=== PATIENT | female | born 1965 | race Caucasian/White ===

== ENCOUNTER 2023-11-05 14:48 | Outpatient (CLI) | payer OTHER, SELFPAY ==
--- NOTE | ~2023-11-05 | US_ITS ---
EXAMINATION: US soft tissue head and neck DATE: 11/05/2023 15:17 INDICATION: Acute lymphadenitis, unspecified. TECHNIQUE: Multiple grayscale and Doppler ultrasound images of the head and neck were obtained. COMPARISON: None FINDINGS: There are normal lymph nodes in the left neck in the patient's area of concern. IMPRESSION: 1. Normal lymph nodes in the left neck in the patient's area of concern. Reviewed, dictated and finalized at location E. [employer] ADMINISTRATOR
== END 2023-11-05 14:49 | disposition home or self-care (01) ==
DX: L04.9 Acute lymphadenitis, unspecified (principal)
CPT/HCPCS: 76536

== ENCOUNTER 2024-01-24 07:17 | Outpatient (CLI) | payer OTHER, SELFPAY ==
[2024-01-24 07:37] LABS: Hematocrit 38.1 % (35.0-49.0); Hemoglobin 11.9 g/dL (12.0-15.0); Mean Corpuscular HGB Conc 31.2 g/dL (32-36); Mean Corpuscular Hemoglobin 26.9 pg (27.0-31.0); Mean Corpuscular Volume 86.2 fL (78.0-102.0); Mean Platelet Volume 9.4 fl (9.2-11.8); Platelet Count Result 217 K/mm3 (150-420); Red Blood Count 4.42 M/mm3 (4.20-5.40); Red Cell Distribution Width 13.8 % (11.6-14.4)
[2024-01-24 08:56] LABS: Thyroid Stimulating Hormone Reflex 2.16 u/IU/mL (0.36-3.74)
[2024-01-24 08:58] LABS: Alanine Aminotransferase 30 U/L (14-59); Albumin Level 3.6 g/dL (3.4-5.0); Alkaline Phosphatase 68 U/L (46-116); Anion Gap 7 mmol/L (4-12); Aspartate Amino Transferase 21 U/L (15-37); Bilirubin,Total 0.5 mg/dL (0.00-1.00); Blood Urea Nitrogen 7 mg/dL (7-18); Calcium 8.9 mg/dL (8.5-10.1); Carbon Dioxide 29 mmol/L (21-32); Chloride 99 mmol/L (98-108); Cholesterol 200 mg/dL (0-200); Estimated Glomerular Filt Rate > 60; Glucose 97 mg/dL (70-99); HDL Direct 116 mg/dL (40-60); LDL Cholesterol Calculated 80 mg/dL (<130); Osmolality Calculated 278 mOsm/kg (285-295); Potassium 4.4 mmol/L (3.5-5.1); Sodium 135 mmol/L (136-145); Total Protein 6.1 g/dL (6.4-8.2); Triglycerides < 22 mg/dL (0-150)
[2024-01-24 10:32] LABS: Band Neutrophils Percent 0 % (0-6); Basophils Percent Manual 0 % (0-1); Eosinophils Absolute Manual 0.36 K/mm3 (0.02-0.50); Eosinophils Percent Manual 9 % (1-6); Lymphocytes Absolute Manual 1.52 K/mm3 (1.1-4.5); Lymphocytes Percent Manual 38 % (18-44); Monocytes Absolute Manual 0.52 K/mm3 (0.1-0.90); Monocytes Percent Manual 13 % (3-9); Neutrophils Percent Manual 40 % (46-73); Platelet Estimate Adequate (Adequate); Total Cells Counted 100
[2024-01-27 20:46] LABS: Vitamin D 25 Hydroxy 33 ng/mL (30-100)
== END 2024-01-24 07:18 | disposition home or self-care (01) ==
DX: Z00.00 Encounter for general adult medical examination without abnormal findings (principal); F41.9 Anxiety disorder, unspecified; F32.A Depression, unspecified; E55.9 Vitamin D deficiency, unspecified
CPT/HCPCS: 36415; 80053; 80061; 82306; 84443; 85025

== ENCOUNTER 2024-02-23 13:53 | Outpatient (CLI) | payer OTHER, SELFPAY ==
--- NOTE | ~2024-02-23 | MM_ITS ---
EXAMINATION: MM screening aliya BI w vira HISTORY: Screening mammogram TECHNIQUE: Craniocaudal and mediolateral oblique 3-D tomosynthesis images were obtained and synthetic 2-D images were generated. CAD analysis was submitted and interpreted. COMPARISON: No prior mammogram is available for comparison at this institution. BREAST PARENCHYMAL COMPOSITION: There are scattered areas of fibroglandular density. FINDINGS: There is no evidence of suspicious mass, calcification, or architectural distortion to sugg est malignancy in either breast. IMPRESSION: 1. No mammographic evidence of malignancy. 2. Recommend routine screening mammography in one year. BI-RADS Category 1: Negative Reviewed, dictated and finalized at location B.
--- NOTE | ~2024-02-23 | DEXA_ITS ---
? Bone Density Report? Name:? MAX ROBIN Patient ID:??? [id number] Age:? 58 Sex:? Female Ethnicity:? White Date of : 1965 Indication: postmenopausal; screening for osteoporosis; height loss; hysterectomy; Referring Provider: VENUS KELLY Study: Bone densitometry was performed. Exam Date: February 23, 2024 Accession number: [id number] Bone Density: Region? BMD??? T-score? Z-score?? Classification AP Spine(L1-L4)? 1.105??? 0.5?1.8? Normal Femoral Neck (Left)? 0.728?? -1.1? 0.1? Osteopenia Total Hip (Left)? 0.812?? -1.1? -0.3?Osteopenia Femoral Neck (Right)? 0.718?? -1.2? 0.0? Osteopenia Total Hip (Right)? 0.860?? -0.7? 0.1? Normal Femoral Neck Mean? 0.723?? -1.1? 0.0? Osteopenia Total Hip Mean? 0.836?? -0.9? -0.1? Normal World Health Organization criteria for BMD impression classify patients as: Normal (T-score at or above -1.0), Osteopenia (T-score between -1.0 and -2.5), or Osteoporosis (T-score at or below -2.5). 10-year Fracture Risk(1): Major Osteoporotic Fracture? 6.7% Hip Fracture? 0.4% Reported Risk Factors: [place] (), Neck BMD=0.718, BMI=26.6 (1) FRAX? Version 3.08. Fracture probability calculated for an untreated patient. Fracture probability may be lower if the patient has received treatment. Clinical Information Provided by Patient: Has used the following medications: Vitamin D, multi Has the following medical conditions: Hysterectomy Patient maximum height was 69 Menopause Age: 39 Does not regularly consume dairy products Drinks caffeinated beverages Onset of menses at age 13 Number of children 3 Missed period for more than 6 months in a row Impression: The patient has low bone mass, based on the Right Femoral Neck T- score. Discussion: BONE DENSITY IS LOW AT ONE OR MORE SKELETAL SITES. This patient's lowest T-score is low at one or more skeletal sites.? It meets the World Health Organization's (WHO) criteria for ?low bone mass?? (T-score between -1.0 and -2.5).? The patient's 10-year risk of fracture as calculated by FRAX is less than the threshold where pharmacological therapy is recommended by the National Osteoporosis Foundation (NOF).? However, all treatment decisions require clinical judgment and consideration of individual patient factors, including patient preferences, comorbidities, previous drug use, risk factors not captured in the FRAX model (e.g., frailty, falls, vitamin D deficiency, increased bone turnover, interval significant decline in bone density) and possible under or overestimation of fracture risk by FRAX. The patient should follow a healthful lifestyle (good nutrition with adequate calcium and vitamin D, and appropriate weight-bearing exercise). Follow-Up: Consider repeating this study in 2 to 3 years to reassess this patient's status, or sooner if there is some new clinical indication. Reported by: Dr. Kyle Odonnell
--- NOTE | ~2024-02-23 | XR_ITS ---
EXAMINATION: XR chest 2V Exam Date/Time: 02/23/2024 14:35 CDT HISTORY: DR hears wheezing, cough/SOBX6 weeks, [id number] Comparison: None. RESULT: Lines, tubes, and devices: Surgical clips over the right upper quadrant and GE junction. Lungs and pleura: Clear. Cardiomediastinal silhouette: Unremarkable. Other: No acute osseous or upper abdominal finding. IMPRESSION: No acute cardiopulmonary process. Reviewed, dictated and finalized at location K.
[2024-02-23 14:45] LABS: Basophils Absolute Auto 0.06 K/mm3 (0.00-0.10); Eosinophils Absolute Auto 0.52 K/mm3 (0.02-0.50); Eosinophils Percent Auto 8.8 % (1.0-6.0); Hematocrit 37.9 % (35.0-49.0); Hemoglobin 11.9 g/dL (12.0-15.0); Immature Granulocyte Absolute 0.02 K/mm3 (0.00-0.00); Immature Granulocyte Percent A 0.3 % (0.0-0.0); Immature Reticulocyte Fraction 2.9 % (2.0-16.52); Lymphocytes Absolute Auto 1.82 K/mm3 (1.10-4.50); Lymphocytes Percent Auto 30.8 % (18.0-42.0); Mean Corpuscular HGB Conc 31.4 g/dL (32-36); Mean Corpuscular Hemoglobin 26.6 pg (27.0-31.0); Mean Corpuscular Volume 84.8 fL (78.0-102.0); Mean Platelet Volume 9.4 fl (9.2-11.8); Monocytes Absolute Auto 0.62 K/mm3 (0.10-0.90); Monocytes Percent Auto 10.5 % (2.0-11.0); Neutrophils Absolute Auto 2.87 K/mm3 (1.70-7.20); Neutrophils Percent Auto 48.6 % (50.0-70.0); Platelet Count Result 240 K/mm3 (150-420); Red Blood Count 4.47 M/mm3 (4.20-5.40); Red Cell Distribution Width 13.7 % (11.6-14.4); Reticulocyte Hemoglobin Conten 31.9 pg (28.0-35.0); Reticulocyte Percent 0.94 % (0.50-1.50); Reticulocytes Absolute 0.04 M/mm3 (0.02-0.10); White Blood Count 5.9 K/mm3 (4.8-10.8)
[2024-02-23 15:35] LABS: Rheumatoid Factor Screen Negative (Negative)
[2024-02-23 15:52] LABS: Ferritin 11 ng/mL (8-252); Iron 54 ug/dL (50-170); Magnesium 1.9 mg/dL (1.8-2.4); Vitamin B12 338 pg/mL (193-986)
[2024-02-23 16:00] LABS: CRP < 0.5 mg/dL (0.0-0.9)
[2024-02-23 17:03] LABS: Erythrocyte Sedimentation Rate 8 mm/hr (0-20)
[2024-02-24 21:03] LABS: HLA B27 NEGATIVE (NEGATIVE)
[2024-02-25 13:13] LABS: Aldolase 4.3 U/L (< OR = 8.1)
[2024-02-25 14:08] LABS: Anti Cyclic Citrullinated Pept <16 UNITS
[2024-02-25 16:39] LABS: Red Blood Cell Folate 577 ng/mL RBC (>280)
== END 2024-02-23 13:54 | disposition home or self-care (01) ==
LOC: CHSIMG 13:58
PROVIDERS: PCP Internal Medicine; Visit Provider Internal Medicine
DX: D64.0 Hereditary sideroblastic anemia (principal); M25.50 Pain in unspecified joint; R05.9 Cough, unspecified; R06.02 Shortness of breath; Z87.891 Personal history of nicotine dependence; Z12.31 Encounter for screening mammogram for malignant neoplasm of breast; Z78.0 Asymptomatic menopausal state; M85.89 Other specified disorders of bone density and structure, multiple sites
CPT/HCPCS: 36415; 71046; 77063; 77067; 77080; 82085; 82607; 82728; 82747; 83540; 83735; 85025; 85046; 85652; 86038; 86039; 86140; 86200; 86430; 86812

== ENCOUNTER 2024-06-08 01:04 | Day surgery (SDC) | payer OTHER, SELFPAY ==
[2024-05-05 09:58] VITALS: BMI 25.9
--- NOTE | 2024-05-06 09:36 | PC.NURSE ---
Patient states she is currently have cardiac workup due to chest pain- feels like rubberband around chest . Stress test sched. for 05/24/2024 with colonoscopy sched. on 05/25/2024. Spoke with Yoon Grant in Dr. Gonsales's office that pt will need to be rescheduled after cardiac cleared.
[2024-06-01 12:54] VITALS: BMI 25.9
--- NOTE | 2024-06-01 12:56 | PC.NURSE ---
Patient states insurance would not approve cardiac stress test. She say Dr. Bing Alvares 05/31/2024 and she states no further testing needed and she is cleared for procedure.
[2024-06-08 11:26] VITALS: BP 150/73; PULSE 63; RESP 18; TEMP 36.1; O2SAT 100
[2024-06-08] MEDS: LACTATED RINGERS 1,000 ML 150 ML IV CONT (11:31)
--- NOTE | 2024-06-08 11:36 | WPDANESEPPF ---
Anes - Initial Pre Proc Eval Procedure: Operation Date: 06/08/24 13:30 Proposed Procedures p Esophagogastroduodenoscopy & Colonoscopy - Shawn Gonsales DO Date/Time: 06/08/24 11:36 Surgeon: Shawn Gonsales DO Pre Op Diagnosis: Screening for malignant neoplasm of colon, GERD Patient Data Age: 58 Gender: F Height: 1.73 m Weight: 77 kg Last Vital Signs Temp 97.0 F L 06/08/24 11:26 Pulse 63 06/08/24 11:26 Resp 18 06/08/24 11:26 BP 150/73 H 06/08/24 11:26 Pulse Ox 100 06/08/24 11:26 O2 Del Method Room Air 06/08/24 11:26 Allergies Allergy/AdvReac Type Severity Reaction Status Date / Time fexofenadine [From Promise-D] Allergy Severe Anaphylaxis Verified 06/08/24 11:25 methotrexate Allergy Severe Hives Verified 06/08/24 11:25 moxifloxacin [From Avelox] Allergy Severe Anaphylaxis Verified 06/08/24 11:25 pseudoephedrine Allergy Severe Anaphylaxis Verified 06/08/24 11:25 [From Promise-D] cephalexin [From Keflex] AdvReac Severe Gastrointestinal Verified 06/08/24 11:25 Upset Sutures AdvReac Severe Other Verified 06/08/24 11:25 duloxetine AdvReac Intermediate Other Verified 06/08/24 11:25 Home Medications Medication Instructions Recorded Confirmed Type aspirin 81 mg tablet,delayed 81 mg PO DAILY 05/05/24 06/08/24 History release bupropion HCl 300 mg 24 hr tablet, 300 mg PO DAILY 05/05/24 06/08/24 History extended release cholecalciferol (vitamin D3) 25 25 mcg PO DAILY 05/05/24 06/08/24 History mcg (1,000 unit) capsule (Vitamin D3) estradiol 0.01% (0.1 mg/gram) 1 g vaginal 2XW 05/05/24 06/08/24 History vaginal cream hydrocodone 5 mg-acetaminophen 325 1 tablet PO Q8H PRN Pain 05/05/24 06/08/24 History mg tablet lisinopril 10 1 tablet PO DAILY 05/05/24 06/08/24 History mg-hydrochlorothiazide 12.5 mg tablet magnesium oxide 400 mg PO DAILY 05/05/24 06/08/24 History multivitamin 1 tablet PO DAILY 05/05/24 06/08/24 History omeprazole 20 mg capsule,delayed 20 mg PO BID 05/05/24 06/08/24 History release ropinirole 2 mg tablet 2 mg PO HS 05/05/24 06/08/24 History vitamin B complex 0.5 tablet PO DAILY 05/05/24 06/08/24 History Patient hx anesthesia problems: none Family hx anesthesia problems: none Results Review: All pre-operative results and documents have been reviewed as part of the pre-operative evaluation. [facility] Family History Family History (Updated 06/16/14 @ 07:13 by DOCTOR UNKNOWN) Father Carcinoma of colon Family history of primary malignant neoplasm of liver Mother Family history of heart disease in male family member before age 55 Other Family history of coronary artery disease Hypertension Social History Social History Smoking status: Current some day smoker Tobacco type: e-cigarettes/vaping Second hand tobacco smoke exposure: Yes Alcohol intake: current Substance use: never Substance use type: does not use Living arrangements: with family Spiritual care concerns: No Anes - Eval Final PreProcedure Day of Procedure 06/08/24 11:36 Patient weight: normal Heart: regular rate and rhythm Lungs: clear to auscultation Airway: Mallampati scale class II Neurological: alert and oriented Last oral intake: >/= 8 hours ASA classification: III Emergent: no Anesthetic plan: proceed Anesthesia type and monitoring: general GIVS and standard monitoring Results Review: All pre-operative results and documents have been reviewed as part of the pre-operative evaluation. Informed Consent: The patient's anesthetic plan and its attendant risks and benefits were discussed with the patient/family/POA. Questions were solicited and answers provided to the satisfaction of the patient/family/POA.
--- NOTE | 2024-06-08 11:52 | PM.IMHP ---
H&P: HPI History of Present Illness Date/Time: 06/08/24 11:52 Chief Complaint: gastroesophageal reflux disease, family history of colon cancer Narrative: this is a 58-year-old woman who presents for EGD and colonoscopy. She has been experiencing some acid reflux and heartburn issues. She is on omeprazole but is not having much benefit with this. She denies any hematemesis or any melena. She does have a history of gastric bypass for weight loss. Patient also has a family history of colon cancer in her father. She has polyps removed in the past. It has been about 3 years since her last colonoscopy. Review of Systems Review of Systems: All systems reviewed & are unremarkable except as noted in HPI and below Constitutional: Constitutional: Denies chills, Denies fever(s), Denies headache(s) and Denies weight loss Eyes: Eyes: Denies change in vision ENT: Denies dizziness, Denies headache(s), Denies neck mass and Denies throat swelling Cardiovascular: Cardiovascular: Denies chest pain, Denies lightheadedness and Denies dyspnea Respiratory: Respiratory: Denies cough, Denies dyspnea and Denies wheezing Gastrointestinal: Gastrointestinal: Denies abdominal pain, Denies change in bowel habits, Denies nausea and Denies vomiting Genitourinary: Genitourinary: Denies hematuria and Denies dysuria Musculoskeletal: Musculoskeletal: Reports as per HPI Integumentary/Breasts: Skin/Breast: Reports as per HPI Neurologic: Denies dizziness and Denies headache(s) Allergic/Immunologic: Allergic/Immunologic: Denies throat swelling and Denies wheezing [facility] Family History Family History (Updated 06/16/14 @ 07:13 by DOCTOR UNKNOWN) Father Carcinoma of colon Family history of primary malignant neoplasm of liver Mother Family history of heart disease in male family member before age 55 Other Family history of coronary artery disease Hypertension Social History Social History Smoking status: Current some day smoker Tobacco type: e-cigarettes/vaping Second hand tobacco smoke exposure: Yes Alcohol intake: current Substance use: never Substance use type: does not use Living arrangements: with family Spiritual care concerns: No Meds Home Medications and Allergies Home Medications Medication Instructions Recorded Confirmed Type aspirin 81 mg tablet,delayed 81 mg PO DAILY 05/05/24 06/08/24 History release bupropion HCl 300 mg 24 hr tablet, 300 mg PO DAILY 05/05/24 06/08/24 History extended release cholecalciferol (vitamin D3) 25 25 mcg PO DAILY 05/05/24 06/08/24 History mcg (1,000 unit) capsule (Vitamin D3) estradiol 0.01% (0.1 mg/gram) 1 g vaginal 2XW 05/05/24 06/08/24 History vaginal cream hydrocodone 5 mg-acetaminophen 325 1 tablet PO Q8H PRN Pain 05/05/24 06/08/24 History mg tablet lisinopril 10 1 tablet PO DAILY 05/05/24 06/08/24 History mg-hydrochlorothiazide 12.5 mg tablet magnesium oxide 400 mg PO DAILY 05/05/24 06/08/24 History multivitamin 1 tablet PO DAILY 05/05/24 06/08/24 History omeprazole 20 mg capsule,delayed 20 mg PO BID 05/05/24 06/08/24 History release ropinirole 2 mg tablet 2 mg PO HS 05/05/24 06/08/24 History vitamin B complex 0.5 tablet PO DAILY 05/05/24 06/08/24 History Allergies Allergy/AdvReac Type Severity Reaction Status Date / Time fexofenadine [From Promise-D] Allergy Severe Anaphylaxis Verified 06/08/24 11:25 methotrexate Allergy Severe Hives Verified 06/08/24 11:25 moxifloxacin [From Avelox] Allergy Severe Anaphylaxis Verified 06/08/24 11:25 pseudoephedrine Allergy Severe Anaphylaxis Verified 06/08/24 11:25 [From Promise-D] cephalexin [From Keflex] AdvReac Severe Gastrointestinal Verified 06/08/24 11:25 Upset Sutures AdvReac Severe Other Verified 06/08/24 11:25 duloxetine AdvReac Intermediate Other Verified 06/08/24 11:25 Vital Signs Vital Signs - 24 hr 06/08/24 11:26 Temperature 36.1 C L Pulse Rate 63 Respir
--- NOTE | 2024-06-08 12:11 | SUR.OPER ---
EGD [id number]. Colonoscopy start 1211.
[2024-06-08 12:36] VITALS: BP 145/80; PULSE 62; RESP 12; O2SAT 100
[2024-06-08 12:46] VITALS: BP 157/88; PULSE 63; RESP 14; O2SAT 100
[2024-06-08 12:55] VITALS: BP 148/83; PULSE 68; RESP 18; O2SAT 100
[2024-06-08 13:05] LABS: HPYLORIRESULT Negative
== END 2024-06-08 13:13 | disposition home or self-care (01) ==
PROVIDERS: PCP Internal Medicine; Visit Provider Surgery
PROC: 0DJ08ZZ Inspection of Upper Intestinal Tract, Via Natural or Artificial Opening Endoscopic (ICD-10-PCS; CPT 43235; principal; 2024-06-08 13:30)
DX: Z12.11 Encounter for screening for malignant neoplasm of colon (principal); Q27.33 Arteriovenous malformation of digestive system vessel; K21.9 Gastro-esophageal reflux disease without esophagitis; F17.290 Nicotine dependence, other tobacco product, uncomplicated; Z79.82 Long term (current) use of aspirin; Z79.891 Long term (current) use of opiate analgesic; Z98.890 Other specified postprocedural states; Z98.84 Bariatric surgery status; Z86.010 Personal history of colon polyps; Z80.0 Family history of malignant neoplasm of digestive organs; Z82.49 Family history of ischemic heart disease and other diseases of the circulatory system
CPT/HCPCS: 43239; 45380; 87081; 88305; J2704; J7120

== ENCOUNTER 2024-06-17 07:09 | Outpatient (CLI) | payer OTHER, SELFPAY ==
--- NOTE | ~2024-06-17 | MR_ITS ---
MRI of the lumbar spine Clinical History: Back pain Technique: Axial T2-weighted images, and sagittal T1-weighted, T2-weighted, and and T2 fat-sat images were acquired. Findings: No fracture seen. There is 3 mm anterolisthesis of L4 over L5. No suspicious bone marrow si gnal abnormality seen. At L1-L2, there is no disc bulge or herniation. No spinal canal stenosis or neural foraminal narrowin g. At L2-L3, there is mild disc desiccation with minimal disc bulge. There is minimal facet arthropathy. No central canal stenosis. There is mild bilateral neural foraminal narrowing. At L3-L4, there is diffuse disc bulge and moderate to severe facet arthropathy. There is moderate to severe spinal canal stenosis/thecal sac compression. There is moderate to advanced bilateral neural f oraminal narrowing. At L4-L5, diffuse disc bulge and severe facet arthropathy contribute to severe spinal canal stenosis/ thecal sac compression. There is moderate to advanced left neural foraminal narrowing. There is mild to moderate right neural foraminal narrowing. At L5-S1, there is minimal disc bulge. There is moderate facet arthropathy. No central canal stenosis . There is mild left neural foraminal narrowing. Right neural foramen preserved. Paravertebral soft tissues are unremarkable. Impression: Severe degenerative spondylosis at L3-L4 and L4-L5, as detailed above. Additional mild degenerative changes, as above. 3 mm anterolisthesis of L4 over L5. Reviewed, dictated and finalized at [facility]. Impression: Severe degenerative spondylosis at L3-L4 and L4-L5, as detailed above. Additional mild degenerative changes, as above. 3 mm anterolisthesis of L4 over L5.
== END 2024-06-17 07:10 | disposition home or self-care (01) ==
LOC: CHSIMG 07:11
PROVIDERS: PCP Internal Medicine; Visit Provider Internal Medicine
DX: M54.50 Low back pain, unspecified (principal); M43.06 Spondylolysis, lumbar region
CPT/HCPCS: 72148

== ENCOUNTER 2024-09-24 07:12 | Outpatient (CLI) | payer OTHER, SELFPAY ==
[2024-09-24 08:15] LABS: Anion Gap 8 mmol/L (4-12); Blood Urea Nitrogen 13 mg/dL (7-18); Calcium 9.1 mg/dL (8.5-10.1); Carbon Dioxide 28 mmol/L (21-32); Chloride 100 mmol/L (98-108); Estimated Glomerular Filt Rate > 60; Glucose 90 mg/dL (70-99); Osmolality Calculated 282 mOsm/kg (285-295); Potassium 4.4 mmol/L (3.5-5.1); Sodium 136 mmol/L (136-145)
== END 2024-09-24 07:13 | disposition home or self-care (01) ==
PROVIDERS: PCP Internal Medicine; Visit Provider Internal Medicine
DX: I10 Essential (primary) hypertension (principal)
CPT/HCPCS: 36415; 80048

== ENCOUNTER 2024-09-30 16:12 | Outpatient (CLI) | payer OTHER, SELFPAY ==
--- NOTE | ~2024-09-30 | XR_ITS ---
EXAMINATION: XR chest 2V DATE: 09/30/2024 16:31 INDICATION: Fever. Headache. TECHNIQUE: Frontal and lateral views of the chest were obtained. COMPARISON: Chest 2 views 02/23/2024 FINDINGS: There is no pneumonia, pleural effusion, or pneumothorax. The heart size is normal. IMPRESSION: 1. No acute cardiopulmonary disease. Reviewed, dictated and finalized at location A. TOR MECH[employer]IC
[2024-09-30 16:27] LABS: Basophils Absolute Auto 0.05 K/mm3 (0.00-0.10); Basophils Percent Auto 0.6 % (0.0-1.0); Eosinophils Percent Auto 5.6 % (1.0-6.0); Hematocrit 34.2 % (35.0-49.0); Hemoglobin 11.3 g/dL (12.0-15.0); Immature Granulocyte Absolute 0.04 K/mm3 (0.00-0.00); Immature Granulocyte Percent A 0.4 % (0.0-0.0); Lymphocytes Absolute Auto 2.26 K/mm3 (1.10-4.50); Lymphocytes Percent Auto 25.2 % (18.0-42.0); Mean Corpuscular Hemoglobin 27.3 pg (27.0-31.0); Mean Corpuscular Volume 82.6 fL (78.0-102.0); Mean Platelet Volume 9.1 fl (9.2-11.8); Monocytes Absolute Auto 0.89 K/mm3 (0.10-0.90); Monocytes Percent Auto 9.9 % (2.0-11.0); Neutrophils Absolute Auto 5.23 K/mm3 (1.70-7.20); Neutrophils Percent Auto 58.3 % (50.0-70.0); Platelet Count Result 216 K/mm3 (150-420); Red Blood Count 4.14 M/mm3 (4.20-5.40); Red Cell Distribution Width 14.5 % (11.6-14.4)
[2024-09-30 17:03] LABS: Alanine Aminotransferase 30 U/L (14-59); Albumin Level 3.4 g/dL (3.4-5.0); Alkaline Phosphatase 93 U/L (46-116); Anion Gap 6 mmol/L (4-12); Aspartate Amino Transferase 19 U/L (15-37); Bilirubin,Total 0.3 mg/dL (0.00-1.00); Blood Urea Nitrogen 10 mg/dL (7-18); Calcium 8.8 mg/dL (8.5-10.1); Carbon Dioxide 30 mmol/L (21-32); Chloride 99 mmol/L (98-108); Estimated Glomerular Filt Rate > 60; Glucose 93 mg/dL (70-99); Osmolality Calculated 279 mOsm/kg (285-295); Potassium 4.3 mmol/L (3.5-5.1); Sodium 135 mmol/L (136-145); Total Protein 6.4 g/dL (6.4-8.2)
== END 2024-09-30 16:13 | disposition home or self-care (01) ==
PROVIDERS: PCP Internal Medicine; Visit Provider Internal Medicine
DX: R05.9 Cough, unspecified (principal); R50.9 Fever, unspecified
CPT/HCPCS: 36415; 71046; 80053; 85025

== ENCOUNTER 2025-01-05 06:37 | Outpatient (CLI) | payer OTHER, SELFPAY ==
--- OUTSIDE RECORDS SUMMARY | 2025-01-05 06:41 | XMS_ITS | Clinical Summary ---
Author Organization [facility] Address [facility] [place] [address] Care Team Providers Care Mixer Tender Name Role Phone Scott Guerrero MD Unavailable Bing Alvares MD Unavailable Lynette Ponce MD Primary Care Provider [phone] Allergies Active Allergy Reactions Criticality Noted Date Comments Cephalexin Nausea and Vomiting Low 06/24/2012 Codeine Nausea and Vomiting 06/24/2012 Only tylenol with codeine bothers her Duloxetine Hcl Other (see comment) 08/17/2019 Elevated liver enzymes Fexofenadine Anaphylaxis,Angioedema High 03/19/2018 Took with avalox, not sure which med caused the problems Methotrexate Rash Medium 06/18/2018 Moxifloxacin Anaphylaxis,Angioedema High 06/24/2012 With moe, not sure which med caused problems Sulfa Antibiotics Nausea Only Low 06/24/2012 Only the pill form Suture Material Other (see comment) 01/15/2019 Vicryl-09/2018 surgery-left foot wound dehisced Medications Zinc 50 MG Cap Take 1 tablet by mouth daily. Active Cholecalciferol (VITAMIN D3) 25 MCG (1000 UT) Cap Take 1 tablet by mouth daily. Active B complex-C Cap capsule Take 1 capsule by mouth daily. Active MULTIPLE VITAMIN OR Active estradiol (ESTRACE) 0.1 MG/GM vaginal creamIndication s:H/O ongoing treatment with hormonal therapy INSERT 1 GRAM VAGINALLY DIRECTED TWICE WEEKLY 43 g 3 Active Magnesium 400 MG Cap Take by mouth nightly. Active HYDROcodone-chalo taminophen (NORCO) 5-325 MG tabletIndicatio ns:Chronic Pain,low back pain and neck pain Take 1 tablet by mouth every 8 (eight) hours as needed for Pain. Indications: Chronic Pain, low back pain and neck pain 40 tablet 4 Active rOPINIRole (REQUIP) 0.5 MG tabletIndicatio ns:Restless leg Take 1 tablet (0.5 mg total) by mouth daily. 90 tablet 4 Active omeprazole (PRILOSEC) 20 MG capsule Take 1 capsule (20 mg total) by mouth 2 (two) times a day. Active buPROPion XL (WELLBUTRIN XL) 300 MG 24 hr tablet Take 1 tablet (300 mg total) by mouth daily. Active clonazePAM (KLONOPIN) 1 MG tablet Take 1 tablet (1 mg total) by mouth 3 (three) times daily. 4 Active hydroCHLOROthia zide (MICROZIDE) 12.5 MG tablet Take 1 tablet (12.5 mg total) by mouth every morning. 90 tablet 1 4 Active Active Problems Problem Noted Date Diagnosed Date Elevated liver enzymes 02/22/2019 Rheumatoid factor positive 03/26/2018 Chronic back pain 03/19/2018 History of gastric bypass 03/19/2018 Hypertension 03/19/2018 Pain in joint 03/19/2018 Arthritis 03/19/2018 Skin cancer 03/19/2018 Cystocele, midline 03/01/2015 Overview (08/20/2019): Date Onset: 03/01/2015 Rectocele 03/01/2015 Overview (08/20/2019): Date Onset: 03/01/2015 Uterovaginal prolapse, incomplete 03/01/2015 Overview (08/20/2019): Date Onset: 03/01/2015 Peripheral neuropathy 06/25/2012 Gastro-esophageal reflux disease without esophag itis 06/24/2012 Migraine 06/24/2012 Polycystic ovarian syndrome 06/24/2012 Resolved Problems Problem Noted Date Diagnosed Date Resolved Date Episode of recurrent major d epressive disorder 08/20/2018 10/25/2022 Anxiety and depression 03/19/201810/25 Aching leg syndrome 03/19/2018 10/25/19 23 Intrinsic urethral sphincter deficiency 03/08/2015 03/14/2022 Overview (09/08/2018): Date Onset: 03/08/2015 Dyspareunia 03/01/2015 10/25/2022 Overview (08/20/2019): Date Onset: 03/01/2015 Stress incontinence 03/01/2015 03/14/20 22 Overview (08/20/2019): Date Onset: 03/01/2015 Fibromyalgia 06/25/2012 08/13/2021 ADHD 06/24/2012 12/25/2021 Immunizations Name Administration Dates Next Due Dtap (Generic) 11/17/2019 Fluzone 6 Months+ Quad (0.5 mL Prefilled Syringe) 07/12/2021 Hepatitis A (Generic) 05/21/2009,12/12/2006,0811/2005 Hepatitis B 04/18/2021 Hepatitis B (Generic: Adult) 04/26/2014,03/11/20 06 Influenza 3 yrs + with Prese rvative (Fluzone) 07/27/2020 Influenza Adult (Generic) 08/17/2023,07/26/2022, 07/20/2019 MMR 02/23/2009 MODERNA COVID-19 (COST CONTROL SUPERVISOR DENNIS JOAQUINA), MRNA, LNP-S, PF, 50 MCG/ 0.25 ML DOSE 05/09/2022 Tdap (Adacel) 11/17/2019,04/26/2014 Typhoid 12/20/2008 Varicella (Varivax) 06/12/2021,05/11/2021 Family History Medical History Relation Comments No Known Problems Daughter 1 No Known Problems Daughter 2 Cancer Father Aneurysm Maternal Grandmother Diabetes Mother Heart Disease Mother Open Heart Mother Stent Cardiac Mother Stroke Mother Aneurysm Sister aortic aneurysm No Known Problems Son Relation Status Comments Daughter 1 Alive Daughter 2 Alive Father (Age 63) Maternal Grandmother Alive Mother Alive Sister Alive Son Alive Social History Tobacco Use Types Packs/Day Years Used Date Smoking Tobacco: Former Cigarettes 2 2016 Smokeless Tobacco: Never Tobacco Cessation:Counseling Given: Not Answered Comments:no longer a smoker Alcohol Use Standard Drinks/Week Comments No 0 (1 standard drink = 0.6 oz pure alcohol) drank a lot 17 years ago;stopped approx 2001 AUDIT-C Answer Date Recorded Frequency of Alcohol Consumption Never 09/07/2018 Average Number of Drinks Not on file 018 Frequency of Binge Drinking Not on file 08/20 PHQ-2 Answer Date Recorded Patient Health Questionnaire-2 Score 0 10/07/2023 Comments No Sex and Gender Information Value Date Recorded Sex Assigned at Not on file Legal Sex Female 4:43 PM CDT Gender Identity Not on file Sexual Orientation Not on file Occupation Industry Job Start Date Job End Date Not on file Not on file Not on file Not on file Last Filed Vital Signs Vital Sign Reading Time Taken Comments Blood Pressure 121/77 05/31/2024 2:35 PM CDT Pulse 68 05/31/2024 2:35 PM CDT Temperature 36.6 C (97.9 F) 10/07/2023 8:34 AM M[employer]IE [employer]OT [employer]ER[employer] Respiratory Rate 12 05/31/2024 2:35 PM CDT Oxygen Saturation 100% 05/31/2024 2:35 PM CDT Inhaled Oxygen Concentration - - Weight 76.2 kg (168 lb) 05/31/2024 2:35 PM CDT Height 170.2 cm (5' 7 ) 05/31/2024 2:35 PM CDT Body Mass Index 26.31 05/31/2024 2:35 PM CDT Plan of Treatment Upcoming Encounters Date Type Department Care Team (Late st Contact Info) Description 06/13/2025 10:45 AM CDT Office Visit [facility] [place] [address] Bing Alvares MD [address] [place] [address] Health Maintenance Due Date Last Done Comments Colorectal Cancer Screening Colonoscopy (10 Years) 1966 Mammogram Screening 2006 Zoster Vaccines (1 of 2) 08/07/2021 Annual Physical 03/02/2022 03/02/2021 COVID-19 Vaccine ( season) 2024 07/26/2022, 05/09/2022, 03/23/2021 Influenza Adult (#1) 2024 08/17/2023, 07/26/2022, 07/12/2021, Additional history exists PHQ-2 (Physician [place]) 10/20/2024 10/07/2023 DTaP, Tdap and Td Vaccines (4 - Td or Tdap) 11/17/2029 11/17/2019, 11/17/2019, 04/26/2014 Hepatitis C 05/13/2053 Postponed from 1984 (Patient Refused) Hepatitis B Vaccines Completed 04/18/2021, 04/26/2014, 03/11/2006 Meningococcal B Vaccine Aged Out No l onger eligible based on patient's age to complete this topic Meningococcal Vaccine Aged Out No leon terrie eligible based on patient's age to complete this topic Pneumococcal Vaccine: Pediatrics (0 to 5 Years) and At-Risk Patients (6 to 64 Years) Aged Out No longer eligible based on patient's age to complete this topic RSV Immunizations Under 20 Months Aged Out No longer eligible based on patient's age to complete this topic Medical Devices Implanted Type Area Timber Harvester Operator Device Identifier Shelf Expiration Date Model / Serial / Lot Wire Abhilash Magic Pins Orthofix 1.2 X 7mm - [id number] Implanted:Qty: 1 on 09/23/2018 by Tressa Traylor DPM at [facility] [place] Left: Foot ORTHOFIX [id number] / / N/A Description:Verified by Screw Acutrak 2 Mini 20.0mm - [id number] Implanted:Qty: 1 on 09/23/2018 by Tressa Traylor DPM at [facility] Left: Foot [employer] 05/20/2025 AT2-[id number] / / [id number] Description:Verified by Wire Abhilash Magic Pins Orthofix 1.6 X 17 - [id number] Implanted:Qty: 1 on 09/23/2018 by Tressa Traylor DPM at [facility] Left: Foot ORTHOFIX [id number] / / N/A Description:Verified by Wire Abhilash Magic Pins Orthofix 1.6 X 11 - [id number] Implanted:Qty: 1 on 01/20/2019 by Tressa Traylor DPM at [facility] Right: Foot ORTHOFIX [id number] / / N/A Description:Verified by Screw Acutrak 2 Mini 18.0mm - [id number] Implanted:Qty: 1 on 01/20/2019 by Tressa Traylor DPM at [facility] Right: Foot [employer] 08/03/2025 [id number] / / [id number] Description:Verified by Wire Abhilash Magic Pins Orthofix 1.6 X 17 - [id number] Implanted:Qty: 1 on 01/20/2019 by Tressa Traylor DPM at [facility] Right: Foot ORTHOFIX [id number] / / N/A Description:Verified by Explanted Type Area Timber Harvester Operator Device Identifier Shelf Expiration Date Model / Serial / Lot .045mm Mini Guidewire Explanted:Qty: 2 on 09/23/2018 by Tressa Traylor DPM at [facility] Left: Foot [id number] / / N/A Description:Used not implant ed Sm Cannulated Drill Tip Explanted:Qty: 1 on 09/23/2018 by Tressa Traylor DPM at [facility] Left: Foot [id number] / / N/A Description:Used not implant ed K Wire Lionel 6 In X .045 In - [id number] Explanted:Qty: 1 on 01/20/2019 by Tressa Traylor DPM at [facility] Right: Foot [employer] 05/19/2028 [id number] / / [id number] Description:Used not implant ed .045 Mini Guidewire Explanted:Qty: 1 on 01/20/2019 by Tressa Traylor DPM at [facility] Right: Foot [id number] / / N/A Description:Used not implant [id number] Mini Drill Tip Explanted:Qty: 1 on 01/20/2019 by Tressa Traylor DPM at [facility] Right: Foot [id number] / / N/A Description:Used not implant ed Advance Directives Documents on File Type Date Recorded Patient Manager Commodities Expl anation Advance Directives and Living Will 04/04/2015 12:00 AM ADVANCED DIRECTIVES Advance Directives and Living Will 02/09/2015 12:00 AM ADVANCED DIRECTIVES Advance Directives and Living Will 03/08/2013 12:00 AM ADVANCED DIRECTIVES Advance Directives and Living Will 06/30/2012 12:00 AM ADVANCED DIRECTIVES Care Teams Mixer Tender Relationship Specialty Start Date End Date Lynette Ponce MD [address] [place] [phone] PCP - General 03/29/24 Scott Guerrero MD Consulting Physician GASTROENTEROLOGY 03/04/19 Bing Alvares MD [address] [place] [address] Consulting Physician CARDIOVASCULAR DISEASE 03/22/24
--- OUTSIDE RECORDS SUMMARY | 2025-01-05 06:41 | XMS_ITS | Encounter Summary ---
Author Organization [facility] Address [address] [place] [address] Care Team Providers Care Circulation Crew Leader Name Role Phone Ivette [place] NP Unavailable [phone] Fabian Palacios MD Unavailable Unavailable Scott Guerrero MD Unavailable Nerissa [place] MD Unavailable [phone] [address] [facility] Unavailable [phone] Lynette Ponce MD Primary Care Provider [phone] Bing Alvares MD Unavailable Lynette Ponce MD Primary Care Provider [phone] Encounter Details Date Type Department Care Team (Late st Contact Info) Description 01/29/2019 MyChart Message Enc [facility] MultiSpecialty Care [facility] [address] [place] [address] Melissa Watson, [place] [address] [place] [address] Other Social History Tobacco Use Types Packs/Day Years Used Date Smoking Tobacco: Former Cigarettes 2012 Smokeless Tobacco: Never Alcohol Use Standard Drinks/Week Comments No 0 (1 standard drink = 0.6 oz pure alcohol) drank a lot 17 years ago;stopped approx 2001 AUDIT-C Answer Date Recorded Frequency of Alcohol Consumption Never 09/07/2018 Average Number of Drinks Not on file 018 Frequency of Binge Drinking Not on file 08/20 PHQ-2 Answer Date Recorded PHQ-2 Score 2 01/15/2019 Comments No Sex and Gender Information Value Date Recorded Sex Assigned at Not on file Legal Sex Female 4:43 PM CDT Gender Identity Not on file Sexual Orientation Not on file documented as of this encounter Plan of Treatment Upcoming Encounters Date Type Department Care Team (Late st Contact Info) Description 06/13/2025 10:45 AM CDT Office Visit [facility] [place] [address] Bing Alvares MD [address] [place] [address] documented as of this encounter Visit Diagnoses Not on filedocumented in this encounter Additional Health Concerns Infection Onset Date Last Indicated Resolved Time COVID-19 Rule Out 03/06/2020 03/03/2020 03/06/2020 9:26 AM CDT documented as of this encounter Care Teams Circulation Crew Leader Relationship Specialty Start Date End Date Lynette Ponce MD [address] [place] [address] PCP - General INTERNAL MEDICINE 03/08/24 03/16/24 Lynette Ponce MD [address] [place] [address] PCP - General 03/29/24 Ivette [place] NP [place] [employer] NURSE PRACTITIONER 02/09/19 03/25/24 Fabian Palacios MD [place] [employer] INTERVENTIONAL CARDIOLOGY 02/09/19 03/16/19 Scott Guerrero MD Consulting Physician GASTROENTEROLOGY 03/04/19 Nerissa [place] MD [place] [employer] CARDIOVASCULAR DISEASE 03/17/19 03/25/24 Carline Plummer [facility] NURSE PRACTITIONER 12/22/20 02/28/22 Bing Alvares MD [address] [place] [address] Consulting Physician CARDIOVASCULAR DISEASE 03/22/24 documented as of this encounter
--- OUTSIDE RECORDS SUMMARY | 2025-01-05 06:41 | XMS_ITS | Encounter Summary ---
Author Organization [facility] Address [address] [place] [address] Care Team Providers Care Computer Numerical Control Operator Name Role Phone Ivette [place] NP Unavailable [phone] Scott Guerrero MD Unavailable Nerissa [place] MD Unavailable [phone] Carline Plummer [facility] Unavailable [phone] Lynette Ponce MD Primary Care Provider [phone] Bing Alvares MD Unavailable Lynette Ponce MD Primary Care Provider [phone] Encounter Details Date Type Department Care Team (Late st Contact Info) Description 12/09/2019 Net[employer] Message Enc [facility] Medical Group MultiSpecialty Care [facility] [address] [place] [address] Teri oMjica, [facility] [address] [place] [address] Other Social History Tobacco Use Types Packs/Day Years Used Date Smoking Tobacco: Former Cigarettes 2016 Smokeless Tobacco: Never Alcohol Use Standard Drinks/Week Comments No 0 (1 standard drink = 0.6 oz pure alcohol) drank a lot 17 years ago;stopped approx 2001 AUDIT-C Answer Date Recorded Frequency of Alcohol Consumption Never 09/07/2018 Average Number of Drinks Not on file 018 Frequency of Binge Drinking Not on file 08/20 PHQ-2 Answer Date Recorded PHQ-2 Score 0 11/18/2019 Comments No Sex and Gender Information Value Date Recorded Sex Assigned at Not on file Legal Sex Female 4:43 PM CDT Gender Identity Not on file Sexual Orientation Not on file documented as of this encounter Plan of Treatment Upcoming Encounters Date Type Department Care Team (Late st Contact Info) Description 06/13/2025 10:45 AM CDT Office Visit [facility] [place] [address] Bing Alvares MD [address] [place] [address] documented as of this encounter Visit Diagnoses Not on filedocumented in this encounter Additional Health Concerns Infection Onset Date Last Indicated Resolved Time COVID-19 Rule Out 03/06/2020 03/03/2020 03/06/2020 9:26 AM CDT Assessment Noted Time PHQ-9 Depression Total Score: 19 019 4:41 PM CDT documented as of this encounter Care Teams Computer Numerical Control Operator Relationship Specialty Start Date End Date Lynette Ponce MD [address] [place] [address] PCP - General INTERNAL MEDICINE 03/08/24 03/16/24 Lynette Ponce MD [address] [place] [address] PCP - General 03/29/24 Ivette [place] NP [place] Senior Data Modeler NURSE PRACTITIONER 02/09/19 03/25/24 Scott Guerrero MD Consulting Physician GASTROENTEROLOGY 03/04/19 Nerissa [place] MD [place] Senior Data Modeler CARDIOVASCULAR DISEASE 03/17/19 03/25/24 Carline Plummer FNP-BC NURSE PRACTITIONER 12/22/20 02/28/22 Bing Alvares MD [address] [place] [address] Consulting Physician CARDIOVASCULAR DISEASE 03/22/24 documented as of this encounter
--- OUTSIDE RECORDS SUMMARY | 2025-01-05 06:41 | XMS_ITS | Encounter Summary ---
Author Organization [facility] Address [address] [place] [address] Care Team Providers Care Hose Sprayer Name Role Phone Ivette [place] NP Unavailable [phone] Scott Guerrero MD Unavailable Nerissa [place] MD Unavailable [phone] Carline Plummer [facility] Unavailable [phone] Lynette Ponce MD Primary Care Provider [phone] Bing Alvares MD Unavailable Lynette Ponce MD Primary Care Provider [phone] Reason for Visit * Reason Onset Date Comments Prior Authorization 08/17/2019 Encounter Details Date Type Department Care Team (Latest Contact Info) Description 08/17/2019 [employer] Message Enc [facility] Medical Group MultiSpecialty Care [address] [address] Teri Mojica, [facility] [address] [place] [address] Medication Questions Social History Tobacco Use Types Packs/Day Years Used Date Smoking Tobacco: Former Cigarettes 2016 Smokeless Tobacco: Never Alcohol Use Standard Drinks/Week Comments No 0 (1 standard drink = 0.6 oz pure alcohol) drank a lot 17 years ago;stopped approx 2001 AUDIT-C Answer Date Recorded Frequency of Alcohol Consumption Never 09/07/2018 Average Number of Drinks Not on file 11/19/2 018 Frequency of Binge Drinking Not on file 08/20 PHQ-2 Answer Date Recorded PHQ-2 Score 2 01/15/2019 Comments No Sex and Gender Information Value Date Recorded Sex Assigned at Not on file Legal Sex Female 4:43 PM CDT Gender Identity Not on file Sexual Orientation Not on file documented as of this encounter Progress Notes * Madhuri Traylor - 08/24/2019 12:25 PM CST Pt calling back in regards to [employer]. 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 Pharmacy faxed request last Friday08/18/19 TING TABLE WORKER documented in this encounter Plan of Treatment Upcoming Encounters Date Type Department Care Team (Late st Contact Info) Description 06/13/2025 10:45 AM CDT Office Visit [facility] [address] [place] [address] Bing Alvares MD [address] [place] [address] documented as of this encounter Visit Diagnoses Not on filedocumented in this encounter Additional Health Concerns Infection Onset Date Last Indicated Resolved Time COVID-19 Rule Out 03/06/2020 03/03/2020 03/06/2020 9:26 AM CDT Assessment Noted Time PHQ-9 Depression Total Score: 19 019 4:41 PM CDT documented as of this encounter Care Teams Hose Sprayer Relationship Specialty Start Date End Date Lynette Ponce MD [address] [place] [address] PCP - General INTERNAL MEDICINE 03/08/24 03/16/24 Lynette Ponce MD [address] [place] [address] PCP - General 03/29/24 Ivette [place] NP [place] [employer] Dipper NURSE PRACTITIONER 02/09/19 03/25/24 Scott Guerrero MD Consulting Physician GASTROENTEROLOGY 03/04/19 Nerissa [place] MD [place] [employer] Dipper CARDIOVASCULAR DISEASE 03/17/19 03/25/24 Carline Plummer FNP-BC NURSE PRACTITIONER 12/22/20 02/28/22 Bing Alvares MD [address] [place] [address] Consulting Physician CARDIOVASCULAR DISEASE 03/22/24 documented as of this encounter
--- OUTSIDE RECORDS SUMMARY | 2025-01-05 06:41 | XMS_ITS | Encounter Summary ---
Author Organization [facility] Address [address] [place] [address] Care Team Providers Care Clearance Center Manager Name Role Phone Ivette [place] NP Unavailable [phone] Scott Guerrero MD Unavailable Nerissa [place] MD Unavailable [phone] Carline Plummer [facility] Unavailable [phone] Lynette Ponce MD Primary Care Provider [phone] Bing Alvares MD Unavailable Lynette Ponce MD Primary Care Provider [phone] Encounter Details Date Type Department Care Team (Late st Contact Info) Description 01/09/2021 MyChart Message Enc [facility] Medical Group MultiSpecialty Care [facility] [address] [place] [address] Teri Mojica, [facility] [address] [place] [address] Test Results Social History Tobacco Use Types Packs/Day Years [...] 08/20 PHQ-2 Answer Date Recorded PHQ-2 Score - If the patient scores above 3, please move on to questions 3-9 3 12/21/2020 Comments No Sex and Gender Information Value Date Recorded Sex Assigned at Not on file Legal Sex Female 4:43 PM CDT Gender Identity Not on file Sexual Orientation Not on file Occupation Industry Job Start Date Job End Date Not on file Not on file Not on file Not on file COVID-19 Exposure Response Date Recorded In the last month, have you been in contact with someone who was confirmed or suspected to have Coronavirus / COVID-19? No / Unsure 01/03/2021 8:36 AM CDT documented as of this encounter Plan of Treatment Upcoming Encounters Date Type Department Care Team (Late st Contact Info) Description 06/13/2025 10:45 AM CDT Office Visit [facility] [place] [address] Bing Alvares MD [address] [place] [address] documented as of this encounter Visit Diagnoses Not on filedocumented in this encounter Additional Health Concerns Assessment Noted Time PHQ-9 Depression Total Score: 13 021 11:47 AM EQUINE BREEDER documented as of this encounter Care Teams Clearance Center Manager Relationship Specialty Start Date End Date Lynette Ponce MD [address] [place] [phone] PCP - General INTERNAL MEDICINE 03/08/24 03/16/24 Lynette Ponce MD [address] [place] [address] PCP - General 03/29/24 Ivette [place] NP [place] [employer] Artist NURSE PRACTITIONER 02/09/19 03/25/24 Scott Guerrero MD Consulting Physician GASTROENTEROLOGY 03/04/19 Nerissa [place] MD [place] [employer] Artist CARDIOVASCULAR DISEASE 03/17/19 03/25/24 [facility] 12/22/20 02/28/22 Bing Alvares MD [address] [place] [address] Consulting Physician CARDIOVASCULAR DISEASE 03/22/24 documented as of this encounter
--- OUTSIDE RECORDS SUMMARY | 2025-01-05 06:41 | XMS_ITS | Encounter Summary ---
Author Organization [facility] Address [address] [place] [address] Care Team Providers Care Research Associate Molecular Biology Name Role Phone Ivette Clark NP Unavailable [phone] Scott Guerrero MD Unavailable Nerissa Hill MD Unavailable [phone] Lynette Ponce MD Primary Care Provider [phone] Bing Alvares MD Unavailable Lynette Ponce MD Primary Care Provider [phone] Encounter Details Date Type Department Care Team (Latest Contact Info) Description 05/07/2023 SpotFodo Message Enc [facility] Medical Group [facility] [address] [place] [phone] [place] Provider provider's response Social History Tobacco Use Types Packs/Day Years Used Date Smoking Tobacco: Former Cigarettes 2016 Smokeless Tobacco: Never Comments:no longer a smoker Alcohol Use Standard Drinks/Week Comments No 0 (1 standard drink = 0.6 oz pure alcohol) drank a lot 17 years ago;stopped approx 2001 AUDIT-C Answer Date Recorded Frequency of Alcohol Consumption Never 09/07/2018 Average Number of Drinks Not on file 018 Frequency of Binge Drinking Not on file 08/20 PHQ-2 Answer Date Recorded Patient Health Questionnaire-2 Score 4 05/09/2023 Comments No Sex and Gender Information Value Date Recorded Sex Assigned at Not on file Legal Sex Female 4:43 PM CDT Gender Identity Not on file Sexual Orientation Not on file Occupation Industry Job Start Date Job End Date Not on file Not on file Not on file Not on file documented as of this encounter Plan of Treatment Upcoming Encounters Date Type Department Care Team (Late st Contact Info) Description 06/13/2025 10:45 AM CDT Office Visit [facility] [place] [place] [address] Bing Alvares MD [address] [place] [address] documented as of this encounter Visit Diagnoses Not on filedocumented in this encounter Additional Health Concerns Assessment Noted Time PHQ-9 Depression Total Score: 0 12/12/19 22 4:08 PM DAIRY FARMWORKER documented as of this encounter Care Teams Research Associate Molecular Biology Relationship Specialty Start Date End Date Lynette Ponce MD [address] [place] [address] PCP - General INTERNAL MEDICINE 03/08/24 03/16/24 Lynette Ponce MD [address] [place] [address] PCP - General 03/29/24 Ivette Clark NP [place] Cap [employer] Hat Production Supervisor NURSE PRACTITIONER 02/09/19 03/25/24 Scott Guerrero MD Consulting Physician GASTROENTEROLOGY 03/04/19 Nerissa Hill MD [place] [employer] Production Supervisor CARDIOVASCULAR DISEASE 03/17/19 03/25/24 Bing Alvares MD [address] [place] [address] Consulting Physician CARDIOVASCULAR DISEASE 03/22/24 documented as of this encounter
--- OUTSIDE RECORDS SUMMARY | 2025-01-05 06:41 | XMS_ITS | Clinical Summary ---
Author Organization [facility] Address [address] [place] [address] Care Team Providers Care Hearing Stenographer Name Role Phone Unavailable Primary Care Provider Unavailabl e Source Comments [facility],non-owned Affiliates and Associated Physician Practices is amultiple site organization consisting of ambulatory clinics and hospital sitesin [place], [place], [place] and [place]. This disclosure is being madepursuant to the Care Everywhere program and may not contain all information available regarding this patient. Last updated 18.[facility] Social History Tobacco Use Types Packs/Day Years Used Date Smoking Tobacco: Never Assessed Sex and Gender Information Value Date Recorded Sex Assigned at Not on file Gender Identity Not on file Sexual Orientation Not on file Plan of Treatment Health Maintenance Due Date Last Done Comments COLOGUARD (AGES 45-75) - COL ON CA SCREENING 1966 COLON MONITORING 1966 COLONOSCOPY - COLON CA SCREENING 1966 CT COLONOGRAPHY - COLON CA SCREENING 1966 Colorectal Cancer Screening 1966 FIT - COLON CA SCREENING 1966 FLEX SIG - COLON CA SCREENING 1966 LIPID TESTING 1966 MAMMOGRAM 1966 PAP SMEAR 1966 HIV SCREENING 1981 HEPATITIS C SCREENING 11/11/1984 DTAP/TDAP/TD VACCINES (1 - Tdap) 1985 HEPATITIS B VACCINE (1 of 3 - 19+ 3-dose series) 1985 PNEUMOCOCCAL VACCINE 50+ (1 of 1 - PCV) 2016 ZOSTER VACCINE (1 of 2) 2016 COVID-19 VACCINE ( - 2023-2 5 season) 2024 INFLUENZA VACCINE (#1) 2024 DEPRESSION SCREENING 10/20/2024 HIB VACCINE Aged Out No longer eligi ble based on patient's age to complete this topic HPV VACCINE Aged Out No longer eligi ble based on patient's age to complete this topic MENINGOCOCCAL (Group B) VACC INE SHARED DECISION-MAKING Aged Out No longer eligibl e based on patient's age to complete this topic MENINGOCOCCAL GROUPS A/C/Y/W VACCINE Aged Out No longer eligible b ased on patient's age to complete this topic PNEUMOCOCCAL VACCINE Aged Out No long er eligible based on patient's age to complete this topic
--- OUTSIDE RECORDS SUMMARY | 2025-01-05 06:41 | XMS_ITS | Encounter Summary ---
Author Organization [facility] Address [address] [place] [address] Care Team Providers Care Test Car Driver Name Role Phone Ivette Clark NP Unavailable [phone] Scott Guerrero MD Unavailable Nerissa Hill MD Unavailable [phone] [facility] Unavailable [phone] Lynette Ponce MD Primary Care Provider [phone] Bing Alvares MD Unavailable Lyentte Ponce MD Primary Care Provider Encounter Details Date Type Department Care Team (Late st Contact Info) Description 06/24/2020 FuelFilm Message Enc [facility] Medical Group MultiSpecialty Care [facility] [address] [place] [phone] Teri Mojica, [facility] [address] [place] [address] Test Results Social History Tobacco Use Types [...] on file Sexual Orientation Not on file COVID-19 Exposure Response Date Recorded In the last month, have you been in contact with someone who was confirmed or suspected to have Coronavirus / COVID-19? No / Unsure 06/22/2020 10:29 AM CDT documented as of this encounter Plan of Treatment Upcoming Encounters Date Type Department Care Team (Late st Contact Info) Description 06/13/2025 10:45 AM CDT Office Visit [facility] [place] [address] Bing Alvares MD [address] [place] [address] documented as of this encounter Visit Diagnoses Not on filedocumented in this encounter Additional Health Concerns Assessment Noted Time PHQ-9 Depression Total Score: 19 019 4:41 PM CDT documented as of this encounter Care Teams Test Car Driver Relationship Specialty Start Date End Date Lynette Ponce MD [address] [place] [address] PCP - General INTERNAL MEDICINE 03/08/24 03/16/24 Lynette Ponce MD [address] [place] [address] PCP - General 03/29/24 Ivette Clark NP [place] Tram Inspector NURSE PRACTITIONER 02/09/19 03/25/24 Scott Guerrero MD Consulting Physician GASTROENTEROLOGY 03/04/19 Nerissa Hill MD [place] Tram Inspector CARDIOVASCULAR DISEASE 03/17/19 03/25/24 Carline [facility] NURSE PRACTITIONER 12/22/20 02/28/22 Bing Alvares MD [address] [place] [address] Consulting Physician CARDIOVASCULAR DISEASE 03/22/24 documented as of this encounter
--- OUTSIDE RECORDS SUMMARY | 2025-01-05 06:41 | XMS_ITS | Encounter Summary ---
Author Organization [facility] Address [address] [place] [address] Care Team Providers Care Lead Slot Technician Name Role Phone Ivette Clark NP Unavailable [phone] Fabian Palacios MD Unavailable Unavailable Scott Guerrero MD Unavailable Nerissa Hill MD Unavailable [phone] Carline Plummer [facility] Unavailable [phone] Lynette Ponce MD Primary Care Provider [phone] Bing Alvares MD Unavailable Lynette Ponce MD Primary Care Provider [phone] Encounter Details Date Type Department Care Team (Late st Contact Info) Description 10/21/2018 MyChart Message Enc [facility] Medical Group MultiSpecialty Care [facility] [address] [place] [address] Melissa Watson, [place] [address] [place] [phone] Other Social History Tobacco Use Types Packs/Day Years Used Date Smoking Tobacco: Former Cigarettes 2012 Smokeless Tobacco: Never Alcohol Use Standard Drinks/Week Comments No 0 (1 standard drink = 0.6 oz pur e alcohol) drank a lot 17 years ago AUDIT-C Answer Date Recorded Frequency of Alcohol Consumption Never 09/07/2018 Average Number of Drinks Not on file 018 Frequency of Binge Drinking Not on file 08/20 Comments No Sex and Gender Information Value Date Recorded Sex Assigned at Not on file Legal Sex Female 4:43 PM CDT Gender Identity Not on file Sexual Orientation Not on file documented as of this encounter Progress Notes * Meghann Mason MA - 10/22/2018 8:04 AM CST Please advise. Thanks. RVISOR ADVICE documented in this encounter Plan of Treatment Upcoming Encounters Date Type Department Care Team (Late st Contact Info) Description 06/13/2025 10:45 AM CDT Office Visit [facility] [place] [address] Bing Alvares MD [address] [place] [address] documented as of this encounter Visit Diagnoses Not on filedocumented in this encounter Additional Health Concerns Infection Onset Date Last Indicated Resolved Time COVID-19 Rule Out 03/06/2020 03/03/2020 03/06/2020 9:26 AM CDT documented as of this encounter Care Teams Lead Slot Technician Relationship Specialty Start Date End Date Lynette Ponce MD [address] [place] [address] PCP - General INTERNAL MEDICINE 03/08/24 03/16/24 Lynette Ponce MD [address] [place] [address] PCP - General 03/29/24 Ivette Clark NP [place] Desk Manager NURSE PRACTITIONER 02/09/19 03/25/24 Fabian Palacios MD [place] Desk Manager INTERVENTIONAL CARDIOLOGY 02/09/19 03/16/19 Scott Guerrero MD Consulting Physician GASTROENTEROLOGY 03/04/19 Nerissa Hill MD [place] Desk Manager CARDIOVASCULAR DISEASE 03/17/19 03/25/24 Carline Plummer [facility] NURSE PRACTITIONER 12/22/20 02/28/22 Bing Alvares MD [address] [place] [address] Consulting Physician CARDIOVASCULAR DISEASE 03/22/24 documented as of this encounter
--- OUTSIDE RECORDS SUMMARY | 2025-01-05 06:41 | XMS_ITS | Encounter Summary ---
Author Organization [facility] Address [address] [place] [address] Care Team Providers Care Director Biologics Name Role Phone Ivette Clark NP Unavailable [phone] Fabian Palacios MD Unavailable Unavailable Scott Guerrero MD Unavailable Nerissa Hill MD Unavailable [phone] Carline Plummer [facility] Unavailable [phone] Lynette Ponce MD Primary Care Provider [phone] Bing Alvares MD Unavailable Lynette Ponce MD Primary Care Provider Encounter Details Date Type Department Care Team (Latest Contact Info) Description 09/14/2018 Complete Genomicst Message Enc [facility] Medical Group MultiSpecialty Care [facility] [address] [place] [address] Melissa Watson NP [address] [place] [phone] Follow Up/Update Social History Tobacco Use Types Packs/Day Years [...] Binge Drinking Not on file 08/20 Comments Unknown Sex and Gender Information Value Date Recorded Sex Assigned at Not on file Legal Sex Female 4:43 PM CDT Gender Identity Not on file Sexual Orientation Not on file documented as of this encounter Plan of Treatment Upcoming Encounters Date Type Department Care Team (Late st Contact Info) Description 06/13/2025 10:45 AM CDT Office Visit [facility] [address] [place] [address] Bing Alvares MD [address] [place] [address] documented as of this encounter Visit Diagnoses Not on filedocumented in this encounter Additional Health Concerns Infection Onset Date Last Indicated Resolved Time COVID-19 Rule Out 03/06/2020 03/03/2020 03/06/2020 9:26 AM CDT documented as of this encounter Care Teams Director Biologics Relationship Specialty Start Date End Date Lynette Ponce MD [address] [place] [address] PCP - General INTERNAL MEDICINE 03/08/24 03/16/24 Lynette Ponce MD [address] [place] [address] PCP - General 03/29/24 Ivette Clark NP [place] Programming Equipment Operator NURSE PRACTITIONER 02/09/19 03/25/24 Fabian Palacios MD [place] Equipment Operator INTERVENTIONAL CARDIOLOGY 02/09/19 03/16/19 Scott Guerrero MD Consulting Physician GASTROENTEROLOGY 03/04/19 Nerissa Hill MD [place] Programming Equipment Operator CARDIOVASCULAR DISEASE 03/17/19 03/25/24 Carline Plummer [facility] NURSE PRACTITIONER 12/22/20 02/28/22 Bing Alvares MD [address] [place] [address] Consulting Physician CARDIOVASCULAR DISEASE 03/22/24 documented as of this encounter
--- OUTSIDE RECORDS SUMMARY | 2025-01-05 06:41 | XMS_ITS | Encounter Summary ---
Author Organization [facility] Address [address] [place] [address] Care Team Providers Care Supervisor Cytology Name Role Phone Ivette Clark NP Unavailable [phone] Scott Guerrero MD Unavailable Nerissa Hill MD Unavailable [phone] Lynette Ponce MD Primary Care Provider [phone] Bing Alvares MD Unavailable Lynette Ponce MD Primary Care Provider [phone] Encounter Details Date Type Department Care Team (Latest Contact Info) Description 12/13/2022 Inspro Message Enc [facility] Medical Group MultiSpecialty Care [facility] [address] [place] [address] [facility] Provider provider's result note Social History Tobacco Use Types Packs/Day Years [...] Date Recorded Patient Health Questionnaire-2 Score 0 10/25/2022 Comments No Sex and Gender Information Value Date Recorded Sex Assigned at Not on file Legal Sex Female 4:43 PM CDT Gender Identity Not on file Sexual Orientation Not on file Occupation Industry Job Start Date Job End Date Not on file Not on file Not on file Not on file COVID-19 Exposure Response Date Recorded In the last 10 days, have yo u been in contact with someone who was confirmed or suspected to have Coronavirus/COVID-19? No / Unsure 12/12/2022 9:13 AM THERAPY TECHNICIAN documented as of this encounter Plan of Treatment Upcoming Encounters Date Type Department Care Team (Late st Contact Info) Description 06/13/2025 10:45 AM CDT Office Visit [facility] [place] [address] Bing Alvares MD [address] [place] [address] documented as of this encounter Visit Diagnoses Not on filedocumented in this encounter Additional Health Concerns Assessment Noted Time PHQ-9 Depression Total Score: 0 12/12/19 4:08 PM THERAPY TECHNICIAN documented as of this encounter Care Teams Supervisor Cytology Relationship Specialty Start Date End Date Lynette Ponce MD [address] [place] [address] PCP - General INTERNAL MEDICINE 03/08/24 03/16/24 Lynette Ponce MD [address] [place] [address] PCP - General 03/29/24 Ivette Clark NP [place] Jamb Cutter NURSE PRACTITIONER 02/09/19 03/25/24 Scott Guerrero MD Consulting Physician GASTROENTEROLOGY 03/04/19 Nerissa Hill MD [place] Jamb Cutter CARDIOVASCULAR DISEASE 03/17/19 03/25/24 Bing Alvares MD [address] [place] [address] Consulting Physician CARDIOVASCULAR DISEASE 03/22/24 documented as of this encounter
--- OUTSIDE RECORDS SUMMARY | 2025-01-05 06:41 | XMS_ITS | Encounter Summary ---
Author Organization [facility] Address [facility] [place] [address] Care Team Providers Care Brake Operator Sheet Metal Name Role Phone Ivette Clark NP Unavailable [phone] Fabian Palacios MD Unavailable Unavailable Scott Guerrero MD Unavailable Nerissa Hill MD Unavailable [phone] Carline Plummer [facility] Unavailable [phone] Lynette Ponce MD Primary Care Provider [phone] Bing Alvares MD Unavailable Lynette Ponce MD Primary Care Provider [phone] Encounter Details Date Type Department Care Team (Latest Contact Info) Description 07/13/2018 [facility] Sri Russ MD Social History Tobacco Use Types Packs/Day Years Used Date Smoking Tobacco: Never Assessed Comments Unknown Sex and Gender Information Value Date Recorded Sex Assigned at Not on file Legal Sex Female 4:43 PM CDT Gender Identity Not on file Sexual Orientation Not on file documented as of this encounter Plan of Treatment Upcoming Encounters Date Type Department Care Team (Late st Contact Info) Description 06/13/2025 10:45 AM CDT Office Visit [facility] [place] [address] Bing Alvares MD [address] [place] [address] documented as of this encounter Visit Diagnoses Not on filedocumented in this encounter Additional Health Concerns Infection Onset Date Last Indicated Resolved Time COVID-19 Rule Out 03/06/2020 03/03/2020 03/06/2020 9:26 AM CDT documented as of this encounter Care Teams Brake Operator Sheet Metal Relationship Specialty Start Date End Date Lynette Ponce MD [address] [place] [address] PCP - General INTERNAL MEDICINE 03/08/24 03/16/24 Lynette Ponce MD [address] [place] [address] PCP - General 03/29/24 Ivette Clark NP [place] Continuous Improvement Facilitator NURSE PRACTITIONER 02/09/19 03/25/24 Fabian Palacios MD [place] Continuous Improvement Facilitator INTERVENTIONAL CARDIOLOGY 02/09/19 03/16/19 Scott Guerrero MD Consulting Physician GASTROENTEROLOGY 03/04/19 Nerissa Hill MD [place] Continuous Improvement Facilitator CARDIOVASCULAR DISEASE 03/17/19 03/25/24 Carline Plummer FNP-BC NURSE PRACTITIONER 12/22/20 02/28/22 Bing Alvares MD [address] [place] [address] Consulting Physician CARDIOVASCULAR DISEASE 03/22/24 documented as of this encounter
--- OUTSIDE RECORDS SUMMARY | 2025-01-05 06:41 | XMS_ITS | Encounter Summary ---
Author Organization [facility] Address [address] [place] [address] Care Team Providers Care Pyridine Operator Name Role Phone Ivette Clark NP Unavailable [phone] Scott Guerrero MD Unavailable Nerissa Hill MD Unavailable [phone] Carline Plummer [facility] Unavailable [phone] Lynette Ponce MD Primary Care Provider [phone] Bing Alvares MD Unavailable Lynette Ponce MD Primary Care Provider [phone] Encounter Details Date Type Department Care Team (Latest Contact Info) Description 04/27/2019 Hy-Drive Message Enc [facility] Medical Group MultiSpecialty [facility] [address] [place] [address] Melissa Watson NP [address] [place] [phone] RE: Medication Questions Social History Tobacco Use Types [...] Description 06/13/2025 10:45 AM CDT Office Visit [facility] [place] [address] Bing Alvares MD [address] [place] [address] documented as of this encounter Visit Diagnoses Not on filedocumented in this encounter Additional Health Concerns Infection Onset Date Last Indicated Resolved Time COVID-19 Rule Out 03/06/2020 03/03/2020 03/06/2020 9:26 AM CDT documented as of this encounter Care Teams Pyridine Operator Relationship Specialty Start Date End Date Lynette Ponce MD [address] [place] [address] PCP - General INTERNAL MEDICINE 03/08/24 03/16/24 Lynette Ponce MD [address] [place] [address] PCP - General 03/29/24 Ivette Clark NP [place] Production Welder NURSE PRACTITIONER 02/09/19 03/25/24 Scott Guerrero MD Consulting Physician GASTROENTEROLOGY 03/04/19 Nerissa Hill MD [place] Production Welder CARDIOVASCULAR DISEASE 03/17/19 03/25/24 Carline Plummer FNP-BC NURSE PRACTITIONER 12/22/20 02/28/22 Bing Alvares MD [address] [place] [address] Consulting Physician CARDIOVASCULAR DISEASE 03/22/24 documented as of this encounter
--- OUTSIDE RECORDS SUMMARY | 2025-01-05 06:41 | XMS_ITS | Encounter Summary ---
Author Organization [facility] Address [address] [place] [address] Care Team Providers Care Hall Porter Name Role Phone Ivette Clark NP Unavailable [phone] Fabian Palacios MD Unavailable Unavailable Scott Guerrero MD Unavailable Nerissa Hill MD Unavailable [phone] Carline Plummer [facility] Unavailable [phone] Lynette Ponce MD Primary Care Provider [phone] Bing Alvares MD Unavailable Lynette Ponce MD Primary Care Provider Encounter Details Date Type Department Care Team (Latest Contact Info) Description 11/15/2018 MyChart Message Enc [facility] Medical Group [facility] [address] [place] [address] Melissa Watson NP [address] [place] [phone] Medication Questions Social History Tobacco Use Types [...] Description 06/13/2025 10:45 AM CDT Office Visit [facility] [address] [place] [address] Bing Alvares MD [address] [place] [address] documented as of this encounter Visit Diagnoses Not on filedocumented in this encounter Additional Health Concerns Infection Onset Date Last Indicated Resolved Time COVID-19 Rule Out 03/06/2020 03/03/2020 03/06/2020 9:26 AM CDT documented as of this encounter Care Teams Hall Porter Relationship Specialty Start Date End Date Lynette Ponce MD [address] [place] [address] PCP - General INTERNAL MEDICINE 03/08/24 03/16/24 Lynette Ponce MD [address] [place] [address] PCP - General 03/29/24 Ivette Clark NP [place] Plasterer Tender NURSE PRACTITIONER 02/09/19 03/25/24 Fabian Palacios MD [place] Plasterer Tender INTERVENTIONAL CARDIOLOGY 02/09/19 03/16/19 Scott Guerrero MD Consulting Physician GASTROENTEROLOGY 03/04/19 Nerissa Hill MD [place] Plasterer Tender CARDIOVASCULAR DISEASE 03/17/19 03/25/24 Carline Plummer FNP-BC NURSE PRACTITIONER 12/22/20 02/28/22 Bing Alvares MD [address] [place] [address] Consulting Physician CARDIOVASCULAR DISEASE 03/22/24 documented as of this encounter
--- OUTSIDE RECORDS SUMMARY | 2025-01-05 06:41 | XMS_ITS | Encounter Summary ---
Author Organization [facility] Address [address] [place] [address] Care Team Providers Care Perlite Grinder Name Role Phone Ivette Clark NP Unavailable [phone] Fabian Palacios MD Unavailable Unavailable Scott Guerrero MD Unavailable Nerissa Hill MD Unavailable [phone] Carline Plummer [facility] Unavailable [phone] Lynette Ponce MD Primary Care Provider [phone] Bing Alvares MD Unavailable Lynette Ponce MD Primary Care Provider Encounter Details Date Type Department Care Team (Late st Contact Info) Description 09/25/2018 MyChart Message Enc [facility] Medical Group MultiSpecialty Care [facility] [address] [place] [address] Melissa Watson NP [address] [place] [id number] RE: Other Social History Tobacco Use Types Packs/Day [...] as of this encounter Progress Notes * NEYMAR Caballero - 09/30/2018 8:25 AM CST Medication is updated in patient's chart. MEDICAL TECHNICIAN * Faith Chandler RN - 09/26/2018 8:27 AM CST Does this need any more follow up? Please advise MEDICAL TECHNICIAN documented in this encounter Plan of Treatment Upcoming Encounters Date Type Department Care Team (Late st Contact Info) Description 06/13/2025 10:45 AM CDT Office Visit [facility] [place] [address] Bing Alvares MD [address] [place] [address] documented as of this encounter Visit Diagnoses Not on filedocumented in this encounter Additional Health Concerns Infection Onset Date Last Indicated Resolved Time COVID-19 Rule Out 03/06/2020 03/03/2020 03/06/2020 9:26 AM CDT documented as of this encounter Care Teams Perlite Grinder Relationship Specialty Start Date End Date Lynette Ponce MD [address] [place] [address] PCP - General INTERNAL MEDICINE 03/08/24 03/16/24 Lynette Ponce MD [address] [place] [address] PCP - General 03/29/24 Ivette Clark NP [place] Configuration Manager NURSE PRACTITIONER 02/09/19 03/25/24 Fabian Palacios MD [place] Configuration Manager INTERVENTIONAL CARDIOLOGY 02/09/19 03/16/19 Scott Guerrero MD Consulting Physician GASTROENTEROLOGY 03/04/19 Nerissa Hill MD [place] Configuration Manager CARDIOVASCULAR DISEASE 03/17/19 03/25/24 Carline Plummer FNP-BC NURSE PRACTITIONER 12/22/20 02/28/22 Bing Alvares MD [address] [place] [address] Consulting Physician CARDIOVASCULAR DISEASE 03/22/24 documented as of this encounter
[2025-01-05 06:58] LABS: Basophils Absolute Auto 0.05 K/mm3 (0.00-0.10); Eosinophils Absolute Auto 0.21 K/mm3 (0.02-0.50); Eosinophils Percent Auto 4.3 % (1.0-6.0); Hematocrit 35.3 % (35.0-49.0); Hemoglobin 10.5 g/dL (12.0-15.0); Immature Granulocyte Absolute 0.01 K/mm3 (0.00-0.00); Immature Granulocyte Percent A 0.2 % (0.0-0.0); Lymphocytes Absolute Auto 1.73 K/mm3 (1.10-4.50); Lymphocytes Percent Auto 35.6 % (18.0-42.0); Mean Corpuscular HGB Conc 29.7 g/dL (32-36); Mean Corpuscular Hemoglobin 24.7 pg (27.0-31.0); Mean Corpuscular Volume 83.1 fL (78.0-102.0); Mean Platelet Volume 8.9 fl (9.2-11.8); Monocytes Absolute Auto 0.57 K/mm3 (0.10-0.90); Monocytes Percent Auto 11.7 % (2.0-11.0); Neutrophils Absolute Auto 2.29 K/mm3 (1.70-7.20); Neutrophils Percent Auto 47.2 % (50.0-70.0); Platelet Count Result 266 K/mm3 (150-420); Red Blood Count 4.25 M/mm3 (4.20-5.40); Red Cell Distribution Width 13.2 % (11.6-14.4); White Blood Count 4.9 K/mm3 (4.8-10.8)
[2025-01-05 07:20] LABS: Anion Gap 8 mmol/L (4-12); Blood Urea Nitrogen 20 mg/dL (7-18); Calcium 8.9 mg/dL (8.5-10.1); Carbon Dioxide 30 mmol/L (21-32); Chloride 100 mmol/L (98-108); Estimated Glomerular Filt Rate > 60; Glucose 99 mg/dL (70-99); Osmolality Calculated 288 mOsm/kg (285-295); Potassium 4.4 mmol/L (3.5-5.1); Sodium 138 mmol/L (136-145)
== END 2025-01-05 06:38 | disposition home or self-care (01) ==
LOC: CHSLAB 06:39
PROVIDERS: PCP Internal Medicine; Visit Provider Internal Medicine
DX: D64.9 Anemia, unspecified (principal); I10 Essential (primary) hypertension
CPT/HCPCS: 36415; 80048; 85025

== ENCOUNTER 2025-01-07 07:10 | Outpatient (CLI) | payer OTHER, SELFPAY ==
--- OUTSIDE RECORDS SUMMARY | 2025-01-07 07:14 | XMS_ITS | Encounter Summary ---
Author Organization [facility] Address [address] [place] [address] Care Team Providers Care Sales Demonstrator Name Role Phone Ivette Clark NP Unavailable [phone] Fabian Palacios MD Unavailable Unavailable Scott Guerrero MD Unavailable Nerissa Hill MD Unavailable [phone] Carline Plummer [facility] Unavailable [phone] Lynette Ponce MD Primary Care Provider [phone] Bing Alvares MD Unavailable Lynette Ponce MD Primary Care Provider [phone] Encounter Details Date Type Department Care Team ([facility] st Contact Info) Description 09/25/2018 MyChart Message Enc [facility] Medical Group MultiSpecialty Care [facility] [address] [place] [address] Melissa Watson, STAFF HOME THERAPY RN [address] [address] RE: Other Social History Tobacco Use Types [...] CST Medication is updated in patient's chart. TH INFORMATION CLERK * Faith Chandler RN - 09/26/2018 8:27 AM CST Does this need any more follow up? Please advise TH INFORMATION CLERK documented in this encounter Plan of Treatment Upcoming Encounters Date Type Department Care Team (Late st Contact Info) Description 06/13/2025 10:45 AM CDT Office Visit [facility] [place] [address] Bing Alvares MD [address] [place] [address] documented as of this encounter Visit Diagnoses Not on filedocumented in this encounter Additional Health Concerns Infection Onset Date Last Indicated Resolved Time COVID-19 Rule Out 03/06/2020 03/03/2020 03/06/2020 9:26 AM CDT documented as of this encounter Care Teams Sales Demonstrator Relationship Specialty Start Date End Date Lynette Ponce MD [address] [place] [address] PCP - General INTERNAL MEDICINE 03/08/24 03/16/24 Lynette Ponce MD [address] [place] [address] PCP - General 03/29/24 Ivette Clark NP [place] Alignment Technician NURSE PRACTITIONER 02/09/19 03/25/24 Fabian Palacios MD [place] Alignment Technician INTERVENTIONAL CARDIOLOGY 02/09/19 03/16/19 Scott Guerrero MD Consulting Physician GASTROENTEROLOGY 03/04/19 Nerissa Hill MD [place] Alignment Technician CARDIOVASCULAR DISEASE 03/17/19 03/25/24 Carline Plummer FNP-BC NURSE PRACTITIONER 12/22/20 02/28/22 Bing Alvares MD [address] [place] [address] Consulting Physician CARDIOVASCULAR DISEASE 03/22/24 documented as of this encounter
--- OUTSIDE RECORDS SUMMARY | 2025-01-07 07:14 | XMS_ITS | Clinical Summary ---
Author Organization [facility] Address [address] [place] [address] Care Team Providers Care Ink Printer Name Role Phone Unavailable Primary Care Provider Unavailabl e Source Comments [facility],non-owned Affiliates and Associated Physician Practices is amultiple site organization consisting of ambulatory clinics and hospital sitesin [place], [place], [place] and [place]. This disclosure is being madepursuant to the Care Everywhere program and may not contain all information available regarding this patient. Last updated 18.[facility] Social History Tobacco Use Types Packs/Day Years [...]
--- OUTSIDE RECORDS SUMMARY | 2025-01-07 07:14 | XMS_ITS | Encounter Summary ---
Author Organization [facility] Address [facility] [place] [address] Care Team Providers Care Fish Egg Packer Name Role Phone Ivette Clark NP Unavailable [phone] Fabian Palacios MD Unavailable Unavailable Scott Guerrero MD Unavailable Nerissa Hill MD Unavailable [phone] Carline Plummer [facility] Unavailable [phone] Lynette Ponce MD Primary Care Provider [phone] Bing Alvares MD Unavailable Lynette Ponce MD Primary Care Provider [phone] Encounter Details Date Type Department Care Team (Latest Contact Info) Description 07/13/2018 Abstract [facility] Medical Group Sri Russ MD Social History [...] Description 06/13/2025 10:45 AM CDT Office Visit [facility] [place] [address] Bing Alvares MD [address] [place] [address] documented as of this encounter Visit Diagnoses Not on filedocumented in this encounter Additional Health Concerns Infection Onset Date Last Indicated Resolved Time COVID-19 Rule Out 03/06/2020 03/03/2020 03/06/2020 9:26 AM CDT documented as of this encounter Care Teams Fish Egg Packer Relationship Specialty Start Date End Date Lynette Ponce MD [address] [place] [address] PCP - General INTERNAL MEDICINE 03/08/24 03/16/24 Lynette Ponce MD [address] [place] [address] PCP - General 03/29/24 Ivette Clark NP [place] Industrial Pharmacist NURSE PRACTITIONER 02/09/19 03/25/24 Fabian Palacios MD [place] Industrial Pharmacist INTERVENTIONAL CARDIOLOGY 02/09/19 03/16/19 Scott Guerrero MD Consulting Physician GASTROENTEROLOGY 03/04/19 Nerissa Hill MD [place] Industrial Pharmacist CARDIOVASCULAR DISEASE 03/17/19 03/25/24 Carline Plummer FNP-BC NURSE PRACTITIONER 12/22/20 02/28/22 Bing Alvares MD [address] [place] [address] Consulting Physician CARDIOVASCULAR DISEASE 03/22/24 documented as of this encounter
--- OUTSIDE RECORDS SUMMARY | 2025-01-07 07:14 | XMS_ITS | Encounter Summary ---
Author Organization [facility] Address [address] [place] [address] Care Team Providers Care Outpatient Coding Specialist Name Role Phone Ivette Clark NP Unavailable [phone] Scott Guerrero MD Unavailable Nerissa Hill MD Unavailable [phone] Carline Plummer [facility] Unavailable [phone] Lynette Ponce MD Primary Care Provider [phone] Bing Alvraes MD Unavailable Lynette Ponce MD Primary Care Provider [phone] Encounter Details Date Type Department Care Team (Late st Contact Info) Description 12/09/2019 Surg[employer]Light Message Enc [facility] Medical Group MultiSpecialty Care [facility] [address] [place] [address] Teri Mojica, [facility] [address] [place] [address] Other Social History Tobacco Use Types Packs/Day [...] Description 06/13/2025 10:45 AM CDT Office Visit [facility] [place] [address] Bing Alvares MD [address] [place] [address] documented as of this encounter Visit Diagnoses Not on filedocumented in this encounter Additional Health Concerns Infection Onset Date Last Indicated Resolved Time COVID-19 Rule Out 03/06/2020 03/03/2020 03/06/2020 9:26 AM CDT Assessment Noted Time PHQ-9 Depression Total Score: 19 019 4:41 PM CDT documented as of this encounter Care Teams Outpatient Coding Specialist Relationship Specialty Start Date End Date Lynette Ponce MD [address] [place] [address] PCP - General INTERNAL MEDICINE 03/08/24 03/16/24 Lynette Ponce MD [address] [place] [address] PCP - General 03/29/24 Ivette Clark NP [place] [employer] Manager NURSE PRACTITIONER 02/09/19 03/25/24 Scott Guerrero MD Consulting Physician GASTROENTEROLOGY 03/04/19 Nerissa Hill MD [place] [employer] Manager CARDIOVASCULAR DISEASE 03/17/19 03/25/24 Carline Plummer FNP-BC NURSE PRACTITIONER 12/22/20 02/28/22 Bing Alvares MD [address] [place] [address] Consulting Physician CARDIOVASCULAR DISEASE 03/22/24 documented as of this encounter
--- OUTSIDE RECORDS SUMMARY | 2025-01-07 07:14 | XMS_ITS | Encounter Summary ---
Author Organization [facility] Address [address] [place] [address] Care Team Providers Care Vb Net Developer Name Role Phone Ivette Clark NP Unavailable [phone] Scott Guerrero MD Unavailable Nerissa Hill MD Unavailable [phone] Lynette Ponce MD Primary Care Provider [phone] Bing Alvares MD Unavailable Lynette Ponce MD Primary Care Provider [phone] Encounter Details Date Type Department Care Team (Latest Contact Info) Description 05/07/2023 [employer] Message Enc [facility] Medical Group MultiSpecialty Care [facility] [address] [place] [address] [place], [facility] Provider provider's response Social History Tobacco Use [...] Description 06/13/2025 10:45 AM CDT Office Visit [facility] [place] [address] Bing Alvares MD [address] [place] [address] documented as of this encounter Visit Diagnoses Not on filedocumented in this encounter Additional Health Concerns Assessment Noted Time PHQ-9 Depression Total Score: 0 12/12/19 22 4:08 PM FLAT FOLDER documented as of this encounter Care Teams Vb Net Developer Relationship Specialty Start Date End Date Lynette Ponce MD [address] [place] [address] PCP - General INTERNAL MEDICINE 03/08/24 03/16/24 Lynette Ponce MD [address] [place] [address] PCP - General 03/29/24 Ivette Clark NP [place] Vaccine Customer Representative NURSE PRACTITIONER 02/09/19 03/25/24 Scott Guerrero MD Consulting Physician GASTROENTEROLOGY 03/04/19 Nerissa Hill MD [place] Vaccine Customer Representative CARDIOVASCULAR DISEASE 03/17/19 03/25/24 Bing Alvares MD [address] [place] [address] Consulting Physician CARDIOVASCULAR DISEASE 03/22/24 documented as of this encounter
--- OUTSIDE RECORDS SUMMARY | 2025-01-07 07:14 | XMS_ITS | Encounter Summary ---
Author Organization [facility] Address [address] [place] [address] Care Team Providers Care Industrial Nurse Name Role Phone Ivette Clark NP Unavailable [phone] Fabian Palacios MD Unavailable Unavailable Scott Guerrero MD Unavailable Nerissa Hill MD Unavailable [phone] Carline Plummer [facility] Unavailable [phone] Lynette Ponce MD Primary Care Provider [phone] Bing Alvares MD Unavailable Lynette Ponce MD Primary Care Provider [phone] Encounter Details Date Type Department Care Team (Latest Contact Info) Description 11/15/2018 MyChart Message Enc [facility] Medical Group MultiSpecialty [facility] [address] [place] [address] Melissa Watson, BLOWER BLAST FURNACE [address] [address] Medication Questions Social History Tobacco Use Types [...] Description 06/13/2025 10:45 AM CDT Office Visit [facility] [address] [place] [place] [address] Bing Alvares MD [address] [place] [address] documented as of this encounter Visit Diagnoses Not on filedocumented in this encounter Additional Health Concerns Infection Onset Date Last Indicated Resolved Time COVID-19 Rule Out 03/06/2020 03/03/2020 03/06/2020 9:26 AM CDT documented as of this encounter Care Teams Industrial Nurse Relationship Specialty Start Date End Date Lynette Ponce MD [address] [place] [address] PCP - General INTERNAL MEDICINE 03/08/24 03/16/24 Lynette Pocne MD [address] [place] [address] PCP - General 03/29/24 Ivette Clark NP [place] Template Clerk NURSE PRACTITIONER 02/09/19 03/25/24 Fabian Palacios MD [place] Template Clerk INTERVENTIONAL CARDIOLOGY 02/09/19 03/16/19 Scott Guerrero MD Consulting Physician GASTROENTEROLOGY 03/04/19 Nerissa Hill MD [place] Template Clerk CARDIOVASCULAR DISEASE 03/17/19 03/25/24 Carline Plummer FNP-BC NURSE PRACTITIONER 12/22/20 02/28/22 Bing Alvares MD [address] [place] [address] Consulting Physician CARDIOVASCULAR DISEASE 03/22/24 documented as of this encounter
--- OUTSIDE RECORDS SUMMARY | 2025-01-07 07:14 | XMS_ITS | Encounter Summary ---
Author Organization [facility] Address [address] [place] [address] Care Team Providers Care Medical Radiation Therapist Name Role Phone Ivette Clark NP Unavailable [phone] Scott Guerrero MD Unavailable Nerissa Hill MD Unavailable [phone] Carline Plummer [facility] Unavailable [phone] Lynette Ponce MD Primary Care Provider Bing Alvares MD Unavailable Lynette Ponce MD Primary Care Provider [phone] Encounter Details Date Type Department Care Team (Late st Contact Info) Description 01/09/2021 MyChart Message Enc [facility] Medical Group MultiSpecialty Care [facility] [address] [place] [address] Teri Mojica, [facility] [address] [place] [address] Test Results Social History Tobacco Use Types [...] Description 06/13/2025 10:45 AM CDT Office Visit [facility] [place] [address] Bing Alvares MD [address] [place] [address] documented as of this encounter Visit Diagnoses Not on filedocumented in this encounter Additional Health Concerns Assessment Noted Time PHQ-9 Depression Total Score: 13 021 11:47 AM GEOSPATIAL IMAGERY INTELLIGENCE ANALYST documented as of this encounter Care Teams Medical Radiation Therapist Relationship Specialty Start Date End Date Lynette Ponce MD [address] [place] [address] PCP - General INTERNAL MEDICINE 03/08/24 03/16/24 Lynette Ponce MD [address] [place] [address] PCP - General 03/29/24 Ivette Clark NP [place] Bdr NURSE PRACTITIONER 02/09/19 03/25/24 Scott Guerrero MD Consulting Physician GASTROENTEROLOGY 03/04/19 Nerissa Hill MD [place] Bdr CARDIOVASCULAR DISEASE 03/17/19 03/25/24 [facility]line [facility] NURSE PRACTITIONER 12/22/20 02/28/22 Bing Alvares MD [address] [place] [address] Consulting Physician CARDIOVASCULAR DISEASE 03/22/24 documented as of this encounter
--- OUTSIDE RECORDS SUMMARY | 2025-01-07 07:14 | XMS_ITS | Encounter Summary ---
Author Organization [facility] Address [address] [place] [address] Care Team Providers Care Film Processing Shift Supervisor Name Role Phone Ivette Clark NP Unavailable [phone] Scott Guerrero MD Unavailable Nerissa Hill MD Unavailable [phone] Carline Plummer [facility] Unavailable [phone] Lynette Ponce MD Primary Care Provider [phone] Bing Alvares MD Unavailable Lynette Ponce MD Primary Care Provider [phone] Encounter Details Date Type Department Care Team (Latest Contact Info) Description 04/27/2019 [employer] Message Enc [facility] Medical Group MultiSpecialty [facility] [address] [place] [address] Melissa Watson, ACTIVITY AIDE [address] [address] RE: Medication Questions Social History Tobacco Use [...] Description 06/13/2025 10:45 AM CDT Office Visit [facility] [place] [address] Bing Alvares MD [address] [place] [address] documented as of this encounter Visit Diagnoses Not on filedocumented in this encounter Additional Health Concerns Infection Onset Date Last Indicated Resolved Time COVID-19 Rule Out 03/06/2020 03/03/2020 03/06/2020 9:26 AM CDT documented as of this encounter Care Teams Film Processing Shift Supervisor Relationship Specialty Start Date End Date Lynette Ponce MD [address] [place] [address] PCP - General INTERNAL MEDICINE 03/08/24 03/16/24 Lynette Ponce MD [address] [place] [address] PCP - General 03/29/24 Ivette Clark NP [place] Donor Relations Coordinator NURSE PRACTITIONER 02/09/19 03/25/24 Scott Guerrero MD Consulting Physician GASTROENTEROLOGY 03/04/19 Nerissa Hill MD [place] Donor Relations Coordinator CARDIOVASCULAR DISEASE 03/17/19 03/25/24 Carline Plummer FNP-BC NURSE PRACTITIONER 12/22/20 02/28/22 Bing Alvares MD [address] [place] [address] Consulting Physician CARDIOVASCULAR DISEASE 03/22/24 documented as of this encounter
--- OUTSIDE RECORDS SUMMARY | 2025-01-07 07:14 | XMS_ITS | Encounter Summary ---
Author Organization [facility] Address [address] [place] [address] Care Team Providers Care Nc Manager Name Role Phone Ivette Clark NP Unavailable [phone] Fabian Palacios MD Unavailable Unavailable Scott Guerrero MD Unavailable Nerissa Hill MD Unavailable [phone] Carline Plummer [facility] Unavailable [phone] Lynette Ponce MD Primary Care Provider [phone] Bing Alvares MD Unavailable Lynette Ponce MD Primary Care Provider Encounter Details Date Type Department Care Team ([facility] st Contact Info) Description 10/21/2018 MyChart Message Enc [facility] Medical Group MultiSpecialty Care [facility] [address] [place] [address] Melissa Watson, HIGH SPEED PRINTER OPERATOR [address] [address] Other Social History Tobacco Use Types Packs/Day [...] 10/22/2018 8:04 AM CST Please advise. Thanks. INSURANCE CLAIMS ADJUSTER documented in this encounter Plan of Treatment Upcoming Encounters Date Type Department Care Team (Late st Contact Info) Description 06/13/2025 10:45 AM CDT Office Visit [facility] [address] [place] [address] Bing Alvares MD [address] [place] [address] documented as of this encounter Visit Diagnoses Not on filedocumented in this encounter Additional Health Concerns Infection Onset Date Last Indicated Resolved Time COVID-19 Rule Out 03/06/2020 03/03/2020 03/06/2020 9:26 AM CDT documented as of this encounter Care Teams Nc Manager Relationship Specialty Start Date End Date Lynette Ponce MD [address] [place] [address] PCP - General INTERNAL MEDICINE 03/08/24 03/16/24 Lynette Ponce MD [address] [place] [address] PCP - General 03/29/24 Ivette Clark NP [place] Ediphone Operator NURSE PRACTITIONER 02/09/19 03/25/24 Fabian Palacios MD [place] Ediphone Operator INTERVENTIONAL CARDIOLOGY 02/09/19 03/16/19 Scott Guerrero MD Consulting Physician GASTROENTEROLOGY 03/04/19 Nerissa Hill MD [place] Ediphone Operator CARDIOVASCULAR DISEASE 03/17/19 03/25/24 Carline Plummer FNP- NURSE PRACTITIONER 12/22/20 02/28/22 Bing Alvares MD [address] [place] [address] Consulting Physician CARDIOVASCULAR DISEASE 03/22/24 documented as of this encounter
--- OUTSIDE RECORDS SUMMARY | 2025-01-07 07:14 | XMS_ITS | Encounter Summary ---
Author Organization [facility] Address [address] [place] [address] Care Team Providers Care Physical Therapy Aid Name Role Phone Ivette Clark NP Unavailable [phone] Scott Guerrero MD Unavailable Nerissa Hill MD Unavailable [phone] Lynette Ponce MD Primary Care Provider [phone] Bing Alvares MD Unavailable Lynette Ponce MD Primary Care Provider [phone] Encounter Details Date Type Department Care Team (Latest Contact Info) Description 12/13/2022 [employer] Message Enc [facility] Medical Group MultiSpecialty Care [facility] [address] [place] [address] [facility] Provider provider's result note Social History [...] Coronavirus/COVID-19? No / Unsure 12/12/2022 9:13 AM HOUSEPERSON documented as of this encounter Plan of Treatment Upcoming Encounters Date Type Department Care Team (Late st Contact Info) Description 06/13/2025 10:45 AM CDT Office Visit [facility] [place] [address] Bing Alvares MD [address] [place] [address] documented as of this encounter Visit Diagnoses Not on filedocumented in this encounter Additional Health Concerns Assessment Noted Time PHQ-9 Depression Total Score: 0 12/12/19 4:08 PM HOUSEPERSON documented as of this encounter Care Teams Physical Therapy Aid Relationship Specialty Start Date End Date Lynette Ponce MD [address] [place] [address] PCP - General INTERNAL MEDICINE 03/08/24 03/16/24 Lynette Ponce MD [address] [place] [address] PCP - General 03/29/24 Ivette Clark NP [place] Assembly Detailer NURSE PRACTITIONER 02/09/19 03/25/24 Scott Guerrero MD Consulting Physician GASTROENTEROLOGY 03/04/19 Nerissa Hill MD [place] Assembly Detailer CARDIOVASCULAR DISEASE 03/17/19 03/25/24 Bing Alvares MD [address] [place] [address] Consulting Physician CARDIOVASCULAR DISEASE 03/22/24 documented as of this encounter
--- OUTSIDE RECORDS SUMMARY | 2025-01-07 07:14 | XMS_ITS | Encounter Summary ---
Author Organization [facility] Address [address] [place] [address] Care Team Providers Care Beverage Sales Consultant Name Role Phone Ivette Clark NP Unavailable [phone] Scott Guerrero MD Unavailable Nerissa Hill MD Unavailable [phone] Carline [facility] Unavailable [phone] Lynette Ponce MD Primary Care Provider [phone] Bing Alvares MD Unavailable Lynette Ponce MD Primary Care Provider [phone] Reason for Visit * Reason Onset Date Comments Prior Authorization 08/17/2019 Encounter Details Date Type Department Care Team (Latest Contact Info) Description 08/17/2019 Kaleio Message Enc [facility] Medical [facility] MultiSpecialty Care [address] [address] Teri Mojica, [facility] [address] [place] [address] Medication Questions Social History Tobacco [...] [employer]. 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 Pharmacy faxed request last Friday08/18/19 IVING TEAM MEMBER documented in this encounter Plan of Treatment Upcoming Encounters Date Type Department Care Team (Late st Contact Info) Description 06/13/2025 10:45 AM CDT Office Visit [facility] [address] [place] [address] Bing Alvares MD [address] [place] [address] documented as of this encounter Visit Diagnoses Not on filedocumented in this encounter Additional Health Concerns Infection Onset Date Last Indicated Resolved Time COVID-19 Rule Out 03/06/2020 03/03/2020 03/06/2020 9:26 AM CDT Assessment Noted Time PHQ-9 Depression Total Score: 19 019 4:41 PM CDT documented as of this encounter Care Teams Beverage Sales Consultant Relationship Specialty Start Date End Date Lynette Ponce MD [address] [place] [address] PCP - General INTERNAL MEDICINE 03/08/24 03/16/24 Lynette Ponce MD [address] [place] [address] PCP - General 03/29/24 Ivette Clark NP [place] Crystal Machining Coordinator NURSE PRACTITIONER 02/09/19 03/25/24 Scott Guerrero MD Consulting Physician GASTROENTEROLOGY 03/04/19 Nerissa Hill MD [place] Crystal Machining Coordinator CARDIOVASCULAR DISEASE 03/17/19 03/25/24 Carline Plummer FNP-BC NURSE PRACTITIONER 12/22/20 02/28/22 Bing Alvares MD [address] [place] [address] Consulting Physician CARDIOVASCULAR DISEASE 03/22/24 documented as of this encounter
--- OUTSIDE RECORDS SUMMARY | 2025-01-07 07:14 | XMS_ITS | Encounter Summary ---
Author Organization [facility] Address [address] [place] [address] Care Team Providers Care Sampler Pickup Name Role Phone Ivette Clark NP Unavailable [phone] Fabian Palacios MD Unavailable Unavailable Scott Guerrero MD Unavailable Nerissa Hill MD Unavailable [phone] Carline Plummer [facility] Unavailable [phone] Lynette Ponce MD Primary Care Provider [phone] Bing Alvares MD Unavailable Lynette Ponce MD Primary Care Provider [phone] Encounter Details Date Type Department Care Team (Latest Contact Info) Description 09/14/2018 Global News Enterprisest Message Enc [facility] Medical Group MultiSpecialty [facility] [address] [place] [address] Melissa Watson, CLAMP OPERATOR [address] [address] Follow Up/Update Social History Tobacco Use Types [...] Description 06/13/2025 10:45 AM CDT Office Visit [facility] [address] [place] [address] Bing Alvares MD [address] [place] [address] documented as of this encounter Visit Diagnoses Not on filedocumented in this encounter Additional Health Concerns Infection Onset Date Last Indicated Resolved Time COVID-19 Rule Out 03/06/2020 03/03/2020 03/06/2020 9:26 AM CDT documented as of this encounter Care Teams Sampler Pickup Relationship Specialty Start Date End Date Lynette Ponce MD [address] [place] [address] PCP - General INTERNAL MEDICINE 03/08/24 03/16/24 Lynette Ponce MD [address] [place] [address] PCP - General 03/29/24 Ivette Clark NP [place] Acute Dialysis Nurse NURSE PRACTITIONER 02/09/19 03/25/24 Fabian Palacios MD [place] Acute Dialysis Nurse INTERVENTIONAL CARDIOLOGY 02/09/19 03/16/19 Scott Guerrero MD Consulting Physician GASTROENTEROLOGY 03/04/19 Nerissa Hill MD [place] Acute Dialysis Nurse CARDIOVASCULAR DISEASE 03/17/19 03/25/24 Carline Plummer FNP-BC NURSE PRACTITIONER 12/22/20 02/28/22 Bing Alvares MD [address] [place] [address] Consulting Physician CARDIOVASCULAR DISEASE 03/22/24 documented as of this encounter
--- OUTSIDE RECORDS SUMMARY | 2025-01-07 07:14 | XMS_ITS | Encounter Summary ---
Author Organization [facility] Address [address] [place] [address] Care Team Providers Care Authorization Rep Name Role Phone Ivette Clark NP Unavailable [phone] Scott Guerrero MD Unavailable Nerissa Hill MD Unavailable [phone] Carline Plummer [facility] Unavailable [phone] Lynette Ponce MD Primary Care Provider Bing Alvares MD Unavailable Lynette Ponce MD Primary Care Provider [phone] Encounter Details Date Type Department Care Team (Late st Contact Info) Description 06/24/2020 Fulcrum SP Materials Message Enc [facility] Medical Group MultiSpecialty Care [facility] [address] [place] [address] Teri Mojica, [facility] [address] [place] [address] Test Results Social History Tobacco Use Types [...] Description 06/13/2025 10:45 AM CDT Office Visit [facility] [place] [address] Bing Alvares MD [address] [place] [address] documented as of this encounter Visit Diagnoses Not on filedocumented in this encounter Additional Health Concerns Assessment Noted Time PHQ-9 Depression Total Score: 19 019 4:41 PM CDT documented as of this encounter Care Teams Authorization Rep Relationship Specialty Start Date End Date Lynette Ponce MD [address] [place] [address] PCP - General INTERNAL MEDICINE 03/08/24 03/16/24 Lynette Ponce MD [address] [place] [address] PCP - General 03/29/24 Ivette Clark NP [place] Shing[place] Roofer Helper NURSE PRACTITIONER 02/09/19 03/25/24 Scott Guerrero MD Consulting Physician GASTROENTEROLOGY 03/04/19 Nerissa Hill MD [place] Roofer Helper CARDIOVASCULAR DISEASE 03/17/19 03/25/24 [facility]mer [facility] NURSE PRACTITIONER 12/22/20 02/28/22 Bing Alvares MD [address] [place] [address] Consulting Physician CARDIOVASCULAR DISEASE 03/22/24 documented as of this encounter
--- OUTSIDE RECORDS SUMMARY | 2025-01-07 07:14 | XMS_ITS | Encounter Summary ---
Author Organization [facility] Address [address] [place] [address] Care Team Providers Care Clinical Sales Consultant Name Role Phone Ivette Clark NP Unavailable [phone] Fabian Palacios MD Unavailable Unavailable Scott Guerrero MD Unavailable Nerissa Hill MD Unavailable [phone] Carline Plummer [facility] Unavailable [phone] Lynette Ponce MD Primary Care Provider [phone] Bing Alvares MD Unavailable Lynette Ponce MD Primary Care Provider [phone] Encounter Details Date Type Department Care Team ([facility] st Contact Info) Description 01/29/2019 MyChart Message Enc [facility] Medical Group MultiSpecialty Care [facility] [address] [place] [address] Melissa Watson, SAND HAULER [address] [address] Other Social History Tobacco Use [...] Description 06/13/2025 10:45 AM CDT Office Visit [facility] [place] [address] Bing Alvares MD [address] [place] [address] documented as of this encounter Visit Diagnoses Not on filedocumented in this encounter Additional Health Concerns Infection Onset Date Last Indicated Resolved Time COVID-19 Rule Out 03/06/2020 03/03/2020 03/06/2020 9:26 AM CDT documented as of this encounter Care Teams Clinical Sales Consultant Relationship Specialty Start Date End Date Lynette Ponce MD [address] [place] [address] PCP - General INTERNAL MEDICINE 03/08/24 03/16/24 Lynette Ponce MD [address] [place] [address] PCP - General 03/29/24 Ivette Clark NP [place] Fishing Game Warden NURSE PRACTITIONER 02/09/19 03/25/24 Fabian Palacios MD [place] Fishing Game Warden INTERVENTIONAL CARDIOLOGY 02/09/19 03/16/19 Scott Guerrero MD Consulting Physician GASTROENTEROLOGY 03/04/19 Nerissa Hill MD [place] Fishing Game Warden CARDIOVASCULAR DISEASE 03/17/19 03/25/24 [facility]line [facility]mer [facility] NURSE PRACTITIONER 12/22/20 02/28/22 Bing Alvares MD [address] [place] [address] Consulting Physician CARDIOVASCULAR DISEASE 03/22/24 documented as of this encounter
--- OUTSIDE RECORDS SUMMARY | 2025-01-07 07:14 | XMS_ITS | Clinical Summary ---
Author Organization [facility] Address [facility]ly [facility] [place] [address] Care Team Providers Care Radio Officer Name Role Phone Scott Guerrero MD Unavailable Bing Alvares MD Unavailable Lynette Ponce MD Primary Care Provider [phone] Allergies Active Allergy Reactions Criticality Noted Date [...] (Generic) 08/17/2023,07/26/2022, 07/20/2019 MMR 02/23/2009 MODERNA COVID-19 (GROCERY ASSOCIATE DENNIS JOAQUINA), MRNA, LNP-S, PF, 50 MCG/ [...] 36.6 C (97.9 F) 10/07/2023 8:34 AM CRAY FISHING HAND Respiratory Rate 12 05/31/2024 2:35 PM CDT [...] Description 06/13/2025 10:45 AM CDT Office Visit [facility] [place] [address] Bing Alvares MD [address] [place] [address] Health Maintenance Due Date Last Done Comments Colorectal Cancer Screening Colonoscopy (10 Years) 1966 Mammogram Screening 2006 Zoster Vaccines (1 of 2) 08/07/2021 Annual Physical 03/02/2022 03/02/2021 COVID-19 Vaccine ( season) 2024 07/26/2022, 05/09/2022, 03/23/2021 Influenza Adult (#1) 2024 08/17/2023, 07/26/2022, 07/12/2021, Additional history exists PHQ-2 (Physician [place]) 10/20/2024 10/07/2023 DTaP, Tdap and Td Vaccines [...] this topic Medical Devices Implanted Type Area Build Automation Engineer Device Identifier Shelf Expiration Date Model / Serial / Lot Wire Abhilash Magic Pins Orthofix 1.2 X 7mm - [id number] Implanted:Qty: 1 on 09/23/2018 by Tressa Traylor DPM at [facility] [place] Left: Foot ORTHOFIX [id number] / / N/A Description:Verified by Screw Acutrak 2 Mini 20.0mm - [id number] Implanted:Qty: 1 on 09/23/2018 by Tressa Traylor DPM at [facility] Left: Foot [employer] 05/20/2025 AT2-M20-S / / [id number] Description:Verified by Wire Abhilash Magic Pins Orthofix 1.6 X 17 - [id number] Implanted:Qty: 1 on 09/23/2018 by Tressa Traylor DPM at [facility] Left: Foot ORTHOFIX [id number] / / N/A Description:Verified by Wire Abhilash Magic Pins Orthofix 1.6 X 11 - [id number] Implanted:Qty: 1 on 01/20/2019 by Tressa Traylor DPM at [facility] Right: Foot ORTHOFIX [id number] / / N/A Description:Verified by Screw Acutrak 2 Mini 18.0mm - [id number] Implanted:Qty: 1 on 01/20/2019 by Tressa Traylor DPM at [facility] Right: Foot [employer] 08/03/2025 AT2-M18 / / [id number] Description:Verified by Wire Abhilash Magic Pins Orthofix 1.6 X 17 - [id number] Implanted:Qty: 1 on 01/20/2019 by Tressa Traylor DPM at [facility] Right: Foot ORTHOFIX [id number] / / N/A Description:Verified by Explanted Type Area Build Automation Engineer Device Identifier Shelf Expiration Date Model / Serial / Lot .045mm Mini Guidewire Explanted:Qty: 2 on 09/23/2018 by Tressa Traylor DPM at [facility] Left: Foot [id number] / / N/A Description:Used not implant ed Sm Cannulated Drill Tip Explanted:Qty: 1 on 09/23/2018 by Tressa Traylor DPM at [facility] Left: Foot [id number] / / N/A Description:Used not implant ed K Wire Lionel 6 In X .045 In - [id number] Explanted:Qty: 1 on 01/20/2019 by Tressa Traylor DPM at [facility] Right: Foot [employer] 05/19/2028 [id number] / / [id number] Description:Used not implant ed .045 Mini Guidewire Explanted:Qty: 1 on 01/20/2019 by Tressa Traylor DPM at [facility] Right: Foot [id number] / / N/A Description:Used not implant [id number] Mini Drill Tip Explanted:Qty: 1 on 01/20/2019 by Tressa Traylor DPM at [facility] Right: Foot [id number] / / N/A Description:Used not implant ed Advance Directives Documents on File Type Date Recorded Patient Computer Systems Design Analyst Expl anation Advance Directives and Living Will 04/04/2015 12:00 AM ADVANCED DIRECTIVES Advance Directives and Living Will 02/09/2015 12:00 AM ADVANCED DIRECTIVES Advance Directives and Living Will 03/08/2013 12:00 AM ADVANCED DIRECTIVES Advance Directives and Living Will 06/30/2012 12:00 AM ADVANCED DIRECTIVES Care Teams Radio Officer Relationship Specialty Start Date End Date Lynette Ponce MD [address] [place] [address] PCP - General 03/29/24 Scott Guerrero MD Consulting Physician GASTROENTEROLOGY 03/04/19 Bing Alvares MD [address] [place] [address] Consulting Physician CARDIOVASCULAR DISEASE 03/22/24
[2025-01-07 07:36] LABS: Immature Reticulocyte Fraction 12.5 % (2.0-16.52); Reticulocyte Hemoglobin Conten 26.3 pg (28.0-35.0); Reticulocyte Percent 0.96 % (0.50-1.50); Reticulocytes Absolute 0.04 M/mm3 (0.02-0.10)
[2025-01-07 08:33] LABS: Ferritin 8 ng/mL (8-252); Iron 26 ug/dL (50-170)
[2025-01-07 14:14] LABS: Occult Blood Negative (Negative)
[2025-01-07 15:41] LABS: Occult Blood Negative (Negative)
== END 2025-01-07 07:11 | disposition home or self-care (01) ==
LOC: CHSLAB 07:11
PROVIDERS: PCP Internal Medicine; Visit Provider Internal Medicine
DX: D64.9 Anemia, unspecified (principal)
CPT/HCPCS: 36415; 82272; 82728; 83540; 85046

== ENCOUNTER 2025-01-10 08:00 | Outpatient (CLI) | payer OTHER, SELFPAY ==
[2025-01-10 08:13] LABS: Occult Blood Negative (Negative)
--- OUTSIDE RECORDS SUMMARY | 2025-01-10 08:15 | XMS_ITS | Encounter Summary ---
Author Organization [facility] Address [address] [place] [address] Care Team Providers Care Heating Mechanic Name Role Phone Ivette Clark NP Unavailable [phone] Fabian Palacios MD Unavailable Unavailable Scott Guerrero MD Unavailable Nerissa Hill MD Unavailable [phone] Carline Plummer [facility] Unavailable [phone] Lynette Ponce MD Primary Care Provider [phone] Bing Alvares MD Unavailable Lynette Ponce MD Primary Care Provider [phone] Encounter Details Date Type Department Care Team ([facility] st Contact Info) Description 09/25/2018 MyChart Message Enc [facility] Medical Group MultiSpecialty Care [facility] [address] [place] [address] Melissa Watson, WOOD FLOOR REFINISHER [address] [address] RE: Other Social History Tobacco [...] CST Medication is updated in patient's chart. ARC WELDER * Faith Chandler RN - 09/26/2018 8:27 AM CST Does this need any more follow up? Please advise ARC WELDER documented in this encounter Plan of Treatment Upcoming Encounters Date Type Department Care Team (Late st Contact Info) Description 06/13/2025 10:45 AM CDT Office Visit [facility] [place] [address] Bing Alvares MD [address] [place] [address] documented as of this encounter Visit Diagnoses Not on filedocumented in this encounter Additional Health Concerns Infection Onset Date Last Indicated Resolved Time COVID-19 Rule Out 03/06/2020 03/03/2020 03/06/2020 9:26 AM CDT documented as of this encounter Care Teams Heating Mechanic Relationship Specialty Start Date End Date Lynette Ponce MD [address] [place] [address] PCP - General INTERNAL MEDICINE 03/08/24 03/16/24 Lynette Ponce MD [address] [place] [address] PCP - General 03/29/24 Ivette Clark NP [place] [facility] Front Desk Specialist NURSE PRACTITIONER 02/09/19 03/25/24 Fabian Palacios MD [place] [facility] Front Desk Specialist INTERVENTIONAL CARDIOLOGY 02/09/19 03/16/19 Scott Guerrero MD Consulting Physician GASTROENTEROLOGY 03/04/19 Nerissa Hill MD [place] [facility] Front Desk Specialist CARDIOVASCULAR DISEASE 03/17/19 03/25/24 Carline Plummer FNP-BC NURSE PRACTITIONER 12/22/20 02/28/22 Bing Alvares MD [address] [place] [address] Consulting Physician CARDIOVASCULAR DISEASE 03/22/24 documented as of this encounter
--- OUTSIDE RECORDS SUMMARY | 2025-01-10 08:16 | XMS_ITS | Encounter Summary ---
Author Organization [facility] Address [address] [place] [address] Care Team Providers Care Information Security Analyst Name Role Phone Ivette Clark NP Unavailable [phone] Fabian Palacios MD Unavailable Unavailable Scott Guerrero MD Unavailable Nerissa Hill MD Unavailable [phone] Carline Plummer [facility] Unavailable [phone] Lynette Ponce MD Primary Care Provider [phone] Bing Alvares MD Unavailable Lynette Ponce MD Primary Care Provider [phone] Encounter Details Date Type Department Care Team ([facility] st Contact Info) Description 10/21/2018 MyChart Message Enc [facility] Medical Group MultiSpecialty Care [facility] [address] [place] [address] Melissa Watson, MARKETING SPECIALIST [address] [address] Other Social History Tobacco Use [...] 10/22/2018 8:04 AM CST Please advise. Thanks. ASSET MANAGER documented in this encounter Plan of Treatment Upcoming Encounters Date Type Department Care Team (Late st Contact Info) Description 06/13/2025 10:45 AM CDT Office Visit [facility] [address] [place] [address] Bing Alvares MD [address] [place] [address] documented as of this encounter Visit Diagnoses Not on filedocumented in this encounter Additional Health Concerns Infection Onset Date Last Indicated Resolved Time COVID-19 Rule Out 03/06/2020 03/03/2020 03/06/2020 9:26 AM CDT documented as of this encounter Care Teams Information Security Analyst Relationship Specialty Start Date End Date Lynette Ponce MD [address] [place] [address] PCP - General INTERNAL MEDICINE 03/08/24 03/16/24 Lynette Ponce MD [address] [place] [address] PCP - General 03/29/24 Ivette Clark NP [place] Flight Communications Officer NURSE PRACTITIONER 02/09/19 03/25/24 Fabian Palacios MD [place] Flight Communications Officer INTERVENTIONAL CARDIOLOGY 02/09/19 03/16/19 Scott Guerrero MD Consulting Physician GASTROENTEROLOGY 03/04/19 Nerissa Hill MD [place] Flight Communications Officer CARDIOVASCULAR DISEASE 03/17/19 03/25/24 Carline Plummer FNP- NURSE PRACTITIONER 12/22/20 02/28/22 Bing Alvares MD [address] [place] [address] Consulting Physician CARDIOVASCULAR DISEASE 03/22/24 documented as of this encounter
--- OUTSIDE RECORDS SUMMARY | 2025-01-10 08:16 | XMS_ITS | Encounter Summary ---
Author Organization [facility] Address [address] [place] [address] Care Team Providers Care President Trust Company Name Role Phone Ivette Clark NP Unavailable [phone] Scott Guerrero MD Unavailable Nerissa Hill MD Unavailable [phone] Carline Plummer [facility] Unavailable [phone] Lynette Ponce MD Primary Care Provider [phone] Bing Alvares MD Unavailable Lynette Ponce MD Primary Care Provider [phone] Encounter Details Date Type Department Care Team (Late st Contact Info) Description 12/09/2019 gopogo Message Enc [facility] Medical Group MultiSpecialty Care [facility] [address] [place] [address] Teri Mojica, [facility] [address] [place] [address] Other Social History Tobacco Use Types Packs/Day [...] Description 06/13/2025 10:45 AM CDT Office Visit [facility] [place] [address] Bing Alvares MD [address] [place] [address] documented as of this encounter Visit Diagnoses Not on filedocumented in this encounter Additional Health Concerns Infection Onset Date Last Indicated Resolved Time COVID-19 Rule Out 03/06/2020 03/03/2020 03/06/2020 9:26 AM CDT Assessment Noted Time PHQ-9 Depression Total Score: 19 019 4:41 PM CDT documented as of this encounter Care Teams President Trust Company Relationship Specialty Start Date End Date Lynette Ponce MD [address] [place] [address] PCP - General INTERNAL MEDICINE 03/08/24 03/16/24 Lynette Ponce MD [address] [place] [address] PCP - General 03/29/24 Ivette Calrk NP [place] Director Patient Accounting NURSE PRACTITIONER 02/09/19 03/25/24 Scott Guerrero MD Consulting Physician GASTROENTEROLOGY 03/04/19 Nerissa Hill MD [place] Director Patient Accounting CARDIOVASCULAR DISEASE 03/17/19 03/25/24 Carline Plummer FNP-BC NURSE PRACTITIONER 12/22/20 02/28/22 Bing Alvares MD [address] [place] [address] Consulting Physician CARDIOVASCULAR DISEASE 03/22/24 documented as of this encounter
--- OUTSIDE RECORDS SUMMARY | 2025-01-10 08:16 | XMS_ITS | Encounter Summary ---
Author Organization [facility] Address [address] [place] [address] Care Team Providers Care Income Tax Administrator Name Role Phone Ivette Clark NP Unavailable [phone] Fabian Palacios MD Unavailable Unavailable Scott Guerrero MD Unavailable Nerissa Hill MD Unavailable [phone] Carline Plummer [facility] Unavailable [phone] Lynette Ponce MD Primary Care Provider [phone] Bing Alvares MD Unavailable Lynette Ponce MD Primary Care Provider [phone] Encounter Details Date Type Department Care Team (Latest Contact Info) Description 11/15/2018 MyChart Message Enc [facility] Medical Group MultiSpecialty [facility] [address] [place] [address] Melissa Watson, SALES SUPPORT ENGINEER [address] [address] Medication Questions Social History Tobacco [...] Description 06/13/2025 10:45 AM CDT Office Visit [facility] [address] [place] [address] Bing Alvares MD [address] [place] [address] documented as of this encounter Visit Diagnoses Not on filedocumented in this encounter Additional Health Concerns Infection Onset Date Last Indicated Resolved Time COVID-19 Rule Out 03/06/2020 03/03/2020 03/06/2020 9:26 AM CDT documented as of this encounter Care Teams Income Tax Administrator Relationship Specialty Start Date End Date Lynette Ponce MD [address] [place] [address] PCP - General INTERNAL MEDICINE 03/08/24 03/16/24 Lynette Ponce MD [address] [place] [address] PCP - General 03/29/24 Ivette Clark NP [place] Director Of Institutional Research NURSE PRACTITIONER 02/09/19 03/25/24 Fabian Palacios MD [place] Director Of Institutional Research INTERVENTIONAL CARDIOLOGY 02/09/19 03/16/19 Scott Guerrero MD Consulting Physician GASTROENTEROLOGY 03/04/19 Nerissa Hill MD [place] Director Of Institutional Research CARDIOVASCULAR DISEASE 03/17/19 03/25/24 Carline Plummer FNP-BC NURSE PRACTITIONER 12/22/20 02/28/22 Bing Alvares MD [address] [place] [address] Consulting Physician CARDIOVASCULAR DISEASE 03/22/24 documented as of this encounter
--- OUTSIDE RECORDS SUMMARY | 2025-01-10 08:16 | XMS_ITS | Clinical Summary ---
Author Organization [facility] Address [address] [place] [address] Care Team Providers Care Pantograph Transferrer Name Role Phone Unavailable Primary Care Provider Unavailabl e Source Comments [facility],non-owned Affiliates and Associated Physician Practices is amultiple site organization consisting of ambulatory clinics and hospital sitesin [place], [place], [place] and [place]. This disclosure is being madepursuant to the Care Everywhere program and may not contain all information available regarding this patient. Last updated 18.[facility] Social History Tobacco Use Types Packs/Day Years [...]
--- OUTSIDE RECORDS SUMMARY | 2025-01-10 08:16 | XMS_ITS | Encounter Summary ---
Author Organization [facility] Address [address] [place] [address] Care Team Providers Care Risk Control Product Liability Director Name Role Phone Ivette Clark NP Unavailable [phone] Scott Guerrero MD Unavailable Nerissa Hill MD Unavailable [phone] Carline Plummer [facility] Unavailable [phone] Lynette Ponce MD Primary Care Provider [phone] Bing Alvares MD Unavailable Lynette Ponce MD Primary Care Provider [phone] Encounter Details Date Type Department Care Team (Late st Contact Info) Description 01/09/2021 MyChart Message Enc [facility] Medical Group MultiSpecialty Care [facility] [address] [place] [address] Teri Mojica, [facility] [address] [place] [address] Test Results Social History Tobacco Use Types [...] Description 06/13/2025 10:45 AM CDT Office Visit [facility] [place] [place] [address] Bing Alvares MD [address] [place] [address] documented as of this encounter Visit Diagnoses Not on filedocumented in this encounter Additional Health Concerns Assessment Noted Time PHQ-9 Depression Total Score: 13 021 11:47 AM FAMILY CENTERED SPECIALIST documented as of this encounter Care Teams Risk Control Product Liability Director Relationship Specialty Start Date End Date Lynette Ponce MD [address] [place] [address] PCP - General INTERNAL MEDICINE 03/08/24 03/16/24 Lynette Ponce MD [address] [place] [address] PCP - General 03/29/24 Ivette Clark NP [place] Coating Manager NURSE PRACTITIONER 02/09/19 03/25/24 Scott Guerrero MD Consulting Physician GASTROENTEROLOGY 03/04/19 Nerissa Hill MD [place] Coating Manager CARDIOVASCULAR DISEASE 03/17/19 03/25/24 [facility] NURSE PRACTITIONER 12/22/20 02/28/22 Bing Alvares MD [address] [place] [address] Consulting Physician CARDIOVASCULAR DISEASE 03/22/24 documented as of this encounter
--- OUTSIDE RECORDS SUMMARY | 2025-01-10 08:16 | XMS_ITS | Encounter Summary ---
Author Organization [facility] Address [address] [place] [address] Care Team Providers Care Contract Writer Name Role Phone Ivette Clark NP Unavailable [phone] Fabian Palacios MD Unavailable Unavailable cSott Guerrero MD Unavailable Nerissa Hill MD Unavailable [phone] [facility] Unavailable [phone] Lynette Ponce MD Primary Care Provider [phone] Bing Alvares MD Unavailable Lynette Ponce MD Primary Care Provider [phone] Encounter Details Date Type Department Care Team ([facility] st Contact Info) Description 01/29/2019 MyChart Message Enc [facility] Medical Group MultiSpecialty Care [facility] [address] [place] [address] Melissa Watson, LAP MACHINE OPERATOR [address] [address] Other Social History Tobacco Use [...] Description 06/13/2025 10:45 AM CDT Office Visit [facility] [place] [address] Bing Alvares MD [address] [place] [address] documented as of this encounter Visit Diagnoses Not on filedocumented in this encounter Additional Health Concerns Infection Onset Date Last Indicated Resolved Time COVID-19 Rule Out 03/06/2020 03/03/2020 03/06/2020 9:26 AM CDT documented as of this encounter Care Teams Contract Writer Relationship Specialty Start Date End Date Lynette Ponce MD [address] [place] [address] PCP - General INTERNAL MEDICINE 03/08/24 03/16/24 Lynette Ponce MD [address] [place] [address] PCP - General 03/29/24 Ivette Clark NP [place] Combat Systems Operator Mine Warfare NURSE PRACTITIONER 02/09/19 03/25/24 Fabian Palacios MD [place] Combat Systems Operator Mine Warfare INTERVENTIONAL CARDIOLOGY 02/09/19 03/16/19 Scott Guerrero MD Consulting Physician GASTROENTEROLOGY 03/04/19 Nerissa Hill MD [place] Combat Systems Operator Mine Warfare CARDIOVASCULAR DISEASE 03/17/19 03/25/24 [facility]mer [facility] NURSE PRACTITIONER 12/22/20 02/28/22 Bing Alvares MD [address] [place] [address] Consulting Physician CARDIOVASCULAR DISEASE 03/22/24 documented as of this encounter
--- OUTSIDE RECORDS SUMMARY | 2025-01-10 08:16 | XMS_ITS | Encounter Summary ---
Author Organization [facility] Address [address] [place] [address] Care Team Providers Care Car Lubricator Name Role Phone Ivette Clark NP Unavailable [phone] Fabian Palacios MD Unavailable Unavailable Scott Guerrero MD Unavailable Nerissa Hill MD Unavailable [phone] [facility] Unavailable [phone] Lynette Ponce MD Primary Care Provider [phone] Bing Alvares MD Unavailable Lynette Ponce MD Primary Care Provider [phone] Encounter Details Date Type Department Care Team (Latest Contact Info) Description 09/14/2018 APJeTt Message Enc [facility] Medical Group MultiSpecialty [facility] [address] [place] [address] Melissa Watson, BLANKET WINDER HELPER [address] [address] Follow Up/Update Social History Tobacco [...] Description 06/13/2025 10:45 AM CDT Office Visit [facility] [address] [place] [address] Bing Alvares MD [address] [place] [address] documented as of this encounter Visit Diagnoses Not on filedocumented in this encounter Additional Health Concerns Infection Onset Date Last Indicated Resolved Time COVID-19 Rule Out 03/06/2020 03/03/2020 03/06/2020 9:26 AM CDT documented as of this encounter Care Teams Car Lubricator Relationship Specialty Start Date End Date Lynette Ponce MD [address] [place] [address] PCP - General INTERNAL MEDICINE 03/08/24 03/16/24 Lynette Ponce MD [address] [place] [address] PCP - General 03/29/24 Ivette Clark NP [place] Student Development Advisor NURSE PRACTITIONER 02/09/19 03/25/24 Fabian Palacios MD [place] Student Development Advisor INTERVENTIONAL CARDIOLOGY 02/09/19 03/16/19 Scott Guerrero MD Consulting Physician GASTROENTEROLOGY 03/04/19 Nerissa Hill MD [place] Student Development Advisor CARDIOVASCULAR DISEASE 03/17/19 03/25/24 Carline Plummer FNP-BC NURSE PRACTITIONER 12/22/20 02/28/22 Bing Alvares MD [address] [place] [address] Consulting Physician CARDIOVASCULAR DISEASE 03/22/24 documented as of this encounter
--- OUTSIDE RECORDS SUMMARY | 2025-01-10 08:16 | XMS_ITS | Encounter Summary ---
Author Organization [facility] Address [address] [place] [address] Care Team Providers Care Employee Health Rn Name Role Phone Ivette Clark NP Unavailable [phone] Scott Guerrero MD Unavailable Nerissa Hill MD Unavailable [phone] Carline Plummer [facility] Unavailable [phone] Lynette Ponce MD Primary Care Provider [phone] Bing Alvares MD Unavailable Lynette Ponce MD Primary Care Provider [phone] Reason for Visit * Reason Onset Date Comments Prior Authorization 08/17/2019 Encounter Details Date Type Department Care Team (Latest Contact Info) Description 08/17/2019 [employer] Message Enc [facility] Medical Group MultiSpecialty Care [address] [address] Teri Mojica, 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 Pharmacy faxed request last Friday08/18/19 CUTTING TEACHER documented in this encounter Plan of Treatment Upcoming Encounters Date Type Department Care Team (Late st Contact Info) Description 06/13/2025 10:45 AM CDT Office Visit [facility] [address] [place] [address] Bing Alvares MD [address] [place] [address] documented as of this encounter Visit Diagnoses Not on filedocumented in this encounter Additional Health Concerns Infection Onset Date Last Indicated Resolved Time COVID-19 Rule Out 03/06/2020 03/03/2020 03/06/2020 9:26 AM CDT Assessment Noted Time PHQ-9 Depression Total Score: 19 019 4:41 PM CDT documented as of this encounter Care Teams Employee Health Rn Relationship Specialty Start Date End Date Lynette Ponce MD [address] [place] [address] PCP - General INTERNAL MEDICINE 03/08/24 03/16/24 Lynette Ponce MD [address] [place] [address] PCP - General 03/29/24 Ivette Clark NP [place] Program Services Assistant NURSE PRACTITIONER 02/09/19 03/25/24 Scott Guerrero MD Consulting Physician GASTROENTEROLOGY 03/04/19 Nerissa Hill MD [place] Program Services Assistant CARDIOVASCULAR DISEASE 03/17/19 03/25/24 Carline Plummer FNP-BC NURSE PRACTITIONER 12/22/20 02/28/22 Bing Alvares MD [address] [place] [address] Consulting Physician CARDIOVASCULAR DISEASE 03/22/24 documented as of this encounter
--- OUTSIDE RECORDS SUMMARY | 2025-01-10 08:16 | XMS_ITS | Clinical Summary ---
Author Organization [facility] Address [facility] [place] [address] Care Team Providers Care Corset Maker Name Role Phone Scott Guerrero MD Unavailable Bing Alvares MD Unavailable Lynette Ponce MD Primary Care Provider [phone] Allergies Active Allergy Reactions Criticality Noted Date [...] (Generic) 08/17/2023,07/26/2022, 07/20/2019 MMR 02/23/2009 MODERNA COVID-19 (DRILLER'S ASSISTANT DENNIS JOAQUINA), MRNA, LNP-S, PF, 50 MCG/ [...] 36.6 C (97.9 F) 10/07/2023 8:34 AM STONE LAYOUT MARKER Respiratory Rate 12 05/31/2024 2:35 PM CDT [...] 06/13/2025 10:45 AM CDT Office Visit [facility] [place] [address] Bing Alvares MD [address] [place] [address] Health Maintenance Due Date Last Done Comments Colorectal Cancer Screening Colonoscopy (10 Years) 1966 Mammogram Screening 2006 Zoster Vaccines (1 of 2) 08/07/2021 Annual Physical 03/02/2022 03/02/2021 COVID-19 Vaccine ( season) 2024 07/26/2022, 05/09/2022, 03/23/2021 Influenza Adult (#1) 2024 08/17/2023, 07/26/2022, 07/12/2021, Additional history exists PHQ-2 (Physician [place]) 10/20/2024 10/07/2023 DTaP, Tdap and Td Vaccines [...] this topic Medical Devices Implanted Type Area Md Allergy Immunology Device Identifier Shelf Expiration Date Model / Serial / Lot Wire Abhilash Magic Pins Orthofix 1.2 X 7mm - [id number] Implanted:Qty: 1 on 09/23/2018 by Tressa Traylor DPM at [facility] [place] Left: Foot ORTHOFIX [id number] / / N/A Description:Verified by Screw Acutrak 2 Mini 20.0mm - [id number] Implanted:Qty: 1 on 09/23/2018 by Tressa Traylor DPM at [facility] Left: Foot [employer] 05/20/2025 AT2-M20-S / / [id number] Description:Verified by Wire Abhilash Magic Pins Orthofix 1.6 X 17 - [id number] Implanted:Qty: 1 on 09/23/2018 by Tressa Traylor DPM at [facility] Left: Foot ORTHOFIX [id number] / / N/A Description:Verified by Wire Abhilash Magic Pins Orthofix 1.6 X 11 - [id number] Implanted:Qty: 1 on 01/20/2019 by Tressa Traylor DPM at [facility] Right: Foot ORTHOFIX [id number] / / N/A Description:Verified by Screw Acutrak 2 Mini 18.0mm - [id number] Implanted:Qty: 1 on 01/20/2019 by Tressa Traylor DPM at [facility] Right: Foot [employer] 08/03/2025 AT2-M18 / / [id number] Description:Verified by Wire Abhilash Magic Pins Orthofix 1.6 X 17 - [id number] Implanted:Qty: 1 on 01/20/2019 by Tressa Traylor DPM at [facility] Right: Foot ORTHOFIX [id number] / / N/A Description:Verified by Explanted Type Area Md Allergy Immunology Device Identifier Shelf Expiration Date Model / Serial / Lot .045mm Mini Guidewire Explanted:Qty: 2 on 09/23/2018 by Tressa Traylor DPM at [facility] Left: Foot [id number] / / N/A Description:Used not implant ed Sm Cannulated Drill Tip Explanted:Qty: 1 on 09/23/2018 by Tressa Traylor DPM at [facility] Left: Foot [id number] / / N/A Description:Used not implant ed K Wire Lionel 6 In X .045 In - [id number] Explanted:Qty: 1 on 01/20/2019 by Tressa Traylor DPM at [facility] Right: Foot [employer] 05/19/2028 [id number] / / [id number] Description:Used not implant ed .045 Mini Guidewire Explanted:Qty: 1 on 01/20/2019 by Tressa Traylor DPM at [facility] Right: Foot [id number] / / N/A Description:Used not implant [id number] Mini Drill Tip Explanted:Qty: 1 on 01/20/2019 by Tressa Traylor DPM at [facility] Right: Foot [id number] / / N/A Description:Used not implant ed Advance Directives Documents on File Type Date Recorded Patient Packer Dried Beef Expl anation Advance Directives and Living Will 04/04/2015 12:00 AM ADVANCED DIRECTIVES Advance Directives and Living Will 02/09/2015 12:00 AM ADVANCED DIRECTIVES Advance Directives and Living Will 03/08/2013 12:00 AM ADVANCED DIRECTIVES Advance Directives and Living Will 06/30/2012 12:00 AM ADVANCED DIRECTIVES Care Teams Corset Maker Relationship Specialty Start Date End Date Lynette Ponce MD [address] [place] [address] PCP - General 03/29/24 Scott Guerrero MD Consulting Physician GASTROENTEROLOGY 03/04/19 Bing Alvares MD [address] [place] [address] Consulting Physician CARDIOVASCULAR DISEASE 03/22/24
--- OUTSIDE RECORDS SUMMARY | 2025-01-10 08:16 | XMS_ITS | Encounter Summary ---
Author Organization [facility] Address [facility] [place] [address] Care Team Providers Care Hooker Off Name Role Phone Ivette Clark NP Unavailable [phone] Fabian Palacios MD Unavailable Unavailable Scott Guerrero MD Unavailable Nerissa Hill MD Unavailable [phone] Carline Plummer [facility] Unavailable [phone] Lynette Ponce MD Primary Care Provider [phone] Bing Alvares MD Unavailable Lynette Ponce MD Primary Care Provider [phone] Encounter Details Date Type Department Care Team (Latest Contact Info) Description 07/13/2018 Abstract [facility] Medical Group Sri Russ MD Social History [...] Description 06/13/2025 10:45 AM CDT Office Visit [facility] [place] [address] Bing Alvares MD [address] [place] [address] documented as of this encounter Visit Diagnoses Not on filedocumented in this encounter Additional Health Concerns Infection Onset Date Last Indicated Resolved Time COVID-19 Rule Out 03/06/2020 03/03/2020 03/06/2020 9:26 AM CDT documented as of this encounter Care Teams Hooker Off Relationship Specialty Start Date End Date Lynette Ponce MD [address] [place] [address] PCP - General INTERNAL MEDICINE 03/08/24 03/16/24 Lynette Ponce MD [address] [place] [address] PCP - General 03/29/24 Ivette Clark NP [place] Hand Tube Winder NURSE PRACTITIONER 02/09/19 03/25/24 Fabian Palacios MD [place] Hand Tube Winder INTERVENTIONAL CARDIOLOGY 02/09/19 03/16/19 Scott Guerrero MD Consulting Physician GASTROENTEROLOGY 03/04/19 Nerissa Hill MD [place] Hand Tube Winder CARDIOVASCULAR DISEASE 03/17/19 03/25/24 Carline Plummer FNP-BC NURSE PRACTITIONER 12/22/20 02/28/22 Bing Alvares MD [address] [place] [address] Consulting Physician CARDIOVASCULAR DISEASE 03/22/24 documented as of this encounter
--- OUTSIDE RECORDS SUMMARY | 2025-01-10 08:16 | XMS_ITS | Encounter Summary ---
Author Organization [facility] Address [address] [place] [address] Care Team Providers Care Vegetable Farmworker Name Role Phone Ivette Clark NP Unavailable [phone] Scott Guerrero MD Unavailable Nerissa Hill MD Unavailable [phone] Lynette Ponce MD Primary Care Provider [phone] Bing Alvares MD Unavailable Lynette Ponce MD Primary Care Provider [phone] Encounter Details Date Type Department Care Team (Latest Contact Info) Description 12/13/2022 mWater Message Enc [facility] Medical Group MultiSpecialty Care [facility] [address] [place] [address] [facility] Provider provider's result note Social History Tobacco [...] Coronavirus/COVID-19? No / Unsure 12/12/2022 9:13 AM STEEL FABRICATING SUPERVISOR documented as of this encounter Plan of Treatment Upcoming Encounters Date Type Department Care Team (Late st Contact Info) Description 06/13/2025 10:45 AM CDT Office Visit [facility] [place] [address] Bing Alvares MD [address] [place] [address] documented as of this encounter Visit Diagnoses Not on filedocumented in this encounter Additional Health Concerns Assessment Noted Time PHQ-9 Depression Total Score: 0 12/12/19 4:08 PM STEEL FABRICATING SUPERVISOR documented as of this encounter Care Teams Vegetable Farmworker Relationship Specialty Start Date End Date Lynette Ponce MD [address] [place] [address] PCP - General INTERNAL MEDICINE 03/08/24 03/16/24 Lynette Ponce MD [address] [place] [address] PCP - General 03/29/24 Ivette Clark NP [place] Note Keeper NURSE PRACTITIONER 02/09/19 03/25/24 Scott Guerrero MD Consulting Physician GASTROENTEROLOGY 03/04/19 Nerissa Hill MD [place] Note Keeper CARDIOVASCULAR DISEASE 03/17/19 03/25/24 Bing Alvares MD [address] [place] [address] Consulting Physician CARDIOVASCULAR DISEASE 03/22/24 documented as of this encounter
--- OUTSIDE RECORDS SUMMARY | 2025-01-10 08:16 | XMS_ITS | Encounter Summary ---
Author Organization [facility] Address [address] [place] [address] Care Team Providers Care Prevocational/Rehabilitation Counselor Name Role Phone Ivette Clark NP Unavailable [phone] Scott Guerrero MD Unavailable Nerissa Hill MD Unavailable [phone] Carline Plummer [facility] Unavailable [phone] Lynette Ponce MD Primary Care Provider [phone] Bing Alvares MD Unavailable Lynette Ponce MD Primary Care Provider [phone] Encounter Details Date Type Department Care Team (Late st Contact Info) Description 06/24/2020 [employer] Message Enc [facility] Medical Group MultiSpecialty Care [facility] [address] [place] [address] Teri Mojica, [facility] [address] [place] [address] Test Results Social History Tobacco Use Types [...] Description 06/13/2025 10:45 AM CDT Office Visit [facility] [place] [address] Bing Alvares MD [address] [place] [address] documented as of this encounter Visit Diagnoses Not on filedocumented in this encounter Additional Health Concerns Assessment Noted Time PHQ-9 Depression Total Score: 19 019 4:41 PM CDT documented as of this encounter Care Teams Prevocational/Rehabilitation Counselor Relationship Specialty Start Date End Date Lynette Ponce MD [address] [place] [address] PCP - General INTERNAL MEDICINE 03/08/24 03/16/24 Lynette Ponce MD [address] [place] [address] PCP - General 03/29/24 Ivette Clark NP [place] Front End Specialist NURSE PRACTITIONER 02/09/19 03/25/24 Scott Guerrero MD Consulting Physician GASTROENTEROLOGY 03/04/19 Nerissa Hill MD [place] Front End Specialist CARDIOVASCULAR DISEASE 03/17/19 03/25/24 [facility]mer [facility] NURSE PRACTITIONER 12/22/20 02/28/22 Bing Alvares MD [address] [place] [address] Consulting Physician CARDIOVASCULAR DISEASE 03/22/24 documented as of this encounter
--- OUTSIDE RECORDS SUMMARY | 2025-01-10 08:16 | XMS_ITS | Encounter Summary ---
Author Organization [facility] Address [address] [place] [address] Care Team Providers Care Forensics Team Director Name Role Phone Ivette Clark NP Unavailable [phone] Scott Guerrero MD Unavailable Nerissa Hill MD Unavailable [phone] Carline Plummer [facility] Unavailable [phone] Lynette Ponce MD Primary Care Provider [phone] Bing Alvares MD Unavailable Lynette Ponce MD Primary Care Provider [phone] Encounter Details Date Type Department Care Team (Latest Contact Info) Description 04/27/2019 [employer] Message Enc [facility] Medical Group MultiSpecialty [facility] [address] [place] [address] Melissa Watson, VP SECURITY [address] [address] RE: Medication Questions Social History Tobacco Use [...] Description 06/13/2025 10:45 AM CDT Office Visit [facility] [place] [address] Bing Alvares MD [address] [place] [address] documented as of this encounter Visit Diagnoses Not on filedocumented in this encounter Additional Health Concerns Infection Onset Date Last Indicated Resolved Time COVID-19 Rule Out 03/06/2020 03/03/2020 03/06/2020 9:26 AM CDT documented as of this encounter Care Teams Forensics Team Director Relationship Specialty Start Date End Date Lynette Ponce MD [address] [place] [address] PCP - General INTERNAL MEDICINE 03/08/24 03/16/24 Lynette Ponce MD [address] [place] [address] PCP - General 03/29/24 Ivette Clark NP [place] E Learning Developer NURSE PRACTITIONER 02/09/19 03/25/24 Scott Guerrero MD Consulting Physician GASTROENTEROLOGY 03/04/19 Nerissa Hill MD [place] E Learning Developer CARDIOVASCULAR DISEASE 03/17/19 03/25/24 Carline Plummer FNP-BC NURSE PRACTITIONER 12/22/20 02/28/22 Bing Alvares MD [address] [place] [address] Consulting Physician CARDIOVASCULAR DISEASE 03/22/24 documented as of this encounter
--- OUTSIDE RECORDS SUMMARY | 2025-01-10 08:16 | XMS_ITS | Encounter Summary ---
Author Organization [facility] Address [address] [place] [address] Care Team Providers Care Sql Data Architect Name Role Phone Ivette Clark NP Unavailable [phone] Scott Guerrero MD Unavailable Nerissa Hill MD Unavailable [phone] Lynette Ponce MD Primary Care Provider [phone] Bing Alvares MD Unavailable Lynette Ponce MD Primary Care Provider [phone] Encounter Details Date Type Department Care Team (Latest Contact Info) Description 05/07/2023 OX [employer] Message Enc [facility] Medical Group MultiSpecialty Care [facility] [address] [place] [address] [place], [facility] Provider provider's [...] Description 06/13/2025 10:45 AM CDT Office Visit [facility] [place] [address] Bing Alvares MD [address] [place] [address] documented as of this encounter Visit Diagnoses Not on filedocumented in this encounter Additional Health Concerns Assessment Noted Time PHQ-9 Depression Total Score: 0 12/12/19 22 4:08 PM RECEIVABLE EXECUTIVE documented as of this encounter Care Teams Sql Data Architect Relationship Specialty Start Date End Date Lynette Ponce MD [address] [place] [address] PCP - General INTERNAL MEDICINE 03/08/24 03/16/24 Lynette Ponce MD [address] [place] [address] PCP - General 03/29/24 Ivette Clark NP [place] Mulcher Operator NURSE PRACTITIONER 02/09/19 03/25/24 Scott Guerrero MD Consulting Physician GASTROENTEROLOGY 03/04/19 Nerissa Hill MD [place] Mulcher Operator CARDIOVASCULAR DISEASE 03/17/19 03/25/24 Bing Alvares MD [address] [place] [address] Consulting Physician CARDIOVASCULAR DISEASE 03/22/24 documented as of this encounter
== END 2025-01-10 08:01 | disposition home or self-care (01) ==
LOC: CHSLAB 08:02
PROVIDERS: PCP Internal Medicine; Visit Provider Internal Medicine
DX: D64.9 Anemia, unspecified (principal)
CPT/HCPCS: 82272

== ENCOUNTER 2025-01-20 11:30 | Outpatient (CLI) | payer OTHER, SELFPAY ==
--- OUTSIDE RECORDS SUMMARY | 2025-01-20 12:21 | XMS_ITS | Encounter Summary ---
Author Organization [facility] Address [address] [place] [address] Care Team Providers Care Geology Professor Name Role Phone Ivette Clark NP Unavailable [phone] Scott Guerrero MD Unavailable Nerissa Hill MD Unavailable [phone] Carline Plummer [facility] Unavailable [phone] Lynette Ponce MD Primary Care Provider Bing Alvares MD Unavailable Lynette Ponce MD Primary Care Provider [phone] Encounter Details Date Type Department Care Team (Latest Contact Info) Description 04/27/2019 CPG Soft Message Enc [facility] Medical Group MultiSpecialty [facility] [address] [place] [address] Melissa Watson, BAND BUILDER [address] [address] RE: Medication Questions Social History Tobacco Use [...] Description 06/13/2025 10:45 AM CDT Office Visit [facility] [place] [address] Bing Alvares MD [address] [place] [address] documented as of this encounter Visit Diagnoses Not on filedocumented in this encounter Additional Health Concerns Infection Onset Date Last Indicated Resolved Time COVID-19 Rule Out 03/06/2020 03/03/2020 03/06/2020 9:26 AM CDT documented as of this encounter Care Teams Geology Professor Relationship Specialty Start Date End Date Lynette Ponce MD [address] [place] [address] PCP - General INTERNAL MEDICINE 03/08/24 03/16/24 Lynette Ponce MD [address] [place] [address] PCP - General 03/29/24 Ivette Clark NP [place] Pressure Tester Operator NURSE PRACTITIONER 02/09/19 03/25/24 Scott Guerrero MD Consulting Physician GASTROENTEROLOGY 03/04/19 Nerissa Hill MD [place] Pressure Tester Operator CARDIOVASCULAR DISEASE 03/17/19 03/25/24 Carline Plummer FNP-BC NURSE PRACTITIONER 12/22/20 02/28/22 Bing Alvares MD [address] [place] [address] Consulting Physician CARDIOVASCULAR DISEASE 03/22/24 documented as of this encounter
--- OUTSIDE RECORDS SUMMARY | 2025-01-20 12:21 | XMS_ITS | Encounter Summary ---
Author Organization [facility] Address [address] [place] [address] Care Team Providers Care Milk Drying Machine Operator Name Role Phone Ivette Clark NP Unavailable [phone] Fabian Palacios MD Unavailable Unavailable Scott Guerrero MD Unavailable Nerissa Hill MD Unavailable [phone] Carline Plummer [facility] Unavailable [phone] Lynette Ponce MD Primary Care Provider [phone] Bing Alvares MD Unavailable Lynette Ponce MD Primary Care Provider [phone] Encounter Details Date Type Department Care Team ([facility] st Contact Info) Description 10/21/2018 MyChart Message Enc [facility] Medical Group MultiSpecialty Care [facility] [address] [place] [address] Melissa Watson, MUSIC DIRECTOR [address] [address] Other Social History Tobacco Use [...] 10/22/2018 8:04 AM CST Please advise. Thanks. AST CONCRETE IRONWORKER documented in this encounter Plan of Treatment Upcoming Encounters Date Type Department Care Team (Late st Contact Info) Description 06/13/2025 10:45 AM CDT Office Visit [facility] [address] [place] [address] Bing Alvares MD [address] [place] [address] documented as of this encounter Visit Diagnoses Not on filedocumented in this encounter Additional Health Concerns Infection Onset Date Last Indicated Resolved Time COVID-19 Rule Out 03/06/2020 03/03/2020 03/06/2020 9:26 AM CDT documented as of this encounter Care Teams Milk Drying Machine Operator Relationship Specialty Start Date End Date Lynette Ponce MD [address] [place] [address] PCP - General INTERNAL MEDICINE 03/08/24 03/16/24 Lynette Ponce MD [address] [place] [address] PCP - General 03/29/24 Ivette Clark NP [place] Military Technology Manager NURSE PRACTITIONER 02/09/19 03/25/24 Fabian Palacios MD [place] Military Technology Manager INTERVENTIONAL CARDIOLOGY 02/09/19 03/16/19 Scott Guerrero MD Consulting Physician GASTROENTEROLOGY 03/04/19 Nerissa Hill MD [place] Military Technology Manager CARDIOVASCULAR DISEASE 03/17/19 03/25/24 Carline Plummer [facility] NURSE PRACTITIONER 12/22/20 02/28/22 Bing Alvares MD [address] [place] [address] Consulting Physician CARDIOVASCULAR DISEASE 03/22/24 documented as of this encounter
--- OUTSIDE RECORDS SUMMARY | 2025-01-20 12:21 | XMS_ITS | Encounter Summary ---
Author Organization [facility] Address [address] [place] [address] Care Team Providers Care Boat Loader Helper Name Role Phone Ivette Clark NP Unavailable [phone] Scott Guerrero MD Unavailable Nerissa Hill MD Unavailable [phone] Carline Plummer [facility] Unavailable [phone] Lynette Ponce MD Primary Care Provider [phone] Bing Alvares MD Unavailable Lynette Ponce MD Primary Care Provider [phone] Reason for Visit * Reason Onset Date Comments Prior Authorization 08/17/2019 Encounter Details Date Type Department Care Team (Latest Contact Info) Description 08/17/2019 [employer] Message [facility] MultiSpecialty Care [address] [address] Teri Mojica, [facility] [address] [place] [address] Medication Questions Social History Tobacco [...] [employer]. 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 Pharmacy faxed request last Friday08/18/19 Y MIXER documented in this encounter Plan of Treatment Upcoming Encounters Date Type Department Care Team (Late st Contact Info) Description 06/13/2025 10:45 AM CDT Office Visit [facility] [address] [place] [address] Bing Alvares MD [address] [place] [address] documented as of this encounter Visit Diagnoses Not on filedocumented in this encounter Additional Health Concerns Infection Onset Date Last Indicated Resolved Time COVID-19 Rule Out 03/06/2020 03/03/2020 03/06/2020 9:26 AM CDT Assessment Noted Time PHQ-9 Depression Total Score: 19 019 4:41 PM CDT documented as of this encounter Care Teams Boat Loader Helper Relationship Specialty Start Date End Date Lynette Ponce MD [address] [place] [address] PCP - General INTERNAL MEDICINE 03/08/24 03/16/24 Lynette Ponce MD [address] [place] [address] PCP - General 03/29/24 Ivette Clark NP [place] Watch Engineer NURSE PRACTITIONER 02/09/19 03/25/24 Scott Guerrero MD Consulting Physician GASTROENTEROLOGY 03/04/19 Nerissa Hill MD [place] Watch Engineer CARDIOVASCULAR DISEASE 03/17/19 03/25/24 Carline Plummer [facility] NURSE PRACTITIONER 12/22/20 02/28/22 Bing Alvares MD [address] [place] [address] Consulting Physician CARDIOVASCULAR DISEASE 03/22/24 documented as of this encounter
--- OUTSIDE RECORDS SUMMARY | 2025-01-20 12:21 | XMS_ITS | Encounter Summary ---
Author Organization [facility] Address [address] [place] [address] Care Team Providers Care Curator Of Manuscripts Name Role Phone Ivette Clark NP Unavailable [phone] Scott Guerrero MD Unavailable Nerissa Hill MD Unavailable [phone] Carline Plummer [facility] Unavailable [phone] Lynette Ponce MD Primary Care Provider [phone] Bing Alvares MD Unavailable Lynette Ponce MD Primary Care Provider [phone] Encounter Details Date Type Department Care Team (Late st Contact Info) Description 06/24/2020 Sphere 3d Message Enc [facility] Medical Group MultiSpecialty Care [facility] [address] [place] [address] Teri Mojica, [facility] [address] [place] [address] Test Results Social History Tobacco Use Types [...] Description 06/13/2025 10:45 AM CDT Office Visit [facility] [place] [address] Bing Alvares MD [address] [place] [address] documented as of this encounter Visit Diagnoses Not on filedocumented in this encounter Additional Health Concerns Assessment Noted Time PHQ-9 Depression Total Score: 19 019 4:41 PM CDT documented as of this encounter Care Teams Curator Of Manuscripts Relationship Specialty Start Date End Date Lynette Ponce MD [address] [place] [address] PCP - General INTERNAL MEDICINE 03/08/24 03/16/24 Lynette Ponce MD [address] [place] [address] PCP - General 03/29/24 Ivette Clark NP [place] Prosthetic Aides Teacher NURSE PRACTITIONER 02/09/19 03/25/24 Scott Guerrero MD Consulting Physician GASTROENTEROLOGY 03/04/19 Nerissa Hill MD [place] Prosthetic Aides Teacher CARDIOVASCULAR DISEASE 03/17/19 03/25/24 Carline Plummer [facility] NURSE PRACTITIONER 12/22/20 02/28/22 Bing Alvares MD [address] [place] [address] Consulting Physician CARDIOVASCULAR DISEASE 03/22/24 documented as of this encounter
--- OUTSIDE RECORDS SUMMARY | 2025-01-20 12:21 | XMS_ITS | Encounter Summary ---
Author Organization [facility] Address [address] [place] [address] Care Team Providers Care Terrazzo Roller Name Role Phone Ivette Clark NP Unavailable [phone] Scott Guerrero MD Unavailable Nerissa Hill MD Unavailable [phone] Lynette Ponce MD Primary Care Provider [phone] Bing Alvares MD Unavailable Lynette Ponce MD Primary Care Provider [phone] Encounter Details Date Type Department Care Team (Latest Contact Info) Description 05/07/2023 [employer] Message Enc [facility] Medical Group MultiSpecialty Care [facility] [address] [place] [address] [place], [facility] Provider provider's response Social History Tobacco Use [...] Description 06/13/2025 10:45 AM CDT Office Visit [facility] [place] [address] Bing Alvares MD [address] [place] [address] documented as of this encounter Visit Diagnoses Not on filedocumented in this encounter Additional Health Concerns Assessment Noted Time PHQ-9 Depression Total Score: 0 12/12/19 22 4:08 PM LOGISTICS SUPERVISOR documented as of this encounter Care Teams Terrazzo Roller Relationship Specialty Start Date End Date Lynette Ponce MD [address] [place] [address] PCP - General INTERNAL MEDICINE 03/08/24 03/16/24 Lynette Ponce MD [address] [place] [address] PCP - General 03/29/24 Ivette Clakr NP [place] Oracle Etl Developer NURSE PRACTITIONER 02/09/19 03/25/24 Scott Guerrero MD Consulting Physician GASTROENTEROLOGY 03/04/19 Nerissa Hill MD [place] Oracle Etl Developer CARDIOVASCULAR DISEASE 03/17/19 03/25/24 Bing Alvares MD [address] [place] [address] Consulting Physician CARDIOVASCULAR DISEASE 03/22/24 documented as of this encounter
--- OUTSIDE RECORDS SUMMARY | 2025-01-20 12:21 | XMS_ITS | Encounter Summary ---
Author Organization [facility] Address [address] [place] [address] Care Team Providers Care Grave Cleaner Name Role Phone Ivette Clark NP Unavailable [phone] Scott Guerrero MD Unavailable Nerissa iHll MD Unavailable [phone] Carline Plummer [facility] Unavailable [phone] Lynette Ponce MD Primary Care Provider [phone] Bing Alvares MD Unavailable Lynette Ponce MD Primary Care Provider [phone] Encounter Details Date Type Department Care Team (Late st Contact Info) Description 12/09/2019 [employer] Message Enc [facility] Medical Group MultiSpecialty Care [facility] [address] [place] [address] Teri Mojica, [facility] [address] [place] [address] Other Social History Tobacco Use Types Packs/Day [...] Description 06/13/2025 10:45 AM CDT Office Visit [facility] [place] [address] Bing Alvares MD [address] [place] [address] documented as of this encounter Visit Diagnoses Not on filedocumented in this encounter Additional Health Concerns Infection Onset Date Last Indicated Resolved Time COVID-19 Rule Out 03/06/2020 03/03/2020 03/06/2020 9:26 AM CDT Assessment Noted Time PHQ-9 Depression Total Score: 19 019 4:41 PM CDT documented as of this encounter Care Teams Grave Cleaner Relationship Specialty Start Date End Date Lynette Ponce MD [address] [place] [address] PCP - General INTERNAL MEDICINE 03/08/24 03/16/24 Lynette Ponce MD [address] [place] [address] PCP - General 03/29/24 Ivette Clark NP [employer] Organ Inspector And Repairer NURSE PRACTITIONER 02/09/19 03/25/24 Scott Guerrero MD Consulting Physician GASTROENTEROLOGY 03/04/19 Nerissa Hill MD [employer] Organ Inspector And Repairer CARDIOVASCULAR DISEASE 03/17/19 03/25/24 Carline Plummer FNP-BC NURSE PRACTITIONER 12/22/20 02/28/22 Bing Alvares MD [address] [place] [address] Consulting Physician CARDIOVASCULAR DISEASE 03/22/24 documented as of this encounter
--- OUTSIDE RECORDS SUMMARY | 2025-01-20 12:21 | XMS_ITS | Clinical Summary ---
Author Organization [facility] Address [facility] [place] [address] Care Team Providers Care Datastage Developer Name Role Phone Scott Guerrero MD Unavailable Bing Alvares MD Unavailable Lynette Ponce MD Primary Care Provider [phone] Allergies Active Allergy Reactions Criticality Noted Date [...] (Generic) 08/17/2023,07/26/2022, 07/20/2019 MMR 02/23/2009 MODERNA COVID-19 (DIRECTOR CRITICAL CARE DENNIS JOAQUINA), MRNA, LNP-S, PF, 50 MCG/ [...] 36.6 C (97.9 F) 10/07/2023 8:34 AM MUTUEL DEPARTMENT MANAGER Respiratory Rate 12 05/31/2024 2:35 PM CDT [...] Description 06/13/2025 10:45 AM CDT Office Visit [facility] [place] [address] Bing Alvares MD [address] [place] [address] Health Maintenance Due Date Last Done Comments Colorectal Cancer Screening Colonoscopy (10 Years) 1966 Mammogram Screening 2006 Zoster Vaccines (1 of 2) 08/07/2021 Annual Physical 03/02/2022 03/02/2021 COVID-19 Vaccine ( season) 2024 07/26/2022, 05/09/2022, 03/23/2021 Influenza Adult (#1) 2024 08/17/2023, 07/26/2022, 07/12/2021, Additional history exists PHQ-2 (Physician [place]) 10/20/2024 10/07/2023 DTaP, Tdap and Td Vaccines [...] this topic Medical Devices Implanted Type Area Material Damage Appraiser Device Identifier Shelf Expiration Date Model / Serial / Lot Wire Abhilash Magic Pins Orthofix 1.2 X 7mm - [id number] Implanted:Qty: 1 on 09/23/2018 by Tressa Traylor DPM at [facility] [place] Left: Foot ORTHOFIX [id number] / / N/A Description:Verified by Screw Acutrak 2 Mini 20.0mm - [id number] Implanted:Qty: 1 on 09/23/2018 by Tressa Traylor DPM at [facility] Left: Foot [employer] 05/20/2025 AT2-M20-S / / [id number] Description:Verified by Wire Abhilash Magic Pins Orthofix 1.6 X 17 - [id number] Implanted:Qty: 1 on 09/23/2018 by Tressa Traylor DPM at [facility] Left: Foot ORTHOFIX [id number] / / N/A Description:Verified by Wire Abhilash Magic Pins Orthofix 1.6 X 11 - [id number] Implanted:Qty: 1 on 01/20/2019 by Tressa Traylor DPM at [facility] Right: Foot ORTHOFIX [id number] / / N/A Description:Verified by Screw Acutrak 2 Mini 18.0mm - [id number] Implanted:Qty: 1 on 01/20/2019 by Tressa Traylor DPM at [facility] Right: Foot [employer] 08/03/2025 AT2-M18 / / [id number] Description:Verified by Wire Abhilash Magic Pins Orthofix 1.6 X 17 - [id number] Implanted:Qty: 1 on 01/20/2019 by Tressa Traylor DPM at [facility] Right: Foot ORTHOFIX [id number] / / N/A Description:Verified by Explanted Type Area Material Damage Appraiser Device Identifier Shelf Expiration Date Model / Serial / Lot .045mm Mini Guidewire Explanted:Qty: 2 on 09/23/2018 by Tressa Traylor DPM at [facility] Left: Foot [id number] / / N/A Description:Used not implant ed Sm Cannulated Drill Tip Explanted:Qty: 1 on 09/23/2018 by Tressa Traylor DPM at [facility] Left: Foot [id number] / / N/A Description:Used not implant ed K Wire Lionel 6 In X .045 In - [id number] Explanted:Qty: 1 on 01/20/2019 by Tressa Traylor DPM at [facility] Right: Foot [employer] 05/19/2028 [id number] / / [id number] Description:Used not implant ed .045 Mini Guidewire Explanted:Qty: 1 on 01/20/2019 by Tressa Traylor DPM at [facility] Right: Foot [id number] / / N/A Description:Used not implant [id number] Mini Drill Tip Explanted:Qty: 1 on 01/20/2019 by Tressa Traylor DPM at [facility] Right: Foot [id number] / / N/A Description:Used not implant ed Advance Directives Documents on File Type Date Recorded Patient Die Drawing Checker Expl anation Advance Directives and Living Will 04/04/2015 12:00 AM ADVANCED DIRECTIVES Advance Directives and Living Will 02/09/2015 12:00 AM ADVANCED DIRECTIVES Advance Directives and Living Will 03/08/2013 12:00 AM ADVANCED DIRECTIVES Advance Directives and Living Will 06/30/2012 12:00 AM ADVANCED DIRECTIVES Care Teams Datastage Developer Relationship Specialty Start Date End Date Lynette Ponce MD [address] [place] [address] PCP - General 03/29/24 Scott Guerrero MD Consulting Physician GASTROENTEROLOGY 03/04/19 Bing Alvares MD [address] [place] [address] Consulting Physician CARDIOVASCULAR DISEASE 03/22/24
--- OUTSIDE RECORDS SUMMARY | 2025-01-20 12:21 | XMS_ITS | Encounter Summary ---
Author Organization [facility] Address [address] [place] [address] Care Team Providers Care Customer Service Sales Consultant Name Role Phone Ivette Clark NP Unavailable [phone] Fabian Palacios MD Unavailable Unavailable Scott Guerrero MD Unavailable Nerissa Hill MD Unavailable [phone] Carline Plummer [facility] Unavailable [phone] Lynette Ponce MD Primary Care Provider [phone] Bing Alvares MD Unavailable Lynette Ponce MD Primary Care Provider [phone] Encounter Details Date Type Department Care Team ([facility] st Contact Info) Description 09/25/2018 MyChart Message Enc [facility] Medical Group MultiSpecialty Care [facility] [address] [place] [address] Melissa Watson, PROPERTY ASSESSMENT MONITOR [address] [address] RE: Other Social History Tobacco [...] Medication is updated in patient's chart. TH SERVICE WORKER * Faith Chandler RN - 09/26/2018 8:27 AM CST Does this need any more follow up? Please advise TH SERVICE WORKER documented in this encounter Plan of Treatment Upcoming Encounters Date Type Department Care Team (Late st Contact Info) Description 06/13/2025 10:45 AM CDT Office Visit [facility] [place] [address] Bing Alvares MD [address] [place] [address] documented as of this encounter Visit Diagnoses Not on filedocumented in this encounter Additional Health Concerns Infection Onset Date Last Indicated Resolved Time COVID-19 Rule Out 03/06/2020 03/03/2020 03/06/2020 9:26 AM CDT documented as of this encounter Care Teams Customer Service Sales Consultant Relationship Specialty Start Date End Date Lynette Ponce MD [address] [place] [address] PCP - General INTERNAL MEDICINE 03/08/24 03/16/24 Lynette Ponce MD [address] [place] [address] PCP - General 03/29/24 Ivette Clark NP [place] Inbound Sales Consultant NURSE PRACTITIONER 02/09/19 03/25/24 Fabian Palacios MD [employer] Inbound Sales Consultant INTERVENTIONAL CARDIOLOGY 02/09/19 03/16/19 Scott Guerrero MD Consulting Physician GASTROENTEROLOGY 03/04/19 Nerissa Hill MD [employer] Inbound Sales Consultant CARDIOVASCULAR DISEASE 03/17/19 03/25/24 Carline Plummer FNP-BC NURSE PRACTITIONER 12/22/20 02/28/22 Bing Alvares MD [address] [place] [address] Consulting Physician CARDIOVASCULAR DISEASE 03/22/24 documented as of this encounter
--- OUTSIDE RECORDS SUMMARY | 2025-01-20 12:21 | XMS_ITS | Encounter Summary ---
Author Organization [facility] Address [address] [place] [address] Care Team Providers Care Insurance Adjustor Name Role Phone Ivette Clark NP Unavailable [phone] Fabian Palacios MD Unavailable Unavailable Scott Guerrero MD Unavailable Nerissa Hill MD Unavailable [phone] Carline Plummer [facility] Unavailable [phone] Lynette Ponce MD Primary Care Provider [phone] Bing Alvares MD Unavailable Lynette Ponce MD Primary Care Provider [phone] Encounter Details Date Type Department Care Team (Latest Contact Info) Description 11/15/2018 MyChart Message Enc [facility] Medical Group MultiSpecialty [facility] [address] [place] [address] Melissa Watson, ELECTROMECHANICAL INSPECTOR [address] [address] Medication Questions Social History Tobacco [...] Description 06/13/2025 10:45 AM CDT Office Visit [facility] [address] [place] [address] Bing Alvares MD [address] [place] [address] documented as of this encounter Visit Diagnoses Not on filedocumented in this encounter Additional Health Concerns Infection Onset Date Last Indicated Resolved Time COVID-19 Rule Out 03/06/2020 03/03/2020 03/06/2020 9:26 AM CDT documented as of this encounter Care Teams Insurance Adjustor Relationship Specialty Start Date End Date Lynette Ponce MD [address] [place] [address] PCP - General INTERNAL MEDICINE 03/08/24 03/16/24 Lynette Ponce MD [address] [place] [address] PCP - General 03/29/24 Ivette Clark NP [place] Director Of Broadcast NURSE PRACTITIONER 02/09/19 03/25/24 Fabian Palacios MD [place] Director Of Broadcast INTERVENTIONAL CARDIOLOGY 02/09/19 03/16/19 Scott Guerrero MD Consulting Physician GASTROENTEROLOGY 03/04/19 Nerissa Hill MD [place] Director Of Broadcast CARDIOVASCULAR DISEASE 03/17/19 03/25/24 Carline Plummer FNP-BC NURSE PRACTITIONER 12/22/20 02/28/22 Bing Alvares MD [address] [place] [address] Consulting Physician CARDIOVASCULAR DISEASE 03/22/24 documented as of this encounter
--- OUTSIDE RECORDS SUMMARY | 2025-01-20 12:21 | XMS_ITS | Encounter Summary ---
Author Organization [facility] Address Formerly [facility] [place] [address] Care Team Providers Care Operating Systems Specialist Name Role Phone MimirohitIvette NP Unavailable [phone] Fabian Palacios MD Unavailable Unavailable Scott Guerrero MD Unavailable Nerissa Hill MD Unavailable [phone] Carline Plummer [facility] Unavailable [phone] Lynette Ponce MD Primary Care Provider [phone] Bing Alvares MD Unavailable Lynette Ponce MD Primary Care Provider [phone] Encounter Details Date Type Department Care Team (Latest Contact Info) Description 07/13/2018 Abstract [facility] Medical Group Sri Russ MD [...] Description 06/13/2025 10:45 AM CDT Office Visit [facility] [place] [address] Bing Alvares MD [address] [place] [address] documented as of this encounter Visit Diagnoses Not on filedocumented in this encounter Additional Health Concerns Infection Onset Date Last Indicated Resolved Time COVID-19 Rule Out 03/06/2020 03/03/2020 03/06/2020 9:26 AM CDT documented as of this encounter Care Teams Operating Systems Specialist Relationship Specialty Start Date End Date Lynette Ponce MD [address] [place] [address] PCP - General INTERNAL MEDICINE 03/08/24 03/16/24 Lynette Ponce MD [address] [place] [address] PCP - General 03/29/24 Ivette Clark NP [place] Electrotype Molder NURSE PRACTITIONER 02/09/19 03/25/24 Fabian Palacios MD [place] Electrotype Molder INTERVENTIONAL CARDIOLOGY 02/09/19 03/16/19 Scott Guerrero MD Consulting Physician GASTROENTEROLOGY 03/04/19 Nerissa Hill MD [place] Electrotype Molder CARDIOVASCULAR DISEASE 03/17/19 03/25/24 Carline Plummer FNP-BC NURSE PRACTITIONER 12/22/20 02/28/22 Bing Alvares MD [address] [place] [address] Consulting Physician CARDIOVASCULAR DISEASE 03/22/24 documented as of this encounter
--- OUTSIDE RECORDS SUMMARY | 2025-01-20 12:21 | XMS_ITS | Encounter Summary ---
Author Organization [facility] Address [address] [place] [address] Care Team Providers Care Counter Hand Name Role Phone Ivette Clark NP Unavailable Fabian Palacios MD Unavailable Unavailable Scott Guerrero MD Unavailable Nerissa Hill MD Unavailable [phone] Carline Plummer [facility] Unavailable [phone] Lynette Ponce MD Primary Care Provider [phone] Bing Alvares MD Unavailable Lynette Ponce MD Primary Care Provider [phone] Encounter Details Date Type Department Care Team (Latest Contact Info) Description 09/14/2018 VCVt Message Enc [facility] Medical Group MultiSpecialty [facility] [address] [place] [address] Melissa Watson, MULTIMEDIA EDUCATIONAL SPECIALIST [address] [address] Follow Up/Update Social History Tobacco [...] Description 06/13/2025 10:45 AM CDT Office Visit [facility] [address] [place] [address] Bing Alvares MD [address] [place] [address] documented as of this encounter Visit Diagnoses Not on filedocumented in this encounter Additional Health Concerns Infection Onset Date Last Indicated Resolved Time COVID-19 Rule Out 03/06/2020 03/03/2020 03/06/2020 9:26 AM CDT documented as of this encounter Care Teams Counter Hand Relationship Specialty Start Date End Date Lynette Ponce MD [address] [place] [address] PCP - General INTERNAL MEDICINE 03/08/24 03/16/24 Lynette Ponce MD [address] [place] [address] PCP - General 03/29/24 Ivette Clark NP [place] Project Manager NURSE PRACTITIONER 02/09/19 03/25/24 Fabian Palacios MD [place] [employer] Project Manager INTERVENTIONAL CARDIOLOGY 02/09/19 03/16/19 Scott Guerrero MD Consulting Physician GASTROENTEROLOGY 03/04/19 Nerissa Hill MD [place] [employer] Project Manager CARDIOVASCULAR DISEASE 03/17/19 03/25/24 Carline Plummer FNP- NURSE PRACTITIONER 12/22/20 02/28/22 Bing Alvares MD [address] [place] [address] Consulting Physician CARDIOVASCULAR DISEASE 03/22/24 documented as of this encounter
--- OUTSIDE RECORDS SUMMARY | 2025-01-20 12:21 | XMS_ITS | Encounter Summary ---
Author Organization [facility] Address [address] [place] [address] Care Team Providers Care Customer Development Representative Name Role Phone Ivette Clark NP Unavailable [phone] Fabian Palacios MD Unavailable Unavailable Scott Guerrero MD Unavailable Nerissa Hill MD Unavailable [phone] Carline Plummer [facility] Unavailable [phone] Lynette Ponce MD Primary Care Provider [phone] Bing Alvares MD Unavailable Lynette Ponce MD Primary Care Provider [phone] Encounter Details Date Type Department Care Team ([facility] st Contact Info) Description 01/29/2019 MyChart Message Enc [facility] Medical Group MultiSpecialty Care [facility] [address] [place] [address] Melissa Watson, HYDROGEN POWER PLANT MANAGER [address] [address] Other Social History Tobacco Use [...] Description 06/13/2025 10:45 AM CDT Office Visit [facility] [place] [address] Bing Alvares MD [address] [place] [address] documented as of this encounter Visit Diagnoses Not on filedocumented in this encounter Additional Health Concerns Infection Onset Date Last Indicated Resolved Time COVID-19 Rule Out 03/06/2020 03/03/2020 03/06/2020 9:26 AM CDT documented as of this encounter Care Teams Customer Development Representative Relationship Specialty Start Date End Date Lynette Ponce MD [address] [place] [address] PCP - General INTERNAL MEDICINE 03/08/24 03/16/24 Lynette Ponce MD [address] [place] [address] PCP - General 03/29/24 Ivette Clark NP [place] Barrel Drainer NURSE PRACTITIONER 02/09/19 03/25/24 Fabian Palacios MD [place] Barrel Drainer INTERVENTIONAL CARDIOLOGY 02/09/19 03/16/19 Scott Guerrero MD Consulting Physician GASTROENTEROLOGY 03/04/19 Nerissa Hill MD [place] Barrel Drainer CARDIOVASCULAR DISEASE 03/17/19 03/25/24 [facility] NURSE [facility]ACTITION[facility] 12/22/20 02/28/22 Bing Alvares MD [address] [place] [address] Consulting Physician CARDIOVASCULAR DISEASE 03/22/24 documented as of this encounter
--- OUTSIDE RECORDS SUMMARY | 2025-01-20 12:21 | XMS_ITS | Encounter Summary ---
Author Organization [facility] Address [address] [place] [address] Care Team Providers Care Ab Initio Etl Developer Name Role Phone Ivette Clark NP Unavailable [phone] Scott Guerrero MD Unavailable Nerissa Hill MD Unavailable [phone] Carline Plummer [facility] Unavailable [phone] Lynette Ponce MD Primary Care Provider [phone] Bing Alvares MD Unavailable Lynette Ponce MD Primary Care Provider [phone] Encounter Details Date Type Department Care Team (Late st Contact Info) Description 01/09/2021 MyChart Message Enc [facility] Medical Group MultiSpecialty Care [facility] [address] [place] [address] Teri Mojica, [facility] [address] [place] [address] Test Results Social History Tobacco Use Types [...] Description 06/13/2025 10:45 AM CDT Office Visit [facility] [place] [address] Bing Alvares MD [address] [place] [address] documented as of this encounter Visit Diagnoses Not on filedocumented in this encounter Additional Health Concerns Assessment Noted Time PHQ-9 Depression Total Score: 13 021 11:47 AM PHOTO LAB TECHNICIAN documented as of this encounter Care Teams Ab Initio Etl Developer Relationship Specialty Start Date End Date Lynette Ponce MD [address] [place] [address] PCP - General INTERNAL MEDICINE 03/08/24 03/16/24 Lynette Ponce MD [address] [place] [address] PCP - General 03/29/24 Ivette Clark NP [place] Keno Attendant NURSE PRACTITIONER 02/09/19 03/25/24 Scott Guerrero MD Consulting Physician GASTROENTEROLOGY 03/04/19 Nerissa Hill MD [place] Keno Attendant CARDIOVASCULAR DISEASE 03/17/19 03/25/24 [facility]line [facility]ummer [facility] NURSE [facility]ACT[facility] 12/22/20 02/28/22 Bing Alvares MD [address] [place] [address] Consulting Physician CARDIOVASCULAR DISEASE 03/22/24 documented as of this encounter
--- OUTSIDE RECORDS SUMMARY | 2025-01-20 12:21 | XMS_ITS | Clinical Summary ---
Author Organization [facility] Address [address] [place] [address] Care Team Providers Care [place] Dental Lab Technician Name Role Phone Unavailable Primary Care Provider Unavailabl e Source Comments [facility],non-owned Affiliates and Associated Physician Practices is amultiple site organization consisting of ambulatory clinics and hospital sitesin [place], [place], [place] and [place]. This disclosure is being madepursuant to the Care Everywhere program and may not contain all information available regarding this patient. Last updated 18.[facility] Social History Tobacco Use Types Packs/Day Years [...]
--- OUTSIDE RECORDS SUMMARY | 2025-01-20 12:21 | XMS_ITS | Encounter Summary ---
Author Organization [facility] Address [address] [place] [address] Care Team Providers Care Dredge Pipe Installer Name Role Phone Ivette Clark NP Unavailable [phone] Scott Guerrero MD Unavailable Nerissa Hill MD Unavailable [phone] Lynette Ponce MD Primary Care Provider [phone] Bing Alvares MD Unavailable Lynette Ponce MD Primary Care Provider [phone] Encounter Details Date Type Department Care Team (Latest Contact Info) Description 12/13/[address] [facility] Medical Group MultiSpecialty Care [facility] [address] [place] [address] [facility] Provider provider's result note Social History Tobacco [...] Coronavirus/COVID-19? No / Unsure 12/12/2022 9:13 AM SURVEILLANCE MANAGER documented as of this encounter Plan of Treatment Upcoming Encounters Date Type Department Care Team (Late st Contact Info) Description 06/13/2025 10:45 AM CDT Office Visit [facility] [place] [address] Bing Alvares MD [address] [place] [address] documented as of this encounter Visit Diagnoses Not on filedocumented in this encounter Additional Health Concerns Assessment Noted Time PHQ-9 Depression Total Score: 0 12/12/19 4:08 PM SURVEILLANCE MANAGER documented as of this encounter Care Teams Dredge Pipe Installer Relationship Specialty Start Date End Date Lynette Ponce MD [address] [place] [address] PCP - General INTERNAL MEDICINE 03/08/24 03/16/24 Lynette Ponce MD [address] [place] [address] PCP - General 03/29/24 Ivette Clark NP [place] Reserve Operator NURSE PRACTITIONER 02/09/19 03/25/24 Scott Guerrero MD Consulting Physician GASTROENTEROLOGY 03/04/19 Nerissa Hill MD [place] Reserve Operator CARDIOVASCULAR DISEASE 03/17/19 03/25/24 Bing Alvares MD [address] [place] [address] Consulting Physician CARDIOVASCULAR DISEASE 03/22/24 documented as of this encounter
[2025-01-20] MEDS: IRON SUCROSE COMPLEX 300 MG in SODIUM CHLORIDE 0.9% IV 235 ML 125 MG IVPB (13:49)
[2025-01-20 13:57] VITALS: BMI 25.9
[2025-01-20 13:58] VITALS: BP 118/72; PULSE 62; RESP 16; TEMP 36.2; O2SAT 97
== END 2025-01-20 11:31 | disposition home or self-care (01) ==
PROVIDERS: PCP Internal Medicine; Visit Provider Internal Medicine
DX: D50.9 Iron deficiency anemia, unspecified (principal)
CPT/HCPCS: 96365; 96366; J1756; J7050

== ENCOUNTER 2025-02-03 14:17 | Outpatient (CLI) | payer OTHER, SELFPAY ==
--- OUTSIDE RECORDS SUMMARY | 2025-02-03 14:34 | XMS_ITS | Encounter Summary ---
Author Organization [facility] Address [address] [place] [address] Care Team Providers Care Asset Availability Leader Name Role Phone Ivette Clark NP Unavailable Scott Guerrero MD Unavailable Nerissa Hill MD Unavailable [phone] Lynette Ponce MD Primary Care Provider [phone] Bing Alvares MD Unavailable Lynette Ponce MD Primary Care Provider [phone] Encounter Details Date Type Department Care Team (Latest Contact Info) Description 12/13/2022 Inofile Message Enc [facility] Medical Group MultiSpecialty Care [facility] [address] [place] [address] [facility] Provider provider's result note Social History Tobacco [...] Coronavirus/COVID-19? No / Unsure 12/12/2022 9:13 AM CONTENT ENGINEER documented as of this encounter Plan of Treatment Upcoming Encounters Date Type Department Care Team (Late st Contact Info) Description 06/13/2025 10:45 AM CDT Office Visit [facility] [place] [address] Bing Alvares MD [address] [place] [address] documented as of this encounter Visit Diagnoses Not on filedocumented in this encounter Additional Health Concerns Assessment Noted Time PHQ-9 Depression Total Score: 0 12/12/19 4:08 PM CONTENT ENGINEER documented as of this encounter Care Teams Asset Availability Leader Relationship Specialty Start Date End Date Lynette Ponce MD [address] [place] [address] PCP - General INTERNAL MEDICINE 03/08/24 03/16/24 Lynette Ponce MD [address] [place] [address] PCP - General 03/29/24 Ivette Clark NP [place] Digital Producer NURSE PRACTITIONER 02/09/19 03/25/24 Scott Guerrero MD Consulting Physician GASTROENTEROLOGY 03/04/19 Nerissa Hill MD [place] Digital Producer CARDIOVASCULAR DISEASE 03/17/19 03/25/24 Bing Alvares MD [address] [place] [address] Consulting Physician CARDIOVASCULAR DISEASE 03/22/24 documented as of this encounter
--- OUTSIDE RECORDS SUMMARY | 2025-02-03 14:34 | XMS_ITS | Encounter Summary ---
Author Organization [facility] Address [address] [place] [address] Care Team Providers Care Chief Sales Officer Name Role Phone Ivette Clark NP Unavailable [phone] Fabian Palacios MD Unavailable Unavailable Scott Guerrero MD Unavailable Nerissa Hill MD Unavailable [phone] Carline Plummer [facility] Unavailable [phone] Lynette Ponce MD Primary Care Provider [phone] Bing Alvares MD Unavailable Lynette Ponce MD Primary Care Provider [phone] Encounter Details Date Type Department Care Team (Latest Contact Info) Description 09/14/2018 SocialDefendert Message Enc [facility] Medical Group MultiSpecialty [facility] [address] [place] [address] Melissa Watson, CRUISE CONSULTANT [address] [address] Follow Up/Update Social History Tobacco [...] Description 06/13/2025 10:45 AM CDT Office Visit [facility] [address] [place] [address] Bing Alvares MD [address] [place] [address] documented as of this encounter Visit Diagnoses Not on filedocumented in this encounter Additional Health Concerns Infection Onset Date Last Indicated Resolved Time COVID-19 Rule Out 03/06/2020 03/03/2020 03/06/2020 9:26 AM CDT documented as of this encounter Care Teams Chief Sales Officer Relationship Specialty Start Date End Date Lynette Ponce MD [address] [place] [address] PCP - General INTERNAL MEDICINE 03/08/24 03/16/24 Lynette Ponce MD [address] [place] [address] PCP - General 03/29/24 Ivette Clark NP [place] National Coverage Specialist NURSE PRACTITIONER 02/09/19 03/25/24 Fabian Palacios MD [place] National Coverage Specialist INTERVENTIONAL CARDIOLOGY 02/09/19 03/16/19 Scott Guerrero MD Consulting Physician GASTROENTEROLOGY 03/04/19 Nerissa Hill MD [place] National Coverage Specialist CARDIOVASCULAR DISEASE 03/17/19 03/25/24 Carline Plummer FNP- NURSE PRACTITIONER 12/22/20 02/28/22 Bing Alvares MD [address] [place] [address] Consulting Physician CARDIOVASCULAR DISEASE 03/22/24 documented as of this encounter
--- OUTSIDE RECORDS SUMMARY | 2025-02-03 14:34 | XMS_ITS | Encounter Summary ---
Author Organization [facility] Address [address] [place] [address] Care Team Providers Care Security Operations Analyst Name Role Phone Ivette Clark NP Unavailable [phone] Scott Guerrero MD Unavailable Nerissa Hill MD Unavailable [phone] Carline Plummer [facility] Unavailable [phone] Lynette Ponce MD Primary Care Provider [phone] Bing Alvares MD Unavailable Lynette Ponce MD Primary Care Provider [phone] Encounter Details Date Type Department Care Team (Late st Contact Info) Description 12/09/2019 Cybera Message Enc [facility] Medical Group MultiSpecialty Care [facility] [address] [place] [address] Teri Mojica, [facility] [address] [place] [address] Other Social History Tobacco Use Types Packs/Day [...] Description 06/13/2025 10:45 AM CDT Office Visit [facility] [place] [address] Bing Alvares MD [address] [place] [address] documented as of this encounter Visit Diagnoses Not on filedocumented in this encounter Additional Health Concerns Infection Onset Date Last Indicated Resolved Time COVID-19 Rule Out 03/06/2020 03/03/2020 03/06/2020 9:26 AM CDT Assessment Noted Time PHQ-9 Depression Total Score: 19 019 4:41 PM CDT documented as of this encounter Care Teams Security Operations Analyst Relationship Specialty Start Date End Date Lynette Ponce MD [address] [place] [address] PCP - General INTERNAL MEDICINE 03/08/24 03/16/24 Lynette Ponce MD [address] [place] [address] PCP - General 03/29/24 Ivette Clark NP [place] Concrete Inspector NURSE PRACTITIONER 02/09/19 03/25/24 Scott Guerrero MD Consulting Physician GASTROENTEROLOGY 03/04/19 Nerissa Hill MD [place] Concrete Inspector CARDIOVASCULAR DISEASE 03/17/19 03/25/24 Carline Plummer FNP-BC NURSE PRACTITIONER 12/22/20 02/28/22 Bing Alvares MD [address] [place] [address] Consulting Physician CARDIOVASCULAR DISEASE 03/22/24 documented as of this encounter
--- OUTSIDE RECORDS SUMMARY | 2025-02-03 14:34 | XMS_ITS | Clinical Summary ---
Author Organization [facility] Address [facility] [place] [address] Care Team Providers Care Engagement Director Name Role Phone Scott Guerrero MD Unavailable Bing Alvares MD Unavailable Lynette Ponce MD Primary Care Provider [phone] Allergies Active Allergy Reactions Criticality Noted Date [...] Fibromyalgia 06/25/2012 08/13/2021 ADHD 06/24/2012 12/25/2021 Immunizations Immunization Administration Dates Next Due Dtap (Generic) 11/17/2019 Fluzone 6 Months+ Quad (0.5 mL Prefilled Syringe) 07/12/2021 Hepatitis A (Generic) 05/21/2009,12/12/2006,0811/2005 Hepatitis B 04/18/2021 Hepatitis B (Generic: Adult) 04/26/2014,03/11/20 06 Influenza 3 yrs + with Prese rvative (Fluzone) 07/27/2020 Influenza Adult (Generic) 08/17/2023,07/26/2022, 07/20/2019 MMR 02/23/2009 MODERNA COVID-19 (INTERLOCKING AND SIGNAL MECHANIC DENNIS JOAQUINA), MRNA, LNP-S, PF, 50 MCG/ [...] 36.6 C (97.9 F) 10/07/2023 8:34 AM HAT BODY SORTER Respiratory Rate 12 05/31/2024 2:35 PM CDT [...] Description 06/13/2025 10:45 AM CDT Office Visit [facility] [place] [address] Bing Alvares MD [address] [place] [address] Health Maintenance Due Date Last Done Comments Colorectal Cancer Screening Colonoscopy (10 Years) 1966 Mammogram Screening 2006 Pneumococcal Vaccine: 50+ Years (1 of 1 - PCV) 2016 Zoster Vaccines (1 of 2) 08/07/2021 Annual Physical 03/02/2022 03/02/2021 COVID-19 Vaccine (2023-2 5 season) 2024 07/26/2022, 05/09/2022, 03/23/2021 PHQ-2 (Physician Eek) 10/20/2024 10/07/2023 DTaP, Tdap and Td Vaccines ( 4 - Td or Tdap) 11/17/2029 11/17/2019, 11/17/2019, [...] 20 Months Aged Out No longer eligible b ased on patient's age to complete this topic Medical Devices Implanted Type Area Manager Export Device Identifier Shelf Expiration Date Model / Serial / Lot Wire Abhilash Magic Pins Orthofix 1.2 X 7mm - [id number] Implanted:Qty: 1 on 09/23/2018 by Tressa Traylor DPM at [facility] [place] Left: Foot ORTHOFIX [id number] / / N/A Description:Verified by MD Concetta Cox 2 Mini 20.0mm - [id number] Implanted:Qty: 1 on 09/23/2018 by Tressa Traylor DPM at [facility] Left: Foot [employer] 05/20/2025 AT2-M20-S / / [id number] Description:Verified by Wire Abhilash Magic Pins Orthofix 1.6 X 17 - [id number] Implanted:Qty: 1 on 09/23/2018 by Tressa Traylor DPM at [facility] Left: Foot ORTHOFIX [id number] / / N/A Description:Verified by Wire Abhilash Magic Pins Orthofix 1.6 X 11 - [id number] Implanted:Qty: 1 on 01/20/2019 by Tressa Traylor DPM at [facility] Right: Foot ORTHOFIX [id number] / / N/A Description:Verified by MD Concetta Castroutrak 2 Mini 18.0mm - [id number] Implanted:Qty: 1 on 01/20/2019 by Tressa Traylor DPM at [facility] Right: Foot [employer] 08/03/2025 AT2-M18 / / [id number] Description:Verified by Wire Abhilash Magic Pins Orthofix 1.6 X 17 - [id number] Implanted:Qty: 1 on 01/20/2019 by Tressa Traylor DPM at [facility] Right: Foot ORTHOFIX [id number] / / N/A Description:Verified by Explanted Type Area Manager Export Device Identifier Shelf Expiration Date Model / Serial / Lot .045mm Mini Guidewire Explanted:Qty: 2 on 09/23/2018 by Tressa Traylor DPM at [facility] Left: Foot [id number] / / N/A Description:Used not implant ed Sm Cannulated Drill Tip Explanted:Qty: 1 on 09/23/2018 by Tressa Traylor DPM at [facility] Left: Foot [id number] / / N/A Description:Used not implant ed K Wire Lionel 6 In X .045 In - [id number] Explanted:Qty: 1 on 01/20/2019 by Tressa Traylor DPM at [facility] Right: Foot [employer] 05/19/2028 [id number] / / [id number] Description:Used not implant ed .045 Mini Guidewire Explanted:Qty: 1 on 01/20/2019 by Tressa Traylor DPM at [facility] Right: Foot [id number] / / N/A Description:Used not implant [id number] Mini Drill Tip Explanted:Qty: 1 on 01/20/2019 by Tressa Traylor DPM at [facility] Right: Foot [id number] / / N/A Description:Used not implant ed Advance Directives Documents on File Type Date Recorded Patient Systems Security Consultant Expl anation Advance Directives and Living Will 04/04/2015 12:00 AM ADVANCED DIRECTIVES Advance Directives and Living Will 02/09/2015 12:00 AM ADVANCED DIRECTIVES Advance Directives and Living Will 03/08/2013 12:00 AM ADVANCED DIRECTIVES Advance Directives and Living Will 06/30/2012 12:00 AM ADVANCED DIRECTIVES Care Teams Engagement Director Relationship Specialty Start Date End Date Lynette Ponce MD [address] [place] [address] PCP - General 03/29/24 Scott Guerrero MD Consulting Physician GASTROENTEROLOGY 03/04/19 Bing Alvares MD [address] [place] [address] Consulting Physician CARDIOVASCULAR DISEASE 03/22/24
--- OUTSIDE RECORDS SUMMARY | 2025-02-03 14:34 | XMS_ITS | Encounter Summary ---
Author Organization [facility] Address [address] [place] [address] Care Team Providers Care Design Specialist Name Role Phone Ivette Clark NP Unavailable [phone] Fabian Palacios MD Unavailable Unavailable Scott Guerrero MD Unavailable Nerissa Hill MD Unavailable [phone] Carline Plummer [facility] Unavailable [phone] Lynette Ponce MD Primary Care Provider [phone] Bing Alvares MD Unavailable Lynette Ponce MD Primary Care Provider [phone] Encounter Details Date Type Department Care Team ([facility] st Contact Info) Description 09/25/2018 MyChart Message Enc [facility] Medical Group MultiSpecialty Care [facility] [address] [place] [address] Melissa Watson, DAIRY NUTRITION SPECIALIST [address] [address] RE: Other Social History Tobacco [...] CST Medication is updated in patient's chart. ER OPERATOR * Faith Chandler RN - 09/26/2018 8:27 AM CST Does this need any more follow up? Please advise ER OPERATOR documented in this encounter Plan of Treatment Upcoming Encounters Date Type Department Care Team (Late st Contact Info) Description 06/13/2025 10:45 AM CDT Office Visit [facility] [place] [address] Bing Alvares MD [address] [place] [address] documented as of this encounter Visit Diagnoses Not on filedocumented in this encounter Additional Health Concerns Infection Onset Date Last Indicated Resolved Time COVID-19 Rule Out 03/06/2020 03/03/2020 03/06/2020 9:26 AM CDT documented as of this encounter Care Teams Design Specialist Relationship Specialty Start Date End Date Lynette Ponce MD [address] [place] [address] PCP - General INTERNAL MEDICINE 03/08/24 03/16/24 Lynette Ponce MD [address] [place] [address] PCP - General 03/29/24 Ivette Clark NP [place] Corporate Banking Officer NURSE PRACTITIONER 02/09/19 03/25/24 Fabian Palacios MD [place] Corporate Banking Officer INTERVENTIONAL CARDIOLOGY 02/09/19 03/16/19 Scott Guerrero MD Consulting Physician GASTROENTEROLOGY 03/04/19 Nerissa Hill MD [place] Corporate Banking Officer CARDIOVASCULAR DISEASE 03/17/19 03/25/24 Carline Plummer FNP-BC NURSE PRACTITIONER 12/22/20 02/28/22 Bing Alvares MD [address] [place] [address] Consulting Physician CARDIOVASCULAR DISEASE 03/22/24 documented as of this encounter
--- OUTSIDE RECORDS SUMMARY | 2025-02-03 14:34 | XMS_ITS | Encounter Summary ---
Author Organization [facility] Address [address] [place] [address] Care Team Providers Care Step Down Specialist Name Role Phone Ivette Clark NP Unavailable [phone] Scott Guerrero MD Unavailable Nerissa Hill MD Unavailable [phone] Carline Plummer [facility] Unavailable [phone] Lynette Ponce MD Primary Care Provider [phone] Bing Alvares MD Unavailable Lynette Ponce MD Primary Care Provider [phone] Reason for Visit * Reason Onset Date Comments Prior Authorization 08/17/2019 Encounter Details Date Type Department Care Team (Latest Contact Info) Description 08/17/2019 Lender Sentinel Message [facility] Multi[facility]ty Care [address] [address] Teri Mojica, [facility] [address] [place] [address] Medication Questions Social History Tobacco [...] a PA. Pharmacy faxed request last Friday08/18/19 D PLACEMENT DIRECTOR documented in this encounter Plan of Treatment Upcoming Encounters Date Type Department Care Team (Late st Contact Info) Description 06/13/2025 10:45 AM CDT Office Visit [facility] [address] [place] [address] Bing Alvares MD [address] [place] [address] documented as of this encounter Visit Diagnoses Not on filedocumented in this encounter Additional Health Concerns Infection Onset Date Last Indicated Resolved Time COVID-19 Rule Out 03/06/2020 03/03/2020 03/06/2020 9:26 AM CDT Assessment Noted Time PHQ-9 Depression Total Score: 19 019 4:41 PM CDT documented as of this encounter Care Teams Step Down Specialist Relationship Specialty Start Date End Date Lynette Ponce MD [address] [place] [address] PCP - General INTERNAL MEDICINE 03/08/24 03/16/24 Lynette Ponce MD [address] [place] [address] PCP - General 03/29/24 Ivette Clark NP [place] Plasterer Spot NURSE PRACTITIONER 02/09/19 03/25/24 Scott Guerrero MD Consulting Physician GASTROENTEROLOGY 03/04/19 Nerissa Hill MD [place] Plasterer Spot CARDIOVASCULAR DISEASE 03/17/19 03/25/24 Carline Plummer [facility] NURSE PRACTITIONER 12/22/20 02/28/22 Bing Alvares MD [address] [place] [address] Consulting Physician CARDIOVASCULAR DISEASE 03/22/24 documented as of this encounter
--- OUTSIDE RECORDS SUMMARY | 2025-02-03 14:34 | XMS_ITS | Encounter Summary ---
Author Organization [facility] Address [address] [place] [address] Care Team Providers Care Flake Cutter Operator Name Role Phone Ivette Clark NP Unavailable [phone] Scott Guerrero MD Unavailable Nerissa Hill MD Unavailable [phone] [facility] Unavailable [phone] Lynette Ponce MD Primary Care Provider [phone] Bing Alvares MD Unavailable Lynette Ponce MD Primary Care Provider [phone] Encounter Details Date Type Department Care Team (Late st Contact Info) Description 01/09/2021 MyChart Message Enc [facility] Medical Group MultiSpecialty Care [facility] [address] [place] [address] Teri Mojica, [facility] [address] [place] [address] Test Results Social History Tobacco Use Types [...] Description 06/13/2025 10:45 AM CDT Office Visit [facility] [place] [address] Bing Alvares MD [address] [place] [address] documented as of this encounter Visit Diagnoses Not on filedocumented in this encounter Additional Health Concerns Assessment Noted Time PHQ-9 Depression Total Score: 13 021 11:47 AM CAMPAIGN ASSOCIATE documented as of this encounter Care Teams Flake Cutter Operator Relationship Specialty Start Date End Date Lynette Ponce MD [address] [place] [address] PCP - General INTERNAL MEDICINE 03/08/24 03/16/24 Lynette Ponce MD [address] [place] [address] PCP - General 03/29/24 Ivette Clark NP [place] Central Station Operator NURSE PRACTITIONER 02/09/19 03/25/24 Scott Guerrero MD Consulting Physician GASTROENTEROLOGY 03/04/19 Nerissa Hill MD [place] Central Station Operator CARDIOVASCULAR DISEASE 03/17/19 03/25/24 Carline Plummer [facility] N[facility]SE PRACTITIONER 12/22/20 02/28/22 Bing Alvares MD [address] [place] [address] Consulting Physician CARDIOVASCULAR DISEASE 03/22/24 documented as of this encounter
--- OUTSIDE RECORDS SUMMARY | 2025-02-03 14:34 | XMS_ITS | Encounter Summary ---
Author Organization [facility] Address [address] [place] [address] Care Team Providers Care Curtain Supervisor Name Role Phone Ivette Clark NP Unavailable [phone] Scott Guerrero MD Unavailable Nerissa Hill MD Unavailable [phone] Carline Plummer [facility] Unavailable [phone] Lynette Ponce MD Primary Care Provider [phone] Bing Alvares MD Unavailable Lynette Ponce MD Primary Care Provider [phone] Encounter Details Date Type Department Care Team (Late st Contact Info) Description 06/24/2020 The News Lens Message Enc [facility] Medical Group MultiSpecialty Care [facility] [address] [place] [phone] Teri Mojica, [facility] [address] [place] [address] Test Results Social History Tobacco Use Types [...] Description 06/13/2025 10:45 AM CDT Office Visit [facility] [place] [address] Bing Alvares MD [address] [place] [address] documented as of this encounter Visit Diagnoses Not on filedocumented in this encounter Additional Health Concerns Assessment Noted Time PHQ-9 Depression Total Score: 19 019 4:41 PM CDT documented as of this encounter Care Teams Curtain Supervisor Relationship Specialty Start Date End Date Lynette Ponce MD [address] [place] [address] PCP - General INTERNAL MEDICINE 03/08/24 03/16/24 Lynette Ponce MD [address] [place] [address] PCP - General 03/29/24 Ivette Clark NP [place] Cargo Vessel Stewardess NURSE PRACTITIONER 02/09/19 03/25/24 Scott Guerrero MD Consulting Physician GASTROENTEROLOGY 03/04/19 Nerissa Hill MD [place] Cargo Vessel Stewardess CARDIOVASCULAR DISEASE 03/17/19 03/25/24 Carline Plummer [facility] NUR[facility]ACT[facility] 12/22/20 02/28/22 Bing Alvares MD [address] [place] [address] Consulting Physician CARDIOVASCULAR DISEASE 03/22/24 documented as of this encounter
--- OUTSIDE RECORDS SUMMARY | 2025-02-03 14:34 | XMS_ITS | Encounter Summary ---
Author Organization [facility] Address [facility] [place] [address] Care Team Providers Care Jet Blade Polisher Name Role Phone MimirohitIvette NP Unavailable [phone] Fabian Palacios MD Unavailable Unavailable Scott Guerrero MD Unavailable Nerissa Hill MD Unavailable [phone] Carlnie Plummer [facility] Unavailable [phone] Lynette Ponce MD Primary Care Provider [phone] Bing Alvares MD Unavailable Lynette Ponce MD Primary Care Provider [phone] Encounter Details Date Type Department Care Team (Latest Contact Info) Description 07/13/2018 Abstract [facility] Medical Group Sri Russ MD [...] Description 06/13/2025 10:45 AM CDT Office Visit [facility] [place] [address] Bing Alvares MD [address] [place] [address] documented as of this encounter Visit Diagnoses Not on filedocumented in this encounter Additional Health Concerns Infection Onset Date Last Indicated Resolved Time COVID-19 Rule Out 03/06/2020 03/03/2020 03/06/2020 9:26 AM CDT documented as of this encounter Care Teams Jet Blade Polisher Relationship Specialty Start Date End Date Lynette Ponce MD [address] [place] [address] PCP - General INTERNAL MEDICINE 03/08/24 03/16/24 Lynette Ponce MD [address] [place] [address] PCP - General 03/29/24 Ivette Clark NP [place] Loss Prevention Representative NURSE PRACTITIONER 02/09/19 03/25/24 Fabian Palacios MD [place] Loss Prevention Representative INTERVENTIONAL CARDIOLOGY 02/09/19 03/16/19 Scott Guerrero MD Consulting Physician GASTROENTEROLOGY 03/04/19 Nerissa Hill MD [place] Loss Prevention Representative CARDIOVASCULAR DISEASE 03/17/19 03/25/24 Carline Plummer FNP-BC NURSE PRACTITIONER 12/22/20 02/28/22 Bing Alvares MD [address] [place] [address] Consulting Physician CARDIOVASCULAR DISEASE 03/22/24 documented as of this encounter
--- OUTSIDE RECORDS SUMMARY | 2025-02-03 14:34 | XMS_ITS | Encounter Summary ---
Author Organization [facility] Address [address] [place] [address] Care Team Providers Care Yard Cleaner Name Role Phone Ivette Clark NP Unavailable [phone] Scott Guerrero MD Unavailable Nerissa Hill MD Unavailable [phone] Lynette Ponce MD Primary Care Provider [phone] Bing Alvares MD Unavailable Lynette Ponce MD Primary Care Provider [phone] Encounter Details Date Type Department Care Team (Latest Contact Info) Description 05/07/2023 muzu tv Message Enc [facility] Medical Group MultiSpecialty Care [facility] [address] [place] [address] Adelso, [facility] Provider provider's response Social History [...] on file documented as of this encounter Functional Status * Over the past 2 weeks, how often have you been bothered by any of the following problems? Question Answer Date of Assessment Author Status Little interest or pleasure in doing things More than half the days 05/09/2023 1:53 PM CDT Dannielle Haynes, AGRICULTURAL ENGINEER Active Feeling down, depressed, or hopeless More than half the days 05/09/2023 1:53 PM CDT Dannielle Haynes, AGRICULTURAL ENGINEER Active Patient Health Questionnaire-2 Score 4 05/09/2023 1:53 PM CDT Dannielle Haynes, AGRICULTURAL ENGINEER Active * Question Answer Date of Assessment Author Status Trouble falling or staying asleep, or sleeping too much Nearly every day 05/09/2023 1:53 PM CDT Dannielle Haynes, AGRICULTURAL ENGINEER Active Feeling tired or having little energy Nearly every day 05/09/2023 1:53 PM CDT Dannielle Haynes, AGRICULTURAL ENGINEER Active Poor appetite or overeating Nearly every day 05/09/2023 1:53 PM CDT Dannielle Haynes, AGRICULTURAL ENGINEER Active Feeling bad about yourself - or that you are a failure or have let yourself or your family down More than half the days 05/09/2023 1:53 PM CDT Dannielle Haynes, AGRICULTURAL ENGINEER Active Trouble concentrating on things, such as reading the newspaper or watching television More than half the days 05/09/2023 1:53 PM CDT Dannielle Haynes, AGRICULTURAL ENGINEER Active Moving or speaking so slowly that other people could have noticed? Or the opposite - being so fidgety or restless that you have been moving around a lot more than usual. Not at all 05/09/2023 1:53 PM CDT Dannielle Haynes, AGRICULTURAL ENGINEER Active Thoughts that you would be better off or hurting yourself in some way Not at all 05/09/2023 1:53 PM CDT Dannielle Haynes, AGRICULTURAL ENGINEER Active Patient Health Questionnaire-9 Score 17 05/09/2023 1:53 PM CDT Dannielle Haynes, AGRICULTURAL ENGINEER Active * If you checked off any problems on this questionnaire so far, Question Answer Date of Assessment Author Status How difficult have these problems made it for you to do your work, take care of things at home, or get along with other people? Somewhat difficult 05/09/2023 1:53 PM CDT Dannielle Haynes, AGRICULTURAL ENGINEER Active * Over the last 2 weeks, how often have you been bothered by any of the following problems? Question Answer Date of Assessment Author Status Feeling nervous, anxious, or on edge 2 05/09/2023 1:58 PM CDT Dannielle Haynes, AGRICULTURAL ENGINEER A ctive Not being able to stop or control worrying 2 05/09/2023 1:58 PM CDT Dannielle Haynes, AGRICULTURAL ENGINEER Active Worrying too much about different things 2 05/09/2023 1:58 PM CDT Dannielle Haynes, AGRICULTURAL ENGINEER Active Trouble relaxing 2 05/09/2023 1:58 PM CDT Dannielle Haynes, AGRICULTURAL ENGINEER Active Being so restless that it is hard to sit still 2 05/09/2023 1:58 PM CDT Dannielle Haynes, AGRICULTURAL ENGINEER Active Becoming easily annoyed or irritable 2 05/09/2023 1:58 PM CDT Dannielle Haynes, AGRICULTURAL ENGINEER A ctive Feeling afraid as if something awful might happen 1 05/09/2023 1:58 PM CDT Dannielle Haynes, AGRICULTURAL ENGINEER A ctive CHANDAN-7 Total Score 13 05/09/2023 1:58 PM CDT Dannielle Hays, AGRICULTURAL ENGINEER Active documented as of this encounter Plan of Treatment Upcoming Encounters Date Type Department Care Team (Late st Contact Info) Description 06/13/2025 10:45 AM CDT Office Visit [facility] [place] [address] Bing Alvares MD [address] [place], [place] [id number] documented as of this encounter Visit Diagnoses Not on filedocumented in this encounter Additional Health Concerns Assessment Noted Time PHQ-9 Depression Total Score: 0 12/12/19 22 4:08 PM FIBERGLASS LAMINATOR documented as of this encounter Care Teams Yard Cleaner Relationship Specialty Start Date End Date Lynette Ponce MD [address] [place] [address] PCP - General INTERNAL MEDICINE 03/08/24 03/16/24 Lynette Ponce MD [address] [place] [address] PCP - General 03/29/24 Ivette Clark NP [place] Cnc Service Technician NURSE PRACTITIONER 02/09/19 03/25/24 Scott Guerrero MD Consulting Physician GASTROENTEROLOGY 03/04/19 Nerissa Hill MD [place] Cnc Service Technician CARDIOVASCULAR DISEASE 03/17/19 03/25/24 Bing Alvares MD [address] [place] [address] Consulting Physician CARDIOVASCULAR DISEASE 03/22/24 documented as of this encounter
--- OUTSIDE RECORDS SUMMARY | 2025-02-03 14:34 | XMS_ITS | Encounter Summary ---
Author Organization [facility] Address [address] [place] [address] Care Team Providers Care Glass Mold Repairer Name Role Phone Ivette Clark NP Unavailable [phone] Fabian Palacios MD Unavailable Unavailable Scott Guerrero MD Unavailable Nerissa Hill MD Unavailable [phone] Carline Plummer [facility] Unavailable [phone] Lynette Ponce MD Primary Care Provider [phone] Bing Alvares MD Unavailable Lynette Ponce MD Primary Care Provider Encounter Details Date Type Department Care Team ([facility] st Contact Info) Description 01/29/2019 MyChart Message Enc [facility] Medical Group MultiSpecialty Care [facility] [address] [place] [address] Melissa Watson, FORM GRADER [address] [address] Other Social History Tobacco Use [...] Description 06/13/2025 10:45 AM CDT Office Visit [facility] [place] [address] Bing Alvares MD [address] [place] [address] documented as of this encounter Visit Diagnoses Not on filedocumented in this encounter Additional Health Concerns Infection Onset Date Last Indicated Resolved Time COVID-19 Rule Out 03/06/2020 03/03/2020 03/06/2020 9:26 AM CDT documented as of this encounter Care Teams Glass Mold Repairer Relationship Specialty Start Date End Date Lynette Ponce MD [address] [place] [address] PCP - General INTERNAL MEDICINE 03/08/24 03/16/24 Lynette Ponce MD [address] [place] [address] PCP - General 03/29/24 Ivette Clark NP [place] Industrial Spray Painter NURSE PRACTITIONER 02/09/19 03/25/24 Fabian Palacios MD [place] Industrial Spray Painter INTERVENTIONAL CARDIOLOGY 02/09/19 03/16/19 Scott Guerrero MD Consulting Physician GASTROENTEROLOGY 03/04/19 Nerissa Hill MD [place] Industrial Spray Painter CARDIOVASCULAR DISEASE 03/17/19 03/25/24 Carline Plummer [facility] NURSE PRACTITIONER 12/22/20 02/28/22 Bing Alvares MD [address] [place] [address] Consulting Physician CARDIOVASCULAR DISEASE 03/22/24 documented as of this encounter
--- OUTSIDE RECORDS SUMMARY | 2025-02-03 14:34 | XMS_ITS | Encounter Summary ---
Author Organization [facility] Address [address] [place] [address] Care Team Providers Care Carpenter Inspector Name Role Phone Ivette Clark NP Unavailable [phone] Fabian Palacios MD Unavailable Unavailable Scott Guerrero MD Unavailable Nerissa Hill MD Unavailable [phone] Carline Plummer [facility] Unavailable [phone] Lynette Ponce MD Primary Care Provider [phone] Bing Alvares MD Unavailable Lynette Ponce MD Primary Care Provider [phone] Encounter Details Date Type Department Care Team ([facility] st Contact Info) Description 10/21/2018 MyChart Message Enc [facility] Medical Group MultiSpecialty Care [facility] [address] [place] [address] Melissa Watson, ORTHOTIC/PROSTHETIC PRACTITIONER [address] [address] Other Social History Tobacco Use [...] 10/22/2018 8:04 AM CST Please advise. Thanks. NT FINISHER APPRENTICE documented in this encounter Plan of Treatment Upcoming Encounters Date Type Department Care Team (Late st Contact Info) Description 06/13/2025 10:45 AM CDT Office Visit [facility] [address] [place] [address] Bing Alvares MD [address] [place] [address] documented as of this encounter Visit Diagnoses Not on filedocumented in this encounter Additional Health Concerns Infection Onset Date Last Indicated Resolved Time COVID-19 Rule Out 03/06/2020 03/03/2020 03/06/2020 9:26 AM CDT documented as of this encounter Care Teams Carpenter Inspector Relationship Specialty Start Date End Date Lynette Ponce MD [address] [place] [address] PCP - General INTERNAL MEDICINE 03/08/24 03/16/24 Lynette Ponce MD [address] [place] [address] PCP - General 03/29/24 Ivette Clark NP [place] Senior Investigator NURSE PRACTITIONER 02/09/19 03/25/24 Fabian Palacios MD [place] Senior Investigator INTERVENTIONAL CARDIOLOGY 02/09/19 03/16/19 Scott Guerrero MD Consulting Physician GASTROENTEROLOGY 03/04/19 Nerissa Hill MD [place] Senior Investigator CARDIOVASCULAR DISEASE 03/17/19 03/25/24 Carline Plummer [facility] NURSE PRACTITIONER 12/22/20 02/28/22 Bing Alvares MD [address] [place] [address] Consulting Physician CARDIOVASCULAR DISEASE 03/22/24 documented as of this encounter
--- OUTSIDE RECORDS SUMMARY | 2025-02-03 14:34 | XMS_ITS | Encounter Summary ---
Author Organization [facility] Address [address] [place] [address] Care Team Providers Care Cork Tipper Name Role Phone Ivette Clark NP Unavailable [phone] Fabian Palacios MD Unavailable Unavailable Scott Guerrero MD Unavailable Nerissa Hill MD Unavailable [phone] Carline Plummer [facility] Unavailable [phone] Lynette Ponce MD Primary Care Provider [phone] Bing Alvares MD Unavailable Lynette Ponce MD Primary Care Provider [phone] Encounter Details Date Type Department Care Team (Latest Contact Info) Description 11/15/2018 MyChart Message Enc [facility] Medical Group MultiSpecialty [facility] [address] [place] [address] Melissa Watson, ANTHROPOLOGIST [address] [address] Medication Questions Social History Tobacco [...] Description 06/13/2025 10:45 AM CDT Office Visit [facility] [address] [place] [address] Bing Alvares MD [address] [place] [address] documented as of this encounter Visit Diagnoses Not on filedocumented in this encounter Additional Health Concerns Infection Onset Date Last Indicated Resolved Time COVID-19 Rule Out 03/06/2020 03/03/2020 03/06/2020 9:26 AM CDT documented as of this encounter Care Teams Cork Tipper Relationship Specialty Start Date End Date Lynette Ponce MD [address] [place] [address] PCP - General INTERNAL MEDICINE 03/08/24 03/16/24 Lynette Ponce MD [address] [place] [address] PCP - General 03/29/24 Ivette Clark NP [place] Care Trainer NURSE PRACTITIONER 02/09/19 03/25/24 Fabian Palacios MD [place] Care Trainer INTERVENTIONAL CARDIOLOGY 02/09/19 03/16/19 Scott Guerrero MD Consulting Physician GASTROENTEROLOGY 03/04/19 Nerissa Hill MD [place] Care Trainer CARDIOVASCULAR DISEASE 03/17/19 03/25/24 Carline Plummer FNP-BC NURSE PRACTITIONER 12/22/20 02/28/22 Bing Alvares MD [address] [place] [address] Consulting Physician CARDIOVASCULAR DISEASE 03/22/24 documented as of this encounter
--- OUTSIDE RECORDS SUMMARY | 2025-02-03 14:34 | XMS_ITS | Encounter Summary ---
Author Organization [facility] Address [address] [place] [address] Care Team Providers Care Stone Setter Apprentice Name Role Phone Ivette Clark NP Unavailable [phone] Scott Guerrero MD Unavailable Nerissa Hill MD Unavailable [phone] Carline Plummer [facility] Unavailable [phone] Lynette Ponce MD Primary Care Provider [phone] Bing Alvares MD Unavailable Lynette Ponce MD Primary Care Provider [phone] Encounter Details Date Type Department Care Team (Latest Contact Info) Description 04/27/2019 [employer] Message Enc [facility] Medical Group MultiSpecialty [facility] [address] [place] [address] Melissa Watson, SPECIAL WEAPONS AND TACTICS OFFICER [address] [address] RE: Medication Questions Social History [...] Description 06/13/2025 10:45 AM CDT Office Visit [facility] [place] [address] Bing Alvares MD [address] [place] [address] documented as of this encounter Visit Diagnoses Not on filedocumented in this encounter Additional Health Concerns Infection Onset Date Last Indicated Resolved Time COVID-19 Rule Out 03/06/2020 03/03/2020 03/06/2020 9:26 AM CDT documented as of this encounter Care Teams Stone Setter Apprentice Relationship Specialty Start Date End Date Lynette Ponce MD [address] [place] [address] PCP - General INTERNAL MEDICINE 03/08/24 03/16/24 Lynette Ponce MD [address] [place] [address] PCP - General 03/29/24 Ivette Clark NP [place] [employer] Unit Operator NURSE PRACTITIONER 02/09/19 03/25/24 Scott Guerrero MD Consulting Physician GASTROENTEROLOGY 03/04/19 Nerissa Hill MD [place] [employer] Unit Operator CARDIOVASCULAR DISEASE 03/17/19 03/25/24 Carline Plummer FNP-BC NURSE PRACTITIONER 12/22/20 02/28/22 Bing Alvares MD [address] [place] [address] Consulting Physician CARDIOVASCULAR DISEASE 03/22/24 documented as of this encounter
--- OUTSIDE RECORDS SUMMARY | 2025-02-03 14:34 | XMS_ITS | Clinical Summary ---
Author Organization [facility] Contractually Address [address] [place] [address] Care Team Providers Care Academic Adviser Name Role Phone Unavailable Primary Care Provider Unavailabl e Source Comments [facility] Contractually,non-owned Affiliates and Associated Physician Practices is amultiple site organization consisting of ambulatory clinics and hospital sitesin [place], [place], [place] and [place]. This disclosure is being madepursuant to the Care Everywhere program and may not contain all information available regarding this patient. Last updated 18.[facility] Contractually Social History Tobacco Use Types Packs/Day Years Used Date Smoking Tobacco: Never Assessed Comments Unknown Sex and Gender Information Value Date Recorded Sex Assigned at Not on file Legal Sex Female 11:57 AM CDT Gender Identity Not on file Sexual [...] VACCINE ( - 2023-2 5 season) 2024 DEPRESSION SCREENING 10/20/2024 INFLUENZA VACCINE (Season Ended) 2025 HIB VACCINE Aged Out No longer eligi [...] on patient's age to complete this topic Insurance SELF PAY NO INSURANCE Member Subscriber Plan / Payer (Ef fective for All Dates) Name:Max Lei Member ID:Not on file Relation to Subscriber:Not on file Name:MAX LEI Subscriber ID:Not on file (Home) Address: [address] [place] [address] Payer ID:Not on file Group ID:Not on file Type:Self Pay Address: [place], [place]
[2025-02-03 15:00] VITALS: BP 128/72; PULSE 68; RESP 18; TEMP 36.1; O2SAT 98
[2025-02-03] MEDS: IRON SUCROSE COMPLEX 300 MG in SODIUM CHLORIDE 0.9% IV 235 ML 125 MG IVPB (15:07)
[2025-02-03 15:09] VITALS: BMI 25.9
== END 2025-02-03 14:18 | disposition home or self-care (01) ==
PROVIDERS: PCP Internal Medicine; Visit Provider Internal Medicine
DX: D50.9 Iron deficiency anemia, unspecified (principal)
CPT/HCPCS: 96365; 96366; J1756; J7050

== ENCOUNTER 2025-02-10 10:27 | Outpatient (CLI) | payer OTHER, SELFPAY ==
--- NOTE | ~2025-02-10 | XR_ITS ---
Clinical Indication: Upper respiratory infection PA and lateral views of the chest: Comparison: 09/30/2024 Findings: The lungs are clear, without evidence of focal consolidation or pleural effusion. Cardiome diastinal silhouette is within normal limits. Bones and soft tissues are unremarkable. Impression: Normal chest. Reviewed, dictated and finalized at [facility]. Impression: Normal chest.
[2025-02-10 10:52] LABS: Hematocrit 36.3 % (35.0-49.0); Mean Corpuscular HGB Conc 30.3 g/dL (32-36); Mean Corpuscular Hemoglobin 24.9 pg (27.0-31.0); Mean Corpuscular Volume 82.1 fL (78.0-102.0); Mean Platelet Volume 8.8 fl (9.2-11.8); Platelet Count Result 216 K/mm3 (150-420); Red Blood Count 4.42 M/mm3 (4.20-5.40); Red Cell Distribution Width 15.8 % (11.6-14.4); White Blood Count 5.1 K/mm3 (4.8-10.8)
--- OUTSIDE RECORDS SUMMARY | 2025-02-10 11:49 | XMS_ITS | Encounter Summary ---
Author Organization [facility] Address [address] [place] [address] Care Team Providers Care Chenille Machine Operator Name Role Phone Ivette Clark NP Unavailable [phone] Fabian Palacios MD Unavailable Unavailable Scott Guerrero MD Unavailable Nerissa Hill MD Unavailable [phone] Carline Plummer [facility] Unavailable [phone] Lynette Ponce MD Primary Care Provider [phone] Bing Alvares MD Unavailable Lynette Ponce MD Primary Care Provider Encounter Details Date Type Department Care Team (Latest Contact Info) Description 09/14/2018 [employer] Message Enc [facility] Medical Group MultiSpecialty [facility] [address] [place] [address] Melissa Watson, SOLAR SALES SPECIALIST [address] [address] Follow Up/Update Social History Tobacco [...] Description 06/13/2025 10:45 AM CDT Office Visit [facility] [address] [place] [address] Bing Alvares MD [address] [place] [address] documented as of this encounter Visit Diagnoses Not on filedocumented in this encounter Additional Health Concerns Infection Onset Date Last Indicated Resolved Time COVID-19 Rule Out 03/06/2020 03/03/2020 03/06/2020 9:26 AM CDT documented as of this encounter Care Teams Chenille Machine Operator Relationship Specialty Start Date End Date Lynette Ponce MD [address] [place] [address] PCP - General INTERNAL MEDICINE 03/08/24 03/16/24 Lynette Ponce MD [address] [place] [address] PCP - General 03/29/24 Ivette Clark NP [employer] Express Clerk NURSE PRACTITIONER 02/09/19 03/25/24 Fabian Palacios MD [employer] Clerk INTERVENTIONAL CARDIOLOGY 02/09/19 03/16/19 Scott Guerrero MD Consulting Physician GASTROENTEROLOGY 03/04/19 Nerissa Hill MD [employer] Clerk CARDIOVASCULAR DISEASE 03/17/19 03/25/24 Carline Plummer FNP- NURSE PRACTITIONER 12/22/20 02/28/22 Bing Alvares MD [address] [place] [address] Consulting Physician CARDIOVASCULAR DISEASE 03/22/24 documented as of this encounter
--- OUTSIDE RECORDS SUMMARY | 2025-02-10 11:49 | XMS_ITS | Encounter Summary ---
Author Organization [facility] Address [address] [place] [address] Care Team Providers Care Marketing Co Op Name Role Phone Ivette Clark NP Unavailable [phone] Scott Guerrero MD Unavailable Nerissa Hill MD Unavailable [phone] Lynette Ponce MD Primary Care Provider [phone] Bing Alvares MD Unavailable Lynette Ponce MD Primary Care Provider [phone] Encounter Details Date Type Department Care Team (Latest Contact Info) Description 05/07/2023 State Message Enc [facility] Medical Group MultiSpecialty Care [facility] [address] [place] [address] [place], [facility] Provider provider's response Social [...] days 05/09/2023 1:53 PM CDT Dannielle Haynes, ELEMENTARY ELL TEACHER Active Feeling down, depressed, or hopeless More than half the days 05/09/2023 1:53 PM CDT Dannielle Haynes, ELEMENTARY ELL TEACHER Active Patient Health Questionnaire-2 Score 4 05/09/2023 1:53 PM CDT Dannielle Haynes, ELEMENTARY ELL TEACHER Active * Question Answer Date of Assessment Author Status Trouble falling or staying asleep, or sleeping too much Nearly every day 05/09/2023 1:53 PM CDT Dannielle Haynes, ELEMENTARY ELL TEACHER Active Feeling tired or having little energy Nearly every day 05/09/2023 1:53 PM CDT Dannielle Haynes, ELEMENTARY ELL TEACHER Active Poor appetite or overeating Nearly every day 05/09/2023 1:53 PM CDT Dannielle Haynes, ELEMENTARY ELL TEACHER Active Feeling bad about yourself - or that you are a failure or have let yourself or your family down More than half the days 05/09/2023 1:53 PM CDT Dannielle Haynes, ELEMENTARY ELL TEACHER Active Trouble concentrating on things, such as reading the newspaper or watching television More than half the days 05/09/2023 1:53 PM CDT Dannielle Haynes, ELEMENTARY ELL TEACHER Active Moving or speaking so slowly that other people could have noticed? Or the opposite - being so fidgety or restless that you have been moving around a lot more than usual. Not at all 05/09/2023 1:53 PM CDT Dannielle Haynes, ELEMENTARY ELL TEACHER Active Thoughts that you would be better off or hurting yourself in some way Not at all 05/09/2023 1:53 PM CDT Dannielle Haynes, ELEMENTARY ELL TEACHER Active Patient Health Questionnaire-9 Score 17 05/09/2023 1:53 PM CDT Dannielle Haynes, ELEMENTARY ELL TEACHER Active * If you checked off any problems on this questionnaire so far, Question Answer Date of Assessment Author Status How difficult have these problems made it for you to do your work, take care of things at home, or get along with other people? Somewhat difficult 05/09/2023 1:53 PM CDT Dannielle Haynes, ELEMENTARY ELL TEACHER Active * Over the last 2 weeks, how often have you been bothered by any of the following problems? Question Answer Date of Assessment Author Status Feeling nervous, anxious, or on edge 2 05/09/2023 1:58 PM CDT Dannielle Haynes, ELEMENTARY ELL TEACHER A ctive Not being able to stop or control worrying 2 05/09/2023 1:58 PM CDT Dannielle Haynes, ELEMENTARY ELL TEACHER Active Worrying too much about different things 2 05/09/2023 1:58 PM CDT Dannielle Haynes, ELEMENTARY ELL TEACHER Active Trouble relaxing 2 05/09/2023 1:58 PM CDT Dannielle Haynes, ELEMENTARY ELL TEACHER Active Being so restless that it is hard to sit still 2 05/09/2023 1:58 PM CDT Dannielle Haynes, ELEMENTARY ELL TEACHER Active Becoming easily annoyed or irritable 2 05/09/2023 1:58 PM CDT Dannielle Haynes, ELEMENTARY ELL TEACHER A ctive Feeling afraid as if something awful might happen 1 05/09/2023 1:58 PM CDT Dannielle Haynes, ELEMENTARY ELL TEACHER A ctive CHANDAN-7 Total Score 13 05/09/2023 1:58 PM CDT Dannielle Hays, ELEMENTARY ELL TEACHER Active documented as of this encounter Plan of Treatment Upcoming Encounters Date Type Department Care Team (Late st Contact Info) Description 06/13/2025 10:45 AM CDT Office Visit [facility] [place] [address] Bing Alvares MD [address] [place], [place] [id number] documented as of this encounter Visit Diagnoses Not on filedocumented in this encounter Additional Health Concerns Assessment Noted Time PHQ-9 Depression Total Score: 0 12/12/19 22 4:08 PM FISHING BOAT MATE documented as of this encounter Care Teams Marketing Co Op Relationship Specialty Start Date End Date Lynette Ponce MD [address] [place] [address] PCP - General INTERNAL MEDICINE 03/08/24 03/16/24 Lynette Ponce MD [address] [place] [address] PCP - General 03/29/24 Ivette Clark NP [place] Supervisory Lifeguard NURSE PRACTITIONER 02/09/19 03/25/24 Scott Guerrero MD Consulting Physician GASTROENTEROLOGY 03/04/19 Nerissa Hill MD [place] Supervisory Lifeguard CARDIOVASCULAR DISEASE 03/17/19 03/25/24 Bing Alvares MD [address] [place] [address] Consulting Physician CARDIOVASCULAR DISEASE 03/22/24 documented as of this encounter
--- OUTSIDE RECORDS SUMMARY | 2025-02-10 11:49 | XMS_ITS | Encounter Summary ---
Author Organization [facility] Address [address] [place] [address] Care Team Providers Care Program Director/Traffic Director Name Role Phone Ivette Clark NP Unavailable [phone] Scott Guerrero MD Unavailable Nerissa Hill MD Unavailable [phone] Lynette Ponce MD Primary Care Provider [phone] Bing Alvares MD Unavailable Lynette Ponce MD Primary Care Provider [phone] Encounter Details Date Type Department Care Team (Latest Contact Info) Description 12/13/2022 [employer] Message Enc [facility] Medical Group MultiSpecialty Care [facility] [address] [place] [address] [facility] Provider provider's result note Social History [...] Coronavirus/COVID-19? No / Unsure 12/12/2022 9:13 AM PENSIONS RETIREMENT PLAN SPECIALIST documented as of this encounter Plan of Treatment Upcoming Encounters Date Type Department Care Team (Late st Contact Info) Description 06/13/2025 10:45 AM CDT Office Visit [facility] [place] [address] Bing Alvares MD [address] [place] [address] documented as of this encounter Visit Diagnoses Not on filedocumented in this encounter Additional Health Concerns Assessment Noted Time PHQ-9 Depression Total Score: 0 12/12/19 4:08 PM PENSIONS RETIREMENT PLAN SPECIALIST documented as of this encounter Care Teams Program Director/Traffic Director Relationship Specialty Start Date End Date Lynette Ponce MD [address] [place] [address] PCP - General INTERNAL MEDICINE 03/08/24 03/16/24 Lynette Ponce MD [address] [place] [address] PCP - General 03/29/24 Ivette Clark NP Perris Mapping Supervisor NURSE PRACTITIONER 02/09/19 03/25/24 Scott Guerrero MD Consulting Physician GASTROENTEROLOGY 03/04/19 Nerissa Hill MD Perris Mapping Supervisor CARDIOVASCULAR DISEASE 03/17/19 03/25/24 Bing Alvares MD [address] [place] [address] Consulting Physician CARDIOVASCULAR DISEASE 03/22/24 documented as of this encounter
--- OUTSIDE RECORDS SUMMARY | 2025-02-10 11:49 | XMS_ITS | Encounter Summary ---
Author Organization [facility] Address [address] [place] [address] Care Team Providers Care Hydraulic Blocker Name Role Phone Ivette Clark NP Unavailable [phone] Scott Guerrero MD Unavailable Nerissa Hill MD Unavailable [phone] Carline Plummer [facility] Unavailable [phone] Lynette Ponce MD Primary Care Provider [phone] Bing Alvares MD Unavailable Lynette Ponce MD Primary Care Provider [phone] Reason for Visit * Reason Onset Date Comments Prior Authorization 08/17/2019 Encounter Details Date Type Department Care Team (Latest Contact Info) Description 08/17/2019 [employer] Message [facility] Medical Group MultiSpecialty Care [address] [address] Teri Mojica, [facility] [address] [place] [address] Medication Questions Social History Tobacco [...] Trint[employer]. 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 Pharmacy faxed request last Friday08/18/19 ING MACHINE OPERATOR documented in this encounter Plan of Treatment Upcoming Encounters Date Type Department Care Team (Late st Contact Info) Description 06/13/2025 10:45 AM CDT Office Visit [facility] [address] [place] [address] Bing Alvares MD [address] [place] [address] documented as of this encounter Visit Diagnoses Not on filedocumented in this encounter Additional Health Concerns Infection Onset Date Last Indicated Resolved Time COVID-19 Rule Out 03/06/2020 03/03/2020 03/06/2020 9:26 AM CDT Assessment Noted Time PHQ-9 Depression Total Score: 19 019 4:41 PM CDT documented as of this encounter Care Teams Hydraulic Blocker Relationship Specialty Start Date End Date Lynette Ponce MD [address] [place] [address] PCP - General INTERNAL MEDICINE 03/08/24 03/16/24 Lynette Ponce MD [address] [place] [address] PCP - General 03/29/24 Ivette Clark NP [place]o Liquefaction Supervisor NURSE PRACTITIONER 02/09/19 03/25/24 Scott Guerrero MD Consulting Physician GASTROENTEROLOGY 03/04/19 Nerissa Hill MD [place] Liquefaction Supervisor CARDIOVASCULAR DISEASE 03/17/19 03/25/24 Carline Plummer [facility] NURSE PRACTITIONER 12/22/20 02/28/22 Bing Alvares MD [address] [place] [address] Consulting Physician CARDIOVASCULAR DISEASE 03/22/24 documented as of this encounter
--- OUTSIDE RECORDS SUMMARY | 2025-02-10 11:49 | XMS_ITS | Encounter Summary ---
Author Organization [facility] Address [address] [place] [address] Care Team Providers Care Home Health Care Coordinator Name Role Phone Ivette Clark NP Unavailable [phone] Scott Guerrero MD Unavailable Nerissa Hill MD Unavailable [phone] Carline Plummer [facility] Unavailable [phone] Lynette Ponce MD Primary Care Provider [phone] Bing Alvares MD Unavailable Lynette Ponce MD Primary Care Provider [phone] Encounter Details Date Type Department Care Team (Latest Contact Info) Description 04/27/2019 [employer] Message Enc [facility] Medical Group MultiSpecialty [facility] [address] [place] [address] Melissa Watson, CANDY DIPPER HAND [address] [address] RE: Medication Questions Social History [...] Description 06/13/2025 10:45 AM CDT Office Visit [facility] [place] [address] Bing Alvares MD [address] [place] [address] documented as of this encounter Visit Diagnoses Not on filedocumented in this encounter Additional Health Concerns Infection Onset Date Last Indicated Resolved Time COVID-19 Rule Out 03/06/2020 03/03/2020 03/06/2020 9:26 AM CDT documented as of this encounter Care Teams Home Health Care Coordinator Relationship Specialty Start Date End Date Lynette Ponce MD [address] [place] [address] PCP - General INTERNAL MEDICINE 03/08/24 03/16/24 Lynette Ponce MD [address] [place] [address] PCP - General 03/29/24 Ivette Clark NP [place]illion C Developer NURSE PRACTITIONER 02/09/19 03/25/24 Scott Guerrero MD Consulting Physician GASTROENTEROLOGY 03/04/19 Nerissa Hill MD [employer]illion C Developer CARDIOVASCULAR DISEASE 03/17/19 03/25/24 Carline Plummer FNP-BC NURSE PRACTITIONER 12/22/20 02/28/22 Bing Alvares MD [address] [place] [address] Consulting Physician CARDIOVASCULAR DISEASE 03/22/24 documented as of this encounter
--- OUTSIDE RECORDS SUMMARY | 2025-02-10 11:49 | XMS_ITS | Encounter Summary ---
Author Organization [facility] Address [facility] [place] [address] Care Team Providers Care Nut Roaster Helper Name Role Phone MimirohitIvette NP Unavailable [phone] Fabian Palacios MD Unavailable Unavailable Scott Guerrero MD Unavailable Nerissa Hill MD Unavailable [phone] Carline Plummer [facility] Unavailable [phone] Lynette Ponce MD Primary Care Provider [phone] Bing Alvares MD Unavailable Lynette Ponce MD Primary Care Provider [phone] Encounter Details Date Type Department Care Team (Latest Contact Info) Description 07/13/2018 Abstract [facility] Sri Russ MD Social History [...] Description 06/13/2025 10:45 AM CDT Office Visit [facility] [place] [address] Bing Alvares MD [address] [place] [address] documented as of this encounter Visit Diagnoses Not on filedocumented in this encounter Additional Health Concerns Infection Onset Date Last Indicated Resolved Time COVID-19 Rule Out 03/06/2020 03/03/2020 03/06/2020 9:26 AM CDT documented as of this encounter Care Teams Nut Roaster Helper Relationship Specialty Start Date End Date Lynette Ponce MD [address] [place] [address] PCP - General INTERNAL MEDICINE 03/08/24 03/16/24 Lynette Ponce MD [address] [place] [address] PCP - General 03/29/24 Ivette Clark NP [place] Supervisor Ski Production NURSE PRACTITIONER 02/09/19 03/25/24 Fabian Palacios MD [place] Supervisor Ski Production INTERVENTIONAL CARDIOLOGY 02/09/19 03/16/19 Scott Guerrero MD Consulting Physician GASTROENTEROLOGY 03/04/19 Nerissa Hill MD [place] Supervisor Ski Production CARDIOVASCULAR DISEASE 03/17/19 03/25/24 Carline Plummer FNP-BC NURSE PRACTITIONER 12/22/20 02/28/22 Bing Alvares MD [address] [place] [address] Consulting Physician CARDIOVASCULAR DISEASE 03/22/24 documented as of this encounter
--- OUTSIDE RECORDS SUMMARY | 2025-02-10 11:49 | XMS_ITS | Encounter Summary ---
Author Organization [facility] Address [address] [place] [address] Care Team Providers Care Coordinator Mining Products Name Role Phone Ivette Clark NP Unavailable [phone] Fabian Palacios MD Unavailable Unavailable Scott Guerrero MD Unavailable Nerissa Hill MD Unavailable [phone] Carline Plummer [facility] Unavailable [phone] Lynette Ponce MD Primary Care Provider [phone] Bing Alvares MD Unavailable Lynette Ponce MD Primary Care Provider [phone] Encounter Details Date Type Department Care Team (Latest Contact Info) Description 11/15/2018 MyChart Message Enc [facility] Medical Group MultiSpecialty [facility] [address] [place] [address] Melissa Watson, YEAST CAKE CUTTER [address] [address] Medication Questions Social History Tobacco [...] Description 06/13/2025 10:45 AM CDT Office Visit [facility] [address] [place] [address] Bing Alvares MD [address] [place] [address] documented as of this encounter Visit Diagnoses Not on filedocumented in this encounter Additional Health Concerns Infection Onset Date Last Indicated Resolved Time COVID-19 Rule Out 03/06/2020 03/03/2020 03/06/2020 9:26 AM CDT documented as of this encounter Care Teams Coordinator Mining Products Relationship Specialty Start Date End Date Lynette Ponce MD [address] [place] [address] PCP - General INTERNAL MEDICINE 03/08/24 03/16/24 Lynette Ponce MD [address] [place] [address] PCP - General 03/29/24 Ivette Clark NP [place] Padding Gluer NURSE PRACTITIONER 02/09/19 03/25/24 Fabian Palacios MD [place] Padding Gluer INTERVENTIONAL CARDIOLOGY 02/09/19 03/16/19 Scott Guerrero MD Consulting Physician GASTROENTEROLOGY 03/04/19 Nerissa Hill MD [place] Padding Gluer CARDIOVASCULAR DISEASE 03/17/19 03/25/24 Carline Plummer FNP-BC NURSE PRACTITIONER 12/22/20 02/28/22 Bing Alvares MD [address] [place] [address] Consulting Physician CARDIOVASCULAR DISEASE 03/22/24 documented as of this encounter
--- OUTSIDE RECORDS SUMMARY | 2025-02-10 11:49 | XMS_ITS | Encounter Summary ---
Author Organization [facility] Address [address] [place] [address] Care Team Providers Care Warehouse Assembly Worker Name Role Phone Ivette Clark NP Unavailable [phone] Scott Guerrero MD Unavailable Nerissa Hill MD Unavailable [phone] Carline Plummer [facility] Unavailable [phone] Lynette Ponce MD Primary Care Provider [phone] Bing Alvares MD Unavailable Lynette Ponce MD Primary Care Provider [phone] Encounter Details Date Type Department Care Team (Late st Contact Info) Description 06/24/2020 [employer] Message Enc [facility] Medical Group MultiSpecialty Care [facility] [address] [place] [address] Teri Mojica, [facility] [address] [place] [address] Test Results Social History Tobacco Use Types [...] Description 06/13/2025 10:45 AM CDT Office Visit [facility] [place] [address] Bing Alvares MD [address] [place] [address] documented as of this encounter Visit Diagnoses Not on filedocumented in this encounter Additional Health Concerns Assessment Noted Time PHQ-9 Depression Total Score: 19 019 4:41 PM CDT documented as of this encounter Care Teams Warehouse Assembly Worker Relationship Specialty Start Date End Date Lynette Ponce MD [address] [place] [address] PCP - General INTERNAL MEDICINE 03/08/24 03/16/24 Lynette Ponce MD [address] [place] [address] PCP - General 03/29/24 Ivette Clark NP Bolt Professor Of Law NURSE PRACTITIONER 02/09/19 03/25/24 Scott Guerrero MD Consulting Physician GASTROENTEROLOGY 03/04/19 Nerissa Hill MD Bolt Professor Of Law CARDIOVASCULAR DISEASE 03/17/19 03/25/24 Carline Plummer [facility] N[facility] PRACTITIONER 12/22/20 02/28/22 Bing Alvares MD [address] [place] [address] Consulting Physician CARDIOVASCULAR DISEASE 03/22/24 documented as of this encounter
--- OUTSIDE RECORDS SUMMARY | 2025-02-10 11:49 | XMS_ITS | Encounter Summary ---
Author Organization [facility] Address [address] [place] [address] Care Team Providers Care Neon Sign Maker Name Role Phone Ivette Clark NP Unavailable [phone] Fabian Palacios MD Unavailable Unavailable Scott Guerrero MD Unavailable Nerissa Hill MD Unavailable [phone] Carline Plummer [facility] Unavailable [phone] Lynette Ponce MD Primary Care Provider [phone] Bing Alvares MD Unavailable Lynette Ponce MD Primary Care Provider [phone] Encounter Details Date Type Department Care Team ([facility] st Contact Info) Description 10/21/2018 MyChart Message Enc [facility] Medical Group MultiSpecialty Care [facility] [address] [place] [address] Melissa Watson, SENIOR SUSTAINABILITY ADVISOR [address] [address] Other Social History Tobacco Use [...] 10/22/2018 8:04 AM CST Please advise. Thanks. TEGY EXECUTION CONSULTANT documented in this encounter Plan of Treatment Upcoming Encounters Date Type Department Care Team (Late st Contact Info) Description 06/13/2025 10:45 AM CDT Office Visit [facility] [address] [place] [address] Bing Alvares MD [address] [place] [address] documented as of this encounter Visit Diagnoses Not on filedocumented in this encounter Additional Health Concerns Infection Onset Date Last Indicated Resolved Time COVID-19 Rule Out 03/06/2020 03/03/2020 03/06/2020 9:26 AM CDT documented as of this encounter Care Teams Neon Sign Maker Relationship Specialty Start Date End Date Lynette Ponce MD [address] [place] [address] PCP - General INTERNAL MEDICINE 03/08/24 03/16/24 Lynette Ponce MD [address] [place] [address] PCP - General 03/29/24 Ivette Clark NP [place] Integration Software Engineer NURSE PRACTITIONER 02/09/19 03/25/24 Fabian Palacios MD [place] Integration Software Engineer INTERVENTIONAL CARDIOLOGY 02/09/19 03/16/19 Scott Guerrero MD Consulting Physician GASTROENTEROLOGY 03/04/19 Nerissa Hill MD [place] Integration Software Engineer CARDIOVASCULAR DISEASE 03/17/19 03/25/24 Carline Plummer [facility] NURSE PRACTITIONER 12/22/20 02/28/22 Bing Alvares MD [address] [place] [address] Consulting Physician CARDIOVASCULAR DISEASE 03/22/24 documented as of this encounter
--- OUTSIDE RECORDS SUMMARY | 2025-02-10 11:49 | XMS_ITS | Encounter Summary ---
Author Organization [facility] Address [address] [place] [address] Care Team Providers Care Sound Technician Name Role Phone Ivette Clark NP Unavailable [phone] Scott Guerrero MD Unavailable Nerissa Hill MD Unavailable [phone] Carline Plummer [facility] Unavailable [phone] Lynette Ponce MD Primary Care Provider [phone] Bing Alvares MD Unavailable Lynette Ponce MD Primary Care Provider [phone] Encounter Details Date Type Department Care Team (Late st Contact Info) Description 12/09/2019 citiservi Message Enc [facility] Medical Group MultiSpecialty Care [facility] [address] [place] [address] Teri Mojica, [facility] [address] [place] [address] Other Social History Tobacco Use Types Packs/Day [...] Description 06/13/2025 10:45 AM CDT Office Visit [facility] [place] [address] Bing Alvares MD [address] [place] [address] documented as of this encounter Visit Diagnoses Not on filedocumented in this encounter Additional Health Concerns Infection Onset Date Last Indicated Resolved Time COVID-19 Rule Out 03/06/2020 03/03/2020 03/06/2020 9:26 AM CDT Assessment Noted Time PHQ-9 Depression Total Score: 19 019 4:41 PM CDT documented as of this encounter Care Teams Sound Technician Relationship Specialty Start Date End Date Lynette Ponce MD [address] [place] [address] PCP - General INTERNAL MEDICINE 03/08/24 03/16/24 Lynette Ponce MD [address] [place] [address] PCP - General 03/29/24 Ivette Clark NP [place] Slabber NURSE PRACTITIONER 02/09/19 03/25/24 Scott Guerrero MD Consulting Physician GASTROENTEROLOGY 03/04/19 Nerissa Hill MD [place] Slabber CARDIOVASCULAR DISEASE 03/17/19 03/25/24 Carline Plummer FNP-BC NURSE PRACTITIONER 12/22/20 02/28/22 Bing Alvares MD [address] [place] [address] Consulting Physician CARDIOVASCULAR DISEASE 03/22/24 documented as of this encounter
--- OUTSIDE RECORDS SUMMARY | 2025-02-10 11:49 | XMS_ITS | Clinical Summary ---
Author Organization [facility] Address [facility] [place] [address] Care Team Providers Care Wastewater Manager Name Role Phone Scott Guerrero MD Unavailable Bing Alvares MD Unavailable Lynette Ponce MD Primary Care Provider [phone] Allergies Active Allergy Reactions Criticality Noted Date [...] (Generic) 08/17/2023,07/26/2022, 07/20/2019 MMR 02/23/2009 MODERNA COVID-19 (MISSILE TRACKING TECHNICIAN DENNIS JOAQUINA), MRNA, LNP-S, PF, 50 MCG/ [...] 36.6 C (97.9 F) 10/07/2023 8:34 AM MOTH EXTERMINATOR Respiratory Rate 12 05/31/2024 2:35 PM CDT [...] Description 06/13/2025 10:45 AM CDT Office Visit [facility] [place] [address] Bing Alvares MD [address] [place] [address] Health Maintenance Due Date Last Done Comments Colorectal Cancer Screening Colonoscopy (10 Years) 1966 Mammogram Screening 2006 Pneumococcal Vaccine: 50+ Years (1 of 1 - PCV) 2016 Zoster Vaccines (1 of 2) 08/07/2021 Annual Physical 03/02/2022 03/02/2021 COVID-19 Vaccine (2023-2 5 season) 2024 07/26/2022, 05/09/2022, 03/23/2021 PHQ-2 (Physician [place]) 10/20/2024 10/07/2023 DTaP, Tdap and Td Vaccines [...] this topic Medical Devices Implanted Type Area Shoemaking Cutter Device Identifier Shelf Expiration Date Model / Serial / Lot Wire Abhilash Magic Pins Orthofix 1.2 X 7mm - [id number] Implanted:Qty: 1 on 09/23/2018 by Tressa Traylor DPM at [facility] [place] Left: Foot ORTHOFIX [id number] / / N/A Description:Verified by MD Concetta Cox 2 Mini 20.0mm - [id number] Implanted:Qty: 1 on 09/23/2018 by Tressa Traylor DPM at [facility] Left: Foot [employer] 05/20/2025 AT2-M20-S / / [id number] Description:Verified by Wire Abhilash Magic Pins Orthofix 1.6 X 17 - [id number] Implanted:Qty: 1 on 09/23/2018 by Tressa Traylor DPM at [facility] Left: Foot ORTHOFIX [id number] / / N/A Description:Verified by Wire Abhilash Magic Pins Orthofix 1.6 X 11 - [id number] Implanted:Qty: 1 on 01/20/2019 by Tressa Traylor DPM at [facility] Right: Foot ORTHOFIX [id number] / / N/A Description:Verified by MD Concetta Castroutrak 2 Mini 18.0mm - [id number] Implanted:Qty: 1 on 01/20/2019 by Tressa Traylor DPM at [facility] Right: Foot [employer] 08/03/2025 AT2-M18 / / [id number] Description:Verified by Wire Abhilash Magic Pins Orthofix 1.6 X 17 - [id number] Implanted:Qty: 1 on 01/20/2019 by Tressa Traylor DPM at [facility] Right: Foot ORTHOFIX [id number] / / N/A Description:Verified by Explanted Type Area Shoemaking Cutter Device Identifier Shelf Expiration Date Model / Serial / Lot .045mm Mini Guidewire Explanted:Qty: 2 on 09/23/2018 by Tressa Traylor DPM at [facility] Left: Foot [id number] / / N/A Description:Used not implant ed Sm Cannulated Drill Tip Explanted:Qty: 1 on 09/23/2018 by Tressa Traylor DPM at [facility] Left: Foot [id number] / / N/A Description:Used not implant ed K Wire Lionel 6 In X .045 In - [id number] Explanted:Qty: 1 on 01/20/2019 by Tressa Traylor DPM at [facility] Right: Foot [employer] 05/19/2028 [id number] / / [id number] Description:Used not implant ed .045 Mini Guidewire Explanted:Qty: 1 on 01/20/2019 by Tressa Traylor DPM at [facility] Right: Foot [id number] / / N/A Description:Used not implant [id number] Mini Drill Tip Explanted:Qty: 1 on 01/20/2019 by Tressa Traylor DPM at [facility] Right: Foot [id number] / / N/A Description:Used not implant ed Advance Directives Documents on File Type Date Recorded Patient Lab Analyst Expl anation Advance Directives and Living Will 04/04/2015 12:00 AM ADVANCED DIRECTIVES Advance Directives and Living Will 02/09/2015 12:00 AM ADVANCED DIRECTIVES Advance Directives and Living Will 03/08/2013 12:00 AM ADVANCED DIRECTIVES Advance Directives and Living Will 06/30/2012 12:00 AM ADVANCED DIRECTIVES Care Teams Wastewater Manager Relationship Specialty Start Date End Date Lynette Ponce MD [address] [place] [address] PCP - General 03/29/24 Scott Guerrero MD Consulting Physician GASTROENTEROLOGY 03/04/19 Bing Alvares MD [address] [place] [address] Consulting Physician CARDIOVASCULAR DISEASE 03/22/24
--- OUTSIDE RECORDS SUMMARY | 2025-02-10 11:49 | XMS_ITS | Encounter Summary ---
Author Organization [facility] Address [address] [place] [address] Care Team Providers Care Installers Mechanical Name Role Phone Ivette Clark NP Unavailable [phone] Fabian Palacios MD Unavailable Unavailable Scott Guerrero MD Unavailable Nerissa Hill MD Unavailable [phone] Carline Plummer [facility] Unavailable [phone] Lynette Ponce MD Primary Care Provider Bing Alvares MD Unavailable Lynette Ponce MD Primary Care Provider [phone] Encounter Details Date Type Department Care Team ([facility] st Contact Info) Description 09/25/2018 MyChart Message Enc [facility] Medical Group MultiSpecialty Care [facility] [address] [place] [address] Melissa Watson, LOCKSTITCH BACK MAKER [address] [address] RE: Other Social History Tobacco [...] CST Medication is updated in patient's chart. D SUPPORT REP * Faith Chandler RN - 09/26/2018 8:27 AM CST Does this need any more follow up? Please advise D SUPPORT REP documented in this encounter Plan of Treatment Upcoming Encounters Date Type Department Care Team (Late st Contact Info) Description 06/13/2025 10:45 AM CDT [facility] [place] [address] Bing Alvares MD [address] [place] [address] documented as of this encounter Visit Diagnoses Not on filedocumented in this encounter Additional Health Concerns Infection Onset Date Last Indicated Resolved Time COVID-19 Rule Out 03/06/2020 03/03/2020 03/06/2020 9:26 AM CDT documented as of this encounter Care Teams Installers Mechanical Relationship Specialty Start Date End Date Lynette Ponce MD [address] [place] [address] PCP - General INTERNAL MEDICINE 03/08/24 03/16/24 Lynette Ponce MD [address] [place] [address] PCP - General 03/29/24 Ivette Clark NP [place] Clip Coater NURSE PRACTITIONER 02/09/19 03/25/24 Fabian Palacios MD [place] Clip Coater INTERVENTIONAL CARDIOLOGY 02/09/19 03/16/19 Scott Guerrero MD Consulting Physician GASTROENTEROLOGY 03/04/19 Nerissa Hill MD [place] Clip Coater CARDIOVASCULAR DISEASE 03/17/19 03/25/24 Carline Plummer FNP-BC NURSE PRACTITIONER 12/22/20 02/28/22 Bing Alvares MD [address] [place] [address] Consulting Physician CARDIOVASCULAR DISEASE 03/22/24 documented as of this encounter
--- OUTSIDE RECORDS SUMMARY | 2025-02-10 11:49 | XMS_ITS | Encounter Summary ---
Author Organization [facility] Address [address] [place] [address] Care Team Providers Care Investigator Claims Name Role Phone Ivette Clark NP Unavailable [phone] Fabian Palacios MD Unavailable Unavailable Scott Guerrero MD Unavailable Nerissa Hill MD Unavailable [phone] Carline Plummer [facility] Unavailable [phone] Lynette Ponce MD Primary Care Provider [phone] Bing Alvares MD Unavailable Lynette Ponce MD Primary Care Provider [phone] Encounter Details Date Type Department Care Team ([facility] st Contact Info) Description 01/29/2019 MyChart Message Enc [facility] Medical Group MultiSpecialty Care [facility] [address] [place] [address] Melissa Watson, APPLICATIONS CHEMIST [address] [address] Other Social History Tobacco Use [...] Description 06/13/2025 10:45 AM CDT Office Visit [facility] [place] [address] Bing Alvares MD [address] [place] [address] documented as of this encounter Visit Diagnoses Not on filedocumented in this encounter Additional Health Concerns Infection Onset Date Last Indicated Resolved Time COVID-19 Rule Out 03/06/2020 03/03/2020 03/06/2020 9:26 AM CDT documented as of this encounter Care Teams Investigator Claims Relationship Specialty Start Date End Date Lynette Ponce MD [address] [place] [address] PCP - General INTERNAL MEDICINE 03/08/24 03/16/24 Lynette Ponce MD [address] [place] [address] PCP - General 03/29/24 Ivette Clark NP [place] Janitorial Manager NURSE PRACTITIONER 02/09/19 03/25/24 Fabian Palacios MD [place] Janitorial Manager INTERVENTIONAL CARDIOLOGY 02/09/19 03/16/19 Scott Guerrero MD Consulting Physician GASTROENTEROLOGY 03/04/19 Nerissa Hill MD [place] Janitorial Manager CARDIOVASCULAR DISEASE 03/17/19 03/25/24 [facility] NURSE PRACTITIONER 12/22/20 02/28/22 Bing Alvares MD [address] [place] [address] Consulting Physician CARDIOVASCULAR DISEASE 03/22/24 documented as of this encounter
--- OUTSIDE RECORDS SUMMARY | 2025-02-10 11:49 | XMS_ITS | Clinical Summary ---
Author Organization [facility] [facility] Address [address] [place] [address] Care Team Providers Care Geoint Analyst Name Role Phone Unavailable Primary Care Provider Unavailabl e Source Comments [facility] [facility],non-owned Affiliates and Associated Physician Practices is amultiple site organization consisting of ambulatory clinics and hospital sitesin [place], [place], [place] and [place]. This disclosure is being madepursuant to the Care Everywhere program and may not contain all information available regarding this patient. Last updated 18.[facility] [employer] [facility] Social History Tobacco Use Types Packs/Day Years [...] Subscriber ID:Not on file (Home) Address: [address] [place] [address] Payer ID:Not on file Group ID:Not on file Type:Self Pay Address: [place], [place]
--- OUTSIDE RECORDS SUMMARY | 2025-02-10 11:49 | XMS_ITS | Encounter Summary ---
Author Organization [facility] Address [address] [place] [address] Care Team Providers Care Search Planner Name Role Phone Ivette Clark NP Unavailable [phone] Scott Guerrero MD Unavailable Nerissa Hill MD Unavailable [phone] Carline Plummer [facility] Unavailable [phone] Lynette Ponce MD Primary Care Provider [phone] Bing Alvares MD Unavailable Lynette oPnce MD Primary Care Provider Encounter Details Date Type Department Care Team (Late st Contact Info) Description 01/09/2021 MyChart Message Enc [facility] Medical Group MultiSpecialty Care [facility] [address] [place] [address] Teri Mojica, [facility] [address] [place] [address] Test Results Social History Tobacco Use Types [...] AM CDT Office Visit [facility] [place] [address] Bing Alvares MD [address] [place] [address] documented as of this encounter Visit Diagnoses Not on filedocumented in this encounter Additional Health Concerns Assessment Noted Time PHQ-9 Depression Total Score: 13 021 11:47 AM LAP CUTTER documented as of this encounter Care Teams Search Planner Relationship Specialty Start Date End Date Lynette Ponce MD [address] [place] [address] PCP - General INTERNAL MEDICINE 03/08/24 03/16/24 Lynette Ponce MD [address] [place] [address] PCP - General 03/29/24 Ivette Clark NP [place] Food Analyst NURSE PRACTITIONER 02/09/19 03/25/24 Scott Guerrero MD Consulting Physician GASTROENTEROLOGY 03/04/19 Nerissa Hill MD [place] Food Analyst CARDIOVASCULAR DISEASE 03/17/19 03/25/24 Carline Plummer [facility] NURSE PRACTITIONER 12/22/20 02/28/22 Bing Alvares MD [address] [place] [address] Consulting Physician CARDIOVASCULAR DISEASE 03/22/24 documented as of this encounter
== END 2025-02-10 10:28 | disposition home or self-care (01) ==
PROVIDERS: PCP Internal Medicine; Visit Provider Internal Medicine
DX: J06.9 Acute upper respiratory infection, unspecified (principal)
CPT/HCPCS: 36415; 71046; 85027

== ENCOUNTER 2025-02-17 14:24 | Outpatient (CLI) | payer OTHER, SELFPAY ==
[2025-02-17 14:50] VITALS: BP 124/74; PULSE 74; O2SAT 97; BMI 25.9
[2025-02-17] MEDS: IRON SUCROSE COMPLEX 300 MG in SODIUM CHLORIDE 0.9% IV 250 ML 125 MG IVPB (14:51)
--- OUTSIDE RECORDS SUMMARY | 2025-02-17 15:12 | XMS_ITS | Encounter Summary ---
Author Organization [facility] Address [address] [place] [address] Care Team Providers Care Wrapper Counter Name Role Phone Ivette Clark NP Unavailable [phone] Scott Guerrero MD Unavailable Nerissa Hill MD Unavailable [phone] Carline Plummer [facility] Unavailable [phone] Lynette Ponce MD Primary Care Provider [phone] Bing Alvares MD Unavailable Lynette Ponce MD Primary Care Provider [phone] Encounter Details Date Type Department Care Team (Late st Contact Info) Description 12/09/[address] [facility] Medical Group MultiSpecialty Care [facility] [address] [place] [address] Teri Mojica, [facility] [address] [place] [address] Other Social History Tobacco Use Types Packs/Day [...] Description 06/13/2025 10:45 AM CDT Office Visit [facility] [place] [address] Bing Alvares MD [address] [place] [address] documented as of this encounter Visit Diagnoses Not on filedocumented in this encounter Additional Health Concerns Infection Onset Date Last Indicated Resolved Time COVID-19 Rule Out 03/06/2020 03/03/2020 03/06/2020 9:26 AM CDT Assessment Noted Time PHQ-9 Depression Total Score: 19 019 4:41 PM CDT documented as of this encounter Care Teams Wrapper Counter Relationship Specialty Start Date End Date Lynette Ponce MD [address] [place] [address] PCP - General INTERNAL MEDICINE 03/08/24 03/16/24 Lynette Ponce MD [address] [place] [address] PCP - General 03/29/24 Ivette Clark NP [place] Manager Meeting NURSE PRACTITIONER 02/09/19 03/25/24 Scott Guerrero MD Consulting Physician GASTROENTEROLOGY 03/04/19 Nerissa Hill MD [place] Manager Meeting CARDIOVASCULAR DISEASE 03/17/19 03/25/24 Carline Plummer FNP-BC NURSE PRACTITIONER 12/22/20 02/28/22 Bing Alvares MD [address] [place] [address] Consulting Physician CARDIOVASCULAR DISEASE 03/22/24 documented as of this encounter
--- OUTSIDE RECORDS SUMMARY | 2025-02-17 15:12 | XMS_ITS | Encounter Summary ---
Author Organization [facility] Address [address] [place] [address] Care Team Providers Care Principal Statistical Programmer Name Role Phone Ivette Clark NP Unavailable [phone] Fabian Palacios MD Unavailable Unavailable Scott Guerrero MD Unavailable Nerissa Hill MD Unavailable [phone] Carline Plummer [facility] Unavailable [phone] Lynette Ponce MD Primary Care Provider [phone] Bing Alvares MD Unavailable Lynette Ponce MD Primary Care Provider [phone] Encounter Details Date Type Department Care Team (Latest Contact Info) Description 11/15/2018 MyChart Message Enc [facility] Medical Group MultiSpecialty [facility] [address] [place] [address] Melissa Watson, INFORMATION TECHNOLOGY COORDINATOR [address] [address] Medication Questions Social History Tobacco [...] Description 06/13/2025 10:45 AM CDT Office Visit [facility] [address] [place] [address] Bing Alvares MD [address] [place] [address] documented as of this encounter Visit Diagnoses Not on filedocumented in this encounter Additional Health Concerns Infection Onset Date Last Indicated Resolved Time COVID-19 Rule Out 03/06/2020 03/03/2020 03/06/2020 9:26 AM CDT documented as of this encounter Care Teams Principal Statistical Programmer Relationship Specialty Start Date End Date Lynette Ponce MD [address] [place] [address] PCP - General INTERNAL MEDICINE 03/08/24 03/16/24 Lynette Ponce MD [address] [place] [address] PCP - General 03/29/24 Ivette Clark NP [place] Motion Study Analyst NURSE PRACTITIONER 02/09/19 03/25/24 Fabian Palacios MD [place] Motion Study Analyst INTERVENTIONAL CARDIOLOGY 02/09/19 03/16/19 Scott Guerrero MD Consulting Physician GASTROENTEROLOGY 03/04/19 Nerissa Hill MD [place] Motion Study Analyst CARDIOVASCULAR DISEASE 03/17/19 03/25/24 Carline Plummer FNP-BC NURSE PRACTITIONER 12/22/20 02/28/22 Bing Alvares MD [address] [place] [address] Consulting Physician CARDIOVASCULAR DISEASE 03/22/24 documented as of this encounter
--- OUTSIDE RECORDS SUMMARY | 2025-02-17 15:12 | XMS_ITS | Encounter Summary ---
Author Organization [facility] Address [address] [place] [address] Care Team Providers Care Undercollar Baster Name Role Phone Ivette Clark NP Unavailable [phone] Fabian Palacios MD Unavailable Unavailable Scott Guerrero MD Unavailable Nerissa Hill MD Unavailable [phone] Carline Plummer [facility] Unavailable [phone] Lynette Ponce MD Primary Care Provider [phone] Bing Alvares MD Unavailable Lynette Ponce MD Primary Care Provider [phone] Encounter Details Date Type Department Care Team ([facility] st Contact Info) Description 09/25/2018 MyChart [facility] [address] [place] [address] Melissa Watson, DEVELOPMENT REPRESENTATIVE [address] [address] RE: Other Social History Tobacco [...] Medication is updated in patient's chart. ER BRUSH WORKER * Faith Chandler RN - 09/26/2018 8:27 AM CST Does this need any more follow up? Please advise ER BRUSH WORKER documented in this encounter Plan of Treatment Upcoming Encounters Date Type Department Care Team (Late st Contact Info) Description 06/13/2025 10:45 AM CDT Office Visit [facility] [place] [address] Bing Alvares MD [address] [place] [address] documented as of this encounter Visit Diagnoses Not on filedocumented in this encounter Additional Health Concerns Infection Onset Date Last Indicated Resolved Time COVID-19 Rule Out 03/06/2020 03/03/2020 03/06/2020 9:26 AM CDT documented as of this encounter Care Teams Undercollar Baster Relationship Specialty Start Date End Date Lynette Ponce MD [address] [place] [address] PCP - General INTERNAL MEDICINE 03/08/24 03/16/24 Lynette Ponce MD [address] [place] [address] PCP - General 03/29/24 Ivette Clark NP [place] It Technician NURSE PRACTITIONER 02/09/19 03/25/24 Fabian Palacios MD [place] It Technician INTERVENTIONAL CARDIOLOGY 02/09/19 03/16/19 Scott Guerrero MD Consulting Physician GASTROENTEROLOGY 03/04/19 Nerissa Hill MD [place] It Technician CARDIOVASCULAR DISEASE 03/17/19 03/25/24 Carline Plummer FNP-BC NURSE PRACTITIONER 12/22/20 02/28/22 Bing Alvares MD [address] [place] [address] Consulting Physician CARDIOVASCULAR DISEASE 03/22/24 documented as of this encounter
--- OUTSIDE RECORDS SUMMARY | 2025-02-17 15:12 | XMS_ITS | Encounter Summary ---
Author Organization [facility] Address [address] [place] [address] Care Team Providers Care Video Technician Name Role Phone Ivette Clark NP Unavailable [phone] Fabian Palacios MD Unavailable Unavailable Scott Guerrero MD Unavailable Nerissa Hill MD Unavailable [phone] [facility] Unavailable [phone] Lynette Ponce MD Primary Care Provider [phone] Bing Alvares MD Unavailable Lynette Ponce MD Primary Care Provider [phone] Encounter Details Date Type Department Care Team ([facility] st Contact Info) Description 10/21/2018 MyChart Message Enc [facility] Medical [facility] MultiSpecialty Care [facility] [address] [place] [address] Melissa Watson, OIL PIPE INSPECTOR HELPER [address] [address] Other Social History Tobacco Use [...] 10/22/2018 8:04 AM CST Please advise. Thanks. MER OPERATOR documented in this encounter Plan of Treatment Upcoming Encounters Date Type Department Care Team (Late st Contact Info) Description 06/13/2025 10:45 AM CDT Office Visit [facility] [address] [place] [address] Bing Alvares MD [address] [place] [address] documented as of this encounter Visit Diagnoses Not on filedocumented in this encounter Additional Health Concerns Infection Onset Date Last Indicated Resolved Time COVID-19 Rule Out 03/06/2020 03/03/2020 03/06/2020 9:26 AM CDT documented as of this encounter Care Teams Video Technician Relationship Specialty Start Date End Date Lynette Ponce MD [address] [place] [address] PCP - General INTERNAL MEDICINE 03/08/24 03/16/24 Lynette Ponce MD [address] [place] [address] PCP - General 03/29/24 Ivette Clark NP [place] NURSE PRACTITIONER 02/09/19 03/25/24 Fabian Palacios MD [place] INTERVENTIONAL CARDIOLOGY 02/09/19 03/16/19 Scott Guerrero MD Consulting Physician GASTROENTEROLOGY 03/04/19 Nerissa Hill MD [place] CARDIOVASCULAR DISEASE 03/17/19 03/25/24 [facility]ACT[facility] 12/22/20 02/28/22 Bing Alvares MD [address] [place] [address] Consulting Physician CARDIOVASCULAR DISEASE 03/22/24 documented as of this encounter
--- OUTSIDE RECORDS SUMMARY | 2025-02-17 15:12 | XMS_ITS | Encounter Summary ---
Author Organization [facility] Address [facility] [place] [address] Care Team Providers Care Seam Stay Stitcher Name Role Phone MimirohitIvette NP Unavailable [phone] Fabian Palacios MD Unavailable Unavailable Scott Guerrero MD Unavailable Nerissa Hill MD Unavailable [phone] Carline Plummer [facility] Unavailable [phone] Lynette Ponce MD Primary Care Provider [phone] Bing Alvares MD Unavailable Lynette Ponce MD Primary Care Provider [phone] Encounter Details Date Type Department Care Team (Latest Contact Info) Description 07/13/2018 Abstract [facility] Sri Russ MD Social History [...] Description 06/13/2025 10:45 AM CDT Office Visit [facility] [place] [address] Bing Alvares MD [address] [place] [address] documented as of this encounter Visit Diagnoses Not on filedocumented in this encounter Additional Health Concerns Infection Onset Date Last Indicated Resolved Time COVID-19 Rule Out 03/06/2020 03/03/2020 03/06/2020 9:26 AM CDT documented as of this encounter Care Teams Seam Stay Stitcher Relationship Specialty Start Date End Date Lynette Ponce MD [address] [place] [address] PCP - General INTERNAL MEDICINE 03/08/24 03/16/24 Lynette Ponce MD [address] [place] [address] PCP - General 03/29/24 Ivette Clark NP [place] Joinery Setter Out NURSE PRACTITIONER 02/09/19 03/25/24 Fabian Palacios MD [place] Joinery Setter Out INTERVENTIONAL CARDIOLOGY 02/09/19 03/16/19 Scott Guerrero MD Consulting Physician GASTROENTEROLOGY 03/04/19 Nerissa Hill MD [place] Joinery Setter Out CARDIOVASCULAR DISEASE 03/17/19 03/25/24 Carline Plummer FNP-BC NURSE PRACTITIONER 12/22/20 02/28/22 Bing Alvares MD [address] [place] [address] Consulting Physician CARDIOVASCULAR DISEASE 03/22/24 documented as of this encounter
--- OUTSIDE RECORDS SUMMARY | 2025-02-17 15:12 | XMS_ITS | Encounter Summary ---
Author Organization [facility] Address [address] [place] [address] Care Team Providers Care Driver Medic Name Role Phone Ivette Clark NP Unavailable [phone] Scott Guerrero MD Unavailable Nerissa Hill MD Unavailable [phone] Lynette Ponce MD Primary Care Provider Bing Alvares MD Unavailable Lynette Ponce MD Primary Care Provider [phone] Encounter Details Date Type Department Care Team (Latest Contact Info) Description 12/13/2022 [employer] Message Enc [facility] Medical Group MultiSpecialty Care [facility] [address] [place] [address] [facility] Provider provider's result note Social History [...] Coronavirus/COVID-19? No / Unsure 12/12/2022 9:13 AM POLICE INVESTIGATOR documented as of this encounter Plan of Treatment Upcoming Encounters Date Type Department Care Team (Late st Contact Info) Description 06/13/2025 10:45 AM CDT Office Visit [facility] [place] [address] Bing Alvares MD [address] [place] [address] documented as of this encounter Visit Diagnoses Not on filedocumented in this encounter Additional Health Concerns Assessment Noted Time PHQ-9 Depression Total Score: 0 12/12/19 4:08 PM POLICE INVESTIGATOR documented as of this encounter Care Teams Driver Medic Relationship Specialty Start Date End Date Lynette Ponce MD [address] [place] [address] PCP - General INTERNAL MEDICINE 03/08/24 03/16/24 Lynette Ponce MD [address] [place] [address] PCP - General 03/29/24 Ivette Clark NP [place] Computer Security Manager NURSE PRACTITIONER 02/09/19 03/25/24 Scott Guerrero MD Consulting Physician GASTROENTEROLOGY 03/04/19 Nerissa Hill MD [place] Computer Security Manager CARDIOVASCULAR DISEASE 03/17/19 03/25/24 Bing Alvares MD [address] [place] [address] Consulting Physician CARDIOVASCULAR DISEASE 03/22/24 documented as of this encounter
--- OUTSIDE RECORDS SUMMARY | 2025-02-17 15:12 | XMS_ITS | Encounter Summary ---
Author Organization [facility] Address [address] [place] [address] Care Team Providers Care Fugitive Detective Name Role Phone Ivette Clark NP Unavailable [phone] Scott Guerrero MD Unavailable Nerissa Hill MD Unavailable [phone] Carline Plummer [facility] Unavailable [phone] Lynette Ponce MD Primary Care Provider [phone] Bing Alvares MD Unavailable Lynette Ponce MD Primary Care Provider [phone] Reason for Visit * Reason Onset Date Comments Prior Authorization 08/17/2019 Encounter Details Date Type Department Care Team (Latest Contact Info) Description 08/17/2019 [employer] Message [facility] Medical Group MultiSpecialty Care [address] [address] Teri Mojica, [facility] [address] [place] [address] Medication Questions Social History Tobacco [...] [employer]. 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 Pharmacy faxed request last Friday08/18/19 S DEVELOPMENT SPECIALIST documented in this encounter Plan of Treatment Upcoming Encounters Date Type Department Care Team (Late st Contact Info) Description 06/13/2025 10:45 AM CDT Office Visit [facility] [address] [place] [address] Bing Alvares MD [address] [place] [address] documented as of this encounter Visit Diagnoses Not on filedocumented in this encounter Additional Health Concerns Infection Onset Date Last Indicated Resolved Time COVID-19 Rule Out 03/06/2020 03/03/2020 03/06/2020 9:26 AM CDT Assessment Noted Time PHQ-9 Depression Total Score: 19 019 4:41 PM CDT documented as of this encounter Care Teams Fugitive Detective Relationship Specialty Start Date End Date Lynette Ponce MD [address] [place] [address] PCP - General INTERNAL MEDICINE 03/08/24 03/16/24 Lynette Ponce MD [address] [place] [address] PCP - General 03/29/24 Ivette Clark NP [place] Bander NURSE PRACTITIONER 02/09/19 03/25/24 Scott Guerrero MD Consulting Physician GASTROENTEROLOGY 03/04/19 Nerissa Hill MD [place]ander CARDIOVASCULAR DISEASE 03/17/19 03/25/24 [facility] N[facility]SE PRACTITIONER 12/22/20 02/28/22 Bing Alvares MD [address] [place] [address] Consulting Physician CARDIOVASCULAR DISEASE 03/22/24 documented as of this encounter
--- OUTSIDE RECORDS SUMMARY | 2025-02-17 15:12 | XMS_ITS | Clinical Summary ---
Author Organization [facility] Address [facility] [place] [address] Care Team Providers Care Ornament Stitcher Name Role Phone Scott Guerrero MD Unavailable Bing Alvares MD Unavailable Lynette Ponce MD Primary Care Provider [phone] Allergies Active Allergy Reactions Criticality Noted Date [...] (Generic) 08/17/2023,07/26/2022, 07/20/2019 MMR 02/23/2009 MODERNA COVID-19 (ESL PROFESSOR DENNIS JOAQUINA), MRNA, LNP-S, PF, 50 MCG/ [...] 36.6 C (97.9 F) 10/07/2023 8:34 AM BLUEPRINT DUPLICATOR Respiratory Rate 12 05/31/2024 2:35 PM CDT [...] Description 06/13/2025 10:45 AM CDT Office Visit [facility] [place] [address] Bing Alvares MD [address] [place] [address] Health Maintenance Due Date Last Done Comments Colorectal Cancer Screening Colonoscopy (10 Years) 1966 Mammogram Screening 2006 Pneumococcal Vaccine: 50+ Years (1 of 1 - PCV) 2016 Zoster Vaccines (1 of 2) 08/07/2021 Annual Physical 03/02/2022 03/02/2021 COVID-19 Vaccine (2023-2 5 season) 2024 07/26/2022, 05/09/2022, 03/23/2021 PHQ-2 (Physician [place]) 10/20/2024 10/07/2023 DTaP, Tdap and Td Vaccines [...] this topic Medical Devices Implanted Type Area Mechanical Expert Device Identifier Shelf Expiration Date Model / Serial / Lot Wire Abhilash Magic Pins Orthofix 1.2 X 7mm - [id number] Implanted:Qty: 1 on 09/23/2018 by Tressa Traylor DPM at [facility] [place] Left: Foot ORTHOFIX [id number] / / N/A Description:Verified by MD Concetta Cox 2 Mini 20.0mm - [id number] Implanted:Qty: 1 on 09/23/2018 by Tressa Traylor DPM at [facility] Left: Foot [employer] 05/20/2025 AT2-M20-S / / [id number] Description:Verified by Wire Abhilash Magic Pins Orthofix 1.6 X 17 - [id number] Implanted:Qty: 1 on 09/23/2018 by Tressa Traylor DPM at [facility] Left: Foot ORTHOFIX [id number] / / N/A Description:Verified by Wire Abhilash Magic Pins Orthofix 1.6 X 11 - [id number] Implanted:Qty: 1 on 01/20/2019 by Tressa Traylor DPM at [facility] Right: Foot ORTHOFIX [id number] / / N/A Description:Verified by MD Concetta Castroutrak 2 Mini 18.0mm - [id number] Implanted:Qty: 1 on 01/20/2019 by Tressa Traylor DPM at [facility] Right: Foot [employer] 08/03/2025 AT2-M18 / / [id number] Description:Verified by Wire Abhilash Magic Pins Orthofix 1.6 X 17 - [id number] Implanted:Qty: 1 on 01/20/2019 by Tressa Traylor DPM at [facility] Right: Foot ORTHOFIX [id number] / / N/A Description:Verified by Explanted Type Area Mechanical Expert Device Identifier Shelf Expiration Date Model / Serial / Lot .045mm Mini Guidewire Explanted:Qty: 2 on 09/23/2018 by Tressa Traylor DPM at [facility] Left: Foot [id number] / / N/A Description:Used not implant ed Sm Cannulated Drill Tip Explanted:Qty: 1 on 09/23/2018 by Tressa Traylor DPM at [facility] Left: Foot [id number] / / N/A Description:Used not implant ed K Wire Lionel 6 In X .045 In - [id number] Explanted:Qty: 1 on 01/20/2019 by Tressa Traylor DPM at [facility] Right: Foot [employer] 05/19/2028 [id number] / / [id number] Description:Used not implant ed .045 Mini Guidewire Explanted:Qty: 1 on 01/20/2019 by Tressa Traylor DPM at [facility] Right: Foot [id number] / / N/A Description:Used not implant [id number] Mini Drill Tip Explanted:Qty: 1 on 01/20/2019 by Tressa Traylor DPM at [facility] Right: Foot [id number] / / N/A Description:Used not implant ed Advance Directives Documents on File Type Date Recorded Patient Engineering And Development Director Expl anation Advance Directives and Living Will 04/04/2015 12:00 AM ADVANCED DIRECTIVES Advance Directives and Living Will 02/09/2015 12:00 AM ADVANCED DIRECTIVES Advance Directives and Living Will 03/08/2013 12:00 AM ADVANCED DIRECTIVES Advance Directives and Living Will 06/30/2012 12:00 AM ADVANCED DIRECTIVES Care Teams Ornament Stitcher Relationship Specialty Start Date End Date Lynette Ponce MD [address] [place] [address] PCP - General 03/29/24 Scott Guerrero MD Consulting Physician GASTROENTEROLOGY 03/04/19 Bing Alvares MD [address] [place] [address] Consulting Physician CARDIOVASCULAR DISEASE 03/22/24
--- OUTSIDE RECORDS SUMMARY | 2025-02-17 15:12 | XMS_ITS | Encounter Summary ---
Author Organization [facility] Address [address] [place] [address] Care Team Providers Care Page Technician Name Role Phone Ivette Clark NP Unavailable [phone] Scott Guerrero MD Unavailable Nerissa Hill MD Unavailable [phone] Carline Plummer [facility] Unavailable [phone] Lynette Ponce MD Primary Care Provider [phone] Bing Alvares MD Unavailable Lynette Ponce MD Primary Care Provider [phone] Encounter Details Date Type Department Care Team (Late st Contact Info) Description 06/24/2020 [employer] Message Enc [facility] Medical Group MultiSpecialty Care [facility] [address] [place] [address] Teri Mojica, [facility] [address] [place] [address] Test Results Social History Tobacco Use Types [...] 06/13/2025 10:45 AM CDT Office Visit [facility] [place] [address] Bing Alvares MD [address] [place] [address] documented as of this encounter Visit Diagnoses Not on filedocumented in this encounter Additional Health Concerns Assessment Noted Time PHQ-9 Depression Total Score: 19 019 4:41 PM CDT documented as of this encounter Care Teams Page Technician Relationship Specialty Start Date End Date Lynette Ponce MD [address] [place] [address] PCP - General INTERNAL MEDICINE 03/08/24 03/16/24 Lynette Ponce MD [address] [place] [address] PCP - General 03/29/24 Ivette Clark NP [place] Racquet Maker NURSE PRACTITIONER 02/09/19 03/25/24 Scott Guerrero MD Consulting Physician GASTROENTEROLOGY 03/04/19 Nerissa Hill MD [place] Racquet Maker CARDIOVASCULAR DISEASE 03/17/19 03/25/24 [facility]line [facility] NURSE PRACTITIONER 12/22/20 02/28/22 Bing Alvares MD [address] [place] [address] Consulting Physician CARDIOVASCULAR DISEASE 03/22/24 documented as of this encounter
--- OUTSIDE RECORDS SUMMARY | 2025-02-17 15:12 | XMS_ITS | Clinical Summary ---
Author Organization [facility] Address [address] [place] [address] Care Team Providers Care Pianos And Organs Salesperson Name Role Phone Unavailable Primary Care Provider Unavailabl e Source Comments [facility],non-owned Affiliates and Associated Physician Practices is amultiple site organization consisting of ambulatory clinics and hospital sitesin [place], [place], [place] and [place]. This disclosure is being madepursuant to the Care Everywhere program and may not contain all information available regarding this patient. Last updated 18.[facility] Social History Tobacco Use Types Packs/Day Years [...] / Payer (Ef fective for All Dates) Name:[employer]Mx Lei Member ID:Not on file Relation to Subscriber:Not on file Name:MAX LEI Subscriber ID:Not on file (Home) Address: [address] [place] [address] Payer ID:Not on file Group ID:Not on file Type:Self Pay Address: [place], [place]
--- OUTSIDE RECORDS SUMMARY | 2025-02-17 15:12 | XMS_ITS | Encounter Summary ---
Author Organization [facility] Address [address] [place] [address] Care Team Providers Care Mouthpiece Maker Name Role Phone Ivette Clark NP Unavailable [phone] Fabian Palacios MD Unavailable Unavailable Scott Guerrero MD Unavailable Nerissa Hill MD Unavailable [phone] Carline Plummer [facility] Unavailable [phone] Lynette Ponce MD Primary Care Provider [phone] Bing Alvares MD Unavailable Lynette Ponce MD Primary Care Provider [phone] Encounter Details Date Type Department Care Team (Latest Contact Info) Description 09/14/2018 [employer] Message Enc [facility] Medical Group MultiSpecialty [facility] [address] [place] [address] Melissa Watson, RURAL MAIL CONTRACTOR [address] [address] Follow Up/Update Social History Tobacco [...] Description 06/13/2025 10:45 AM CDT Office Visit [facility] [address] [place] [address] Bing Alvares MD [address] [place] [address] documented as of this encounter Visit Diagnoses Not on filedocumented in this encounter Additional Health Concerns Infection Onset Date Last Indicated Resolved Time COVID-19 Rule Out 03/06/2020 03/03/2020 03/06/2020 9:26 AM CDT documented as of this encounter Care Teams Mouthpiece Maker Relationship Specialty Start Date End Date Lynette Ponce MD [address] [place] [address] PCP - General INTERNAL MEDICINE 03/08/24 03/16/24 Lynette Ponce MD [address] [place] [address] PCP - General 03/29/24 Ivette Clark NP [place] Registered Dental Assistant NURSE PRACTITIONER 02/09/19 03/25/24 Fabian Palacios MD [place] Registered Dental Assistant INTERVENTIONAL CARDIOLOGY 02/09/19 03/16/19 Scott Guerrero MD Consulting Physician GASTROENTEROLOGY 03/04/19 Nerissa Hill MD [place] Registered Dental Assistant CARDIOVASCULAR DISEASE 03/17/19 03/25/24 Carline Plummer FNP- NURSE PRACTITIONER 12/22/20 02/28/22 Bing Alvares MD [address] [place] [address] Consulting Physician CARDIOVASCULAR DISEASE 03/22/24 documented as of this encounter
--- OUTSIDE RECORDS SUMMARY | 2025-02-17 15:12 | XMS_ITS | Encounter Summary ---
Author Organization [facility] Address [address] [place] [address] Care Team Providers Care Surface Plate Inspector Name Role Phone Ivette Clark NP Unavailable [phone] Fabian Palacios MD Unavailable Unavailable Scott Guerrero MD Unavailable Nerissa Hill MD Unavailable [phone] Carline Plummer [facility] Unavailable [phone] Lynette Ponce MD Primary Care Provider [phone] Bing Alvares MD Unavailable Lynette Ponce MD Primary Care Provider [phone] Encounter Details Date Type Department Care Team ([facility] st Contact Info) Description 01/29/2019 MyChart Message Enc [facility] Medical Group MultiSpecialty Care [facility] [address] [place] [address] Melissa Watson, SAMPLE STEAMER [address] [address] Other Social History Tobacco Use [...] Description 06/13/2025 10:45 AM CDT Office Visit [facility] [place] [address] Bign Alvares MD [address] [place] [address] documented as of this encounter Visit Diagnoses Not on filedocumented in this encounter Additional Health Concerns Infection Onset Date Last Indicated Resolved Time COVID-19 Rule Out 03/06/2020 03/03/2020 03/06/2020 9:26 AM CDT documented as of this encounter Care Teams Surface Plate Inspector Relationship Specialty Start Date End Date Lynette Ponce MD [address] [place] [address] PCP - General INTERNAL MEDICINE 03/08/24 03/16/24 Lynette Ponce MD [address] [place] [address] PCP - General 03/29/24 Ivette Clark NP [place] Junior Buyer NURSE PRACTITIONER 02/09/19 03/25/24 Fabian Palacios MD [place] Junior Buyer INTERVENTIONAL CARDIOLOGY 02/09/19 03/16/19 Scott Guerrero MD Consulting Physician GASTROENTEROLOGY 03/04/19 Nerissa Hill MD [place] Junior Buyer CARDIOVASCULAR DISEASE 03/17/19 03/25/24 [facility] N[facility]SE PRACTITIONER 12/22/20 02/28/22 Bing Alvares MD [address] [place] [address] Consulting Physician CARDIOVASCULAR DISEASE 03/22/24 documented as of this encounter
--- OUTSIDE RECORDS SUMMARY | 2025-02-17 15:12 | XMS_ITS | Encounter Summary ---
Author Organization [facility] Address [address] [place] [address] Care Team Providers Care Retail Director Name Role Phone Ivette Clark NP Unavailable [phone] Scott Guerrero MD Unavailable Nerissa Hill MD Unavailable [phone] Lynette Ponce MD Primary Care Provider [phone] Bing Alvares MD Unavailable Lynette Ponce MD Primary Care Provider [phone] Encounter Details Date Type Department Care Team (Latest Contact Info) Description 05/07/2023 Rooster Teeth Message Enc [facility] Medical Group MultiSpecialty Care [facility] [address] [place] [phone] [place], [facility] Provider provider's response Social History Tobacco [...] days 05/09/2023 1:53 PM CDT Dannielle Haynes, MOTORCYCLE MAKER Active Feeling down, depressed, or hopeless More than half the days 05/09/2023 1:53 PM CDT Dannielle Haynes, MOTORCYCLE MAKER Active Patient Health Questionnaire-2 Score 4 05/09/2023 1:53 PM CDT Dannielle Haynes, MOTORCYCLE MAKER Active * Question Answer Date of Assessment Author Status Trouble falling or staying asleep, or sleeping too much Nearly every day 05/09/2023 1:53 PM CDT Dannielle Haynes, MOTORCYCLE MAKER Active Feeling tired or having little energy Nearly every day 05/09/2023 1:53 PM CDT Dannielle Haynes, MOTORCYCLE MAKER Active Poor appetite or overeating Nearly every day 05/09/2023 1:53 PM CDT Dannielle Haynes, MOTORCYCLE MAKER Active Feeling bad about yourself - or that you are a failure or have let yourself or your family down More than half the days 05/09/2023 1:53 PM CDT Dannielle Haynes, MOTORCYCLE MAKER Active Trouble concentrating on things, such as reading the newspaper or watching television More than half the days 05/09/2023 1:53 PM CDT Dannielle Haynes, MOTORCYCLE MAKER Active Moving or speaking so slowly that other people could have noticed? Or the opposite - being so fidgety or restless that you have been moving around a lot more than usual. Not at all 05/09/2023 1:53 PM CDT Dannielle Haynes, MOTORCYCLE MAKER Active Thoughts that you would be better off or hurting yourself in some way Not at all 05/09/2023 1:53 PM CDT Dannielle Haynes, MOTORCYCLE MAKER Active Patient Health Questionnaire-9 Score 17 05/09/2023 1:53 PM CDT Dannielle Haynes, MOTORCYCLE MAKER Active * If you checked off any problems on this questionnaire so far, Question Answer Date of Assessment Author Status How difficult have these problems made it for you to do your work, take care of things at home, or get along with other people? Somewhat difficult 05/09/2023 1:53 PM CDT Dannielle Haynes, MOTORCYCLE MAKER Active * Over the last 2 weeks, how often have you been bothered by any of the following problems? Question Answer Date of Assessment Author Status Feeling nervous, anxious, or on edge 2 05/09/2023 1:58 PM CDT Dannielle Haynes, MOTORCYCLE MAKER A ctive Not being able to stop or control worrying 2 05/09/2023 1:58 PM CDT Dannielle Haynes, MOTORCYCLE MAKER Active Worrying too much about different things 2 05/09/2023 1:58 PM CDT Dannielle Haynes, MOTORCYCLE MAKER Active Trouble relaxing 2 05/09/2023 1:58 PM CDT Dannielle Haynes, MOTORCYCLE MAKER Active Being so restless that it is hard to sit still 2 05/09/2023 1:58 PM CDT Dannielle Haynes, MOTORCYCLE MAKER Active Becoming easily annoyed or irritable 2 05/09/2023 1:58 PM CDT Dannielle Haynes, MOTORCYCLE MAKER A ctive Feeling afraid as if something awful might happen 1 05/09/2023 1:58 PM CDT Dannielle Haynes, MOTORCYCLE MAKER A ctive CHANDAN-7 Total Score 13 05/09/2023 1:58 PM CDT Dannielle Hays, MOTORCYCLE MAKER Active documented as of this encounter Plan of Treatment Upcoming Encounters Date Type Department Care Team (Late st Contact Info) Description 06/13/2025 10:45 AM CDT Office Visit [facility] [place] [address] Bing Alvares MD [address] [place], [place] [id number] documented as of this encounter Visit Diagnoses Not on filedocumented in this encounter Additional Health Concerns Assessment Noted Time PHQ-9 Depression Total Score: 0 12/12/19 22 4:08 PM ESTHETIC DERMATOLOGIST documented as of this encounter Care Teams Retail Director Relationship Specialty Start Date End Date Lynette Ponce MD [address] [place] [address] PCP - General INTERNAL MEDICINE 03/08/24 03/16/24 Lynette Ponce MD [address] [place] [address] PCP - General 03/29/24 Ivette Clark NP [place] Electric Wirer NURSE PRACTITIONER 02/09/19 03/25/24 Scott Guerrero MD Consulting Physician GASTROENTEROLOGY 03/04/19 Nerissa Hill MD [place] Electric Wirer CARDIOVASCULAR DISEASE 03/17/19 03/25/24 Bing Alvares MD [address] [place] [address] Consulting Physician CARDIOVASCULAR DISEASE 03/22/24 documented as of this encounter
--- OUTSIDE RECORDS SUMMARY | 2025-02-17 15:12 | XMS_ITS | Encounter Summary ---
Author Organization [facility] Address [address] [place] [address] Care Team Providers Care Biometric Screener Name Role Phone Ivette Clark NP Unavailable [phone] Scott Guerrero MD Unavailable Nerissa Hill MD Unavailable [phone] Carline Plummer [facility] Unavailable [phone] Lynette Ponce MD Primary Care Provider [phone] Bing Alvares MD Unavailable Lynette Ponce MD Primary Care Provider [phone] Encounter Details Date Type Department Care Team (Late st Contact Info) Description 01/09/2021 MyChart Message Enc [facility] Medical Group MultiSpecialty Care [facility] [address] [place] [phone] Teri Mojica, [facility] [address] [place] [address] Test Results Social History Tobacco Use Types [...] Description 06/13/2025 10:45 AM CDT Office Visit [facility] [place] [address] Bing Alvares MD [address] [place] [address] documented as of this encounter Visit Diagnoses Not on filedocumented in this encounter Additional Health Concerns Assessment Noted Time PHQ-9 Depression Total Score: 13 021 11:47 AM EYEDOTTER documented as of this encounter Care Teams Biometric Screener Relationship Specialty Start Date End Date Lynette Ponce MD [address] [place] [address] PCP - General INTERNAL MEDICINE 03/08/24 03/16/24 Lynette Ponce MD [address] [place] [address] PCP - General 03/29/24 Ivette Clark NP [place] Wheel Loader Operator NURSE PRACTITIONER 02/09/19 03/25/24 Scott Guerrero MD Consulting Physician GASTROENTEROLOGY 03/04/19 Nerissa Hill MD [place] Wheel Loader Operator CARDIOVASCULAR DISEASE 03/17/19 03/25/24 Carline Plummer [facility] 12/22/20 02/28/22 Bing Alvares MD [address] [place] [address] Consulting Physician CARDIOVASCULAR DISEASE 03/22/24 documented as of this encounter
--- OUTSIDE RECORDS SUMMARY | 2025-02-17 15:12 | XMS_ITS | Encounter Summary ---
Author Organization [facility] Address [address] [place] [address] Care Team Providers Care Treating And Pumping Supervisor Name Role Phone Ivette Clark NP Unavailable [phone] Scott Guerrero MD Unavailable Nerissa Hill MD Unavailable [phone] [facility] Unavailable [phone] Lynette Ponce MD Primary Care Provider [phone] Bing Alvares MD Unavailable Lynette Ponce MD Primary Care Provider [phone] Encounter Details Date Type Department Care Team (Latest Contact Info) Description 04/27/2019 Epicsell Message Enc [facility] Medical Group MultiSpecialty [facility] [address] [place] [address] Melissa Watson, HANGAR ATTENDANT [address] [address] RE: Medication Questions Social History [...] Description 06/13/2025 10:45 AM CDT Office Visit [facility] [place] [address] Bing Alvares MD [address] [place] [address] documented as of this encounter Visit Diagnoses Not on filedocumented in this encounter Additional Health Concerns Infection Onset Date Last Indicated Resolved Time COVID-19 Rule Out 03/06/2020 03/03/2020 03/06/2020 9:26 AM CDT documented as of this encounter Care Teams Treating And Pumping Supervisor Relationship Specialty Start Date End Date Lynette Ponce MD [address] [place] [address] PCP - General INTERNAL MEDICINE 03/08/24 03/16/24 Lynette Ponce MD [address] [place] [address] PCP - General 03/29/24 Ivette Clark NP [place] Switch Foreman NURSE PRACTITIONER 02/09/19 03/25/24 Scott Guerrero MD Consulting Physician GASTROENTEROLOGY 03/04/19 Nerissa Hill MD [place] Switch Foreman CARDIOVASCULAR DISEASE 03/17/19 03/25/24 Carline Plummer FNP-BC NURSE PRACTITIONER 12/22/20 02/28/22 Bing Alvares MD [address] [place] [address] Consulting Physician CARDIOVASCULAR DISEASE 03/22/24 documented as of this encounter
== END 2025-02-17 14:25 | disposition home or self-care (01) ==
PROVIDERS: PCP Internal Medicine; Visit Provider Internal Medicine
DX: D50.9 Iron deficiency anemia, unspecified (principal)
CPT/HCPCS: 96365; 96367; J1756; J7050

== ENCOUNTER 2025-03-02 06:57 | Outpatient (CLI) | payer OTHER, SELFPAY ==
--- OUTSIDE RECORDS SUMMARY | 2025-03-02 07:00 | XMS_ITS | Encounter Summary ---
Author Organization [facility] Address [address] [place] [address] Care Team Providers Care Loan Documentation Specialist Name Role Phone Ivette Clark NP Unavailable [phone] Fabian Palacios MD Unavailable Unavailable Scott Guerrero MD Unavailable Nerissa Hill MD Unavailable [phone] Carline Plummer [facility] Unavailable [phone] Lynette Ponce MD Primary Care Provider [phone] Bing Alvares MD Unavailable Lynette Ponce MD Primary Care Provider [phone] Encounter Details Date Type Department Care Team (Latest Contact Info) Description 11/15/2018 MyChart Message Enc [facility] Medical Group MultiSpecialty [facility] [address] [place] [address] Melissa Watson, RAILROAD SIGNAL AND SWITCH OPERATOR [address] [address] Medication Questions Social History Tobacco [...] Description 06/13/2025 10:45 AM CDT Office Visit [facility] [address] [place] [address] Bing Alvares MD [address] [place] [address] documented as of this encounter Visit Diagnoses Not on filedocumented in this encounter Additional Health Concerns Infection Onset Date Last Indicated Resolved Time COVID-19 Rule Out 03/06/2020 03/03/2020 03/06/2020 9:26 AM CDT documented as of this encounter Care Teams Loan Documentation Specialist Relationship Specialty Start Date End Date Lynette Ponce MD [address] [place] [address] PCP - General INTERNAL MEDICINE 03/08/24 03/16/24 Lynette Ponce MD [address] [place] [address] PCP - General 03/29/24 Ivette Clark NP [place] Civil Design Technician NURSE PRACTITIONER 02/09/19 03/25/24 Fabian Palacios MD [place] Civil Design Technician INTERVENTIONAL CARDIOLOGY 02/09/19 03/16/19 Scott Guerrero MD Consulting Physician GASTROENTEROLOGY 03/04/19 Nerissa Hill MD [place] Civil Design Technician CARDIOVASCULAR DISEASE 03/17/19 03/25/24 Carline Plummer FNP-BC NURSE PRACTITIONER 12/22/20 02/28/22 Bing Alvares MD [address] [place] [address] Consulting Physician CARDIOVASCULAR DISEASE 03/22/24 documented as of this encounter
--- OUTSIDE RECORDS SUMMARY | 2025-03-02 07:00 | XMS_ITS | Encounter Summary ---
Author Organization [facility] Address [address] [place] [address] Care Team Providers Care District Operations Manager Name Role Phone Ivette Clark NP Unavailable [phone] Fabian Palacios MD Unavailable Unavailable Scott Guerrero MD Unavailable Nerissa Hill MD Unavailable [phone] Carline Plummer [facility] Unavailable [phone] Lynette Ponce MD Primary Care Provider [phone] Bing Alvares MD Unavailable Lynette Ponce MD Primary Care Provider [phone] Encounter Details Date Type Department Care Team ([facility] st Contact Info) Description 09/25/2018 MyChart Message Enc [facility] Medical Group MultiSpecialty Care [facility] [address] [place] [address] Melissa Watson, MUSIC REHABILITATION THERAPIST [address] [address] RE: Other Social History Tobacco [...] CST Medication is updated in patient's chart. ING TENDER * Faith Chandler RN - 09/26/2018 8:27 AM CST Does this need any more follow up? Please advise ING TENDER documented in this encounter Plan of Treatment Upcoming Encounters Date Type Department Care Team (Late st Contact Info) Description 06/13/2025 10:45 AM CDT Office Visit [facility] [place] [address] Bing Alvares MD [address] [place] [address] documented as of this encounter Visit Diagnoses Not on filedocumented in this encounter Additional Health Concerns Infection Onset Date Last Indicated Resolved Time COVID-19 Rule Out 03/06/2020 03/03/2020 03/06/2020 9:26 AM CDT documented as of this encounter Care Teams District Operations Manager Relationship Specialty Start Date End Date Lynette Ponce MD [address] [place] [address] PCP - General INTERNAL MEDICINE 03/08/24 03/16/24 Lynette Ponce MD [address] [place] [address] PCP - General 03/29/24 Ivette Clark NP [place] Frozen Yogurt Maker NURSE PRACTITIONER 02/09/19 03/25/24 Fabian Palacios MD [place] Frozen Yogurt Maker INTERVENTIONAL CARDIOLOGY 02/09/19 03/16/19 Scott Guerrero MD Consulting Physician GASTROENTEROLOGY 03/04/19 Nerissa Hill MD [place] Frozen Yogurt Maker CARDIOVASCULAR DISEASE 03/17/19 03/25/24 Carline Plummer FNP-BC NURSE PRACTITIONER 12/22/20 02/28/22 Bing Alvares MD [address] [place] [address] Consulting Physician CARDIOVASCULAR DISEASE 03/22/24 documented as of this encounter
--- OUTSIDE RECORDS SUMMARY | 2025-03-02 07:00 | XMS_ITS | Encounter Summary ---
Author Organization [facility] Address [address] [place] [address] Care Team Providers Care Police Officer Booking Name Role Phone Ivette Clark NP Unavailable [phone] Scott Guerrero MD Unavailable Nerissa Hill MD Unavailable [phone] Lynette Ponce MD Primary Care Provider [phone] Bing Alvares MD Unavailable Lynette Ponce MD Primary Care Provider [phone] Encounter Details Date Type Department Care Team (Latest Contact Info) Description 12/13/2022 tagUin Message Enc [facility] Medical Group MultiSpecialty Care [facility] [address] [place] [address] [facility] Provider provider's result note Social [...] Coronavirus/COVID-19? No / Unsure 12/12/2022 9:13 AM SUPERVISOR PRINTING AND STAMPING documented as of this encounter Plan of Treatment Upcoming Encounters Date Type Department Care Team (Late st Contact Info) Description 06/13/2025 10:45 AM CDT Office Visit [facility] [place] [address] Bing Alvares MD [address] [place] [address] documented as of this encounter Visit Diagnoses Not on filedocumented in this encounter Additional Health Concerns Assessment Noted Time PHQ-9 Depression Total Score: 0 12/12/19 4:08 PM SUPERVISOR PRINTING AND STAMPING documented as of this encounter Care Teams Police Officer Booking Relationship Specialty Start Date End Date Lynette Ponce MD [address] [place] [address] PCP - General INTERNAL MEDICINE 03/08/24 03/16/24 Lynette Ponce MD [address] [place] [address] PCP - General 03/29/24 Ivette Clark NP [place] Instrument Worker NURSE PRACTITIONER 02/09/19 03/25/24 Scott Guerrero MD Consulting Physician GASTROENTEROLOGY 03/04/19 Nerissa Hill MD [place] Instrument Worker CARDIOVASCULAR DISEASE 03/17/19 03/25/24 Bing Alvares MD [address] [place] [address] Consulting Physician CARDIOVASCULAR DISEASE 03/22/24 documented as of this encounter
--- OUTSIDE RECORDS SUMMARY | 2025-03-02 07:00 | XMS_ITS | Encounter Summary ---
Author Organization [facility] Address [address] [place] [address] Care Team Providers Care Server Administrator Name Role Phone Ivette Clark NP Unavailable [phone] Scott Guerrero MD Unavailable Nerissa Hill MD Unavailable [phone] Carline Plummer [facility] Unavailable [phone] Lynette Ponce MD Primary Care Provider [phone] Bing Alvares MD Unavailable Lynette Ponce MD Primary Care Provider [phone] Encounter Details Date Type Department Care Team (Late st Contact Info) Description 12/09/2019 [employer] Message Enc [facility] Medical Group MultiSpecialty Care [facility] [address] [place] [address] Teri Mojica, [facility] [address] [place] [address] Other Social History Tobacco Use Types Packs/Day [...] Description 06/13/2025 10:45 AM CDT Office Visit [facility] [place] [address] Bing Alvares MD [address] [place] [address] documented as of this encounter Visit Diagnoses Not on filedocumented in this encounter Additional Health Concerns Infection Onset Date Last Indicated Resolved Time COVID-19 Rule Out 03/06/2020 03/03/2020 03/06/2020 9:26 AM CDT Assessment Noted Time PHQ-9 Depression Total Score: 19 019 4:41 PM CDT documented as of this encounter Care Teams Server Administrator Relationship Specialty Start Date End Date Lynette Ponce MD [address] [place] [address] PCP - General INTERNAL MEDICINE 03/08/24 03/16/24 Lynette Ponce MD [address] [place] [address] PCP - General 03/29/24 Ivette Clark NP [place] Department Supervisor NURSE PRACTITIONER 02/09/19 03/25/24 Scott Guerrero MD Consulting Physician GASTROENTEROLOGY 03/04/19 Nerissa Hill MD [place] Department Supervisor CARDIOVASCULAR DISEASE 03/17/19 03/25/24 Carline Plummer FNP-BC NURSE PRACTITIONER 12/22/20 02/28/22 Bing Alvares MD [address] [place] [address] Consulting Physician CARDIOVASCULAR DISEASE 03/22/24 documented as of this encounter
--- OUTSIDE RECORDS SUMMARY | 2025-03-02 07:00 | XMS_ITS | Encounter Summary ---
Author Organization [facility] Address [address] [place] [address] Care Team Providers Care Knife Cutter Name Role Phone Ivette Clark NP Unavailable [phone] Scott Guerrero MD Unavailable Nerissa Hill MD Unavailable [phone] Carline Plummer [facility] Unavailable [phone] Lynette Ponce MD Primary Care Provider [phone] Bing Alvares MD Unavailable Lynette Ponce MD Primary Care Provider [phone] Encounter Details Date Type Department Care Team (Late st Contact Info) Description 06/24/2020 [employer] Message Enc [facility] Medical Group MultiSpecialty Care [facility] [address] [place] [address] Teri Mojica, [facility] [address] [place] [address] Test Results Social History Tobacco Use Types [...] Description 06/13/2025 10:45 AM CDT Office Visit [facility] [place] [address] Bing Alvares MD [address] [place] [address] documented as of this encounter Visit Diagnoses Not on filedocumented in this encounter Additional Health Concerns Assessment Noted Time PHQ-9 Depression Total Score: 19 019 4:41 PM CDT documented as of this encounter Care Teams Knife Cutter Relationship Specialty Start Date End Date Lynette Ponce MD [address] [place] [address] PCP - General INTERNAL MEDICINE 03/08/24 03/16/24 Lynette Ponce MD [address] [place] [address] PCP - General 03/29/24 Ivette Clark NP [place] Sales Agent Business Services NURSE PRACTITIONER 02/09/19 03/25/24 Scott Guerrero MD Consulting Physician GASTROENTEROLOGY 03/04/19 Nerissa Hill MD [place] Sales Agent Business Services CARDIOVASCULAR DISEASE 03/17/19 03/25/24 Carline Plumemr [facility] N[facility] PRACTITIONER 12/22/20 02/28/22 Bing Alvares MD [address] [place] [address] Consulting Physician CARDIOVASCULAR DISEASE 03/22/24 documented as of this encounter
--- OUTSIDE RECORDS SUMMARY | 2025-03-02 07:00 | XMS_ITS | Encounter Summary ---
Author Organization [facility] Address [facility] [place] [address] Care Team Providers Care Implementation Services Analyst Name Role Phone MimirohitIvette NP Unavailable [phone] Fabian Palacios MD Unavailable Unavailable Scott Guerrero MD Unavailable Nerissa Hill MD Unavailable [phone] Carline Plummer [facility] Unavailable [phone] Lynette Ponce MD Primary Care Provider [phone] Bing Alvares MD Unavailable Lynette Ponce MD Primary Care Provider [phone] Encounter Details Date Type Department Care Team (Latest Contact Info) Description 07/13/2018 Abstract [facility] Medical Group Sri Russ MD Social [...] Description 06/13/2025 10:45 AM CDT Office Visit [facility] [place] [address] Bing Alvares MD [address] [place] [address] documented as of this encounter Visit Diagnoses Not on filedocumented in this encounter Additional Health Concerns Infection Onset Date Last Indicated Resolved Time COVID-19 Rule Out 03/06/2020 03/03/2020 03/06/2020 9:26 AM CDT documented as of this encounter Care Teams Implementation Services Analyst Relationship Specialty Start Date End Date Lynette Ponce MD [address] [place] [address] PCP - General INTERNAL MEDICINE 03/08/24 03/16/24 Lynette Ponce MD [address] [place] [address] PCP - General 03/29/24 Ivette Clark NP [place] Director Of Quantitative Research NURSE PRACTITIONER 02/09/19 03/25/24 Fabian Palacios MD [place] Director Of Quantitative Research INTERVENTIONAL CARDIOLOGY 02/09/19 03/16/19 Scott Guerrero MD Consulting Physician GASTROENTEROLOGY 03/04/19 Nerissa Hill MD [place] Director Of Quantitative Research CARDIOVASCULAR DISEASE 03/17/19 03/25/24 Carline Plummer FNP-BC NURSE PRACTITIONER 12/22/20 02/28/22 Bing Alvares MD [address] [place] [address] Consulting Physician CARDIOVASCULAR DISEASE 03/22/24 documented as of this encounter
--- OUTSIDE RECORDS SUMMARY | 2025-03-02 07:00 | XMS_ITS | Encounter Summary ---
Author Organization [facility] Address [address] [place] [address] Care Team Providers Care Meat Hostess Name Role Phone Ivette Clark NP Unavailable [phone] Scott Guerrero MD Unavailable Nerissa Hill MD Unavailable [phone] Carline Plummer [facility] Unavailable [phone] Lynette Ponce MD Primary Care Provider [phone] Bing Alvares MD Unavailable Lynette Ponce MD Primary Care Provider [phone] Encounter Details Date Type Department Care Team (Latest Contact Info) Description 04/27/2019 EvoTronix Message Enc [facility] MultiSpecialty [facility] [address] [place] [address] Melissa Watson, DIRECTOR OF STRATEGY & MOBILE [address] [address] RE: Medication Questions Social History [...] Description 06/13/2025 10:45 AM CDT Office Visit [facility] [place] [address] Bing Alvares MD [address] [place] [address] documented as of this encounter Visit Diagnoses Not on filedocumented in this encounter Additional Health Concerns Infection Onset Date Last Indicated Resolved Time COVID-19 Rule Out 03/06/2020 03/03/2020 03/06/2020 9:26 AM CDT documented as of this encounter Care Teams Meat Hostess Relationship Specialty Start Date End Date Lynette Ponce MD [address] [place] [address] PCP - General INTERNAL MEDICINE 03/08/24 03/16/24 Lynette Ponce MD [address] [place] [address] PCP - General 03/29/24 Ivette Clark NP [place] Chain Repairer NURSE PRACTITIONER 02/09/19 03/25/24 Scott Guerrero MD Consulting Physician GASTROENTEROLOGY 03/04/19 Nerissa Hill MD [place] Chain Repairer CARDIOVASCULAR DISEASE 03/17/19 03/25/24 Carline Plummer FNP-BC NURSE PRACTITIONER 12/22/20 02/28/22 Bing Alvares MD [address] [place] [address] Consulting Physician CARDIOVASCULAR DISEASE 03/22/24 documented as of this encounter
--- OUTSIDE RECORDS SUMMARY | 2025-03-02 07:00 | XMS_ITS | Encounter Summary ---
Author Organization [facility] Address [address] [place] [address] Care Team Providers Care Videographer Name Role Phone Ivette Clark NP Unavailable Fabian Palacios MD Unavailable Unavailable Scott Guerrero MD Unavailable Nerissa Hill MD Unavailable [phone] Carline Plummer [facility] Unavailable [phone] Lynette Ponce MD Primary Care Provider [phone] Bing Alvares MD Unavailable Lynette Ponce MD Primary Care Provider [phone] Encounter Details Date Type Department Care Team ([facility] st Contact Info) Description 10/21/2018 MyChart Message Enc [facility] Medical Group MultiSpecialty Care [facility] [address] [place] [address] Melissa Watson, WAREHOUSE LEAD [address] [address] Other Social History Tobacco Use [...] 10/22/2018 8:04 AM CST Please advise. Thanks. CONVERSION TECHNICIAN documented in this encounter Plan of Treatment Upcoming Encounters Date Type Department Care Team (Late st Contact Info) Description 06/13/2025 10:45 AM CDT Office Visit [facility] [address] [place] [address] Bing Alvares MD [address] [place] [address] documented as of this encounter Visit Diagnoses Not on filedocumented in this encounter Additional Health Concerns Infection Onset Date Last Indicated Resolved Time COVID-19 Rule Out 03/06/2020 03/03/2020 03/06/2020 9:26 AM CDT documented as of this encounter Care Teams Videographer Relationship Specialty Start Date End Date Lynette Ponce MD [address] [place] [address] PCP - General INTERNAL MEDICINE 03/08/24 03/16/24 Lynette Ponce MD [address] [place] [address] PCP - General 03/29/24 Ivette Clark NP [place] Screen Tender Helper NURSE PRACTITIONER 02/09/19 03/25/24 Fabian Palacios MD [place] Screen Tender Helper INTERVENTIONAL CARDIOLOGY 02/09/19 03/16/19 Scott Guerrero MD Consulting Physician GASTROENTEROLOGY 03/04/19 Nerissa Hill MD [place] Screen Tender Helper CARDIOVASCULAR DISEASE 03/17/19 03/25/24 Carline Plummer [facility] NURSE PRACT[facility] 12/22/20 02/28/22 Bing Alvares MD [address] [place] [address] Consulting Physician CARDIOVASCULAR DISEASE 03/22/24 documented as of this encounter
--- OUTSIDE RECORDS SUMMARY | 2025-03-02 07:00 | XMS_ITS | Encounter Summary ---
Author Organization [facility] System Address [address] [place] [address] Care Team Providers Care Mailer Name Role Phone Ivette Clark NP Unavailable [phone] Scott Guerrero MD Unavailable Nerissa Hill MD Unavailable [phone] Carline Plummer [facility] Unavailable [phone] Lynette Ponce MD Primary Care Provider Bing Alvares MD Unavailable Lynette Ponce MD Primary Care Provider [phone] Encounter Details Date Type Department Care Team (Late st Contact Info) Description 01/09/2021 MyChart Message Enc [facility] Medical Group MultiSpecialty Care [facility] [address] [place] [address] Teri Mojica, [facility] [address] [place] [address] Test Results Social History Tobacco Use Types [...] Description 06/13/2025 10:45 AM CDT Office Visit [facility] [place] [address] Bing Alvares MD [address] [place] [address] documented as of this encounter Visit Diagnoses Not on filedocumented in this encounter Additional Health Concerns Assessment Noted Time PHQ-9 Depression Total Score: 13 021 11:47 AM MIDDLE SCHOOL TUTOR documented as of this encounter Care Teams Mailer Relationship Specialty Start Date End Date Lynette Ponce MD [address] [place] [address] PCP - General INTERNAL MEDICINE 03/08/24 03/16/24 Lynette Ponce MD [address] [place] [address] PCP - General 03/29/24 Ivette Clark NP [place] Foreign Languages Department Chair NURSE PRACTITIONER 02/09/19 03/25/24 Scott Guerrero MD Consulting Physician GASTROENTEROLOGY 03/04/19 Nerissa Hill MD [place] Foreign Languages Department Chair CARDIOVASCULAR DISEASE 03/17/19 03/25/24 Carline Plummer [facility] NURSE PRACTITIONER 12/22/20 02/28/22 Bing Alvares MD [address] [place] [address] Consulting Physician CARDIOVASCULAR DISEASE 03/22/24 documented as of this encounter
--- OUTSIDE RECORDS SUMMARY | 2025-03-02 07:00 | XMS_ITS | Encounter Summary ---
Author Organization [facility] Address [address] [place] [address] Care Team Providers Care Hardware Test Engineer Name Role Phone Ivette Clark NP Unavailable [phone] Fabian Palacios MD Unavailable Unavailable Scott Guerrero MD Unavailable Nerissa Hill MD Unavailable [phone] Carline Plummer [facility] Unavailable [phone] Lynette Ponce MD Primary Care Provider [phone] Bing Alvares MD Unavailable Lynette Ponce MD Primary Care Provider [phone] Encounter Details Date Type Department Care Team (Latest Contact Info) Description 09/14/2018 YouGoDot Message Enc [facility] Medical Group MultiSpecialty [facility] [address] [place] [address] Melissa Watson, BINDERY OPERATOR [address] [address] Follow Up/Update Social History Tobacco [...] Description 06/13/2025 10:45 AM CDT Office Visit [facility] [address] [place] [address] Bing Alvares MD [address] [place] [address] documented as of this encounter Visit Diagnoses Not on filedocumented in this encounter Additional Health Concerns Infection Onset Date Last Indicated Resolved Time COVID-19 Rule Out 03/06/2020 03/03/2020 03/06/2020 9:26 AM CDT documented as of this encounter Care Teams Hardware Test Engineer Relationship Specialty Start Date End Date Lynette Ponce MD [address] [place] [address] PCP - General INTERNAL MEDICINE 03/08/24 03/16/24 Lynette Ponce MD [address] [place] [address] PCP - General 03/29/24 Ivette Clark NP [place] Merchandiser Retail Representative NURSE PRACTITIONER 02/09/19 03/25/24 Fabian Palacios MD [place] Merchandiser Retail Representative INTERVENTIONAL CARDIOLOGY 02/09/19 03/16/19 Scott Guerrero MD Consulting Physician GASTROENTEROLOGY 03/04/19 Nerissa Hill MD [place] Merchandiser Retail Representative CARDIOVASCULAR DISEASE 03/17/19 03/25/24 Carline Plummer FNP- NURSE PRACTITIONER 12/22/20 02/28/22 Bing Alvares MD [address] [place] [address] Consulting Physician CARDIOVASCULAR DISEASE 03/22/24 documented as of this encounter
--- OUTSIDE RECORDS SUMMARY | 2025-03-02 07:00 | XMS_ITS | Clinical Summary ---
Author Organization [facility] Address [address] [place] [address] Care Team Providers Care Sales And Leasing Consultant Name Role Phone Unavailable Primary Care Provider Unavailabl e Source Comments [facility],non-owned Affiliates and Associated Physician Practices is amultiple site organization consisting of ambulatory clinics and hospital sitesin [place], [place], [place] and [place]. This disclosure is being madepursuant to the Care Everywhere program and may not contain all information available regarding this patient. Last updated 18.[facility] Social History Tobacco Use Types Packs/Day Years [...] Subscriber ID:Not on file (Home) Address: [address] [place] [address] Payer ID:Not on file Group ID:Not on file Type:Self Pay Address: [place], [place]
--- OUTSIDE RECORDS SUMMARY | 2025-03-02 07:00 | XMS_ITS | Encounter Summary ---
Author Organization [facility] Address [address] [place] [address] Care Team Providers Care Crew Clerk Name Role Phone Ivette Clark NP Unavailable [phone] Fabian Palacios MD Unavailable Unavailable Scott Guerrero MD Unavailable Nerissa Hill MD Unavailable [phone] Carline Plummer [facility] Unavailable [phone] Lynette Ponce MD Primary Care Provider [phone] Bing Alvares MD Unavailable Lynette Ponce MD Primary Care Provider [phone] Encounter Details Date Type Department Care Team ([facility] st Contact Info) Description 01/29/2019 MyChart Message Enc [facility] Medical Group MultiSpecialty Care [facility] [address] [place] [address] Melissa Watson, NEW AUTOS DELIVERY DRIVER [address] [address] Other Social History Tobacco Use [...] 06/13/2025 10:45 AM CDT Office Visit [facility] [place] [address] Bing Alvares MD [address] [place] [address] documented as of this encounter Visit Diagnoses Not on filedocumented in this encounter Additional Health Concerns Infection Onset Date Last Indicated Resolved Time COVID-19 Rule Out 03/06/2020 03/03/2020 03/06/2020 9:26 AM CDT documented as of this encounter Care Teams Crew Clerk Relationship Specialty Start Date End Date Lynette Ponce MD [address] [place] [address] PCP - General INTERNAL MEDICINE 03/08/24 03/16/24 Lynette Ponce MD [address] [place] [address] PCP - General 03/29/24 Ivette Clark NP [place] Alcoholic Counselor NURSE PRACTITIONER 02/09/19 03/25/24 Fabian Palacios MD [place] Alcoholic Counselor INTERVENTIONAL CARDIOLOGY 02/09/19 03/16/19 Scott Guerrero MD Consulting Physician GASTROENTEROLOGY 03/04/19 Nerissa Hill MD [place] Alcoholic Counselor CARDIOVASCULAR DISEASE 03/17/19 03/25/24 Carline Plummer [facility] NURSE PRACT[facility] 12/22/20 02/28/22 Bing Alvares MD [address] [place] [address] Consulting Physician CARDIOVASCULAR DISEASE 03/22/24 documented as of this encounter
--- OUTSIDE RECORDS SUMMARY | 2025-03-02 07:00 | XMS_ITS | Clinical Summary ---
Author Organization [facility] Address [facility] [place] [address] Care Team Providers Care Fruit Sorter Name Role Phone Scott Guerrero MD Unavailable Bing Alvares MD Unavailable Lynette Ponce MD Primary Care Provider [phone] Allergies Active Allergy Reactions Criticality Noted Date [...] (Generic) 08/17/2023,07/26/2022, 07/20/2019 MMR 02/23/2009 MODERNA COVID-19 (LIBRARY CLERK TALKING BOOKS DENNIS JOAQUINA), MRNA, LNP-S, PF, 50 MCG/ [...] 36.6 C (97.9 F) 10/07/2023 8:34 AM NETWORKING ADMINISTRATOR Respiratory Rate 12 05/31/2024 2:35 PM CDT [...] Description 06/13/2025 10:45 AM CDT Office Visit [facility] [place] [address] Bing Alvares MD [address] [place] [address] Health Maintenance Due Date Last Done Comments Colorectal Cancer Screening Colonoscopy (10 Years) 1966 Mammogram Screening 2006 Pneumococcal Vaccine: 50+ Years (1 of 1 - PCV) 2016 Zoster Vaccines (1 of 2) 08/07/2021 Annual Physical 03/02/2022 03/02/2021 COVID-19 Vaccine (2023-2 5 season) 2024 07/26/2022, 05/09/2022, 03/23/2021 PHQ-2 (Physician [place]) 10/20/2024 10/07/2023 DTaP, Tdap and Td Vaccines [...] this topic Medical Devices Implanted Type Area Loss Prevention Officer Device Identifier Shelf Expiration Date Model / Serial / Lot Wire Abhilash Magic Pins Orthofix 1.2 X 7mm - [id number] Implanted:Qty: 1 on 09/23/2018 by Tressa Traylor DPM at [facility] [place] Left: Foot ORTHOFIX [id number] / / N/A Description:Verified by MD Cocnetta Cox 2 Mini 20.0mm - [id number] Implanted:Qty: 1 on 09/23/2018 by Tressa Traylor DPM at [facility] Left: Foot [employer] 05/20/2025 AT2-M20-S / / [id number] Description:Verified by Wire Abhilash Magic Pins Orthofix 1.6 X 17 - [id number] Implanted:Qty: 1 on 09/23/2018 by Tressa Traylor DPM at [facility] Left: Foot ORTHOFIX [id number] / / N/A Description:Verified by Wire Abhilash Magic Pins Orthofix 1.6 X 11 - [id number] Implanted:Qty: 1 on 01/20/2019 by Tressa Traylor DPM at [facility] Right: Foot ORTHOFIX [id number] / / N/A Description:Verified by MD Concetta Castroutrak 2 Mini 18.0mm - [id number] Implanted:Qty: 1 on 01/20/2019 by Tressa Traylor DPM at [facility] Right: Foot [employer] 08/03/2025 AT2-M18 / / [id number] Description:Verified by Wire Abhilash Magic Pins Orthofix 1.6 X 17 - [id number] Implanted:Qty: 1 on 01/20/2019 by Tressa Traylor DPM at [facility] Right: Foot ORTHOFIX [id number] / / N/A Description:Verified by Explanted Type Area Loss Prevention Officer Device Identifier Shelf Expiration Date Model / Serial / Lot .045mm Mini Guidewire Explanted:Qty: 2 on 09/23/2018 by Tressa Traylor DPM at [facility] Left: Foot [id number] / / N/A Description:Used not implant ed Sm Cannulated Drill Tip Explanted:Qty: 1 on 09/23/2018 by Tressa Traylor DPM at [facility] Left: Foot [id number] / / N/A Description:Used not implant ed K Wire Lionel 6 In X .045 In - [id number] Explanted:Qty: 1 on 01/20/2019 by Tressa Traylor DPM at [facility] Right: Foot [employer] 05/19/2028 [id number] / / [id number] Description:Used not implant ed .045 Mini Guidewire Explanted:Qty: 1 on 01/20/2019 by Tressa Traylor DPM at [facility] Right: Foot [id number] / / N/A Description:Used not implant [id number] Mini Drill Tip Explanted:Qty: 1 on 01/20/2019 by Tressa Traylor DPM at [facility] Right: Foot [id number] / / N/A Description:Used not implant ed Advance Directives Documents on File Type Date Recorded Patient Inset Cutter Expl anation Advance Directives and Living Will 04/04/2015 12:00 AM ADVANCED DIRECTIVES Advance Directives and Living Will 02/09/2015 12:00 AM ADVANCED DIRECTIVES Advance Directives and Living Will 03/08/2013 12:00 AM ADVANCED DIRECTIVES Advance Directives and Living Will 06/30/2012 12:00 AM ADVANCED DIRECTIVES Care Teams Fruit Sorter Relationship Specialty Start Date End Date Lynette Ponce MD [address] [place] [address] PCP - General 03/29/24 Scott Guerrero MD Consulting Physician GASTROENTEROLOGY 03/04/19 Bing Alvares MD [address] [place] [address] Consulting Physician CARDIOVASCULAR DISEASE 03/22/24
--- OUTSIDE RECORDS SUMMARY | 2025-03-02 07:00 | XMS_ITS | Encounter Summary ---
Author Organization [facility] Address [address] [place] [address] Care Team Providers Care Animal Husbandry Professor Name Role Phone Ivette Clark NP Unavailable [phone] Scott Guerrero MD Unavailable Nerissa Hill MD Unavailable [phone] Lynette Ponce MD Primary Care Provider [phone] Bing Alvares MD Unavailable Lynette Ponce MD Primary Care Provider [phone] Encounter Details Date Type Department Care Team (Latest Contact Info) Description 05/07/2023 [employer] Message Enc [facility] Medical Group MultiSpecialty Care [facility] [address] [place] [address] [place], [facility] Provider provider's response Social History Tobacco [...] days 05/09/2023 1:53 PM CDT Dannielle Haynes, SECURITY PROFESSIONAL Active Feeling down, depressed, or hopeless More than half the days 05/09/2023 1:53 PM CDT Dannielle Haynes, SECURITY PROFESSIONAL Active Patient Health Questionnaire-2 Score 4 05/09/2023 1:53 PM CDT Dannielle Haynes, SECURITY PROFESSIONAL Active * Question Answer Date of Assessment Author Status Trouble falling or staying asleep, or sleeping too much Nearly every day 05/09/2023 1:53 PM CDT Dannielle Haynes, SECURITY PROFESSIONAL Active Feeling tired or having little energy Nearly every day 05/09/2023 1:53 PM CDT Dannielle Haynes, SECURITY PROFESSIONAL Active Poor appetite or overeating Nearly every day 05/09/2023 1:53 PM CDT Dannielle Haynes, SECURITY PROFESSIONAL Active Feeling bad about yourself - or that you are a failure or have let yourself or your family down More than half the days 05/09/2023 1:53 PM CDT Dannielle Haynes, SECURITY PROFESSIONAL Active Trouble concentrating on things, such as reading the newspaper or watching television More than half the days 05/09/2023 1:53 PM CDT Dannielle Haynes, SECURITY PROFESSIONAL Active Moving or speaking so slowly that other people could have noticed? Or the opposite - being so fidgety or restless that you have been moving around a lot more than usual. Not at all 05/09/2023 1:53 PM CDT Dannielle Haynes, SECURITY PROFESSIONAL Active Thoughts that you would be better off or hurting yourself in some way Not at all 05/09/2023 1:53 PM CDT Dannielle Haynes, SECURITY PROFESSIONAL Active Patient Health Questionnaire-9 Score 17 05/09/2023 1:53 PM CDT Dannielle Haynes, SECURITY PROFESSIONAL Active * If you checked off any problems on this questionnaire so far, Question Answer Date of Assessment Author Status How difficult have these problems made it for you to do your work, take care of things at home, or get along with other people? Somewhat difficult 05/09/2023 1:53 PM CDT Dannielle Haynes, SECURITY PROFESSIONAL Active * Over the last 2 weeks, how often have you been bothered by any of the following problems? Question Answer Date of Assessment Author Status Feeling nervous, anxious, or on edge 2 05/09/2023 1:58 PM CDT Dannielle Haynes, SECURITY PROFESSIONAL A ctive Not being able to stop or control worrying 2 05/09/2023 1:58 PM CDT Dannielle Haynes, SECURITY PROFESSIONAL Active Worrying too much about different things 2 05/09/2023 1:58 PM CDT Dannielle Haynes, SECURITY PROFESSIONAL Active Trouble relaxing 2 05/09/2023 1:58 PM CDT Dannielle Haynes, SECURITY PROFESSIONAL Active Being so restless that it is hard to sit still 2 05/09/2023 1:58 PM CDT Dannielle Haynes, SECURITY PROFESSIONAL Active Becoming easily annoyed or irritable 2 05/09/2023 1:58 PM CDT Dannielle Haynes, SECURITY PROFESSIONAL A ctive Feeling afraid as if something awful might happen 1 05/09/2023 1:58 PM CDT Dannielle Haynes, SECURITY PROFESSIONAL A ctive CHANDAN-7 Total Score 13 05/09/2023 1:58 PM CDT Dannielle Hays, SECURITY PROFESSIONAL Active documented as of this encounter Plan of Treatment Upcoming Encounters Date Type Department Care Team (Late st Contact Info) Description 06/13/2025 10:45 AM CDT Office Visit [facility] [place] [address] Bing Alvares MD [address] [place], [place] [id number] documented as of this encounter Visit Diagnoses Not on filedocumented in this encounter Additional Health Concerns Assessment Noted Time PHQ-9 Depression Total Score: 0 12/12/19 22 4:08 PM CHLORINE PLANT OPERATOR documented as of this encounter Care Teams Animal Husbandry Professor Relationship Specialty Start Date End Date Lynette Ponce MD [address] [place] [address] PCP - General INTERNAL MEDICINE 03/08/24 03/16/24 Lynette Ponce MD [address] [place] [address] PCP - General 03/29/24 Ivette Clark NP [place] Auto Damage Trainee NURSE PRACTITIONER 02/09/19 03/25/24 Scott Guerrero MD Consulting Physician GASTROENTEROLOGY 03/04/19 Nerissa Hill MD [place] Auto Damage Trainee CARDIOVASCULAR DISEASE 03/17/19 03/25/24 Bing Alvares MD [address] [place] [address] Consulting Physician CARDIOVASCULAR DISEASE 03/22/24 documented as of this encounter
--- OUTSIDE RECORDS SUMMARY | 2025-03-02 07:00 | XMS_ITS | Encounter Summary ---
Author Organization [facility] Address [address] [place] [address] Care Team Providers Care Page Designer Name Role Phone Ivette Clark NP Unavailable [phone] Scott Guerrero MD Unavailable Nerissa Hill MD Unavailable [phone] Carline Plummer [facility] Unavailable [phone] Lynette Ponce MD Primary Care Provider [phone] Bing Alvares MD Unavailable Lynette Ponce MD Primary Care Provider [phone] Reason for Visit * Reason Onset Date Comments Prior Authorization 08/17/2019 Encounter Details Date Type Department Care Team (Latest Contact Info) Description 08/17/2019 Wine Ring Message [facility] MultiSpecialty Care [address] [address] Teri Mojica, [facility] [address] [place] [address] Medication Questions Social History Tobacco [...] [employer]. 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 Pharmacy faxed request last Friday08/18/19 LY RESOURCE MANAGEMENT PROFESSOR documented in this encounter Plan of Treatment Upcoming Encounters Date Type Department Care Team (Late st Contact Info) Description 06/13/2025 10:45 AM CDT Office Visit [facility] [address] [place] [address] Bing Alvares MD [address] [place] [address] documented as of this encounter Visit Diagnoses Not on filedocumented in this encounter Additional Health Concerns Infection Onset Date Last Indicated Resolved Time COVID-19 Rule Out 03/06/2020 03/03/2020 03/06/2020 9:26 AM CDT Assessment Noted Time PHQ-9 Depression Total Score: 19 019 4:41 PM CDT documented as of this encounter Care Teams Page Designer Relationship Specialty Start Date End Date Lynette Ponce MD [address] [place] [address] PCP - General INTERNAL MEDICINE 03/08/24 03/16/24 Lynette Ponce MD [address] [place] [address] PCP - General 03/29/24 Ivette Clark NP [place] Surgery Nurse NURSE PRACTITIONER 02/09/19 03/25/24 Scott Guerrero MD Consulting Physician GASTROENTEROLOGY 03/04/19 Nerissa Hill MD [place] [facility] Nurse CARDIOVASCULAR DISEASE 03/17/19 03/25/24 [facility]ACT[facility] 12/22/20 02/28/22 Bing Alvares MD [address] [place] [address] Consulting Physician CARDIOVASCULAR DISEASE 03/22/24 documented as of this encounter
[2025-03-02 07:36] LABS: Add Urine Microscopic? YES; Appearance Urine Clear (Clear); Bilirubin Urine Negative (Negative); Blood Urine Trace-intact (Negative); Color Urine Light Yellow (Yellow); Glucose Urine UA Negative (Negative); Ketones Urine Negative (Negative); Leukocyte Esterase Ur 2+ (Negative); Nitrate Urine Negative (Negative); Protein Urine Negative (Negative); Specific Grav Ur <= 1.005 (1.010-1.020); Urobilinogen Urine 0.2 mg/dL (0.2-1.0)
[2025-03-02 08:00] LABS: Hematocrit 39.2 % (35.0-49.0); Hemoglobin 12.1 g/dL (12.0-15.0); Mean Corpuscular HGB Conc 30.9 g/dL (32-36); Mean Corpuscular Hemoglobin 25.5 pg (27.0-31.0); Mean Corpuscular Volume 82.7 fL (78.0-102.0); Mean Platelet Volume 8.6 fl (9.2-11.8); Platelet Count Result 252 K/mm3 (150-420); Red Blood Count 4.74 M/mm3 (4.20-5.40); Red Cell Distribution Width 18.3 % (11.6-14.4); White Blood Count 4.4 K/mm3 (4.8-10.8)
[2025-03-02 08:02] LABS: Iron 118 ug/dL (50-170)
[2025-03-02 08:06] LABS: Bacteria Urine Rare /hpf; RBC Urine None seen /hpf (0-2); Squamous Epithelial Cell Urine Rare /hpf (Few); WBC Urine 0-5 /hpf (0-3)
[2025-03-02 10:34] LABS: Alanine Aminotransferase 34 U/L (6-35); Albumin Level 4.2 g/dL (3.5-5.1); Alkaline Phosphatase 58 U/L (38-126); Anion Gap 6 mmol/L (4-12); Aspartate Amino Transferase 34 U/L (14-36); Bilirubin,Total 0.7 mg/dL (0.2-1.3); Blood Urea Nitrogen 15 mg/dL (7-17); Calcium 9.3 mg/dL (8.4-10.2); Carbon Dioxide 29 mmol/L (22-30); Chloride 96 mmol/L (98-107); Cholesterol 197 mg/dL (0-200); Estimated Glomerular Filt Rate > 60; Glucose 85 mg/dL (65-110); HDL Direct 105 mg/dL; LDL Cholesterol Calculated 81 mg/dL (<130); Osmolality Calculated 271 mOsm/kg (285-295); Potassium 4.2 mmol/L (3.4-5.0); Sodium 131 mmol/L (137-145); Total Protein 6.4 g/dL (6.3-8.2); Triglycerides 54 mg/dL (<150)
[2025-03-02 10:49] LABS: Free T4 Free Thyroxine 1.35 ng/dL (0.78-2.19)
[2025-03-02 10:50] LABS: Free T3 3.69 pg/mL (2.71-6.16)
[2025-03-02 11:33] LABS: Hemoglobin A1C 5.3 % (<5.7)
[2025-03-04 14:14] LABS: Vitamin D 25 Hydroxy 46 ng/mL (30-100)
[2025-03-06 11:58] LABS: Zinc 80 mcg/dL (60-130)
[2025-03-07 13:25] LABS: Vitamin A 50 mcg/dL (38-98)
[2025-03-07 14:07] LABS: Anti Nuclear Antibody Pattern Nuclear, Speckled; Anti Nuclear Antibody Titer 1:40 titer
== END 2025-03-02 06:58 | disposition home or self-care (01) ==
LOC: CHSLAB 06:59
PROVIDERS: PCP Internal Medicine; Visit Provider Internal Medicine
DX: D64.9 Anemia, unspecified (principal); G25.81 Restless legs syndrome; R73.01 Impaired fasting glucose; Z98.84 Bariatric surgery status; R76.8 Other specified abnormal immunological findings in serum; M85.80 Other specified disorders of bone density and structure, unspecified site; I10 Essential (primary) hypertension; G62.9 Polyneuropathy, unspecified
CPT/HCPCS: 36415; 80053; 80061; 81001; 82306; 82607; 82728; 83036; 83540; 84439; 84443; 84481; 84590; 84630; 85027; 86038; 86039

== ENCOUNTER 2025-03-11 07:03 | Outpatient (CLI) | payer OTHER, SELFPAY ==
--- OUTSIDE RECORDS SUMMARY | 2025-03-11 07:06 | XMS_ITS | Clinical Summary ---
Author Organization [facility] Address [address] [place] [address] Care Team Providers Care Teenage Babysitter Name Role Phone Unavailable Primary Care Provider Unavailabl e Source Comments [facility],non-owned Affiliates and Associated Physician Practices is amultiple site organization consisting of ambulatory clinics and hospital sitesin [place], [place], [place] and [place]. This disclosure is being madepursuant to the Care Everywhere program and may not contain all information available regarding this patient. Last updated 18.[facility] Social History Tobacco Use Types Packs/Day Years [...] Subscriber ID:Not on file (Home) Address: [address] [place] [address] Payer ID:Not on file Group ID:Not on file Type:Self Pay Address: [place], [place]
[2025-03-11 08:23] LABS: Anion Gap 0 mmol/L (4-12); Blood Urea Nitrogen 20 mg/dL (7-17); Calcium 8.6 mg/dL (8.4-10.2); Carbon Dioxide 31 mmol/L (22-30); Chloride 101 mmol/L (98-107); Estimated Glomerular Filt Rate > 60; Glucose 85 mg/dL (65-110); Osmolality Calculated 275 mOsm/kg (285-295); Sodium 132 mmol/L (137-145)
== END 2025-03-11 07:04 | disposition home or self-care (01) ==
LOC: CHSLAB 07:04
PROVIDERS: PCP Internal Medicine; Visit Provider Internal Medicine
DX: E87.1 Hypo-osmolality and hyponatremia (principal)
CPT/HCPCS: 36415; 80048

== ENCOUNTER 2025-04-02 05:04 | Emergency (ER) | payer OTHER, SELFPAY ==
[2025-04-02 05:04] VITALS: BP 166/99; PULSE 87; RESP 18; O2SAT 100
--- OUTSIDE RECORDS SUMMARY | 2025-04-02 05:07 | XMS_ITS | Clinical Summary ---
Author Organization [facility] [employer] Address [address] [address] Care Team Providers Care Compliance Paralegal Name Role Phone Unavailable Primary Care Provider Unavailabl e Source Comments [facility] [employer],non-owned Affiliates and Associated Physician Practices is amultiple site organization consisting of ambulatory clinics and hospital sitesin [place], [place], [place] and [place]. This disclosure is being madepursuant to the Care Everywhere program and may not contain all information available regarding this patient. Last updated 18.[facility] [employer] Social History Tobacco Use Types Packs/Day Years [...] SCREENING 1966 LIPID TESTING 1966 MAMMOGRAM 1966 HIV SCREENING 1981 HEPATITIS C SCREENING 11/11/1984 DTAP/TDAP/TD VACCINES (1 - Tdap) 1985 HEPATITIS B VACCINE (1 of 3 - 19+ 3-dose series) 1985 PAP SMEAR 1987 PAP with HPV 1996 PNEUMOCOCCAL VACCINE 50+ (1 of 1 - [...] Subscriber ID:Not on file (Home) Address: [address] [place] [address] Payer ID:Not on file Group ID:Not on file Type:Self Pay Address: [place], [place]
--- NOTE | 2025-04-02 05:21 | PC.NURSE ---
PATIENT TRYING TO LEAN OVER ON RAISED STRETCHER, PACES BACK AND FORTH IN ROOM FOR COMFORT. CONTINUES TO BE TEARFUL. PAIN TO LEFT LOWER BACK
--- OUTSIDE RECORDS SUMMARY | 2025-04-02 05:28 | XMS_ITS | Clinical Summary ---
Author Organization [facility] [employer] Address [address] [place] [address] Care Team Providers Care Manuscript Reader Name Role Phone Unavailable Primary Care Provider Unavailabl e Source Comments [facility] [employer]non-owned Affiliates and Associated Physician Practices is amultiple site organization consisting of ambulatory clinics and hospital sitesin [place], [place], [place] and [place]. This disclosure is being madepursuant to the Care Everywhere program and may not contain all information available regarding this patient. Last updated 18.[facility] [employer] Social History Tobacco Use Types Packs/Day Years [...] Subscriber ID:Not on file (Home) Address: [address] [place] [address] Payer ID:Not on file Group ID:Not on file Type:Self Pay Address: [place], [place]
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
[2025-04-02] MEDS: HYDROmorphone HCL INJ (*CRX) 2 MG/ML VIAL 1 MG IM (05:34)
[2025-04-02] MEDS: ONDANSETRON HCL ODT 4 MG TABLET PO (05:34)
[2025-04-02 05:55] VITALS: BP 114/72; PULSE 75; RESP 18; O2SAT 96
--- NOTE | 2025-04-10 13:26 | PC.NURSE ---
FINAL BLOOD CULTURE REPORT; NO GROWTH AFTER 5 DAYS.
== END 2025-04-02 05:55 | disposition home or self-care (01) ==
PROVIDERS: Emergency Provider Internal Medicine Critical Care Medicine; PCP Internal Medicine
DX: M54.42 Lumbago with sciatica, left side (principal); G89.29 Other chronic pain; I10 Essential (primary) hypertension; F17.290 Nicotine dependence, other tobacco product, uncomplicated
CPT/HCPCS: 96372; 99283; A9270; J1171

== ENCOUNTER 2025-04-02 09:27 | Emergency (ER) | payer OTHER, SELFPAY ==
[2025-04-02] VITALS (28 sets, daily range): BP systolic 102–164; BP diastolic 60–90; PULSE 63–102; RESP 16–20; TEMP 36.6–39.2; O2SAT 90–100
--- NOTE | ~2025-04-02 | XR_ITS ---
EXAMINATION: XR chest 2V 04/02/2025 10:11 INDICATION: Fever and weakness PROCEDURE: 2 view chest COMPARISON: 02/10/2025 FINDINGS: The lungs are clear. The cardiomediastinal silhouette is within normal limits. There are no pleural effusions. There is no pneumothorax suspected. IMPRESSION: 1: NO ACUTE CARDIOPULMONARY DISEASE. Reviewed, dictated and finalized at location B.
--- NOTE | ~2025-04-02 | CT_ITS ---
EXAMINATION: CT abdomen pelvis w con DATE: 04/02/2025 11:56 INDICATION: Lower abdominal pain for 3 days. History of chronic constipation. TECHNIQUE: Computed tomography (CT) of the abdomen and pelvis was performed with 100 cc Omnipaque 350 intravenous contrast. The dose-length product was 453.83 mGy-cm. Automated exposure control and iter ative reconstruction technique were employed. COMPARISON: None. FINDINGS: There is a pulmonary nodule of the right lower lobe measuring 3 mm, likely benign. Status p ost cholecystectomy with expected prominence of the bile ducts. There is periportal edema. There are calcified granulomas of the spleen. The pancreas, adrenal glands and kidneys are unremarkable. There are extensive surgical changes of the upper abdomen. Nonobstructive bowel gas pattern. Moderate retai gilberto fecal material with large amount of retained stool in the distal colon and rectum. No free air or free fluid. IMPRESSION: 1. Fecal impaction of the distal colon and rectum. Reviewed, dictated and finalized at location B.
--- OUTSIDE RECORDS SUMMARY | 2025-04-02 09:29 | XMS_ITS | Clinical Summary ---
Author Organization [facility] [employer] Address [address] [place] [address] Care Team Providers Care Meat Carver Name Role Phone Unavailable Primary Care Provider Unavailabl e Source Comments [facility] [employer],non-owned Affiliates and Associated Physician Practices is amultiple site organization consisting of ambulatory clinics and hospital sitesin [place], [place], [place] and [place]. This disclosure is being madepursuant to the Care Everywhere program and may not contain all information available regarding this patient. Last updated 18.[facility] [employer] Social History Tobacco Use Types Packs/Day Years [...] Subscriber ID:Not on file (Home) Address: [address] [place] [address] Payer ID:Not on file Group ID:Not on file Type:Self Pay Address: [place], [place]
--- NOTE | 2025-04-02 10:01 | ED_ITS ---
HPI - General Adult General Chief complaint: Allergic Reaction Stated complaint: Allergic Reaction Source: patient Mode of arrival: ambulatory Limitations: no limitations History of Present Illness HPI narrative: 59 YEARS OLD WHITE FEMALE CAME TO ED FEELING SHAKY, TREMBLING, THROAT CLOSING UP, CHILLS WITHIN 4 HOURS PRIOR TO ARRIVAL TO THE EMERGENCY ROOM. PATIENT REPORT HAVING RUNNY NOSE YESTERDAY WHICH RESOLVED NOW. PATIENT DENIES ANY NAUSEA, VOMITING, DIARRHEA, BACK PAIN, CHEST PAIN, SHORTNESS OF BREATH OR HEADACHE OR SICK CONTACT. PATIENT REPORT LEFT LOWER BACK PAIN WHICH IS CHRONIC RADIATING TO LEFT LOWER EXTREMITY WHICH IS CHRONIC, NUMBNESS AND TINGLING OF THE LEFT FOOT OVER THE LAST 4 DAYS WHICH PROBABLY NEED TO. HISTORY OF LEFT SCIATICA FOR YEARS WHICH IS NOT DIFFERENT THAN BEFORE. PATIENT REPORT HAVING STOOL INCONTINENCE WITHIN TO HIS PRIOR TO ARRIVAL TO THE EMERGENCY ROOM. HISTORY OF GASTRIC BYPASS, HYPERTENSION. PATIENT DOES VAP, DENIED ALCOHOL USE OR DRUG USE. PATIENT REPORTING GASSY FEELING IN THE LOWER ABDOMEN YESTERDAY WHICH CURRENTLY RESOLVED. 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 Related Data Home Medications ?Medication ?Instructions ?Recorded ?Confirmed ?Last Taken ?Type bupropion HCl 300 mg 24 hr tablet, 300 mg PO DAILY 05/05/24 02/17/25 02/17/25 History extended release estradiol 0.01% (0.1 mg/gram) 1 g vaginal 2XW 05/05/24 02/17/25 06/07/24 History vaginal cream hydrocodone 5 mg-acetaminophen 325 1 tablet PO Q8H PRN Pain 05/05/24 02/17/25 06/07/24 History mg tablet magnesium oxide 400 mg PO DAILY 05/05/24 02/17/25 02/17/25 History multivitamin 1 tablet PO DAILY 05/05/24 02/17/25 02/17/25 History omeprazole 20 mg capsule,delayed 20 mg PO BID 05/05/24 02/17/25 02/17/25 History release vitamin B complex 0.5 tablet PO DAILY 05/05/24 02/17/25 02/17/25 History clonazepam 1 mg tablet 1 mg PO .nightly PRN cramping 01/20/25 02/17/25 02/17/25 History flacuation lisinopril 10 mg tablet 10 mg PO DAILY 01/20/25 02/17/25 02/17/25 History potassium chloride 10 mEq 10 meq PO .qod 01/20/25 02/17/25 02/17/25 History tablet,extended release torsemide 5 mg tablet 5 mg PO .qod 01/20/25 02/17/25 02/17/25 History Allergies Allergy/AdvReac Type Severity Reaction Status Date / Time fexofenadine (From Promise-D) Allergy Severe Anaphylaxis Verified 04/02/25 09:44 methotrexate Allergy Severe Hives Verified 04/02/25 09:44 moxifloxacin (From Avelox) Allergy Severe Anaphylaxis Verified 04/02/25 09:44 pseudoephedrine (From Allergy Severe Anaphylaxis Verified 04/02/25 09:44 Promise-D) cephalexin (From Keflex) AdvReac Severe Gastrointestinal Verified 04/02/25 09:44 Upset Sutures AdvReac Severe Other Verified 04/02/25 09:44 duloxetine AdvReac Intermediate Other Verified 04/02/25 09:44 Review of Systems 2 Review of Systems: All systems reviewed & are unremarkable except as noted in HPI and below PMFSH Family History Family History Father Carcinoma of colon Family history of primary malignant neoplasm of liver Mother Family history of heart disease in male family member before age 55 Other Family history of coronary artery disease Hypertension Social History Social History Smoking status: Current some day smoker Tobacco type: e-cigarettes/vaping Second hand tobacco smoke exposure: Yes Alcohol intake: current Substance use: never Substance use type: does not use Living arrangements: with family Spiritual care concerns: No Exam 2 Narrative: GENERAL APPEARANCE: WELL-DEVELOPED, WELL-NOURISHED SKIN: NORMAL COLOR HEAD: NORMOCEPHALIC, NONTRAUMATIC EYES: CLEAR CONJUNCTIVA ENT: OROPHARYNX NORMAL, EARS NORMAL, NOSE NORMAL NECK: SUPPLE, NONTENDER CHEST AND RESPIRATORY: AIRWAY PATENT, NO RESPIRATORY DISTRESS, NO ACCESSORY MUSCLE USE HEART: REGULAR RATE/RHYTHM ABDOMEN: SOFT, NONTENDER, NO ORGANOMEGALY, QUIET BOWEL SOUNDS VASCULAR: NORMAL PERIPHERAL PULSES, NORMAL CAPILLARY REFILL. 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 ROMO [facility] AT [facility] Date: 04/02/25 Time: 13:05 Vital Signs Vital signs: Vital Signs Temperature 39.2 C H 04/02/25 09:30 Pulse Rate 102 H 04/02/25 09:30 Respiratory Rate 20 04/02/25 09:30 Blood Pressure 164/90 H 04/02/25 09:30 Pulse Oximetry 99 04/02/25 09:30 Oxygen Delivery Room Air 04/02/25 09:30 Temperature 38.6 C H 04/02/25 12:21 Pulse Rate 87 04/02/25 12:21 Respiratory Rate 16 04/02/25 12:21 Blood Pressure 117/64 04/02/25 12:21 Pulse Oximetry 97 04/02/25 12:21 Oxygen Delivery Room Air 04/02/25 12:21 Medical Decision Making MDM Narrative Medical decision making narrative: PATIENT CAME TO THE ED WITH CHILLS, SHAKING, DOES NOT FEEL WELL FEW HOUR PRIOR TO ARRIVAL VITAL SIGNS SHOWING BLOOD PRESSURE 164/90, HEART RATE 102, TEMPERATURE 39.2?. PHYSICAL EXAMINATION SHOWING A LITTLE ILL PATIENT OTHERWISE NO SIGNIFICANT FINDINGS DIFFERENTIAL DIAGNOSIS INCLUDE PNEUMONIA, URINARY TRACT INFECTION, VIRAL INFECTION, ELECTROLYTE IMBALANCE, DEHYDRATION BLOOD WORKUP TODAY INCLUDES CBC, CMP, LIPASE, LACTIC ACID AND CRP SHOWED WBC OF 1.3, PLATELET COUNT 133, SODIUM 133, ANION GAP 3, ALT 2066, ALKALINE PHOSPHATASE THE 79, AST MORE THAN 1500 PATIENT TESTED NEGATIVE FOR COVID FLU RSV, CHEST X-RAY SHOWED NO ACUTE ABNORMALITY CT ABDOMEN AND PELVIS WITH IV CONTRAST SHOWED FINDING CONSISTENT WITH CONSTIPATION / IMPACTION URINALYSIS SHOWED NO ACUTE ABNORMALITIES LEUKOPENIA AND ELEVATED LIVER ENZYMES HIGH LIKELY SECONDARY TO VIRAL HEPATITIS, TRANSFER TO [facility] Differential Diagnosis Differential Diagnosis: ABOVE Vital Signs Vital Signs: Vital Signs Temperature 39.2 C H 04/02/25 09:30 Pulse Rate 102 H 04/02/25 09:30 Respiratory Rate 20 04/02/25 09:30 Blood Pressure 164/90 H 04/02/25 09:30 Pulse Oximetry 99 04/02/25 09:30 Oxygen Delivery Room Air 04/02/25 09:30 Temperature 38.6 C H 04/02/25 12:21 Pulse Rate 87 04/02/25 12:21 Respiratory Rate 16 04/02/25 12:21 Blood Pressure 117/64 04/02/25 12:21 Pulse Oximetry 97 04/02/25 12:21 Oxygen Delivery Room Air 04/02/25 12:21 Lab Data 04/02/25 10:22 04/02/25 10:22 Labs: Lab Results 04/02/25 04/02/25 04/02/25 Range/Units 10:22 10:35 11:49 WBC 1.3 L* (4.8-10.8) K/mm3 RBC 4.61 (4.20-5.40) M/mm3 Hgb 12.5 (12.0-15.0) g/dL Hct 38.7 (35.0-49.0) % MCV 83.9 (78.0-102.0) fL MCH 27.1 (27.0-31.0) pg MCHC 32.3 (32-36) g/dL RDW 20.1 H (11.6-14.4) % Plt Count 133 L (150-420) K/mm3 MPV 9.5 (9.2-11.8) fl Immature Gran % (Auto) Not Reportable Neut % (Auto) Not Reportable Lymph % (Auto) Not Reportable Cameron % (Auto) Not Reportable Eos % (Auto) Not Reportable Baso % (Auto) Not Reportable Lymph # (Auto) Not Reportable Cameron # (Auto) Not Reportable Eos # (Auto) Not Reportable Baso # (Auto) Not Reportable Abs Immat Gran (auto) Not Reportable Absolute Neuts (auto) Not Reportable Absolute Nucleated RBC Not Reportable Total Counted 100 Neutrophils % (Manual) 49 (46-73) % Band Neutrophils % 0 (0-6) % Lymphocytes % (Manual) 34 (18-44) % Monocytes % (Manual) 15 H (3-9) % Eosinophils % (Manual) 2 (1-6) % Nucleated RBC % Not Reportable Abs Neuts (Manual) 0.63 L (1.3-6.7) K/mm3 Abs Lymphs (Manual) 0.44 L (1.1-4.5) K/mm3 Abs Monocytes (Manual) 0.19 (0.1-0.90) K/mm3 Absolute Eos (Manual) 0.02 (0.02-0.50) K/mm3 Platelet Estimate Adequate (Adequate) Schistocytes None seen PT 11.2 (9.50-12.1) Seconds INR 1.0 APTT 25.7 (23.9-30.70) Sec Sodium 133 L (137-145) mmol/L Potassium 3.7 (3.4-5.0) mmol/L Chloride 102 (98-107) mmol/L Carbon Dioxide 28 (22-30) mmol/L Anion Gap 3 L (4-12) mmol/L BUN 18 H (7-17) mg/dL Creatinine 0.82 (0.7-1.0) mg/dL Estim Creat Clear Calc 66 ml/min Estimated GFR > 60 (59 - ) Glucose 97 (65-110) mg/dL Calculated Osmolality 277 L (285-295) mOsm/kg Lactic Acid 1.1 (0.4-2.0) mmol/L Calcium 8.0 L (8.4-10.2) mg/dL Total Bilirubin 1.2 (0.2-1.3) mg/dL Direct Bilirubin (0-0.3) mg/dL AST > 2250 H (14-36) U/L ALT > 1000 H (6-35) U/L Alkaline Phosphatase 369 H (38-126) U/L C-Reactive Protein 0.6 (<1.0) mg/dL Total Protein 5.9 L (6.3-8.2) g/dL Albumin 3.5 (3.5-5.1) g/dL Lipase 209 (23-300) U/L Urine Color Yellow (Yellow) Urine Appearance Clear (Clear) Urine pH 6.0 (5.0-8.0) Ur Specific [place] 1.020 (1.010-1.020) Urine Protein 2+ H (Negative) Urine Glucose (UA) Negative (Negative) Urine Ketones Negative (Negative) Ur Blood (Man) Trace-intact H (Negative) Urine Nitrate Negative (Negative) Urine Bilirubin Negative (Negative) Urine Urobilinogen 4.0 H (0.2-1.0) mg/dL Leukocyte Esterase Rfl Negative (Negative) RODRIGUE/UL Urine RBC 0-2 (0-2) /hpf Urine WBC None seen (0-3) /hpf Ur Squamous Epith Cells Rare (Few) /hpf Urine Bacteria None seen (None) /hpf Ur Oval Fat Bodies None (None) /lpf Influenza A (RT-PCR) Negative (Negative) Influenza B (RT-PCR) Negative (Negative) RSV (RT-PCR) Negative (Negative) SARS-CoV-2 RNA (RT-PCR) Negative (Negative) Group A Strep (PCR) Not detected (Negative) 04/02/25 Range/Units 11:50 WBC (4.8-10.8) K/mm3 RBC (4.20-5.40) M/mm3 Hgb (12.0-15.0) g/dL Hct (35.0-49.0) % MCV (78.0-102.0) fL MCH (27.0-31.0) pg MCHC (32-36) g/dL RDW (11.6-14.4) % Plt Count (150-420) K/mm3 MPV (9.2-11.8) fl Immature Gran % (Auto) Neut % (Auto) Lymph % (Auto) Cameron % (Auto) Eos % (Auto) Baso % (Auto) Lymph # (Auto) Cameron # (Auto) Eos # (Auto) Baso # (Auto) Abs Immat Gran (auto) Absolute Neuts (auto) Absolute Nucleated RBC Total Counted Neutrophils % (Manual) (46-73) % Band Neutrophils % (0-6) % Lymphocytes % (Manual) (18-44) % Monocytes % (Manual) (3-9) % Eosinophils % (Manual) (1-6) % Nucleated RBC % Abs Neuts (Manual) (1.3-6.7) K/mm3 Abs Lymphs (Manual) (1.1-4.5) K/mm3 Abs Monocytes (Manual) (0.1-0.90) K/mm3 Absolute Eos (Manual) (0.02-0.50) K/mm3 Platelet Estimate (Adequate) Schistocytes PT (9.50-12.1) Seconds INR APTT (23.9-30.70) Sec Sodium (137-145) mmol/L Potassium (3.4-5.0) mmol/L Chloride (98-107) mmol/L Carbon Dioxide (22-30) mmol/L Anion Gap (4-12) mmol/L BUN (7-17) mg/dL Creatinine (0.7-1.0) mg/dL Estim Creat Clear Calc ml/min Estimated GFR (59 - ) Glucose (65-110) mg/dL Calculated Osmolality (285-295) mOsm/kg Lactic Acid (0.4-2.0) mmol/L Calcium (8.4-10.2) mg/dL Total Bilirubin 1.2 (0.2-1.3) mg/dL Direct Bilirubin 0.2 (0-0.3) mg/dL AST > 1500 H (14-36) U/L ALT > 2066 H (6-35) U/L Alkaline Phosphatase 379 H (38-126) U/L C-Reactive Protein (<1.0) mg/dL Total Protein 5.5 L (6.3-8.2) g/dL Albumin 3.5 (3.5-5.1) g/dL Lipase (23-300) U/L Urine Color (Yellow) Urine Appearance (Clear) Urine pH (5.0-8.0) Ur Specific [place] (1.010-1.020) Urine Protein (Negative) Urine Glucose (UA) (Negative) Urine Ketones (Negative) Ur Blood (Man) (Negative) Urine Nitrate (Negative) Urine Bilirubin (Negative) Urine Urobilinogen (0.2-1.0) mg/dL Leukocyte Esterase Rfl (Negative) RODRIGUE/UL Urine RBC (0-2) /hpf Urine WBC (0-3) /hpf Ur Squamous Epith Cells (Few) /hpf Urine Bacteria (None) /hpf Ur Oval Fat Bodies (None) /lpf Influenza A (RT-PCR) (Negative) Influenza B (RT-PCR) (Negative) RSV (RT-PCR) (Negative) SARS-CoV-2 RNA (RT-PCR) (Negative) Group A Strep (PCR) (Negative) Imaging Data Radiologist's impression: Impressions Chest X-Ray 04/02/25 10:15 IMPRESSION: 1: NO ACUTE CARDIOPULMONARY DISEASE. Abdomen/Pelvis CT 04/02/25 12:01 IMPRESSION: 1. Fecal impaction of the distal colon and rectum. Critical Care Time Critical Care Time Critical Care Time: No Discharge Plan Discharge Clinical Impression: Acute hepatitis Patient Disposition: Acute Care Hospital Condition: Stable Patient Language: Italian Prescriptions: No Action hydrocodone-acetaminophen 5-325 mg tablet 1 tablet PO Q8H PRN (Reason: pain) Qty: 7 0RF potassium chloride 10 mEq tablet extended release 10 meq PO .qod torsemide 5 mg tablet 5 mg PO .qod lisinopril 10 mg tablet 10 mg PO DAILY clonazepam 1 mg tablet 1 mg PO .nightly PRN (Reason: cramping flacuation) hydrocodone-acetaminophen 5-325 mg tablet 1 tablet PO Q8H PRN (Reason: Pain) omeprazole 20 mg Capsule,Delayed Release(Dr/Ec) 20 mg PO BID vitamin B complex Tablet 0.5 tablet PO DAILY estradiol 0.01 % (0.1 mg/gram) Cream 1 g VAGINAL 2XW bupropion HCl 300 mg tablet extended release 24 hr 300 mg PO DAILY multivitamin Tablet,Chewable 1 tablet PO DAILY magnesium oxide 400 mg magnesium Tablet 400 mg PO DAILY Follow-up/Referrals: Lynette Ponce MD [Primary Care Provider] -
[2025-04-02] MEDS: KETOROLAC 30 MG/ML VIAL (*BKC) IV PUSH (10:27)
[2025-04-02] MEDS: SODIUM CHLORIDE 0.9% IV 1,000 ML 999 ML IV CONT (10:27)
[2025-04-02] MEDS: ACETAMINOPHEN 500 MG TABLET 1000 MG PO (10:28)
[2025-04-02 10:43] LABS: Add Urine Microscopic? YES; Appearance Urine Clear (Clear); Bilirubin Urine Negative (Negative); Blood Urine Trace-intact (Negative); Color Urine Yellow (Yellow); Glucose Urine UA Negative (Negative); Ketones Urine Negative (Negative); Leukocyte Esterase Ur Negative LEU/UL (Negative); Nitrate Urine Negative (Negative); Protein Urine 2+ (Negative)
[2025-04-02 10:43] LABS: Hematocrit 38.7 % (35.0-49.0); Hemoglobin 12.5 g/dL (12.0-15.0); Mean Corpuscular HGB Conc 32.3 g/dL (32-36); Mean Corpuscular Hemoglobin 27.1 pg (27.0-31.0); Mean Corpuscular Volume 83.9 fL (78.0-102.0); Mean Platelet Volume 9.5 fl (9.2-11.8); Platelet Count Result 133 K/mm3 (150-420); Red Blood Count 4.61 M/mm3 (4.20-5.40); Red Cell Distribution Width 20.1 % (11.6-14.4)
[2025-04-02 10:48] LABS: Squamous Epithelial Cell Urine Rare /hpf (Few); WBC Urine None seen /hpf (0-3)
[2025-04-02 10:49] LABS: Bacteria Urine None Seen /hpf; RBC Urine 0-2 /hpf (0-2)
[2025-04-02 10:49] LABS: Partial Thromboplastin Time 25.7 Sec (23.9-30.70); Prothrombin Time 11.2 Seconds (9.50-12.1)
[2025-04-02 10:50] LABS: Lactic Acid Reflex 1.1 mmol/L (0.4-2.0)
[2025-04-02 10:51] LABS: White Blood Count 1.3 K/mm3 (4.8-10.8)
[2025-04-02 11:22] LABS: Band Neutrophils Percent 0 % (0-6); Eosinophils Absolute Manual 0.02 K/mm3 (0.02-0.50); Eosinophils Percent Manual 2 % (1-6); Lymphocytes Absolute Manual 0.44 K/mm3 (1.1-4.5); Lymphocytes Percent Manual 34 % (18-44); Monocytes Absolute Manual 0.19 K/mm3 (0.1-0.90); Monocytes Percent Manual 15 % (3-9); Neutrophils Absolute Manual 0.63 K/mm3 (1.3-6.7); Neutrophils Percent Manual 49 % (46-73); Total Cells Counted 100
[2025-04-02 11:23] LABS: Platelet Estimate Adequate (Adequate); Schistocytes None Seen
[2025-04-02 11:24] LABS: Chloride 102 mmol/L (98-107); Potassium 3.7 mmol/L (3.4-5.0); Sodium 133 mmol/L (137-145)
[2025-04-02 11:25] LABS: Anion Gap 3 mmol/L (4-12); Bilirubin,Total 1.2 mg/dL (0.2-1.3); Blood Urea Nitrogen 18 mg/dL (7-17); Carbon Dioxide 28 mmol/L (22-30); Estimated CRCL calculation 66 ml/min; Estimated Glomerular Filt Rate > 60; Glucose 97 mg/dL (65-110); Osmolality Calculated 277 mOsm/kg (285-295)
[2025-04-02 11:26] LABS: Alanine Aminotransferase > 1000 U/L (6-35); Albumin Level 3.5 g/dL (3.5-5.1); Alkaline Phosphatase 369 U/L (38-126); CRP 0.6 mg/dL (<1.0); Total Protein 5.9 g/dL (6.3-8.2)
[2025-04-02 11:28] LABS: Influenza A QL RT-PCR Negative (Negative); Influenza B QL RT-PCR Negative (Negative); RSV RNA, RT-PCR Negative (Negative); SARS-CoV-2 RNA PCR Negative (Negative); Strep Group A RT-PCR Not Detected (Negative)
[2025-04-02 11:35] LABS: Aspartate Amino Transferase > 2250 U/L (14-36)
[2025-04-02 12:06] LABS: Albumin Level 3.5 g/dL (3.5-5.1); Alkaline Phosphatase 379 U/L (38-126); Bilirubin Direct 0.2 mg/dL (0-0.3); Bilirubin,Total 1.2 mg/dL (0.2-1.3); Total Protein 5.5 g/dL (6.3-8.2)
[2025-04-02 12:06] LABS: Lipase 209 U/L (23-300)
[2025-04-02 12:30] LABS: Alanine Aminotransferase > 2066 U/L (6-35)
[2025-04-02 12:44] LABS: Aspartate Amino Transferase > 1500 U/L (14-36)
--- NOTE | 2025-04-05 12:57 | PC.NURSE ---
PRELIMINARY BLOOD CULTURE REPORT; NO GROWTH TO DATE.
== END 2025-04-02 15:15 | disposition short-term general hospital (02) ==
PROVIDERS: Emergency Provider Emergency Medicine; PCP Internal Medicine
DX: B17.9 Acute viral hepatitis, unspecified (principal); I10 Essential (primary) hypertension; F17.290 Nicotine dependence, other tobacco product, uncomplicated; Z20.822 Contact with and (suspected) exposure to COVID-19
CPT/HCPCS: 36415; 71046; 74177; 80053; 80076; 81001; 83605; 83690; 85025; 85610; 85730; 86140; 87040; 87637; 87651; 96361; 96374; 99285; A9270; J1885; J7030; Q9967

== ENCOUNTER 2025-04-07 12:08 | Outpatient (CLI) | payer OTHER, SELFPAY ==
--- NOTE | ~2025-04-07 | MR_ITS ---
MRI of the right knee Clinical history: Pain Technique: Coronal proton density and proton density-weighted images, sagittal proton-density and T2 fat-sat images, and axial proton-density fat-saturated images were acquired. Findings: Anterior and posterior cruciate ligaments are intact. Medial collateral ligament and the la teral collateral ligament complex are intact. Popliteus tendon intact. Medial and lateral menisci are intact, without evidence of tear. 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 There is joint space narrowing of the patellofemo ral compartment with lateral osteophyte formation. There is high-grade chondromalacia at the central aspect of the medial femoral condyle. There is moderate chondrolysis the lateral joint line. There is osteophyte formation at the medial lateral joint lines, lateral worse than medial. There are small o steophytes at the intercondylar notch. Extensor mechanism is intact. Small to moderate joint effusion present. No Rivera's cyst. 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 Moderate degenerative change of the med ial and lateral compartment. Small to moderate joint effusion. Reviewed, dictated and finalized at location . 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 Moderate degenera tive change of the medial and lateral compartment. Small to moderate joint effusion.
--- OUTSIDE RECORDS SUMMARY | 2025-04-07 12:41 | XMS_ITS | Encounter Summary ---
Author Organization [facility] Address [address] [place] [address] Care Team Providers Care Plasma Processing Centrifuge Operator Name Role Phone Ivette Clark NP Unavailable [phone] Fabian Palacios MD Unavailable Unavailable Scott Guerrero MD Unavailable Nerissa Hill MD Unavailable [phone] Carline Plummer [facility] Unavailable [phone] Lynette Ponce MD Primary Care Provider [phone] Bing Alvares MD Unavailable Lynette Ponce MD Primary Care Provider [phone] Encounter Details Date Type Department Care Team ([facility] st Contact Info) Description 10/21/[address] [facility] Medical [facility] MultiSpecialty Care [facility] [address] [place] [address] Melissa Watson, EPIDEMIOLOGIST [address] [address] Other Social History Tobacco Use [...] 10/22/2018 8:04 AM CST Please advise. Thanks. BILITATION SERVICES COORDINATOR documented in this encounter Plan of Treatment Upcoming Encounters Date Type Department Care Team (Late st Contact Info) Description 06/13/2025 10:45 AM CDT Office Visit [facility] [address] [place] [address] Bing Alvares MD [address] [place] [address] documented as of this encounter Visit Diagnoses Not on filedocumented in this encounter Additional Health Concerns Infection Onset Date Last Indicated Resolved Time COVID-19 Rule Out 03/06/2020 03/03/2020 03/06/2020 9:26 AM CDT documented as of this encounter Care Teams Plasma Processing Centrifuge Operator Relationship Specialty Start Date End Date Lynette Ponce MD [address] [place] [address] PCP - General INTERNAL MEDICINE 03/08/24 03/16/24 Lynette Ponce MD [address] [place] [address] PCP - General 03/29/24 Ivette Clark NP [place] Supercalender Operator Helper NURSE PRACTITIONER 02/09/19 03/25/24 Fabian Palacios MD [place] Supercalender Operator Helper INTERVENTIONAL CARDIOLOGY 02/09/19 03/16/19 Scott Guerrero MD Consulting Physician GASTROENTEROLOGY 03/04/19 Nerissa Hill MD [place] Supercalender Operator Helper CARDIOVASCULAR DISEASE 03/17/19 03/25/24 [facility] NURSE PRACTITIONER 12/22/20 02/28/22 Bing Alvares MD [address] [place] [address] Consulting Physician CARDIOVASCULAR DISEASE 03/22/24 documented as of this encounter
--- OUTSIDE RECORDS SUMMARY | 2025-04-07 12:41 | XMS_ITS | Clinical Summary ---
Author Organization [facility] Address [address] [place] [address] Care Team Providers Care Grinding Wheel Inspector Name Role Phone Unavailable Primary Care Provider Unavailabl e Source Comments [facility],non-owned Affiliates and Associated Physician Practices is amultiple site organization consisting of ambulatory clinics and hospital sitesin [place], [place], [place]. This disclosure is being madepursuant to the Care Everywhere program and may not contain all information available regarding this patient. Last updated 18.[facility] Social History Tobacco Use Types Packs/Day Years [...] 19+ 3-dose series) 1985 PAP SMEAR 1987 PNEUMOCOCCAL VACCINE 50+ (1 of 1 - [...] Subscriber ID:Not on file (Home) Address: [address] [place] [address] Payer ID:Not on file Group ID:Not on file Type:Self Pay Address: [place], [place]
--- OUTSIDE RECORDS SUMMARY | 2025-04-07 12:41 | XMS_ITS | Encounter Summary ---
Author Organization [facility] Address [address] [place] [address] Care Team Providers Care Trimmer Sawyer Name Role Phone Ivette Clark NP Unavailable [phone] Fabian Palacios MD Unavailable Unavailable Scott Guerrero MD Unavailable Nerissa Hill MD Unavailable [phone] Carline Plummer [facility] Unavailable [phone] Lynette Ponce MD Primary Care Provider [phone] Bing Alvares MD Unavailable Lynette Ponce MD Primary Care Provider [phone] Encounter Details Date Type Department Care Team (Latest Contact Info) Description 11/15/2018 MyChart Message Enc [facility] Medical Group MultiSpecialty [facility] [address] [place] [address] Melissa Watson, CIGAR TOBACCO PROCESSING SUPERVISOR [address] [address] Medication Questions Social History Tobacco [...] Description 06/13/2025 10:45 AM CDT Office Visit [facility] [address] [place] [address] Bing Alvares MD [address] [place] [address] documented as of this encounter Visit Diagnoses Not on filedocumented in this encounter Additional Health Concerns Infection Onset Date Last Indicated Resolved Time COVID-19 Rule Out 03/06/2020 03/03/2020 03/06/2020 9:26 AM CDT documented as of this encounter Care Teams Trimmer Sawyer Relationship Specialty Start Date End Date Lynette Ponce MD [address] [place] [address] PCP - General INTERNAL MEDICINE 03/08/24 03/16/24 Lynette Ponce MD [address] [place] [address] PCP - General 03/29/24 Ivette Clark NP [place] English Lecturer NURSE PRACTITIONER 02/09/19 03/25/24 Fabian Palacios MD [place] English Lecturer INTERVENTIONAL CARDIOLOGY 02/09/19 03/16/19 Scott Guerrero MD Consulting Physician GASTROENTEROLOGY 03/04/19 Nerissa Hill MD [place] English Lecturer CARDIOVASCULAR DISEASE 03/17/19 03/25/24 Carline Plummer FNP-BC NURSE PRACTITIONER 12/22/20 02/28/22 Bing Alvares MD [address] [place] [address] Consulting Physician CARDIOVASCULAR DISEASE 03/22/24 documented as of this encounter
--- OUTSIDE RECORDS SUMMARY | 2025-04-07 12:41 | XMS_ITS | Encounter Summary ---
Author Organization [facility] Address [address] [place] [address] Care Team Providers Care Storeroom Attendant Name Role Phone Ivette Clark NP Unavailable [phone] Fabian Palacios MD Unavailable Unavailable Scott Guerrero MD Unavailable Nerissa Hill MD Unavailable [phone] Carline Plummer [facility] Unavailable [phone] Lynette Ponce MD Primary Care Provider [phone] Bing Alvares MD Unavailable Lynette Ponce MD Primary Care Provider [phone] Encounter Details Date Type Department Care Team ([facility] st Contact Info) Description 09/25/2018 MyChart Message Enc [facility] Medical Group MultiSpecialty Care [facility] [address] [place] [address] Melissa Watson, SQUARING MACHINE OPERATOR [address] [address] RE: Other Social History Tobacco [...] CST Medication is updated in patient's chart. WEAVER * Faith [place] RN - 09/26/2018 8:27 AM CST Does this need any more follow up? Please advise WEAVER documented in this encounter Plan of Treatment Upcoming Encounters Date Type Department Care Team (Late st Contact Info) Description 06/13/2025 10:45 AM CDT Office Visit [facility] [place] [address] Bing Alvares MD [address] [place] [address] documented as of this encounter Visit Diagnoses Not on filedocumented in this encounter Additional Health Concerns Infection Onset Date Last Indicated Resolved Time COVID-19 Rule Out 03/06/2020 03/03/2020 03/06/2020 9:26 AM CDT documented as of this encounter Care Teams Storeroom Attendant Relationship Specialty Start Date End Date Lynette Ponce MD [address] [place] [address] PCP - General INTERNAL MEDICINE 03/08/24 03/16/24 Lynette Ponce MD [address] [place] [address] PCP - General 03/29/24 Ivette Clark NP [place] Clinical Cytopathologist NURSE PRACTITIONER 02/09/19 03/25/24 Fabian Palacios MD [place] Clinical Cytopathologist INTERVENTIONAL CARDIOLOGY 02/09/19 03/16/19 Scott Guerrero MD Consulting Physician GASTROENTEROLOGY 03/04/19 Nerissa Hill MD [place] Clinical Cytopathologist CARDIOVASCULAR DISEASE 03/17/19 03/25/24 Carline Plummer FNP-BC NURSE PRACTITIONER 12/22/20 02/28/22 Bing Alvares MD [address] [place] [address] Consulting Physician CARDIOVASCULAR DISEASE 03/22/24 documented as of this encounter
--- OUTSIDE RECORDS SUMMARY | 2025-04-07 12:41 | XMS_ITS | Encounter Summary ---
Author Organization [facility] Address [address] [place] [address] Care Team Providers Care Novelty Balloon Assembler And Packer Name Role Phone Ivette Clark NP Unavailable [phone] Scott Guerrero MD Unavailable Nerissa Hill MD Unavailable [phone] Carline Plummer [facility] Unavailable [phone] Lynette Ponce MD Primary Care Provider Bing Alvares MD Unavailable Lynette Ponce MD Primary Care Provider [phone] Encounter Details Date Type Department Care Team (Latest Contact Info) Description 04/27/2019 [employer] Message Enc [facility] Medical Group MultiSpecialty [facility] [address] [place] [address] Melissa Watson, GALLEY WORKER [address] [address] RE: Medication Questions Social History [...] Description 06/13/2025 10:45 AM CDT Office Visit [facility] [place] [address] Bing Alvares MD [address] [place] [address] documented as of this encounter Visit Diagnoses Not on filedocumented in this encounter Additional Health Concerns Infection Onset Date Last Indicated Resolved Time COVID-19 Rule Out 03/06/2020 03/03/2020 03/06/2020 9:26 AM CDT documented as of this encounter Care Teams Novelty Balloon Assembler And Packer Relationship Specialty Start Date End Date Lynette Ponce MD [address] [place] [address] PCP - General INTERNAL MEDICINE 03/08/24 03/16/24 Lynette Ponce MD [address] [place] [address] PCP - General 03/29/24 Ivette Clark NP [place] Retail Custodial Associate NURSE PRACTITIONER 02/09/19 03/25/24 Scott Guerrero MD Consulting Physician GASTROENTEROLOGY 03/04/19 Nerissa Hill MD [place] Retail Custodial Associate CARDIOVASCULAR DISEASE 03/17/19 03/25/24 Carline Plummer FNP-BC NURSE PRACTITIONER 12/22/20 02/28/22 Bing Alvares MD [address] [place] [address] Consulting Physician CARDIOVASCULAR DISEASE 03/22/24 documented as of this encounter
--- OUTSIDE RECORDS SUMMARY | 2025-04-07 12:41 | XMS_ITS | Encounter Summary ---
Author Organization [facility] Address [address] [place] [address] Care Team Providers Care Newspaper Clipper Name Role Phone Ivette Clark NP Unavailable [phone] Scott Guerrero MD Unavailable Nerissa Hill MD Unavailable [phone] Lynette Ponce MD Primary Care Provider [phone] Bing Alvares MD Unavailable Lynette Ponce MD Primary Care Provider [phone] Encounter Details Date Type Department Care Team (Latest Contact Info) Description 12/13/[address] [facility] Medical Group MultiSpecialty Care [facility] [address] [place] [address] [facility] Provider provider's result note Social [...] Coronavirus/COVID-19? No / Unsure 12/12/2022 9:13 AM SEO PROFESSIONAL documented as of this encounter Plan of Treatment Upcoming Encounters Date Type Department Care Team (Late st Contact Info) Description 06/13/2025 10:45 AM CDT Office Visit [facility] [place] [address] Bing Alvares MD [address] [place] [address] documented as of this encounter Visit Diagnoses Not on filedocumented in this encounter Additional Health Concerns Assessment Noted Time PHQ-9 Depression Total Score: 0 12/12/19 4:08 PM SEO PROFESSIONAL documented as of this encounter Care Teams Newspaper Clipper Relationship Specialty Start Date End Date Lynette Ponce MD [address] [place] [address] PCP - General INTERNAL MEDICINE 03/08/24 03/16/24 Lynette Ponce MD [address] [place] [address] PCP - General 03/29/24 Ivette Clark NP [place] Colleter NURSE PRACTITIONER 02/09/19 03/25/24 Scott Guerrero MD Consulting Physician GASTROENTEROLOGY 03/04/19 Nerissa Hill MD [place] Colleter CARDIOVASCULAR DISEASE 03/17/19 03/25/24 Bing Alvares MD [address] [place] [address] Consulting Physician CARDIOVASCULAR DISEASE 03/22/24 documented as of this encounter
--- OUTSIDE RECORDS SUMMARY | 2025-04-07 12:41 | XMS_ITS | Encounter Summary ---
Author Organization [facility] Address [address] [place] [address] Care Team Providers Care Web Services Professional Name Role Phone Ivette Clark NP Unavailable [phone] Fabian Palacios MD Unavailable Unavailable Scott Guerrero MD Unavailable Nerissa Hill MD Unavailable [phone] Carline Plummer [facility] Unavailable [phone] Lynette Ponce MD Primary Care Provider [phone] Bing Alvares MD Unavailable Lynette Ponce MD Primary Care Provider [phone] Encounter Details Date Type Department Care Team (Latest Contact Info) Description 09/14/2018 Checkd[employer]Int Message Enc [facility] Medical Group MultiSpecialty [facility] [address] [place] [address] Melissa Watson, ACQUISITION PROFESSIONAL [address] [address] Follow Up/Update Social History Tobacco [...] Description 06/13/2025 10:45 AM CDT Office Visit [facility] [address] [place] [address] Bing Alvares MD [address] [place] [address] documented as of this encounter Visit Diagnoses Not on filedocumented in this encounter Additional Health Concerns Infection Onset Date Last Indicated Resolved Time COVID-19 Rule Out 03/06/2020 03/03/2020 03/06/2020 9:26 AM CDT documented as of this encounter Care Teams Web Services Professional Relationship Specialty Start Date End Date Lynette Ponce MD [address] [place] [address] PCP - General INTERNAL MEDICINE 03/08/24 03/16/24 Lynette Ponce MD [address] [place] [address] PCP - General 03/29/24 Ivette Clark NP [place] Principal Consultant NURSE PRACTITIONER 02/09/19 03/25/24 Fabian Palacios MD [place] Principal Consultant INTERVENTIONAL CARDIOLOGY 02/09/19 03/16/19 Scott Guerrero MD Consulting Physician GASTROENTEROLOGY 03/04/19 Nerissa Hill MD [place] Principal Consultant CARDIOVASCULAR DISEASE 03/17/19 03/25/24 Carline Plummer FNP- NURSE PRACTITIONER 12/22/20 02/28/22 Bing Alvares MD [address] [place] [address] Consulting Physician CARDIOVASCULAR DISEASE 03/22/24 documented as of this encounter
--- OUTSIDE RECORDS SUMMARY | 2025-04-07 12:41 | XMS_ITS | Encounter Summary ---
Author Organization [facility] Address [address] [place] [address] Care Team Providers Care Travel Agency Manager Name Role Phone Ivette Clark NP Unavailable [phone] Scott Guerrero MD Unavailable Nerissa Hill MD Unavailable [phone] Carline Plummer [facility] Unavailable [phone] Lynette Ponce MD Primary Care Provider [phone] Bing Alvares MD Unavailable Lynette Ponce MD Primary Care Provider [phone] Encounter Details Date Type Department Care Team (Late st Contact Info) Description 06/24/[email or web address] [facility] Medical Group MultiSpecialty Care [facility] [address] [place] [address] Teri Mojica, [facility] [address] [place] [address] Test Results Social History Tobacco Use Types [...] Description 06/13/2025 10:45 AM CDT Office Visit [facility] [place] [address] Bing Alvares MD [address] [place] [address] documented as of this encounter Visit Diagnoses Not on filedocumented in this encounter Additional Health Concerns Assessment Noted Time PHQ-9 Depression Total Score: 19 019 4:41 PM CDT documented as of this encounter Care Teams Travel Agency Manager Relationship Specialty Start Date End Date Lynette Ponce MD [address] [place] [address] PCP - General INTERNAL MEDICINE 03/08/24 03/16/24 Lynette Ponce MD [address] [place] [address] PCP - General 03/29/24 Ivette Clark NP [place] [employer] Specialist NURSE PRACTITIONER 02/09/19 03/25/24 Scott Guerrero MD Consulting Physician GASTROENTEROLOGY 03/04/19 Nerissa Hill MD [place] [employer] Specialist CARDIOVASCULAR DISEASE 03/17/19 03/25/24 Carline Plummer [facility] N[facility]SE PRACTITIONER 12/22/20 02/28/22 Bing Alvares MD [address] [place] [address] Consulting Physician CARDIOVASCULAR DISEASE 03/22/24 documented as of this encounter
--- OUTSIDE RECORDS SUMMARY | 2025-04-07 12:41 | XMS_ITS | Encounter Summary ---
Author Organization [facility] Address [facility] [place] [address] Care Team Providers Care Interface Engineer Name Role Phone MimirohitIvette NP Unavailable [phone] Fabian Palacios MD Unavailable Unavailable Scott Guerrero MD Unavailable Nerissa Hill MD Unavailable [phone] Carline Plummer [facility] Unavailable [phone] Lynette Ponce MD Primary Care Provider [phone] Bing Alvares MD Unavailable Lynette Ponce MD Primary Care Provider [phone] Encounter Details Date Type Department Care Team (Latest Contact Info) Description 07/13/2018 Abstract [facility] Sri Russ MD Social History [...] Description 06/13/2025 10:45 AM CDT Office Visit [facility] [place] [address] Bing Alvares MD [address] [place] [address] documented as of this encounter Visit Diagnoses Not on filedocumented in this encounter Additional Health Concerns Infection Onset Date Last Indicated Resolved Time COVID-19 Rule Out 03/06/2020 03/03/2020 03/06/2020 9:26 AM CDT documented as of this encounter Care Teams Interface Engineer Relationship Specialty Start Date End Date Lynette Ponce MD [address] [place] [address] PCP - General INTERNAL MEDICINE 03/08/24 03/16/24 Lynette Ponce MD [address] [place] [address] PCP - General 03/29/24 Ivette Clark NP Zirconia Dust Operator NURSE PRACTITIONER 02/09/19 03/25/24 Fabian Palacios MD Zirconia Dust Operator INTERVENTIONAL CARDIOLOGY 02/09/19 03/16/19 Scott Guerrero MD Consulting Physician GASTROENTEROLOGY 03/04/19 Nerissa Hill MD Zirconia Dust Operator CARDIOVASCULAR DISEASE 03/17/19 03/25/24 Carline Plummer FNP-BC NURSE PRACTITIONER 12/22/20 02/28/22 Bing Alvares MD [address] [place] [address] Consulting Physician CARDIOVASCULAR DISEASE 03/22/24 documented as of this encounter
--- OUTSIDE RECORDS SUMMARY | 2025-04-07 12:41 | XMS_ITS | Encounter Summary ---
Author Organization [facility] Address [address] [place] [address] Care Team Providers Care Aed Trainer Name Role Phone Ivette Clark NP Unavailable [phone] Scott Guerrero MD Unavailable Nerissa Hill MD Unavailable [phone] Carline Plummer [facility] Unavailable [phone] Lynette Ponce MD Primary Care Provider Bing Alvares MD Unavailable Lynette Ponce MD Primary Care Provider [phone] Encounter Details Date Type Department Care Team (Late st Contact Info) Description 12/09/2019 [employer] Message Enc [facility] Medical Group MultiSpecialty Care [facility] [address] [place] [address] Teri Mojica, [facility] [address] [place] [address] Other Social History Tobacco Use Types Packs/Day [...] Description 06/13/2025 10:45 AM CDT Office Visit [facility] [place] [place] [address] Bing Alvares MD [address] [place] [address] documented as of this encounter Visit Diagnoses Not on filedocumented in this encounter Additional Health Concerns Infection Onset Date Last Indicated Resolved Time COVID-19 Rule Out 03/06/2020 03/03/2020 03/06/2020 9:26 AM CDT Assessment Noted Time PHQ-9 Depression Total Score: 19 019 4:41 PM CDT documented as of this encounter Care Teams Aed Trainer Relationship Specialty Start Date End Date Lynette Ponce MD [address] [place] [address] PCP - General INTERNAL MEDICINE 03/08/24 03/16/24 Lynette Ponce MD [address] [place] [address] PCP - General 03/29/24 Ivette Clark NP [place] Rn Birthing NURSE PRACTITIONER 02/09/19 03/25/24 Scott Guerrero MD Consulting Physician GASTROENTEROLOGY 03/04/19 Nerissa Hill MD Minter Rn Birthing CARDIOVASCULAR DISEASE 03/17/19 03/25/24 Carline Plummer FNP-BC NURSE PRACTITIONER 12/22/20 02/28/22 Bing Alvares MD [address] [place] [address] Consulting Physician CARDIOVASCULAR DISEASE 03/22/24 documented as of this encounter
--- OUTSIDE RECORDS SUMMARY | 2025-04-07 12:41 | XMS_ITS | Encounter Summary ---
Author Organization [facility] Address [address] [place] [address] Care Team Providers Care Smearer Name Role Phone Ivette Clark NP Unavailable [phone] Scott Guerrero MD Unavailable Nerissa Hill MD Unavailable [phone] Carline Plummer [facility] Unavailable [phone] Lynette Ponce MD Primary Care Provider [phone] Bing Alvares MD Unavailable Lynette Ponce MD Primary Care Provider [phone] Reason for Visit * Reason Onset Date Comments Prior Authorization 08/17/2019 Encounter Details Date Type Department Care Team (Latest Contact Info) Description 08/17/2019 [employer] Message [facility] Multi[facility]ty Care [address] [address] Teri Mojica, [facility] [address] [place] [address] Medication Questions Social History Tobacco [...] Tr[employer]. 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 Pharmacy faxed request last Friday08/18/19 ICAL THERAPIST AIDE documented in this encounter Plan of Treatment Upcoming Encounters Date Type Department Care Team (Late st Contact Info) Description 06/13/2025 10:45 AM CDT Office Visit [facility] [address] [place] [address] Bing Alvares MD [address] [place] [address] documented as of this encounter Visit Diagnoses Not on filedocumented in this encounter Additional Health Concerns Infection Onset Date Last Indicated Resolved Time COVID-19 Rule Out 03/06/2020 03/03/2020 03/06/2020 9:26 AM CDT Assessment Noted Time PHQ-9 Depression Total Score: 19 019 4:41 PM CDT documented as of this encounter Care Teams Smearer Relationship Specialty Start Date End Date Lynette Ponce MD [address] [place] [address] PCP - General INTERNAL MEDICINE 03/08/24 03/16/24 Lynette Ponce MD [address] [place] [address] PCP - General 03/29/24 Ivette Clark NP [place] Curling Machine Operator NURSE PRACTITIONER 02/09/19 03/25/24 Scott Guerrero MD Consulting Physician GASTROENTEROLOGY 03/04/19 Nerissa Hill MD [place] Curling Machine Operator CARDIOVASCULAR DISEASE 03/17/19 03/25/24 [facility]line [facility] N[facility]ACTITIONER 12/22/20 02/28/22 Bing Alvares MD [address] [place] [address] Consulting Physician CARDIOVASCULAR DISEASE 03/22/24 documented as of this encounter
--- OUTSIDE RECORDS SUMMARY | 2025-04-07 12:41 | XMS_ITS | Clinical Summary ---
Author Organization [facility] Address [facility] [place] [address] Care Team Providers Care Sample Book Maker Name Role Phone Scott Guerrero MD Unavailable Bing Alvares MD Unavailable Lynette Ponce MD Primary Care Provider [phone] Allergies Active Allergy Reactions Criticality Noted Date [...] (Generic) 08/17/2023,07/26/2022, 07/20/2019 MMR 02/23/2009 MODERNA COVID-19 (VETERINARY MEDICINE DOCTOR DENNIS JOAQUINA), MRNA, LNP-S, PF, 50 MCG/ [...] 36.6 C (97.9 F) 10/07/2023 8:34 AM EMAIL MARKETING EXECUTIVE Respiratory Rate 12 05/31/2024 2:35 PM CDT Oxygen Saturation 100% 05/31/2024 2:35 PM CDT Inhaled Oxygen Concentration - - Weight 76.2 kg (168 lb) 05/31/2024 2:35 PM CDT Height 170.2 cm (5' 7) 05/31/2024 2:35 PM CDT Body Mass Index 26.31 05/31/2024 2:35 PM CDT Plan of Treatment Upcoming Encounters Date Type Department Care Team (Late st Contact Info) Description 06/13/2025 10:45 AM CDT Office Visit [facility] [place] [address] Bing Alvares MD [address] [place] [address] Health Maintenance Due Date Last Done Comments Colorectal Cancer Screening Colonoscopy (10 Years) 1966 Mammogram Screening 2006 Pneumococcal Vaccine: 50+ Years (1 of 1 - PCV) 2016 Zoster Vaccines (1 of 2) 08/07/2021 Annual Physical 03/02/2022 03/02/2021 COVID-19 Vaccine (2023-2 5 season) 2024 07/26/2022, 05/09/2022, 03/23/2021 PHQ-2 (Physician [place]) 10/20/2024 10/07/2023 DTaP, Tdap and Td Vaccines [...] this topic Medical Devices Implanted Type Area Thaw Shed Heater Tender Device Identifier Shelf Expiration Date Model / Serial / Lot Wire Abhilash Magic Pins Orthofix 1.2 X 7mm - [id number] Implanted:Qty: 1 on 09/23/2018 by Tressa Traylor DPM at [facility] [place] Left: Foot ORTHOFIX [id number] / / N/A Description:Verified by MD Concetta Cox 2 Mini 20.0mm - [id number] Implanted:Qty: 1 on 09/23/2018 by Tressa Traylor DPM at [facility] Left: Foot [employer] 05/20/2025 AT2-[id number] / / [id number] Description:Verified by Wire Abhilash Magic Pins Orthofix 1.6 X 17 - [id number] Implanted:Qty: 1 on 09/23/2018 by Tressa Traylor DPM at [facility] Left: Foot ORTHOFIX [id number] / / N/A Description:Verified by Wire Abhilash Magic Pins Orthofix 1.6 X 11 - [id number] Implanted:Qty: 1 on 01/20/2019 by Tressa Traylor DPM at [facility] Right: Foot ORTHOFIX [id number] / / N/A Description:Verified by MD Concetta Castroutrak 2 Mini 18.0mm - [id number] Implanted:Qty: 1 on 01/20/2019 by Tressa Traylor DPM at [facility] Right: Foot [employer] 08/03/2025 AT2-M18 / / [id number] Description:Verified by Wire Abhilash Magic Pins Orthofix 1.6 X 17 - [id number] Implanted:Qty: 1 on 01/20/2019 by Tressa Traylor DPM at [facility] Right: Foot ORTHOFIX [id number] / / N/A Description:Verified by Explanted Type Area Thaw Shed Heater Tender Device Identifier Shelf Expiration Date Model / Serial / Lot .045mm Mini Guidewire Explanted:Qty: 2 on 09/23/2018 by Tressa Traylor DPM at [facility] Left: Foot [id number] / / N/A Description:Used not implant ed Sm Cannulated Drill Tip Explanted:Qty: 1 on 09/23/2018 by Tressa Traylor DPM at [facility] Left: Foot [id number] / / N/A Description:Used not implant ed K Wire Lionel 6 In X .045 In - [id number] Explanted:Qty: 1 on 01/20/2019 by Tressa Traylor DPM at [facility] Right: Foot [employer] 05/19/2028 [id number] / / [id number] Description:Used not implant ed .045 Mini Guidewire Explanted:Qty: 1 on 01/20/2019 by Tressa Traylor DPM at [facility] Right: Foot [id number] / / N/A Description:Used not implant [id number] Mini Drill Tip Explanted:Qty: 1 on 01/20/2019 by Tressa Traylor DPM at [facility] Right: Foot [id number] / / N/A Description:Used not implant ed Advance Directives Documents on File Type Date Recorded Patient Burrer Hand Expl anation Advance Directives and Living Will 04/04/2015 12:00 AM ADVANCED DIRECTIVES Advance Directives and Living Will 02/09/2015 12:00 AM ADVANCED DIRECTIVES Advance Directives and Living Will 03/08/2013 12:00 AM ADVANCED DIRECTIVES Advance Directives and Living Will 06/30/2012 12:00 AM ADVANCED DIRECTIVES Care Teams Sample Book Maker Relationship Specialty Start Date End Date Lynette Ponce MD [address] [place] [address] PCP - General 03/29/24 Scott Guerrero MD Consulting Physician GASTROENTEROLOGY 03/04/19 Bing Alvares MD [address] [place] [address] Consulting Physician CARDIOVASCULAR DISEASE 03/22/24
--- OUTSIDE RECORDS SUMMARY | 2025-04-07 12:41 | XMS_ITS | Encounter Summary ---
Author Organization [facility] Address [address] [place] [address] Care Team Providers Care Import Customer Service Manager Name Role Phone Ivette Clark NP Unavailable [phone] Scott Guerrero MD Unavailable Nerissa Hill MD Unavailable [phone] Carline Plummer [facility] Unavailable [phone] Lynette Ponce MD Primary Care Provider [phone] Bing Alvares MD Unavailable Lynette Ponce MD Primary Care Provider [phone] Encounter Details Date Type Department Care Team (Late st Contact Info) Description 01/09/2021 MyChart Message Enc [facility] Medical Group MultiSpecialty Care [facility] [address] [place] [id number] Teri Mojica, [facility] [address] [place] [address] Test Results Social History Tobacco Use Types [...] Description 06/13/2025 10:45 AM CDT Office Visit [facility] [place] [address] Bing Alvares MD [address] [place] [address] documented as of this encounter Visit Diagnoses Not on filedocumented in this encounter Additional Health Concerns Assessment Noted Time PHQ-9 Depression Total Score: 13 021 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 documented as of this encounter Care Teams Import Customer Service Manager Relationship Specialty Start Date End Date Lynette Ponce MD [address] [place] [phone] PCP - General INTERNAL MEDICINE 03/08/24 03/16/24 Lynette Ponce MD [address] [place] [address] PCP - General 03/29/24 Ivette Clark NP [place] Hot Strip Finisher NURSE PRACTITIONER 02/09/19 03/25/24 Scott Guerrero MD Consulting Physician GASTROENTEROLOGY 03/04/19 Nerissa Hill MD [place] Hot Strip Finisher CARDIOVASCULAR DISEASE 03/17/19 03/25/24 Carline Plummer [facility] NURSE PRACTITION[facility] 12/22/20 02/28/22 Bing Alvares MD [address] [place] [address] Consulting Physician CARDIOVASCULAR DISEASE 03/22/24 documented as of this encounter
--- OUTSIDE RECORDS SUMMARY | 2025-04-07 12:41 | XMS_ITS | Encounter Summary ---
Author Organization [facility] Address [address] [place] [address] Care Team Providers Care Barrel Brander Name Role Phone Ivette Clark NP Unavailable [phone] Fabian Palacios MD Unavailable Unavailable Scott Guerrero MD Unavailable Nerissa Hill MD Unavailable [phone] Carline Plummer [facility] Unavailable [phone] Lynette Ponce MD Primary Care Provider [phone] Bing Alvares MD Unavailable Lynette Ponce MD Primary Care Provider [phone] Encounter Details Date Type Department Care Team ([facility] st Contact Info) Description 01/29/2019 MyChart Message Enc [facility] Medical Group MultiSpecialty Care [facility] [address] [place] [address] Melissa Watson, COMPLAINT OPERATOR [address] [address] Other Social History Tobacco [...] Description 06/13/2025 10:45 AM CDT Office Visit [facility] [place] [address] Bing Alvares MD [address] [place] [address] documented as of this encounter Visit Diagnoses Not on filedocumented in this encounter Additional Health Concerns Infection Onset Date Last Indicated Resolved Time COVID-19 Rule Out 03/06/2020 03/03/2020 03/06/2020 9:26 AM CDT documented as of this encounter Care Teams Barrel Brander Relationship Specialty Start Date End Date Lynette Ponce MD [address] [place] [address] PCP - General INTERNAL MEDICINE 03/08/24 03/16/24 Lynette Ponce MD [address] [place] [address] PCP - General 03/29/24 Ivette Clark NP [place] Flavor Room Worker NURSE PRACTITIONER 02/09/19 03/25/24 Fabian Palacios MD [place] Flavor Room Worker INTERVENTIONAL CARDIOLOGY 02/09/19 03/16/19 Scott Guerrero MD Consulting Physician GASTROENTEROLOGY 03/04/19 Nerissa Hill MD [place] Flavor Room Worker CARDIOVASCULAR DISEASE 03/17/19 03/25/24 [facility] N[facility]SE PRACTITION[facility] 12/22/20 02/28/22 Bing Alvares MD [address] [place] [address] Consulting Physician CARDIOVASCULAR DISEASE 03/22/24 documented as of this encounter
== END 2025-04-07 12:09 | disposition home or self-care (01) ==
LOC: CHSIMG 12:10
PROVIDERS: PCP Internal Medicine
DX: S80.911A Unspecified superficial injury of right knee, initial encounter (principal); M25.461 Effusion, right knee
CPT/HCPCS: 73721

== ENCOUNTER 2025-04-07 15:08 | Outpatient (RCR) | payer OTHER, SELFPAY ==
--- NOTE | 2025-04-08 07:52 | BUPTOPEVAL1 ---
Assessment and note entered by JT File, PT Evaluation Information Assessment Status Evaluation ICD-10 Condition Codes (PT) Pain in right knee M25.561 Other ICD-10 Condition Codes ( S80.911A PT) Onset 12/02/24 Subjective Information Pt reports that she slipped on a wet floor with the leg out straight and had pain that went mid calf all the way up to her hip. Pt reports that walking up hills, bending, squatting, crossing her legs make it hurt. She reports that she gets lateral swelling in her knee like a water filled bubble. pt reports that the pain keeps her up at night. Pt reports that resting, icing, and using heat does make it feel better. Pt reports that compression sometimes helps too. pt reports that she stopped interval walking, and can not walk down or up a hill without pain. Pt reports that she does take Tylenol for the pain occasionally. Pt reports that she had an MRI today before her visit. Reported Pain Level Pain Score 3: Self Report Assessment PT Clinical Summary Irene is a 59 y/o female presenting to skilled PT with R knee pain following a slip on 12/02/24. The objective measures and tests are consistent with a medial meniscus tear. Pt has deficits in knee ROM, LE strength, and knee stability. The pt has trouble with squatting, stairs, and is unable to do her daily interval walks since the incident. The pt would benefit from skilled PT to work on deficits to improve functional mobility/work on pt goals to return to prior level of function to improve quality of life. Plan of Care Interventions Electrical Stimulation,Gait Training,Hot Pack/Cold Pack,Intermittent Compression Pump,Manual Therapy ,Neuro Re-education,Paraffin Bath,Patient/ Caregiver Education,Therapeutic Activities, Therapeutic Exercise PT Services Indicated Yes Treatment Frequency and 2x a week for 12 visits Duration These treatments will address the objective and functional deficits as defined above. The patient will be advanced safely and appropriately in order for the patient to progress towards his/her prior level of function. Additional exercises will be introduced and as well as a comprehensive home exercise program upon discharge, if needed, ?to ensure carryover of functional gains achieved in the clinic. This treatment plan has been reviewed and agreement upon by the patient.
--- NOTE | 2025-04-08 07:52 | OPREHPOC ---
Outpatient Therapy Plan of Care This is a Multidisciplinary Plan of Care that may contain components documented by all disciplines (PT, OT, and ST.) PT Problem 1 PT Problem #1 Knowledge Deficit PT Goal 1 Goal / Goal Update pt to be independent and compliant with HEP Target Visit 5 PT Problem 2 PT Problem #2 Impaired Strength PT Goal 1 Goal / Goal Update pt to have 5/5 strength in R LE Target Visit 12 PT Problem 3 PT Problem #3 Impaired Functional Mobility PT Goal 1 Goal / Goal Update Pt to report walking 3 miles with no higher than 3 /10 pain Pt to have 20% less on the LEFS Target Visit 12 PT Problem 4 PT Problem #4 Impaired Range of Motion PT Goal 1 Goal / Goal Update Pt to have at least 0-125 R knee AROM Target Visit 12
--- NOTE | 2025-04-08 07:53 | PCPTNOTE ---
On 04/07/25, the student, [Daniela Sun], provided care and completed [facility] documentation on this patient. I have reviewed the student's documentation and agree with the findings.
--- NOTE | 2025-04-12 17:41 | PCPTNOTE ---
On 04/12/25, the student, [Daniela Sun], provided care and completed [facility] documentation on this patient. I have reviewed the student's documentation and agree with the findings.
--- NOTE | 2025-04-14 17:48 | PCPTNOTE ---
Observed treatment performed on 04/14/25 by RUSS Lin. Reviewed documentation and is correct. LEONIDES MarquezT
--- NOTE | 2025-05-16 16:10 | OPREHPOC ---
Outpatient Therapy Plan of Care This is a Multidisciplinary Plan of Care that may contain components documented by all disciplines (PT, OT, and ST.) PT Problem 1 PT Problem #1 Knowledge Deficit PT Goal 1 Goal / Goal Update pt to be independent and compliant with HEP Target Visit 5 Progress Met PT Problem 2 PT Problem #2 Impaired Strength PT Goal 1 Goal / Goal Update pt to have 5/5 strength in R LE Target Visit 12 Progress Met PT Problem 3 PT Problem #3 Impaired Functional Mobility PT Goal 1 Goal / Goal Update Pt to report walking 3 miles with no higher than 3 /10 pain -not met, pt has not attempted Pt to have 20% less on the LEFS -not met Target Visit 12 Progress Not Met PT Problem 4 PT Problem #4 Impaired Range of Motion PT Goal 1 Goal / Goal Update Pt to have at least 0-125 R knee AROM Target Visit 12 Progress Met
--- NOTE | 2025-05-16 16:10 | PTOPDC ---
Assessment and note entered by Cristina Zee, PT Evaluation Information Assessment Status Discharge ICD-10 Condition Codes (PT) Pain in right knee M25.561 Other ICD-10 Condition Codes ( S80.911A PT) Onset 12/02/24 Subjective Information Irene reports her knee feels good today and it hasn't been bothering her much at all. She reports she did go to yoga over the weekend and had some pain with squatting and kneeling on the R knee but felt that the stretching overall was beneficial. She's is also beginning to transition to exercising at the gym after finishing PT. Reported Pain Level Pain Score 0: Self Report Assessment PT Clinical Summary Mrs. Lei has attended 12 skilled PT visits addressing R knee pain. Since beginning PT she notes reduction in her knee pain and only feels pain at the superior pole of the patella when squatting. She demonstrates improved knee strength and ROM and has met therapeutic goals addressing these deficits. Despite this progress pt is still frustrated with her knee pain persisting and it is recommended that she follow up with her doctor on additional pain relief measures. Pt is knowledgeable in her HEP and will be discharged from skilled PT this date. Plan of Care PT Services Indicated No
== END 2025-05-16 20:00 | disposition home or self-care (01) ==
LOC: CHSPT 15:08
DX: M25.561 Pain in right knee (principal); S80.911A Unspecified superficial injury of right knee, initial encounter
CPT/HCPCS: 97110; 97112; 97140; 97161; 97530

== ENCOUNTER 2025-04-15 14:51 | Outpatient (CLI) | payer OTHER, SELFPAY ==
[2025-04-15 15:48] LABS: Alanine Aminotransferase 106 U/L (6-35); Alkaline Phosphatase 154 U/L (38-126); Anion Gap 3 mmol/L (4-12); Aspartate Amino Transferase 37 U/L (14-36); Bilirubin,Total 0.4 mg/dL (0.2-1.3); Blood Urea Nitrogen 23 mg/dL (7-17); Calcium 9.2 mg/dL (8.4-10.2); Carbon Dioxide 30 mmol/L (22-30); Chloride 103 mmol/L (98-107); Estimated Glomerular Filt Rate > 60; Glucose 71 mg/dL (65-110); Osmolality Calculated 283 mOsm/kg (285-295); Potassium 4.7 mmol/L (3.4-5.0); Sodium 136 mmol/L (137-145); Total Protein 6.4 g/dL (6.3-8.2)
== END 2025-04-15 14:52 | disposition home or self-care (01) ==
PROVIDERS: PCP Internal Medicine; Visit Provider Internal Medicine
DX: R94.5 Abnormal results of liver function studies (principal)
CPT/HCPCS: 36415; 80053

== ENCOUNTER 2025-04-19 15:06 | Outpatient (CLI) | payer OTHER, SELFPAY ==
--- OUTSIDE RECORDS SUMMARY | 2025-04-19 15:13 | XMS_ITS | Encounter Summary ---
Author Organization [facility] Address [address] [place] [address] Care Team Providers Care Process Development Engineer Name Role Phone Ivette Clark NP Unavailable [phone] Scott Guerrero MD Unavailable Nerissa Hill MD Unavailable [phone] Lynette Ponce MD Primary Care Provider [phone] Bing Alvares MD Unavailable Lynette Ponce MD Primary Care Provider [phone] Encounter Details Date Type Department Care Team (Latest Contact Info) Description 05/07/2023 [employer] Message Enc [facility] Medical Group MultiSpecialty Care [facility] [address] [place] [address] [place], [facility] Provider provider's response Social History Tobacco [...] days 05/09/2023 1:53 PM CDT Dannielle Haynes, COW TESTER Active Feeling down, depressed, or hopeless More than half the days 05/09/2023 1:53 PM CDT Dannielle Haynes, COW TESTER Active Patient Health Questionnaire-2 Score 4 05/09/2023 1:53 PM CDT Dannielle Haynes, COW TESTER Active * Question Answer Date of Assessment Author Status Trouble falling or staying asleep, or sleeping too much Nearly every day 05/09/2023 1:53 PM CDT Dannielle Haynes, COW TESTER Active Feeling tired or having little energy Nearly every day 05/09/2023 1:53 PM CDT Dannielle Haynes, COW TESTER Active Poor appetite or overeating Nearly every day 05/09/2023 1:53 PM CDT Dannielle Haynes, COW TESTER Active Feeling bad about yourself - or that you are a failure or have let yourself or your family down More than half the days 05/09/2023 1:53 PM CDT Dannielle Haynes, COW TESTER Active Trouble concentrating on things, such as reading the newspaper or watching television More than half the days 05/09/2023 1:53 PM CDT Dannielle Haynes, COW TESTER Active Moving or speaking so slowly that other people could have noticed? Or the opposite - being so fidgety or restless that you have been moving around a lot more than usual. Not at all 05/09/2023 1:53 PM CDT Dannielle Haynes, COW TESTER Active Thoughts that you would be better off or hurting yourself in some way Not at all 05/09/2023 1:53 PM CDT Dannielle Haynes, COW TESTER Active Patient Health Questionnaire-9 Score 17 05/09/2023 1:53 PM CDT Dannielle Haynes, COW TESTER Active * If you checked off any problems on this questionnaire so far, Question Answer Date of Assessment Author Status How difficult have these problems made it for you to do your work, take care of things at home, or get along with other people? Somewhat difficult 05/09/2023 1:53 PM CDT Dannielle Haynes, COW TESTER Active * Over the last 2 weeks, how often have you been bothered by any of the following problems? Question Answer Date of Assessment Author Status Feeling nervous, anxious, or on edge 2 05/09/2023 1:58 PM CDT Dannielle Haynes, COW TESTER A ctive Not being able to stop or control worrying 2 05/09/2023 1:58 PM CDT Dannielle Haynes, COW TESTER Active Worrying too much about different things 2 05/09/2023 1:58 PM CDT Dannielle Haynes, COW TESTER Active Trouble relaxing 2 05/09/2023 1:58 PM CDT Dannielle Haynes, COW TESTER Active Being so restless that it is hard to sit still 2 05/09/2023 1:58 PM CDT Dannielle Haynes, COW TESTER Active Becoming easily annoyed or irritable 2 05/09/2023 1:58 PM CDT Dannielle Haynes, COW TESTER A ctive Feeling afraid as if something awful might happen 1 05/09/2023 1:58 PM CDT Dannielle Haynes, COW TESTER A ctive CHANADN-7 Total Score 13 05/09/2023 1:58 PM CDT Dannielle Hays, COW TESTER Active documented as of this encounter Plan of Treatment Upcoming Encounters Date Type Department Care Team (Late st Contact Info) Description 06/13/2025 10:45 AM CDT Office Visit [facility] [place] [address] Bing Alvares MD [address] [place], [place] [phone] documented as of this encounter Visit Diagnoses Not on filedocumented in this encounter Additional Health Concerns Assessment Noted Time PHQ-9 Depression Total Score: 0 12/12/19 22 4:08 PM EGG PROCESSING SUPERVISOR documented as of this encounter Care Teams Process Development Engineer Relationship Specialty Start Date End Date Lynette Ponce MD [address] [place] [address] PCP - General INTERNAL MEDICINE 03/08/24 03/16/24 Lynette Ponce MD [address] [place] [address] PCP - General 03/29/24 Ivette Clark NP [place] Incendiary Powder Mixer NURSE PRACTITIONER 02/09/19 03/25/24 Scott Guerrero MD Consulting Physician GASTROENTEROLOGY 03/04/19 Nerissa Hill MD [place] Incendiary Powder Mixer CARDIOVASCULAR DISEASE 03/17/19 03/25/24 Bing Alvares MD [address] [place] [address] Consulting Physician CARDIOVASCULAR DISEASE 03/22/24 documented as of this encounter
--- OUTSIDE RECORDS SUMMARY | 2025-04-19 15:13 | XMS_ITS | Encounter Summary ---
Author Organization [facility] Address [address] [place] [address] Care Team Providers Care Software Build Engineer Name Role Phone Ivette Clark NP Unavailable [phone] Scott Guerrero MD Unavailable Nerissa Hill MD Unavailable [phone] Carline Plummer [facility] Unavailable [phone] Lynette Ponce MD Primary Care Provider Bing Alvares MD Unavailable Lynette Ponce MD Primary Care Provider [phone] Encounter Details Date Type Department Care Team (Late st Contact Info) Description 12/09/[address] [employer] [address] [facility] Medical Group MultiSpecialty Care [facility] [address] [place] [address] Teri Mojica, [facility] [address] [place] [address] Other Social History Tobacco Use Types Packs/Day [...] 06/13/2025 10:45 AM CDT Office Visit [facility] [place] [address] Bing Alvares MD [address] [place] [address] documented as of this encounter Visit Diagnoses Not on filedocumented in this encounter Additional Health Concerns Infection Onset Date Last Indicated Resolved Time COVID-19 Rule Out 03/06/2020 03/03/2020 03/06/2020 9:26 AM CDT Assessment Noted Time PHQ-9 Depression Total Score: 19 019 4:41 PM CDT documented as of this encounter Care Teams Software Build Engineer Relationship Specialty Start Date End Date Lynette Ponce MD [address] [place] [address] PCP - General INTERNAL MEDICINE 03/08/24 03/16/24 Lynette Ponce MD [address] [place] [address] PCP - General 03/29/24 Ivette Clark NP [place] Game Designer NURSE PRACTITIONER 02/09/19 03/25/24 Scott Guerrero MD Consulting Physician GASTROENTEROLOGY 03/04/19 Nerissa Hill MD [place] Game Designer CARDIOVASCULAR DISEASE 03/17/19 03/25/24 Carline Plummer FNP-BC NURSE PRACTITIONER 12/22/20 02/28/22 Bing Alvares MD [address] [place] [address] Consulting Physician CARDIOVASCULAR DISEASE 03/22/24 documented as of this encounter
--- OUTSIDE RECORDS SUMMARY | 2025-04-19 15:13 | XMS_ITS | Encounter Summary ---
Author Organization [facility] Address [address] [place] [address] Care Team Providers Care Foot Gatherer Name Role Phone Ivette Clark NP Unavailable Fabian Palacios MD Unavailable Unavailable Scott Guerrero MD Unavailable Nerissa Hill MD Unavailable [phone] Carline Plummer [facility] Unavailable [phone] Lynette Ponce MD Primary Care Provider [phone] Bing Alvares MD Unavailable Lynette Ponce MD Primary Care Provider [phone] Encounter Details Date Type Department Care Team (Latest Contact Info) Description 09/14/2018 GenJuicet Message Enc [facility] MultiSpecialty [facility] [address] [place] [address] Melissa Watson, WELDING ROBOT OPERATOR [address] [address] Follow Up/Update Social History Tobacco [...] Description 06/13/2025 10:45 AM CDT Office Visit [facility] [address] [place] [address] Bing Alvares MD [address] [place] [address] documented as of this encounter Visit Diagnoses Not on filedocumented in this encounter Additional Health Concerns Infection Onset Date Last Indicated Resolved Time COVID-19 Rule Out 03/06/2020 03/03/2020 03/06/2020 9:26 AM CDT documented as of this encounter Care Teams Foot Gatherer Relationship Specialty Start Date End Date Lynette Ponce MD [address] [place] [address] PCP - General INTERNAL MEDICINE 03/08/24 03/16/24 Lynette Ponce MD [address] [place] [address] PCP - General 03/29/24 Ivette Clark NP [place] Test Analyst NURSE PRACTITIONER 02/09/19 03/25/24 Fabian Palacios MD [place] Test Analyst INTERVENTIONAL CARDIOLOGY 02/09/19 03/16/19 Scott Guerrero MD Consulting Physician GASTROENTEROLOGY 03/04/19 Nerissa Hill MD [place] Test Analyst CARDIOVASCULAR DISEASE 03/17/19 03/25/24 Carline Plummer FNP- NURSE PRACTITIONER 12/22/20 02/28/22 Bing Alvares MD [address] [place] [address] Consulting Physician CARDIOVASCULAR DISEASE 03/22/24 documented as of this encounter
--- OUTSIDE RECORDS SUMMARY | 2025-04-19 15:13 | XMS_ITS | Encounter Summary ---
Author Organization [facility] Address [address] [place] [address] Care Team Providers Care Indigo Mixer Name Role Phone Ivette Clark NP Unavailable [phone] Fabian Palacios MD Unavailable Unavailable Scott Guerrero MD Unavailable Nerissa Hill MD Unavailable [phone] Carline Plummer [facility] Unavailable [phone] Lynette Ponce MD Primary Care Provider [phone] Bing Alvares MD Unavailable Lynette Ponce MD Primary Care Provider [phone] Encounter Details Date Type Department Care Team ([facility] st Contact Info) Description 10/21/[address] [facility] Medical Group MultiSpecialty Care [facility] [address] [place] [address] Melissa Watson, SALES OFFICE ADMINISTRATOR [address] [address] Other Social History Tobacco Use [...] 10/22/2018 8:04 AM CST Please advise. Thanks. [facility] documented in this encounter Plan of Treatment Upcoming Encounters Date Type Department Care Team (Late st Contact Info) Description 06/13/2025 10:45 AM CDT Office Visit [facility] [address] [place] [address] Bing Alvares MD [address] [place] [address] documented as of this encounter Visit Diagnoses Not on filedocumented in this encounter Additional Health Concerns Infection Onset Date Last Indicated Resolved Time COVID-19 Rule Out 03/06/2020 03/03/2020 03/06/2020 9:26 AM CDT documented as of this encounter Care Teams Indigo Mixer Relationship Specialty Start Date End Date Lynette Ponce MD [address] [place] [address] PCP - General INTERNAL MEDICINE 03/08/24 03/16/24 Lynette Ponce MD [address] [place] [address] PCP - General 03/29/24 Ivette Clark NP [place] Operations Specialist NURSE PRACTITIONER 02/09/19 03/25/24 Fabian Palacios MD [place] Operations Specialist INTERVENTIONAL CARDIOLOGY 02/09/19 03/16/19 Scott Guerrero MD Consulting Physician GASTROENTEROLOGY 03/04/19 Nerissa Hill MD [place] Operations Specialist CARDIOVASCULAR DISEASE 03/17/19 03/25/24 Carline Plummer [facility] NURSE PRACTITIONER 12/22/20 02/28/22 Bing Alvares MD [address] [place] [address] Consulting Physician CARDIOVASCULAR DISEASE 03/22/24 documented as of this encounter
--- OUTSIDE RECORDS SUMMARY | 2025-04-19 15:13 | XMS_ITS | Encounter Summary ---
Author Organization [facility] Address [address] [place] [address] Care Team Providers Care Community Health Program Representative Name Role Phone Ivette Clark NP Unavailable [phone] Fabian Palacios MD Unavailable Unavailable Scott Guerrero MD Unavailable Nerissa Hill MD Unavailable [phone] Carline Plummer [facility] Unavailable [phone] Lynette Ponce MD Primary Care Provider [phone] Bing Alvares MD Unavailable Lynette Ponce MD Primary Care Provider [phone] Encounter Details Date Type Department Care Team ([facility] st Contact Info) Description 01/29/2019 MyChart Message Enc [facility] Medical Group MultiSpecialty Care [facility] [address] [place] [address] Melissa Watson, LANGUAGE PATHOLOGIST [address] [address] Other Social History Tobacco Use [...] Description 06/13/2025 10:45 AM CDT Office Visit [facility] [place] [address] Bing Alvares MD [address] [place] [address] documented as of this encounter Visit Diagnoses Not on filedocumented in this encounter Additional Health Concerns Infection Onset Date Last Indicated Resolved Time COVID-19 Rule Out 03/06/2020 03/03/2020 03/06/2020 9:26 AM CDT documented as of this encounter Care Teams Community Health Program Representative Relationship Specialty Start Date End Date Lynette Ponce MD [address] [place] [address] PCP - General INTERNAL MEDICINE 03/08/24 03/16/24 Lynette Ponce MD [address] [place] [address] PCP - General 03/29/24 Ivette Clark NP [place] Service Technician Copier NURSE PRACTITIONER 02/09/19 03/25/24 Fabian Palacios MD [place] Service Technician [place] INTERVENTIONAL CARDIOLOGY 02/09/19 03/16/19 Scott Guerrero MD Consulting Physician GASTROENTEROLOGY 03/04/19 Nerissa Hill MD [place] Service Technician [place] CARDIOVASCULAR DISEASE 03/17/19 03/25/24 Carline Plummer [facility] NURSE PRACTITIONER 12/22/20 02/28/22 Bing Alvares MD [address] [place] [address] Consulting Physician CARDIOVASCULAR DISEASE 03/22/24 documented as of this encounter
--- OUTSIDE RECORDS SUMMARY | 2025-04-19 15:13 | XMS_ITS | Encounter Summary ---
Author Organization [facility] Address [address] [place] [address] Care Team Providers Care Steam Tank Operator Name Role Phone Ivette Clark NP Unavailable [phone] Fabian Palacios MD Unavailable Unavailable Scott Guerrero MD Unavailable Nerissa Hill MD Unavailable [phone] Carline Plummer [facility] Unavailable [phone] Lynette Ponce MD Primary Care Provider [phone] Bing Alvares MD Unavailable Lynette Ponce MD Primary Care Provider [phone] Encounter Details Date Type Department Care Team (Latest Contact Info) Description 11/15/2018 MyChart Message Enc [facility] Medical Group MultiSpecialty [facility] [address] [place] [address] Melissa Watson, YOUTH PASTOR [address] [address] Medication Questions Social History Tobacco [...] Description 06/13/2025 10:45 AM CDT Office Visit [facility] [address] [place] [address] Bing Alvares MD [address] [place] [address] documented as of this encounter Visit Diagnoses Not on filedocumented in this encounter Additional Health Concerns Infection Onset Date Last Indicated Resolved Time COVID-19 Rule Out 03/06/2020 03/03/2020 03/06/2020 9:26 AM CDT documented as of this encounter Care Teams Steam Tank Operator Relationship Specialty Start Date End Date Lynette Ponce MD [address] [place] [address] PCP - General INTERNAL MEDICINE 03/08/24 03/16/24 Lynette Ponce MD [address] [place] [address] PCP - General 03/29/24 Ivette Clark NP [place] Group Activities Aide NURSE PRACTITIONER 02/09/19 03/25/24 Fabian Palacios MD [place] [employer] Activities Aide INTERVENTIONAL CARDIOLOGY 02/09/19 03/16/19 Scott Guerrero MD Consulting Physician GASTROENTEROLOGY 03/04/19 Nerissa Hill MD [place] Group Activities Aide CARDIOVASCULAR DISEASE 03/17/19 03/25/24 Carline Plummer FNP-BC NURSE PRACTITIONER 12/22/20 02/28/22 Bing Alvares MD [address] [place] [address] Consulting Physician CARDIOVASCULAR DISEASE 03/22/24 documented as of this encounter
--- OUTSIDE RECORDS SUMMARY | 2025-04-19 15:13 | XMS_ITS | Encounter Summary ---
Author Organization [facility] Address [address] [place] [address] Care Team Providers Care Blueprint Reader Name Role Phone Ivette Clark NP Unavailable [phone] Fabian Palacios MD Unavailable Unavailable Scott Guerrero MD Unavailable Nerissa Hill MD Unavailable [phone] Carline Plummer [facility] Unavailable [phone] Lynette Ponce MD Primary Care Provider [phone] Bing Alvares MD Unavailable Lynette Ponce MD Primary Care Provider [phone] Encounter Details Date Type Department Care Team ([facility] st Contact Info) Description 09/25/2018 MyChart Message Enc [facility] Medical Group MultiSpecialty Care [facility] [address] [place] [address] Melissa Watson, TON CONTAINER SHIPPER [address] [address] RE: Other Social History Tobacco [...] CST Medication is updated in patient's chart. ET LABEL REWINDER * Faith Chandler RN - 09/26/2018 8:27 AM CST Does this need any more follow up? Please advise ET LABEL REWINDER documented in this encounter Plan of Treatment Upcoming Encounters Date Type Department Care Team (Late st Contact Info) Description 06/13/2025 10:45 AM CDT Office Visit [facility] [place] [address] Bing Alvares MD [address] [place] [address] documented as of this encounter Visit Diagnoses Not on filedocumented in this encounter Additional Health Concerns Infection Onset Date Last Indicated Resolved Time COVID-19 Rule Out 03/06/2020 03/03/2020 03/06/2020 9:26 AM CDT documented as of this encounter Care Teams Blueprint Reader Relationship Specialty Start Date End Date Lynette Ponce MD [address] [place] [address] PCP - General INTERNAL MEDICINE 03/08/24 03/16/24 Lynette Ponce MD [address] [place] [address] PCP - General 03/29/24 Ivette Clark NP [place] Metal Roofing Mechanic NURSE PRACTITIONER 02/09/19 03/25/24 Fabian Palacios MD [place] Metal Roofing Mechanic INTERVENTIONAL CARDIOLOGY 02/09/19 03/16/19 Scott Guerrero MD Consulting Physician GASTROENTEROLOGY 03/04/19 Nerissa Hill MD [place] Metal Roofing Mechanic CARDIOVASCULAR DISEASE 03/17/19 03/25/24 Carline Plummer FNP-BC NURSE PRACTITIONER 12/22/20 02/28/22 Bing Alvares MD [address] [place] [address] Consulting Physician CARDIOVASCULAR DISEASE 03/22/24 documented as of this encounter
--- OUTSIDE RECORDS SUMMARY | 2025-04-19 15:13 | XMS_ITS | Clinical Summary ---
Author Organization [facility] Address [address] [place] [address] Care Team Providers Care Excel Analyst Name Role Phone Unavailable Primary Care Provider Unavailabl e Source Comments [facility],non-owned Affiliates and Associated Physician Practices is amultiple site organization consisting of ambulatory clinics and hospital sitesin [place], [place]. This disclosure is being madepursuant to the Care Everywhere program and may not contain all information available regarding this patient. Last updated 18.[facility] Social History Tobacco Use Types Packs/Day Years [...] Subscriber ID:Not on file (Home) Address: [address] [place] [address] Payer ID:Not on file Group ID:Not on file Type:Self Pay Address: [place], [place]
--- OUTSIDE RECORDS SUMMARY | 2025-04-19 15:13 | XMS_ITS | Encounter Summary ---
Author Organization [facility] Address [address] [place] [address] Care Team Providers Care Linux Kernel Developer Name Role Phone Ivette Clark NP Unavailable [phone] Scott Guerrero MD Unavailable Nerissa Hill MD Unavailable [phone] Carline Plummer [facility] Unavailable [phone] Lynette Ponce MD Primary Care Provider [phone] Bing Alvares MD Unavailable Lynette Ponce MD Primary Care Provider [phone] Encounter Details Date Type Department Care Team (Late st Contact Info) Description 06/24/2020 Peregrine Diamonds Message Enc [facility] Medical Group MultiSpecialty Care [facility] [address] [place] [address] Teri Mojica, [facility] [address] [place] [address] Test Results Social History Tobacco Use Types [...] Description 06/13/2025 10:45 AM CDT Office Visit [facility] [place] [address] Bing Alvares MD [address] [place] [address] documented as of this encounter Visit Diagnoses Not on filedocumented in this encounter Additional Health Concerns Assessment Noted Time PHQ-9 Depression Total Score: 19 019 4:41 PM CDT documented as of this encounter Care Teams Linux Kernel Developer Relationship Specialty Start Date End Date Lynette Ponce MD [address] [place] [address] PCP - General INTERNAL MEDICINE 03/08/24 03/16/24 Lynette Ponce MD [address] [place] [address] PCP - General 03/29/24 Ivette Clark NP [place] Professor Of Early Childhood Education NURSE PRACTITIONER 02/09/19 03/25/24 Scott Guerrero MD Consulting Physician GASTROENTEROLOGY 03/04/19 Nerissa Hill MD [place] Professor Of Early Childhood Education CARDIOVASCULAR DISEASE 03/17/19 03/25/24 Carline Plummer [facility] NUR[facility] PRACTITIONER 12/22/20 02/28/22 Bing Alvares MD [address] [place] [address] Consulting Physician CARDIOVASCULAR DISEASE 03/22/24 documented as of this encounter
--- OUTSIDE RECORDS SUMMARY | 2025-04-19 15:13 | XMS_ITS | Encounter Summary ---
Author Organization [facility] Address [address] [place] [address] Care Team Providers Care Observer Electrical Prospecting Name Role Phone Ivette Clark NP Unavailable [phone] Scott Guerrero MD Unavailable Nerissa Hill MD Unavailable [phone] Carline Plummer [facility] Unavailable [phone] Lynette Ponce MD Primary Care Provider [phone] Bing Alvares MD Unavailable Lynette Ponce MD Primary Care Provider [phone] Encounter Details Date Type Department Care Team (Late st Contact Info) Description 01/09/2021 MyChart Message Enc [facility] Medical Group MultiSpecialty Care [facility] [address] [place] [address] Teri Mojica, [facility] [address] [place] [address] Test Results Social History Tobacco Use Types [...] Description 06/13/2025 10:45 AM CDT Office Visit [facility] [place] [address] Bing Alvares MD [address] [place] [address] documented as of this encounter Visit Diagnoses Not on filedocumented in this encounter Additional Health Concerns Assessment Noted Time PHQ-9 Depression Total Score: 13 021 11:47 AM COMPUTER EQUIPMENT INSTALLER documented as of this encounter Care Teams Observer Electrical Prospecting Relationship Specialty Start Date End Date Lynette Ponce MD [address] [place] [address] PCP - General INTERNAL MEDICINE 03/08/24 03/16/24 Lynette Ponce MD [address] [place] [address] PCP - General 03/29/24 Ivette Clark NP [place] Data Services Developer NURSE PRACTITIONER 02/09/19 03/25/24 Scott Guerrero MD Consulting Physician GASTROENTEROLOGY 03/04/19 Nerissa Hill MD [place] Data Services Developer CARDIOVASCULAR DISEASE 03/17/19 03/25/24 Carline Plummer [facility] NURSE PRACTITIONER 12/22/20 02/28/22 Bing Alvares MD [address] [place] [address] Consulting Physician CARDIOVASCULAR DISEASE 03/22/24 documented as of this encounter
--- OUTSIDE RECORDS SUMMARY | 2025-04-19 15:13 | XMS_ITS | Encounter Summary ---
Author Organization [facility] Address [facility] [place] [address] Care Team Providers Care Senior Storage Engineer Name Role Phone MimirohitIvette NP Unavailable [phone] Fabian Palacios MD Unavailable Unavailable Scott Guerrero MD Unavailable Nerissa Hill MD Unavailable [phone] Carline Plummer [facility] Unavailable [phone] Lynette Ponce MD Primary Care Provider [phone] Bing Alvares MD Unavailable Lynette Ponce MD Primary Care Provider [phone] Encounter Details Date Type Department Care Team (Latest Contact Info) Description 07/13/2018 Abstract [facility] Medical Group Sri Russ MD Social [...] Description 06/13/2025 10:45 AM CDT Office Visit [facility] [place] [address] Bing Alvares MD [address] [place] [address] documented as of this encounter Visit Diagnoses Not on filedocumented in this encounter Additional Health Concerns Infection Onset Date Last Indicated Resolved Time COVID-19 Rule Out 03/06/2020 03/03/2020 03/06/2020 9:26 AM CDT documented as of this encounter Care Teams Senior Storage Engineer Relationship Specialty Start Date End Date Lynette Ponce MD [address] [place] [address] PCP - General INTERNAL MEDICINE 03/08/24 03/16/24 Lynette Ponce MD [address] [place] [address] PCP - General 03/29/24 Ivette Clark NP [place] Raw Products Director NURSE PRACTITIONER 02/09/19 03/25/24 Fabian Palacios MD [place] Raw Products Director INTERVENTIONAL CARDIOLOGY 02/09/19 03/16/19 Scott Guerrero MD Consulting Physician GASTROENTEROLOGY 03/04/19 Nerissa Hill MD [place] Raw Products Director CARDIOVASCULAR DISEASE 03/17/19 03/25/24 Carline Plummer FNP-BC NURSE PRACTITIONER 12/22/20 02/28/22 Bing Alvares MD [address] [place] [address] Consulting Physician CARDIOVASCULAR DISEASE 03/22/24 documented as of this encounter
--- OUTSIDE RECORDS SUMMARY | 2025-04-19 15:13 | XMS_ITS | Encounter Summary ---
Author Organization [facility] Address [address] [place] [address] Care Team Providers Care Automatic Shirring Machine Operator Name Role Phone Ivette Clark NP Unavailable [phone] Scott Guerrero MD Unavailable Nerissa Hill MD Unavailable [phone] Lynette Ponce MD Primary Care Provider [phone] Bing Alvares MD Unavailable Lynette Ponce MD Primary Care Provider [phone] Encounter Details Date Type Department Care Team (Latest Contact Info) Description 12/13/2022 Emulation and Verification Engineering Message Enc [facility] Medical Group MultiSpecialty Care [facility] [address] [place] [address] [facility] Provider provider's result note Social [...] Coronavirus/COVID-19? No / Unsure 12/12/2022 9:13 AM AUTO ROLLER documented as of this encounter Plan of Treatment Upcoming Encounters Date Type Department Care Team (Late st Contact Info) Description 06/13/2025 10:45 AM CDT Office Visit [facility] [place] [address] Bing Alvares MD [address] [place] [address] documented as of this encounter Visit Diagnoses Not on filedocumented in this encounter Additional Health Concerns Assessment Noted Time PHQ-9 Depression Total Score: 0 12/12/19 4:08 PM AUTO ROLLER documented as of this encounter Care Teams Automatic Shirring Machine Operator Relationship Specialty Start Date End Date Lynette Ponce MD [address] [place] [address] PCP - General INTERNAL MEDICINE 03/08/24 03/16/24 Lynette Ponce MD [address] [place] [address] PCP - General 03/29/24 Ivette Clark NP [place] Hyperbaric Welder Diver NURSE PRACTITIONER 02/09/19 03/25/24 Scott Guerrero MD Consulting Physician GASTROENTEROLOGY 03/04/19 Nerissa Hill MD [place] Hyperbaric Welder Diver CARDIOVASCULAR DISEASE 03/17/19 03/25/24 Bing Alvares MD [address] [place] [address] Consulting Physician CARDIOVASCULAR DISEASE 03/22/24 documented as of this encounter
--- OUTSIDE RECORDS SUMMARY | 2025-04-19 15:13 | XMS_ITS | Encounter Summary ---
Author Organization [facility] Address [address] [place] [address] Care Team Providers Care Carton Marker Machine Name Role Phone Ivette Clark NP Unavailable [phone] Scott Guerrero MD Unavailable Nerissa Hill MD Unavailable [phone] Carline Plummer [facility] Unavailable [phone] Lynette Ponce MD Primary Care Provider [phone] Bing Alvares MD Unavailable Lynette Ponce MD Primary Care Provider [phone] Reason for Visit * Reason Onset Date Comments Prior Authorization 08/17/2019 Encounter Details Date Type Department Care Team (Latest Contact Info) Description 08/17/2019 [place] Message [facility] Medical Group MultiSpecialty Care [address] [address] Teri Mojica, [facility] [address] [place] [address] Medication Questions Social History Tobacco [...] [employer]. 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 Pharmacy faxed request last Friday08/18/19 RUBBER documented in this encounter Plan of Treatment Upcoming Encounters Date Type Department Care Team (Late st Contact Info) Description 06/13/2025 10:45 AM CDT Office Visit [facility] [address] [place] [address] Bing Alvares MD [address] [place] [address] documented as of this encounter Visit Diagnoses Not on filedocumented in this encounter Additional Health Concerns Infection Onset Date Last Indicated Resolved Time COVID-19 Rule Out 03/06/2020 03/03/2020 03/06/2020 9:26 AM CDT Assessment Noted Time PHQ-9 Depression Total Score: 19 019 4:41 PM CDT documented as of this encounter Care Teams Carton Marker Machine Relationship Specialty Start Date End Date Lynette Ponce MD [address] [place] [address] PCP - General INTERNAL MEDICINE 03/08/24 03/16/24 Lynette Ponce MD [address] [place] [address] PCP - General 03/29/24 Ivette Clark NP [place] Cosmetic Account Coordinator NURSE PRACTITIONER 02/09/19 03/25/24 Scott Guerrero MD Consulting Physician GASTROENTEROLOGY 03/04/19 Nerissa Hill MD [place] Cosmetic Account Coordinator CARDIOVASCULAR DISEASE 03/17/19 03/25/24 [facility] 12/22/20 02/28/22 Bing Alvares MD [address] [place] [address] Consulting Physician CARDIOVASCULAR DISEASE 03/22/24 documented as of this encounter
--- OUTSIDE RECORDS SUMMARY | 2025-04-19 15:13 | XMS_ITS | Clinical Summary ---
Author Organization [facility] Address Formerly [facility] [place] [address] Care Team Providers Care Deployment Manager Name Role Phone Scott Guerrero MD Unavailable Bing Alvares MD Unavailable Lynette Ponce MD Primary Care Provider [phone] Allergies Active Allergy Reactions Criticality Noted Date [...] (Generic) 08/17/2023,07/26/2022, 07/20/2019 MMR 02/23/2009 MODERNA COVID-19 (AUTO RENTAL SUPERVISOR DENNIS JOAQUINA), MRNA, LNP-S, PF, 50 [...] 36.6 C (97.9 F) 10/07/2023 8:34 AM MANAGEMENT COORDINATOR Respiratory Rate 12 05/31/2024 2:35 PM CDT [...] Description 06/13/2025 10:45 AM CDT Office Visit [facility] [place] [address] Bing Alvares MD [address] [place] [address] Health Maintenance Due Date Last Done Comments Colorectal Cancer Screening Colonoscopy (10 Years) 1966 Mammogram Screening 2006 Pneumococcal Vaccine: 50+ Years (1 of 1 - PCV) 2016 Zoster Vaccines (1 of 2) 08/07/2021 Annual Physical 03/02/2022 03/02/2021 COVID-19 Vaccine (2023-2 5 season) 2024 07/26/2022, 05/09/2022, 03/23/2021 PHQ-2 (Physician Mentasta) 10/20/2024 10/07/2023 DTaP, Tdap and Td Vaccines [...] this topic Medical Devices Implanted Type Area Audio Visual Facilities Engineer Device Identifier Shelf Expiration Date Model / Serial / Lot Wire Abhilash Magic Pins Orthofix 1.2 X 7mm - [id number] Implanted:Qty: 1 on 09/23/2018 by Tressa Traylor DPM at [facility] Malka Left: Foot ORTHOFIX [id number] / / N/A Description:Verified by MD Concetta Cox 2 Mini 20.0mm - [id number] Implanted:Qty: 1 on 09/23/2018 by Tressa Traylor DPM at [facility] Left: Foot [employer] 05/20/2025 AT2-M20-S / / [id number] Description:Verified by Wire Abhilash Magic Pins Orthofix 1.6 X 17 - [id number] Implanted:Qty: 1 on 09/23/2018 by Tressa Traylor DPM at [facility] Left: Foot ORTHOFIX [id number] / / N/A Description:Verified by Wire Abhilash Magic Pins Orthofix 1.6 X 11 - [id number] Implanted:Qty: 1 on 01/20/2019 by Tressa Traylor DPM at [facility] Right: Foot ORTHOFIX [id number] / / N/A Description:Verified by MD Concetta Castroutrak 2 Mini 18.0mm - [id number] Implanted:Qty: 1 on 01/20/2019 by Tressa Traylor DPM at [facility] Right: Foot [employer] 08/03/2025 AT2-M18 / / [id number] Description:Verified by Wire Abhilash Magic Pins Orthofix 1.6 X 17 - [id number] Implanted:Qty: 1 on 01/20/2019 by Tressa Traylor DPM at [facility] Right: Foot ORTHOFIX [id number] / / N/A Description:Verified by Explanted Type Area Audio Visual Facilities Engineer Device Identifier Shelf Expiration Date Model / Serial / Lot .045mm Mini Guidewire Explanted:Qty: 2 on 09/23/2018 by Tressa Traylor DPM at [facility] Left: Foot [id number] / / N/A Description:Used not implant ed Sm Cannulated Drill Tip Explanted:Qty: 1 on 09/23/2018 by Tressa Traylor DPM at [facility] Left: Foot [id number] / / N/A Description:Used not implant ed K Wire Lionel 6 In X .045 In - [id number] Explanted:Qty: 1 on 01/20/2019 by Tressa Traylor DPM at [facility] Right: Foot [employer] 05/19/2028 [id number] / / [id number] Description:Used not implant ed .045 Mini Guidewire Explanted:Qty: 1 on 01/20/2019 by Tressa Traylor DPM at [facility] Right: Foot [id number] / / N/A Description:Used not implant [id number] Mini Drill Tip Explanted:Qty: 1 on 01/20/2019 by Tressa Traylor DPM at [facility] Right: Foot [id number] / / N/A Description:Used not implant ed Advance Directives Documents on File Type Date Recorded Patient Bedspread Cutter Hand Expl anation Advance Directives and Living Will 04/04/2015 12:00 AM ADVANCED DIRECTIVES Advance Directives and Living Will 02/09/2015 12:00 AM ADVANCED DIRECTIVES Advance Directives and Living Will 03/08/2013 12:00 AM ADVANCED DIRECTIVES Advance Directives and Living Will 06/30/2012 12:00 AM ADVANCED DIRECTIVES Care Teams Deployment Manager Relationship Specialty Start Date End Date Lynette Ponce MD [address] [place] [address] PCP - General 03/29/24 Scott Guerrero MD Consulting Physician GASTROENTEROLOGY 03/04/19 Bing Alvares MD [address] [place] [address] Consulting Physician CARDIOVASCULAR DISEASE 03/22/24
--- OUTSIDE RECORDS SUMMARY | 2025-04-19 15:13 | XMS_ITS | Encounter Summary ---
Author Organization [facility] Address [address] [place] [address] Care Team Providers Care Casey Saw Operator Name Role Phone Ivette Clark NP Unavailable [phone] Scott Guerrero MD Unavailable Nerissa Hill MD Unavailable [phone] Carline Plummer [facility] Unavailable [phone] Lynette Ponce MD Primary Care Provider [phone] Bing Alvares MD Unavailable Lynette Ponce MD Primary Care Provider [phone] Encounter Details Date Type Department Care Team (Latest Contact Info) Description 04/27/2019 [employer] Message Enc [facility] [address] [place] [address] Melissa Watson, PROJECT TECHNICIAN [address] [address] RE: Medication Questions Social History [...] Description 06/13/2025 10:45 AM CDT Office Visit [facility] [place] [address] Bing Alvares MD [address] [place] [address] documented as of this encounter Visit Diagnoses Not on filedocumented in this encounter Additional Health Concerns Infection Onset Date Last Indicated Resolved Time COVID-19 Rule Out 03/06/2020 03/03/2020 03/06/2020 9:26 AM CDT documented as of this encounter Care Teams Casey Saw Operator Relationship Specialty Start Date End Date Lnyette Ponce MD [address] [place] [address] PCP - General INTERNAL MEDICINE 03/08/24 03/16/24 Lynette Ponce MD [address] [place] [address] PCP - General 03/29/24 Ivette Clark NP [place] Saddle Maker NURSE PRACTITIONER 02/09/19 03/25/24 Scott Guerrero MD Consulting Physician GASTROENTEROLOGY 03/04/19 Nerissa Hill MD [place] Saddle Maker CARDIOVASCULAR DISEASE 03/17/19 03/25/24 Carline Plummer FNP-BC NURSE PRACTITIONER 12/22/20 02/28/22 Bing Alvares MD [address] [place] [address] Consulting Physician CARDIOVASCULAR DISEASE 03/22/24 documented as of this encounter
[2025-04-19 15:37] LABS: Iron 57 ug/dL (37-170)
[2025-04-19 15:46] LABS: Percent Iron Saturation 16 % (20-50)
[2025-04-20 15:39] LABS: Immunoglobulin A 210 mg/dL (47-310)
== END 2025-04-19 15:07 | disposition home or self-care (01) ==
PROVIDERS: PCP Internal Medicine
DX: R74.01 Elevation of levels of liver transaminase levels (principal)
CPT/HCPCS: 36415; 82784; 83540; 83550; 86364

== ENCOUNTER 2025-04-21 16:05 | Outpatient (CLI) | payer OTHER, SELFPAY ==
--- OUTSIDE RECORDS SUMMARY | 2025-04-21 16:09 | XMS_ITS | Encounter Summary ---
Author Organization [facility] Address [facility] [place] [address] Care Team Providers Care Woodyard Crane Operator Name Role Phone MimirohitIvette NP Unavailable [phone] Fabian Palacios MD Unavailable Unavailable Scott Guerrero MD Unavailable Nerissa Hill MD Unavailable [phone] [facility] Unavailable [phone] Lynette Ponce MD Primary Care Provider [phone] Bing Alvares MD Unavailable Lynette Ponce MD Primary Care Provider [phone] Encounter Details Date Type Department Care Team (Latest Contact Info) Description 07/13/2018 Abstract [facility] Medical Group Sri Russ MD Social [...] Description 06/13/2025 10:45 AM CDT Office Visit [facility] [place] [address] Bing Alvares MD [address] [place] [address] documented as of this encounter Visit Diagnoses Not on filedocumented in this encounter Additional Health Concerns Infection Onset Date Last Indicated Resolved Time COVID-19 Rule Out 03/06/2020 03/03/2020 03/06/2020 9:26 AM CDT documented as of this encounter Care Teams Woodyard Crane Operator Relationship Specialty Start Date End Date Lynette Ponce MD [address] [place] [address] PCP - General INTERNAL MEDICINE 03/08/24 03/16/24 Lynette Ponce MD [address] [place] [address] PCP - General 03/29/24 Ivette Clark NP [place] Medical Superintendent NURSE PRACTITIONER 02/09/19 03/25/24 Fabian Palacios MD [place] Medical Superintendent INTERVENTIONAL CARDIOLOGY 02/09/19 03/16/19 Scott Guerrero MD Consulting Physician GASTROENTEROLOGY 03/04/19 Nerissa Hill MD [place] Medical Superintendent CARDIOVASCULAR DISEASE 03/17/19 03/25/24 Carline Plummer FNP-BC NURSE PRACTITIONER 12/22/20 02/28/22 Bing Alvares MD [address] [place] [address] Consulting Physician CARDIOVASCULAR DISEASE 03/22/24 documented as of this encounter
--- OUTSIDE RECORDS SUMMARY | 2025-04-21 16:09 | XMS_ITS | Encounter Summary ---
Author Organization [facility] Address [address] [place] [address] Care Team Providers Care Piece Dye Worker Name Role Phone Ivette Clark NP Unavailable [phone] Scott Guerrero MD Unavailable Nerissa Hill MD Unavailable [phone] Lynette Ponce MD Primary Care Provider [phone] Bing Alvares MD Unavailable Lynette Ponce MD Primary Care Provider [phone] Encounter Details Date Type Department Care Team (Latest Contact Info) Description 12/13/2022 Incentive Message Enc [facility] Medical Group MultiSpecialty Care [facility] [address] [place] [id number] [facility] Provider provider's result note Social [...] Coronavirus/COVID-19? No / Unsure 12/12/2022 9:13 AM OFFENDER JOB RETENTION SPECIALIST documented as of this encounter Plan of Treatment Upcoming Encounters Date Type Department Care Team (Late st Contact Info) Description 06/13/2025 10:45 AM CDT Office Visit [facility] [place] [address] Bing Alvares MD [address] [place] [address] documented as of this encounter Visit Diagnoses Not on filedocumented in this encounter Additional Health Concerns Assessment Noted Time PHQ-9 Depression Total Score: 0 12/12/19 4:08 PM OFFENDER JOB RETENTION SPECIALIST documented as of this encounter Care Teams Piece Dye Worker Relationship Specialty Start Date End Date Lynette Ponce MD [address] [place] [address] PCP - General INTERNAL MEDICINE 03/08/24 03/16/24 Lynette Ponce MD [address] [place] [address] PCP - General 03/29/24 Ivette Clark NP [place] Outside Maintenance Worker NURSE PRACTITIONER 02/09/19 03/25/24 Scott Guerrero MD Consulting Physician GASTROENTEROLOGY 03/04/19 Nerissa Hill MD [place] Outside Maintenance Worker CARDIOVASCULAR DISEASE 03/17/19 03/25/24 Bing Alvares MD [address] [place] [address] Consulting Physician CARDIOVASCULAR DISEASE 03/22/24 documented as of this encounter
--- OUTSIDE RECORDS SUMMARY | 2025-04-21 16:09 | XMS_ITS | Encounter Summary ---
Author Organization [facility] Address [address] [place] [address] Care Team Providers Care Upholsterer Inside Name Role Phone Ivette Clark NP Unavailable [phone] Fabian Palacios MD Unavailable Unavailable Scott Guerrero MD Unavailable Nerissa Hill MD Unavailable [phone] Carline Plummer [facility] Unavailable [phone] Lynette Ponce MD Primary Care Provider [phone] Bing Alvares MD Unavailable Lynette Ponce MD Primary Care Provider [phone] Encounter Details Date Type Department Care Team (Latest Contact Info) Description 11/15/2018 MyChart Message Enc [facility] Medical Group MultiSpecialty [facility] [address] [place] [address] Melissa Watson, RADIO ELECTRONICS OFFICER [address] [address] Medication Questions Social History Tobacco [...] Description 06/13/2025 10:45 AM CDT Office Visit [facility] [address] [place] [address] Bing Alvares MD [address] [place] [address] documented as of this encounter Visit Diagnoses Not on filedocumented in this encounter Additional Health Concerns Infection Onset Date Last Indicated Resolved Time COVID-19 Rule Out 03/06/2020 03/03/2020 03/06/2020 9:26 AM CDT documented as of this encounter Care Teams Upholsterer Inside Relationship Specialty Start Date End Date Lynette Ponce MD [address] [place] [address] PCP - General INTERNAL MEDICINE 03/08/24 03/16/24 Lynette Ponce MD [address] [place] [address] PCP - General 03/29/24 Ivette Clark NP [place] Phytopathologist NURSE PRACTITIONER 02/09/19 03/25/24 Fabian Palacios MD [place] Phytopathologist INTERVENTIONAL CARDIOLOGY 02/09/19 03/16/19 Scott Guerrero MD Consulting Physician GASTROENTEROLOGY 03/04/19 Nerissa Hill MD [place] Phytopathologist CARDIOVASCULAR DISEASE 03/17/19 03/25/24 Carline Plummer FNP-BC NURSE PRACTITIONER 12/22/20 02/28/22 Bing Alvares MD [address] [place] [address] Consulting Physician CARDIOVASCULAR DISEASE 03/22/24 documented as of this encounter
--- OUTSIDE RECORDS SUMMARY | 2025-04-21 16:09 | XMS_ITS | Encounter Summary ---
Author Organization [facility] Address [address] [place] [address] Care Team Providers Care Instrument And Control Technician Name Role Phone Ivette Clark NP Unavailable [phone] Fabian Palacios MD Unavailable Unavailable Scott Guerrero MD Unavailable Nerissa Hill MD Unavailable [phone] Carline Plummer [facility] Unavailable [phone] Lynette Ponce MD Primary Care Provider [phone] Bing Alvares MD Unavailable Lynette Ponce MD Primary Care Provider [phone] Encounter Details Date Type Department Care Team (Latest Contact Info) Description 09/14/2018 [employer] Message Enc [facility] Medical [facility] [address] [place] [address] Melissa Watson, PARQUET FLOOR LAYER'S HELPER [address] [address] Follow Up/Update Social History Tobacco [...] Description 06/13/2025 10:45 AM CDT Office Visit [facility] [address] [place] [address] Bing Alvares MD [address] [place] [address] documented as of this encounter Visit Diagnoses Not on filedocumented in this encounter Additional Health Concerns Infection Onset Date Last Indicated Resolved Time COVID-19 Rule Out 03/06/2020 03/03/2020 03/06/2020 9:26 AM CDT documented as of this encounter Care Teams Instrument And Control Technician Relationship Specialty Start Date End Date Lynette Ponce MD [address] [place] [address] PCP - General INTERNAL MEDICINE 03/08/24 03/16/24 Lynette Ponce MD [address] [place] [address] PCP - General 03/29/24 Ivette Clark NP [place] Paediatrician NURSE PRACTITIONER 02/09/19 03/25/24 Fabian Palacios MD [place] Paediatrician INTERVENTIONAL CARDIOLOGY 02/09/19 03/16/19 Scott Guerrero MD Consulting Physician GASTROENTEROLOGY 03/04/19 Nerissa Hill MD [place] Paediatrician CARDIOVASCULAR DISEASE 03/17/19 03/25/24 Carline Plummer FNP- NURSE PRACTITIONER 12/22/20 02/28/22 Bing Alvares MD [address] [place] [address] Consulting Physician CARDIOVASCULAR DISEASE 03/22/24 documented as of this encounter
--- OUTSIDE RECORDS SUMMARY | 2025-04-21 16:09 | XMS_ITS | Encounter Summary ---
Author Organization [facility] Address [address] [place] [address] Care Team Providers Care Electronic Induction Hardener Name Role Phone Ivette Clark NP Unavailable [phone] Scott Guerrero MD Unavailable Nerissa Hill MD Unavailable [phone] Lynette Ponce MD Primary Care Provider [phone] Bing Alvares MD Unavailable Lynette Ponce MD Primary Care Provider [phone] Encounter Details Date Type Department Care Team (Latest Contact Info) Description 05/07/2023 [employer] Message Enc [facility] Medical Group MultiSpecialty Care [facility] [address] [place] [address] [place], [facility] Provider provider's response Social History Tobacco Use [...] days 05/09/2023 1:53 PM CDT Dannielle Haynes, SOLDER CREAM MAKER Active Feeling down, depressed, or hopeless More than half the days 05/09/2023 1:53 PM CDT Dannielle Haynes, SOLDER CREAM MAKER Active Patient Health Questionnaire-2 Score 4 05/09/2023 1:53 PM CDT Dannielle Haynes, SOLDER CREAM MAKER Active * Question Answer Date of Assessment Author Status Trouble falling or staying asleep, or sleeping too much Nearly every day 05/09/2023 1:53 PM CDT Dannielle Haynes, SOLDER CREAM MAKER Active Feeling tired or having little energy Nearly every day 05/09/2023 1:53 PM CDT Dannielle Haynes, SOLDER CREAM MAKER Active Poor appetite or overeating Nearly every day 05/09/2023 1:53 PM CDT Dannielle Haynes, SOLDER CREAM MAKER Active Feeling bad about yourself - or that you are a failure or have let yourself or your family down More than half the days 05/09/2023 1:53 PM CDT Dannielle Haynes, SOLDER CREAM MAKER Active Trouble concentrating on things, such as reading the newspaper or watching television More than half the days 05/09/2023 1:53 PM CDT Dannielle Haynes, SOLDER CREAM MAKER Active Moving or speaking so slowly that other people could have noticed? Or the opposite - being so fidgety or restless that you have been moving around a lot more than usual. Not at all 05/09/2023 1:53 PM CDT Dannielle Haynes, SOLDER CREAM MAKER Active Thoughts that you would be better off or hurting yourself in some way Not at all 05/09/2023 1:53 PM CDT Dannielle Haynes, SOLDER CREAM MAKER Active Patient Health Questionnaire-9 Score 17 05/09/2023 1:53 PM CDT Dannielle Haynes, SOLDER CREAM MAKER Active * If you checked off any problems on this questionnaire so far, Question Answer Date of Assessment Author Status How difficult have these problems made it for you to do your work, take care of things at home, or get along with other people? Somewhat difficult 05/09/2023 1:53 PM CDT Dannielle Haynes, SOLDER CREAM MAKER Active * Over the last 2 weeks, how often have you been bothered by any of the following problems? Question Answer Date of Assessment Author Status Feeling nervous, anxious, or on edge 2 05/09/2023 1:58 PM CDT Dannielle Haynes, SOLDER CREAM MAKER A ctive Not being able to stop or control worrying 2 05/09/2023 1:58 PM CDT Dannielle Haynes, SOLDER CREAM MAKER Active Worrying too much about different things 2 05/09/2023 1:58 PM CDT Dannielle Haynes, SOLDER CREAM MAKER Active Trouble relaxing 2 05/09/2023 1:58 PM CDT Dannielle Haynes, SOLDER CREAM MAKER Active Being so restless that it is hard to sit still 2 05/09/2023 1:58 PM CDT Dannielle Haynes, SOLDER CREAM MAKER Active Becoming easily annoyed or irritable 2 05/09/2023 1:58 PM CDT Dannielle Haynes, SOLDER CREAM MAKER A ctive Feeling afraid as if something awful might happen 1 05/09/2023 1:58 PM CDT Dannielle Haynes, SOLDER CREAM MAKER A ctive CHANDAN-7 Total Score 13 05/09/2023 1:58 PM CDT Dannielle Hays, SOLDER CREAM MAKER Active documented as of this encounter Plan of Treatment Upcoming Encounters Date Type Department Care Team (Late st Contact Info) Description 06/13/2025 10:45 AM CDT Office Visit [facility] [place] [address] Bing Alvares MD [address] [place], [place] [id number] documented as of this encounter Visit Diagnoses Not on filedocumented in this encounter Additional Health Concerns Assessment Noted Time PHQ-9 Depression Total Score: 0 12/12/19 22 4:08 PM PINBALL MACHINE REPAIRER documented as of this encounter Care Teams Electronic Induction Hardener Relationship Specialty Start Date End Date Lynette Ponce MD [address] [place] [address] PCP - General INTERNAL MEDICINE 03/08/24 03/16/24 Lynette Ponce MD [address] [place] [address] PCP - General 03/29/24 Ivette Clark NP [place] Rejoiner NURSE PRACTITIONER 02/09/19 03/25/24 Scott Guerrero MD Consulting Physician GASTROENTEROLOGY 03/04/19 Nerissa Hill MD [place] Rejoiner CARDIOVASCULAR DISEASE 03/17/19 03/25/24 Bing Alvares MD [address] [place] [address] Consulting Physician CARDIOVASCULAR DISEASE 03/22/24 documented as of this encounter
--- OUTSIDE RECORDS SUMMARY | 2025-04-21 16:09 | XMS_ITS | Encounter Summary ---
Author Organization [facility] Address [address] [place] [address] Care Team Providers Care It Business Analyst Name Role Phone Ivette Clark NP Unavailable Fabian Palacios MD Unavailable Unavailable Scott Guerrero MD Unavailable Nerissa Hill MD Unavailable [phone] Carline Plummer [facility] Unavailable [phone] Lynette Ponce MD Primary Care Provider [phone] Bing Alvares MD Unavailable Lynette Ponce MD Primary Care Provider [phone] Encounter Details Date Type Department Care Team ([facility] st Contact Info) Description 01/29/2019 MyChart Message Enc [facility] Medical Group MultiSpecialty Care [facility] [address] [place] [address] Melissa Watson, HEALTH PROFESSIONAL [address] [address] Other Social History Tobacco Use [...] Description 06/13/2025 10:45 AM CDT Office Visit [facility] [place] [address] Bing Alvares MD [address] [place] [address] documented as of this encounter Visit Diagnoses Not on filedocumented in this encounter Additional Health Concerns Infection Onset Date Last Indicated Resolved Time COVID-19 Rule Out 03/06/2020 03/03/2020 03/06/2020 9:26 AM CDT documented as of this encounter Care Teams It Business Analyst Relationship Specialty Start Date End Date Lynette Ponce MD [address] [place] [address] PCP - General INTERNAL MEDICINE 03/08/24 03/16/24 Lynette Ponce MD [address] [place] [address] PCP - General 03/29/24 Ivette Clark NP [place] [employer] Safety Professor NURSE PRACTITIONER 02/09/19 03/25/24 Fabian Palacios MD [place] Professor INTERVENTIONAL CARDIOLOGY 02/09/19 03/16/19 Scott Guerrero MD Consulting Physician GASTROENTEROLOGY 03/04/19 Nerissa Hill MD [place] [employer] Professor CARDIOVASCULAR DISEASE 03/17/19 03/25/24 [facility] N[facility]ACT[facility] 12/22/20 02/28/22 Bing Alvares MD [address] [place] [address] Consulting Physician CARDIOVASCULAR DISEASE 03/22/24 documented as of this encounter
--- OUTSIDE RECORDS SUMMARY | 2025-04-21 16:09 | XMS_ITS | Encounter Summary ---
Author Organization [facility] Address [address] [place] [address] Care Team Providers Care Engineering Surveyor Name Role Phone Ivette Clark NP Unavailable [phone] Fabian Palacios MD Unavailable Unavailable Scott Guerrero MD Unavailable Nerissa Hill MD Unavailable [phone] Carline Plummer [facility] Unavailable [phone] Lynette Ponce MD Primary Care Provider [phone] Bing Alvares MD Unavailable Lynette Ponce MD Primary Care Provider [phone] Encounter Details Date Type Department Care Team ([facility] st Contact Info) Description 09/25/2018 MyChart Message Enc [facility] Medical Group MultiSpecialty Care [facility] [address] [place] [address] Melissa Watson, SPRUE KNOCKER [address] [address] RE: Other Social History Tobacco [...] CST Medication is updated in patient's chart. MECHANICAL ENGINEER * Faith Chandler RN - 09/26/2018 8:27 AM CST Does this need any more follow up? Please advise MECHANICAL ENGINEER documented in this encounter Plan of Treatment Upcoming Encounters Date Type Department Care Team (Late st Contact Info) Description 06/13/2025 10:45 AM CDT Office Visit [facility] [place] [address] Bing Alvares MD [address] [place] [address] documented as of this encounter Visit Diagnoses Not on filedocumented in this encounter Additional Health Concerns Infection Onset Date Last Indicated Resolved Time COVID-19 Rule Out 03/06/2020 03/03/2020 03/06/2020 9:26 AM CDT documented as of this encounter Care Teams Engineering Surveyor Relationship Specialty Start Date End Date Lynette Ponce MD [address] [place] [address] PCP - General INTERNAL MEDICINE 03/08/24 03/16/24 Lynette Ponce MD [address] [place] [address] PCP - General 03/29/24 Ivette Clark NP [place] Crane Ladle Person NURSE PRACTITIONER 02/09/19 03/25/24 Fabian Palacios MD [employer] Crane Ladle Person INTERVENTIONAL CARDIOLOGY 02/09/19 03/16/19 Sctot Guerrero MD Consulting Physician GASTROENTEROLOGY 03/04/19 Nerissa Hill MD Garnett Crane Ladle Person CARDIOVASCULAR DISEASE 03/17/19 03/25/24 Carline Plummer FNP-BC NURSE PRACTITIONER 12/22/20 02/28/22 Bing Alvares MD [address] [place] [address] Consulting Physician CARDIOVASCULAR DISEASE 03/22/24 documented as of this encounter
--- OUTSIDE RECORDS SUMMARY | 2025-04-21 16:10 | XMS_ITS | Encounter Summary ---
Author Organization [facility] Address [address] [place] [address] Care Team Providers Care Caddy Master Name Role Phone Ivette Clark NP Unavailable [phone] Fabian Palacios MD Unavailable Unavailable Scott Guerrero MD Unavailable Nerissa Hill MD Unavailable [phone] Carline Plummer [facility] Unavailable [phone] Lynette Ponce MD Primary Care Provider [phone] Bing Alvares MD Unavailable Lynette Ponce MD Primary Care Provider [phone] Encounter Details Date Type Department Care Team ([facility] st Contact Info) Description 10/21/2018 MyChart Message Enc [facility] Medical Group MultiSpecialty Care [facility] [address] [place] [address] Melissa Watson, UPPER MARKER [address] [address] Other Social History Tobacco Use [...] 10/22/2018 8:04 AM CST Please advise. Thanks. ING MACHINE OPERATOR documented in this encounter Plan of Treatment Upcoming Encounters Date Type Department Care Team (Late st Contact Info) Description 06/13/2025 10:45 AM CDT Office Visit [facility] [address] [place] [address] Bing Alvares MD [address] [place] [address] documented as of this encounter Visit Diagnoses Not on filedocumented in this encounter Additional Health Concerns Infection Onset Date Last Indicated Resolved Time COVID-19 Rule Out 03/06/2020 03/03/2020 03/06/2020 9:26 AM CDT documented as of this encounter Care Teams Caddy Master Relationship Specialty Start Date End Date Lynette Ponce MD [address] [place] [address] PCP - General INTERNAL MEDICINE 03/08/24 03/16/24 Lynette Ponce MD [address] [place] [address] PCP - General 03/29/24 Ivette Clark NP [place] Zinc Miner Blasting NURSE PRACTITIONER 02/09/19 03/25/24 Fabian Palacios MD [place] [employer] Miner Blasting INTERVENTIONAL CARDIOLOGY 02/09/19 03/16/19 Scott Guerrero MD Consulting Physician GASTROENTEROLOGY 03/04/19 Nerissa Hill MD [place] [employer] Miner Blasting CARDIOVASCULAR DISEASE 03/17/19 03/25/24 Carline Plummer [facility] NURSE PRACTITIONER 12/22/20 02/28/22 Bing Alvares MD [address] [place] [address] Consulting Physician CARDIOVASCULAR DISEASE 03/22/24 documented as of this encounter
--- OUTSIDE RECORDS SUMMARY | 2025-04-21 16:10 | XMS_ITS | Encounter Summary ---
Author Organization [facility] Address [address] [place] [address] Care Team Providers Care Spray Pilot Name Role Phone Ivette Clark NP Unavailable [phone] Scott Guerrero MD Unavailable Nerissa Hill MD Unavailable [phone] Carline Plummer [facility] Unavailable [phone] Lynette Ponce MD Primary Care Provider [phone] Bing Alvares MD Unavailable Lynette Ponce MD Primary Care Provider [phone] Encounter Details Date Type Department Care Team (Late st Contact Info) Description 12/09/2019 [employer] Message Enc [facility] Medical Group MultiSpecialty Care [facility] [address] [place] [address] Teri Mojica, [facility] [address] [place] [address] Other Social History Tobacco Use Types Packs/Day [...] Description 06/13/2025 10:45 AM CDT Office Visit [facility] [place] [address] Bing Alvares MD [address] [place] [address] documented as of this encounter Visit Diagnoses Not on filedocumented in this encounter Additional Health Concerns Infection Onset Date Last Indicated Resolved Time COVID-19 Rule Out 03/06/2020 03/03/2020 03/06/2020 9:26 AM CDT Assessment Noted Time PHQ-9 Depression Total Score: 19 019 4:41 PM CDT documented as of this encounter Care Teams Spray Pilot Relationship Specialty Start Date End Date Lynette Ponce MD [address] [place] [address] PCP - General INTERNAL MEDICINE 03/08/24 03/16/24 Lynette Ponce MD [address] [place] [address] PCP - General 03/29/24 Ivette Clark NP [place] Emery Grinder NURSE PRACTITIONER 02/09/19 03/25/24 Scott Guerrero MD Consulting Physician GASTROENTEROLOGY 03/04/19 Nerissa Hill MD [place] Emery Grinder CARDIOVASCULAR DISEASE 03/17/19 03/25/24 Carline Plummer FNP-BC NURSE PRACTITIONER 12/22/20 02/28/22 Bing Alvares MD [address] [place] [address] Consulting Physician CARDIOVASCULAR DISEASE 03/22/24 documented as of this encounter
--- OUTSIDE RECORDS SUMMARY | 2025-04-21 16:10 | XMS_ITS | Encounter Summary ---
Author Organization [facility] Address [address] [place] [address] Care Team Providers Care Carpentry Professional Name Role Phone Ivette Clark NP Unavailable [phone] Scott Guerrero MD Unavailable Nerissa Hill MD Unavailable [phone] Carline Plummer [facility] Unavailable [phone] Lynette Ponce MD Primary Care Provider [phone] Bing Alvares MD Unavailable Lynette Ponce MD Primary Care Provider [phone] Reason for Visit * Reason Onset Date Comments Prior Authorization 08/17/2019 Encounter Details Date Type Department Care Team (Latest Contact Info) Description 08/17/2019 [employer] Message [facility] Medical Group MultiSpecialty Care [address] [address] Teri Mojica, [facility] [address] [place] [address] Medication Questions Social History Tobacco [...] [employer]. 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 Pharmacy faxed request last Friday08/18/19 NEERING TEAM SUPERVISOR documented in this encounter Plan of Treatment Upcoming Encounters Date Type Department Care Team (Late st Contact Info) Description 06/13/2025 10:45 AM CDT Office Visit [facility] [address] [place] [address] Bing Alvares MD [address] [place] [address] documented as of this encounter Visit Diagnoses Not on filedocumented in this encounter Additional Health Concerns Infection Onset Date Last Indicated Resolved Time COVID-19 Rule Out 03/06/2020 03/03/2020 03/06/2020 9:26 AM CDT Assessment Noted Time PHQ-9 Depression Total Score: 19 019 4:41 PM CDT documented as of this encounter Care Teams Carpentry Professional Relationship Specialty Start Date End Date Lynette Ponce MD [address] [place] [address] PCP - General INTERNAL MEDICINE 03/08/24 03/16/24 Lynette Ponce MD [address] [place] [address] PCP - General 03/29/24 Ivette Clark NP [place] Boat Garnisher NURSE PRACTITIONER 02/09/19 03/25/24 Scott Guerrero MD Consulting Physician GASTROENTEROLOGY 03/04/19 Nerissa Hill MD [place] Boat Garnisher CARDIOVASCULAR DISEASE 03/17/19 03/25/24 Carline Plummer [facility] N[facility]SE PRACTITION[facility] 12/22/20 02/28/22 Bing Alvares MD [address] [place] [address] Consulting Physician CARDIOVASCULAR DISEASE 03/22/24 documented as of this encounter
--- OUTSIDE RECORDS SUMMARY | 2025-04-21 16:10 | XMS_ITS | Encounter Summary ---
Author Organization [facility] Address [address] [place] [address] Care Team Providers Care Beer Maker Name Role Phone Ivette Clark NP Unavailable [phone] Scott Guerrero MD Unavailable Nerissa Hill MD Unavailable [phone] Carline Plummer [facility] Unavailable [phone] Lynette Ponce MD Primary Care Provider [phone] Bing Alvares MD Unavailable Lynette Ponce MD Primary Care Provider [phone] Encounter Details Date Type Department Care Team (Latest Contact Info) Description 04/27/2019 [employer]er Message Enc [facility] Medical Group MultiSpecialty [facility] [address] [place] [address] Melissa Watson, BLUE LEATHER SETTER [address] [address] RE: Medication Questions Social History [...] Description 06/13/2025 10:45 AM CDT Office Visit [facility] [place] [address] Bing Alvares MD [address] [place] [address] documented as of this encounter Visit Diagnoses Not on filedocumented in this encounter Additional Health Concerns Infection Onset Date Last Indicated Resolved Time COVID-19 Rule Out 03/06/2020 03/03/2020 03/06/2020 9:26 AM CDT documented as of this encounter Care Teams Beer Maker Relationship Specialty Start Date End Date Lynette Ponce MD [address] [place] [address] PCP - General INTERNAL MEDICINE 03/08/24 03/16/24 Lynette Ponce MD [address] [place] [address] PCP - General 03/29/24 Ivette Clark NP [place] Plaster Foreman NURSE PRACTITIONER 02/09/19 03/25/24 Scott Guerrero MD Consulting Physician GASTROENTEROLOGY 03/04/19 Nerissa Hill MD [place] Plaster Foreman CARDIOVASCULAR DISEASE 03/17/19 03/25/24 Carline Plummer FNP-BC NURSE PRACTITIONER 12/22/20 02/28/22 Bing Alvares MD [address] [place] [address] Consulting Physician CARDIOVASCULAR DISEASE 03/22/24 documented as of this encounter
--- OUTSIDE RECORDS SUMMARY | 2025-04-21 16:10 | XMS_ITS | Clinical Summary ---
Author Organization [facility] Address [facility] [place] [address] Care Team Providers Care Drum Maker Name Role Phone Scott Guerrero MD Unavailable Bing Alvares MD Unavailable Lynette Ponce MD Primary Care Provider [phone] Allergies Active Allergy Reactions Criticality Noted Date [...] (Generic) 08/17/2023,07/26/2022, 07/20/2019 MMR 02/23/2009 MODERNA COVID-19 (ACTIVITIES THERAPIST DENNIS JOAQUINA), MRNA, LNP-S, PF, 50 MCG/ [...] 36.6 C (97.9 F) 10/07/2023 8:34 [address] ENGINEER Respiratory Rate 12 05/31/2024 2:35 PM CDT [...] Description 06/13/2025 10:45 AM CDT Office Visit [facility] [place] [address] Bing Alvares MD [address] [place] [address] Health Maintenance Due Date Last Done Comments Colorectal Cancer Screening Colonoscopy (10 Years) 1965 Mammogram Screening 2006 Pneumococcal Vaccine: 50+ Years (1 of 1 - PCV) 2016 Zoster Vaccines (1 of 2) 08/07/2021 Annual Physical 03/02/2022 03/02/2021 COVID-19 Vaccine (2023-2 5 season) 2024 07/26/2022, 05/09/2022, 03/23/2021 PHQ-2 (Physician [place]) 10/20/2024 10/07/2023 DTaP, Tdap and Td Vaccines [...] this topic Medical Devices Implanted Type Area Ems Manager Device Identifier Shelf Expiration Date Model / Serial / Lot Wire Abhilash Magic Pins Orthofix 1.2 X 7mm - [id number] Implanted:Qty: 1 on 09/23/2018 by Tressa Traylor DPM at [facility] Malka Left: Foot ORTHOFIX [id number] / / N/A Description:Verified by MD Concetta Cox 2 Mini 20.0mm - [id number] Implanted:Qty: 1 on 09/23/2018 by Tressa Traylor DPM at [facility] Left: Foot [employer] 05/20/2025 AT2-M20-S / / [id number] Description:Verified by Wire Abhilash Magic Pins Orthofix 1.6 X 17 - [id number] Implanted:Qty: 1 on 09/23/2018 by Tressa Traylor DPM at [facility] Left: Foot ORTHOFIX [id number] / / N/A Description:Verified by Wire Abhilash Magic Pins Orthofix 1.6 X 11 - [id number] Implanted:Qty: 1 on 01/20/2019 by Tressa Traylor DPM at [facility] Right: Foot ORTHOFIX [id number] / / N/A Description:Verified by MD Concetta Castroutrak 2 Mini 18.0mm - [id number] Implanted:Qty: 1 on 01/20/2019 by Tressa Traylor DPM at [facility] Right: Foot [employer] 08/03/2025 AT2-M18 / / [id number] Description:Verified by Wire Abhilash Magic Pins Orthofix 1.6 X 17 - [id number] Implanted:Qty: 1 on 01/20/2019 by Tressa Traylor DPM at [facility] Right: Foot ORTHOFIX [id number] / / N/A Description:Verified by Explanted Type Area Ems Manager Device Identifier Shelf Expiration Date Model / Serial / Lot .045mm Mini Guidewire Explanted:Qty: 2 on 09/23/2018 by Tressa Traylor DPM at [facility] Left: Foot [id number] / / N/A Description:Used not implant ed Sm Cannulated Drill Tip Explanted:Qty: 1 on 09/23/2018 by Tressa Traylor DPM at [facility] Left: Foot [id number] / / N/A Description:Used not implant ed K Wire Lionel 6 In X .045 In - [id number] Explanted:Qty: 1 on 01/20/2019 by Tressa Traylor DPM at [facility] Right: Foot [employer] 05/19/2028 [id number] / / [id number] Description:Used not implant ed .045 Mini Guidewire Explanted:Qty: 1 on 01/20/2019 by Tressa Traylor DPM at [facility] Right: Foot [id number] / / N/A Description:Used not implant [id number] Mini Drill Tip Explanted:Qty: 1 on 01/20/2019 by Tressa Traylor DPM at [facility] Right: Foot [id number] / / N/A Description:Used not implant ed Advance Directives Documents on File Type Date Recorded Patient Flight Paramedic Expl anation Advance Directives and Living Will 04/04/2015 12:00 AM ADVANCED DIRECTIVES Advance Directives and Living Will 02/09/2015 12:00 AM ADVANCED DIRECTIVES Advance Directives and Living Will 03/08/2013 12:00 AM ADVANCED DIRECTIVES Advance Directives and Living Will 06/30/2012 12:00 AM ADVANCED DIRECTIVES Care Teams Drum Maker Relationship Specialty Start Date End Date Lynette Ponce MD [address] [place] [address] PCP - General 03/29/24 Scott Guerrero MD Consulting Physician GASTROENTEROLOGY 03/04/19 Bing Alvares MD [address] [place] [address] Consulting Physician CARDIOVASCULAR DISEASE 03/22/24
--- OUTSIDE RECORDS SUMMARY | 2025-04-21 16:10 | XMS_ITS | Clinical Summary ---
Author Organization [facility] [facility] Address [address] [place] [address] Care Team Providers Care Supervisor Plasma Name Role Phone Unavailable Primary Care Provider Unavailabl e Source Comments [facility] [facility],non-owned Affiliates and Associated Physician Practices is amultiple site organization consisting of ambulatory clinics and hospital sitesin [place], [place], [place] and [place]. This disclosure is being madepursuant to the Care Everywhere program and may not contain all information available regarding this patient. Last updated 18.[facility] [facility] Social History Tobacco Use Types Packs/Day Years [...] Subscriber ID:Not on file (Home) Address: [address] [place] [address] Payer ID:Not on file Group ID:Not on file Type:Self Pay Address: [place], [place]
--- OUTSIDE RECORDS SUMMARY | 2025-04-21 16:10 | XMS_ITS | Encounter Summary ---
Author Organization [facility] Address [address] [place] [address] Care Team Providers Care Drop Pit Worker Name Role Phone Ivette Clark NP Unavailable [phone] Scott Guerrero MD Unavailable Nerissa Hill MD Unavailable [phone] Carline Plummer [facility] Unavailable [phone] Lynette Ponce MD Primary Care Provider [phone] Bing Alvares MD Unavailable Lynette Ponce MD Primary Care Provider [phone] Encounter Details Date Type Department Care Team (Late st Contact Info) Description 06/24/2020 [employer] Message Enc [facility] Medical Group MultiSpecialty Care [facility] [address] [place] [address] Teri Mojica, [facility] [address] [place] [address] Test Results Social History Tobacco Use Types [...] Description 06/13/2025 10:45 AM CDT Office Visit [facility] [place] [address] Bing Alvares MD [address] [place] [address] documented as of this encounter Visit Diagnoses Not on filedocumented in this encounter Additional Health Concerns Assessment Noted Time PHQ-9 Depression Total Score: 19 019 4:41 PM CDT documented as of this encounter Care Teams Drop Pit Worker Relationship Specialty Start Date End Date Lynette Ponce MD [address] [place] [address] PCP - General INTERNAL MEDICINE 03/08/24 03/16/24 Lynette Ponce MD [address] [place] [address] PCP - General 03/29/24 Ivette Clark NP [place] Show Operations Supervisor NURSE PRACTITIONER 02/09/19 03/25/24 Scott Guerrero MD Consulting Physician GASTROENTEROLOGY 03/04/19 Nerissa Hill MD [place] Show Operations Supervisor CARDIOVASCULAR DISEASE 03/17/19 03/25/24 Carline Plummer [facility] N[facility] PRACTITIONER 12/22/20 02/28/22 Bing Alvares MD [address] [place] [address] Consulting Physician CARDIOVASCULAR DISEASE 03/22/24 documented as of this encounter
--- OUTSIDE RECORDS SUMMARY | 2025-04-21 16:10 | XMS_ITS | Encounter Summary ---
Author Organization [facility] Address [address] [place] [address] Care Team Providers Care Aquaculture And Fisheries Professor Name Role Phone Ivette Clark NP Unavailable [phone] Scott Guerrero MD Unavailable Nerissa Hill MD Unavailable [phone] Carline Plummer [facility] Unavailable [phone] Lynette Ponce MD Primary Care Provider [phone] Bing Alvares MD Unavailable Lynette Ponce MD Primary Care Provider [phone] Encounter Details Date Type Department Care Team (Late st Contact Info) Description 01/09/2021 MyChart Message Enc [facility] Medical Group MultiSpecialty Care [facility] [address] [place] [address] Teri Mojica, [facility] [address] [place] [address] Test Results Social History Tobacco Use Types [...] Description 06/13/2025 10:45 AM CDT Office Visit [facility] [place] [address] Bing Alvares MD [address] [place] [address] documented as of this encounter Visit Diagnoses Not on filedocumented in this encounter Additional Health Concerns Assessment Noted Time PHQ-9 Depression Total Score: 13 021 11:47 AM LOCK MAINTENANCE SUPERVISOR documented as of this encounter Care Teams Aquaculture And Fisheries Professor Relationship Specialty Start Date End Date Lynette Ponce MD [address] [place] [address] PCP - General INTERNAL MEDICINE 03/08/24 03/16/24 Lynette Ponce MD [address] [place] [address] PCP - General 03/29/24 Ivette Clark NP [place] Skip Loader NURSE PRACTITIONER 02/09/19 03/25/24 Scott Guerrero MD Consulting Physician GASTROENTEROLOGY 03/04/19 Nerissa Hill MD [place] Skip Loader CARDIOVASCULAR DISEASE 03/17/19 03/25/24 Carline Plummer [facility] NURSE PRACTITION[facility] 12/22/20 02/28/22 Bing Alvares MD [address] [place] [address] Consulting Physician CARDIOVASCULAR DISEASE 03/22/24 documented as of this encounter
[2025-04-21 16:23] LABS: Hematocrit 38.4 % (35.0-49.0); Hemoglobin 12.2 g/dL (12.0-15.0); Mean Corpuscular HGB Conc 31.8 g/dL (32-36); Mean Corpuscular Hemoglobin 27.5 pg (27.0-31.0); Mean Corpuscular Volume 86.7 fL (78.0-102.0); Platelet Count Result 242 K/mm3 (150-420); Red Blood Count 4.43 M/mm3 (4.20-5.40); White Blood Count 5.9 K/mm3 (4.8-10.8)
[2025-04-21 16:59] LABS: Alanine Aminotransferase 56 U/L (6-35); Albumin Level 4.1 g/dL (3.5-5.1); Alkaline Phosphatase 108 U/L (38-126); Anion Gap 5 mmol/L (4-12); Aspartate Amino Transferase 35 U/L (14-36); Bilirubin,Total 0.4 mg/dL (0.2-1.3); Blood Urea Nitrogen 17 mg/dL (7-17); Calcium 9.0 mg/dL (8.4-10.2); Carbon Dioxide 28 mmol/L (22-30); Chloride 102 mmol/L (98-107); Estimated Glomerular Filt Rate > 60; Glucose 85 mg/dL (65-110); Osmolality Calculated 280 mOsm/kg (285-295); Potassium 4.4 mmol/L (3.4-5.0); Sodium 135 mmol/L (137-145); Total Protein 6.3 g/dL (6.3-8.2)
== END 2025-04-21 16:06 | disposition home or self-care (01) ==
PROVIDERS: PCP Internal Medicine; Visit Provider Internal Medicine
DX: R74.01 Elevation of levels of liver transaminase levels (principal); D64.9 Anemia, unspecified
CPT/HCPCS: 36415; 80053; 85027

== ENCOUNTER 2025-06-27 07:10 | Outpatient (CLI) | payer OTHER, SELFPAY ==
[2025-06-27 07:46] LABS: Alanine Aminotransferase 38 U/L (6-35); Albumin Level 4.8 g/dL (3.5-5.1); Alkaline Phosphatase 65 U/L (38-126); Anion Gap 9 mmol/L (4-12); Aspartate Amino Transferase 39 U/L (14-36); Bilirubin,Total 0.7 mg/dL (0.2-1.3); Blood Urea Nitrogen 17 mg/dL (7-17); Calcium 10.2 mg/dL (8.4-10.2); Carbon Dioxide 30 mmol/L (22-30); Chloride 99 mmol/L (98-107); Estimated Glomerular Filt Rate > 60; Glucose 104 mg/dL (65-110); Osmolality Calculated 287 mOsm/kg (285-295); Potassium 4.4 mmol/L (3.4-5.0); Sodium 138 mmol/L (137-145); Total Protein 7.2 g/dL (6.3-8.2)
== END 2025-06-27 07:11 | disposition home or self-care (01) ==
PROVIDERS: PCP Internal Medicine; Visit Provider Internal Medicine
DX: R94.5 Abnormal results of liver function studies (principal)
CPT/HCPCS: 36415; 80053

== ENCOUNTER 2025-07-25 10:14 | Outpatient (CLI) | payer OTHER, SELFPAY ==
--- NOTE | 2025-07-25 | S_PTH ---
PATIENT: Irene Lei LOC: [facility]#:[id number] AGE/SX: 59/F ROOM: RE07/25/[address]: Lynette Ponce MD : 1965 BED: DIS: 07/25/2025 SPEC #: [id number] RECD: 07/25/25 10:26 STATUS: SCAHIN REEvan #: [id number] MEGAN: 07/25/25 00:[address]: Lynette Ponce [facility] Surgical RECD BY: Meghann Velázquez MLT, ([facility]) Tissues: A - Skin Bx Procedures: Hematoxylin and Eosin Stain Gross and Microscopic Level 4
--- NOTE | ~2025-07-25 | XR_ITS ---
EXAMINATION: XR foot LT min 3V, 07/25/2025 10:20 CDT HISTORY: FB GRANULOMA VS WART VS CALLOUS COMPARISON: No comparisons available. Findings: Postsurgical changes first metatarsal and the second metatarsal head, no fracture is identified No significant degenerative changes. Soft tissues unremarkable. Impression: No acute fracture or malalignment. Reviewed, dictated and finalized at location P. Impression: No acute fracture or malalignment.
--- OUTSIDE RECORDS SUMMARY | 2025-07-25 11:29 | XMS_ITS | Encounter Summary ---
Author Organization [facility] Address [address] [place] [address] Care Team Providers Care Getterer Name Role Phone Ivette Clrak NP Unavailable [phone] Scott Guerrero MD Unavailable Nerissa Hill MD Unavailable [phone] Lynette Ponce MD Primary Care Provider [phone] Bing Alvares MD Unavailable Lynette Ponce MD Primary Care Provider [phone] Encounter Details Date Type Department Care Team (Latest Contact Info) Description 12/13/2022 Aviacode Message Enc [facility] Medical Group MultiSpecialty Care [facility] [address] [place] [id number] [facility] Provider provider's result note Social [...] Coronavirus/COVID-19? No / Unsure 12/12/2022 9:13 AM CHIMNEY BUILDER documented as of this encounter Plan of Treatment Upcoming Encounters Date Type Department Care Team (Late st Contact Info) Description 10/10/2025 12:45 PM CHIMNEY BUILDER Office Visit [facility] [place] [address] Bing Alvares MD [address] [place] [address] documented as of this encounter Visit Diagnoses Not on filedocumented in this encounter Additional Health Concerns Assessment Noted Time PHQ-9 Depression Total Score: 0 12/12/19 4:08 PM CHIMNEY BUILDER documented as of this encounter Care Teams Getterer Relationship Specialty Start Date End Date Lynette Ponce MD [address] [place] [phone] PCP - General INTERNAL MEDICINE 03/08/24 03/16/24 Lynette Ponce MD [address] [place] [address] PCP - General 03/29/24 Ivette Clark NP [place] [employer] NURSE PRACTITIONER 02/09/19 03/25/24 Scott Guerrero MD Consulting Physician GASTROENTEROLOGY 03/04/19 Nerissa Hill MD [place] [employer] CARDIOVASCULAR DISEASE 03/17/19 03/25/24 Bing Alvares MD [address] [place] [address] Consulting Physician CARDIOVASCULAR DISEASE 03/22/24 documented as of this encounter
--- OUTSIDE RECORDS SUMMARY | 2025-07-25 11:29 | XMS_ITS | Encounter Summary ---
Author Organization [facility] Address [address] [place] [address] Care Team Providers Care Retail Shift Supervisor Name Role Phone Ivette Clark NP Unavailable [phone] Scott Guerrero MD Unavailable Nerissa Hill MD Unavailable [phone] Carline Plummer [facility] Unavailable [phone] Lynette Ponce MD Primary Care Provider [phone] Bing Alvares MD Unavailable Lynette Ponce MD Primary Care Provider [phone] Encounter Details Date Type Department Care Team (Late st Contact Info) Description 01/09/2021 MyChart Message Enc [facility] Medical Group MultiSpecialty Care [facility] [address] [place] [address] Teri Mojica, [facility] [address] [place] [address] Test Results Social History Tobacco Use Types [...] st Contact Info) Description 10/10/2025 12:45 PM STARTING SHEET TANK OPERATOR Office Visit [facility] [place] [address] Bing Alvares MD [address] [place] [address] documented as of this encounter Visit Diagnoses Not on filedocumented in this encounter Additional Health Concerns Assessment Noted Time PHQ-9 Depression Total Score: 13 021 11:47 AM STARTING SHEET TANK OPERATOR documented as of this encounter Care Teams Retail Shift Supervisor Relationship Specialty Start Date End Date Lynette Ponce MD [address] [place] [address] PCP - General INTERNAL MEDICINE 03/08/24 03/16/24 Lynette Ponce MD [address] [place] [address] PCP - General 03/29/24 Ivette Clark NP [employer] [employer] De[employer] NURSE PRACTITIONER 02/09/19 03/25/24 Scott Guerrero MD Consulting Physician GASTROENTEROLOGY 03/04/19 Nerissa Hill MD [employer] CARDIOVASCULAR DISEASE 03/17/19 03/25/24 Carline Plummer [facility]UR[facility]ACT[facility] 12/22/20 02/28/22 Bing Alvares MD [address] [place] [address] Consulting Physician CARDIOVASCULAR DISEASE 03/22/24 documented as of this encounter
--- OUTSIDE RECORDS SUMMARY | 2025-07-25 11:29 | XMS_ITS | Encounter Summary ---
Author Organization [facility] Address [facility] [place] [address] Care Team Providers Care Printed Circuit Boards Stripper Etcher Name Role Phone MimirohitIvette NP Unavailable [phone] Fabian Palacios MD Unavailable Unavailable Scott Guerrero MD Unavailable Nerissa Hill MD Unavailable [phone] Carline Plummer [facility] Unavailable [phone] Lynette Ponce MD Primary Care Provider [phone] Bing Alvares MD Unavailable Lynette Ponce MD Primary Care Provider [phone] Encounter Details Date Type Department Care Team (Latest Contact Info) Description 07/13/2018 Abstract [facility] Medical Group Sri Russ MD Social [...] st Contact Info) Description 10/10/2025 12:45 PM RADAR TECHNICIAN Office Visit [facility] [place] [address] Bing Alvares MD [address] [place] [address] documented as of this encounter Visit Diagnoses Not on filedocumented in this encounter Additional Health Concerns Infection Onset Date Last Indicated Resolved Time COVID-19 Rule Out 03/06/2020 03/03/2020 03/06/2020 9:26 AM CDT documented as of this encounter Care Teams Printed Circuit Boards Stripper Etcher Relationship Specialty Start Date End Date Lynette Ponce MD [address] [place] [address] PCP - General INTERNAL MEDICINE 03/08/24 03/16/24 Lynette Ponce MD [address] [place] [address] PCP - General 03/29/24 Ivette Clark NP [place] [employer] Director NURSE PRACTITIONER 02/09/19 03/25/24 Fabian Palacios MD [place] [employer] Director INTERVENTIONAL CARDIOLOGY 02/09/19 03/16/19 Scott Guerrero MD Consulting Physician GASTROENTEROLOGY 03/04/19 Nerissa Hill MD [place] [employer] Director CARDIOVASCULAR DISEASE 03/17/19 03/25/24 Carline Plummer FNP-BC NURSE PRACTITIONER 12/22/20 02/28/22 Bing Alvares MD [address] [place] [address] Consulting Physician CARDIOVASCULAR DISEASE 03/22/24 documented as of this encounter
--- OUTSIDE RECORDS SUMMARY | 2025-07-25 11:29 | XMS_ITS | Encounter Summary ---
Author Organization [facility] Address [address] [place] [address] Care Team Providers Care Flight Mechanic Name Role Phone Ivette Clark NP Unavailable [phone] Fabian Palacios MD Unavailable Unavailable Scott Guerrero MD Unavailable Nerissa Hill MD Unavailable [phone] Carline Plummer [facility] Unavailable [phone] Lynette Ponce MD Primary Care Provider [phone] Bing Alvares MD Unavailable Lynette Ponce MD Primary Care Provider [phone] Encounter Details Date Type Department Care Team (Latest Contact Info) Description 09/14/2018 Radisens Diagnosticst Message Enc [facility] Medical Group MultiSpecialty [facility] [address] [place] [address] Melissa Watson, CART ATTENDANT [address] [address] Follow Up/Update Social History Tobacco [...] st Contact Info) Description 10/10/2025 12:45 PM EMPLOYEE RELATION MANAGER Office Visit [facility] [address] [place] [address] Bing Alvares MD [address] [place] [address] documented as of this encounter Visit Diagnoses Not on filedocumented in this encounter Additional Health Concerns Infection Onset Date Last Indicated Resolved Time COVID-19 Rule Out 03/06/2020 03/03/2020 03/06/2020 9:26 AM CDT documented as of this encounter Care Teams Flight Mechanic Relationship Specialty Start Date End Date Lynette Ponce MD [address] [place] [address] PCP - General INTERNAL MEDICINE 03/08/24 03/16/24 Lynette Ponce MD [address] [place] [address] PCP - General 03/29/24 Ivette Clark NP [place] [employer] Manager NURSE PRACTITIONER 02/09/19 03/25/24 Fabian Palacios MD [place] [employer] Manager INTERVENTIONAL CARDIOLOGY 02/09/19 03/16/19 Scott Guerrero MD Consulting Physician GASTROENTEROLOGY 03/04/19 Nerissa Hill MD [place] [employer] Manager CARDIOVASCULAR DISEASE 03/17/19 03/25/24 Carline Plummer FNP-BC NURSE PRACTITIONER 12/22/20 02/28/22 Bing Alvares MD [address] [place] [address] Consulting Physician CARDIOVASCULAR DISEASE 03/22/24 documented as of this encounter
--- OUTSIDE RECORDS SUMMARY | 2025-07-25 11:29 | XMS_ITS | Encounter Summary ---
Author Organization [facility] Address [address] [place] [address] Care Team Providers Care Group Dynamics Instructor Name Role Phone Ivette Clark NP Unavailable [phone] Fabian Palacios MD Unavailable Unavailable Scott Guerrero MD Unavailable Nerissa Hill MD Unavailable [phone] Carline Plummer [facility] Unavailable [phone] Lynette Ponce MD Primary Care Provider [phone] Bing Alvares MD Unavailable Lynette Ponce MD Primary Care Provider [phone] Encounter Details Date Type Department Care Team (Latest Contact Info) Description 11/15/2018 MyChart Message Enc [facility] Medical Group MultiSpecialty [facility] [address] [place] [address] Melissa Watson, BUSINESS OFFICE REPRESENTATIVE [address] [address] Medication Questions Social History Tobacco [...] st Contact Info) Description 10/10/2025 12:45 PM FOOD ASSEMBLER Office Visit [facility] [address] [place] [address] Bing Alvares MD [address] [place] [address] documented as of this encounter Visit Diagnoses Not on filedocumented in this encounter Additional Health Concerns Infection Onset Date Last Indicated Resolved Time COVID-19 Rule Out 03/06/2020 03/03/2020 03/06/2020 9:26 AM CDT documented as of this encounter Care Teams Group Dynamics Instructor Relationship Specialty Start Date End Date Lynette Ponce MD [address] [place] [address] PCP - General INTERNAL MEDICINE 03/08/24 03/16/24 Lynette Ponce MD [address] [place] [address] PCP - General 03/29/24 Ivette Clark NP [place] Stamp Pad Maker NURSE PRACTITIONER 02/09/19 03/25/24 Fabian Palacios MD [place] St[employer] Pad Maker INTERVENTIONAL CARDIOLOGY 02/09/19 03/16/19 Scott Guerrero MD Consulting Physician GASTROENTEROLOGY 03/04/19 Nerissa Hill MD [place] St[employer] Pad Maker CARDIOVASCULAR DISEASE 03/17/19 03/25/24 Carline Plummer FNP-BC NURSE PRACTITIONER 12/22/20 02/28/22 Bing Alvares MD [address] [place] [address] Consulting Physician CARDIOVASCULAR DISEASE 03/22/24 documented as of this encounter
--- OUTSIDE RECORDS SUMMARY | 2025-07-25 11:29 | XMS_ITS | Encounter Summary ---
Author Organization [facility] Address [address] [place] [address] Care Team Providers Care Loss Prevention Detective Name Role Phone Ivette Clark NP Unavailable [phone] Scott Guerrero MD Unavailable Nerissa Hill MD Unavailable [phone] Lynette Ponce MD Primary Care Provider [phone] Bing Alvares MD Unavailable Lynette Ponce MD Primary Care Provider [phone] Encounter Details Date Type Department Care Team (Latest Contact Info) Description 05/07/2023 OmniForce Message Enc [facility] Medical [facility] [address] [place] [address] [place] Provider provider's response Social History Tobacco [...] days 05/09/2023 1:53 PM CDT Dannielle Haynes, MOTOR AND GENERATOR BRUSH MAKER Active Feeling down, depressed, or hopeless More than half the days 05/09/2023 1:53 PM CDT Dannielle Haynes, MOTOR AND GENERATOR BRUSH MAKER Active Patient Health Questionnaire-2 Score 4 05/09/2023 1:53 PM CDT Dannielle Haynes, MOTOR AND GENERATOR BRUSH MAKER Active * Question Answer Date of Assessment Author Status Trouble falling or staying asleep, or sleeping too much Nearly every day 05/09/2023 1:53 PM CDT Dannielle Haynes, MOTOR AND GENERATOR BRUSH MAKER Active Feeling tired or having little energy Nearly every day 05/09/2023 1:53 PM CDT Dannielle Haynes, MOTOR AND GENERATOR BRUSH MAKER Active Poor appetite or overeating Nearly every day 05/09/2023 1:53 PM CDT Dannielle Haynes, MOTOR AND GENERATOR BRUSH MAKER Active Feeling bad about yourself - or that you are a failure or have let yourself or your family down More than half the days 05/09/2023 1:53 PM CDT Dannielle Haynes, MOTOR AND GENERATOR BRUSH MAKER Active Trouble concentrating on things, such as reading the newspaper or watching television More than half the days 05/09/2023 1:53 PM CDT Dannielle Haynes, MOTOR AND GENERATOR BRUSH MAKER Active Moving or speaking so slowly that other people could have noticed? Or the opposite - being so fidgety or restless that you have been moving around a lot more than usual. Not at all 05/09/2023 1:53 PM CDT Dannielle Haynes, MOTOR AND GENERATOR BRUSH MAKER Active Thoughts that you would be better off or hurting yourself in some way Not at all 05/09/2023 1:53 PM CDT Dannielle Haynes, MOTOR AND GENERATOR BRUSH MAKER Active Patient Health Questionnaire-9 Score 17 05/09/2023 1:53 PM CDT Dannielle Haynes, MOTOR AND GENERATOR BRUSH MAKER Active * If you checked off any problems on this questionnaire so far, Question Answer Date of Assessment Author Status How difficult have these problems made it for you to do your work, take care of things at home, or get along with other people? Somewhat difficult 05/09/2023 1:53 PM CDT Dannielle Haynes, MOTOR AND GENERATOR BRUSH MAKER Active * Over the last 2 weeks, how often have you been bothered by any of the following problems? Question Answer Date of Assessment Author Status Feeling nervous, anxious, or on edge 2 05/09/2023 1:58 PM CDT Dannielle Haynes, MOTOR AND GENERATOR BRUSH MAKER A ctive Not being able to stop or control worrying 2 05/09/2023 1:58 PM CDT Dannielle Haynes, MOTOR AND GENERATOR BRUSH MAKER Active Worrying too much about different things 2 05/09/2023 1:58 PM CDT Dannielle Haynes, MOTOR AND GENERATOR BRUSH MAKER Active Trouble relaxing 2 05/09/2023 1:58 PM CDT Dannielle Haynes, MOTOR AND GENERATOR BRUSH MAKER Active Being so restless that it is hard to sit still 2 05/09/2023 1:58 PM CDT Dannielle Haynes, MOTOR AND GENERATOR BRUSH MAKER Active Becoming easily annoyed or irritable 2 05/09/2023 1:58 PM CDT Dannielle Haynes E, MOTOR AND GENERATOR BRUSH MAKER A ctive Feeling afraid as if something awful might happen 1 05/09/2023 1:58 PM CDT Dannielle Haynes, MOTOR AND GENERATOR BRUSH MAKER A ctive CHANDAN-7 Total Score 13 05/09/2023 1:58 PM CDT Dannielle Hays E, MOTOR AND GENERATOR BRUSH MAKER Active documented as of this encounter Plan of Treatment Upcoming Encounters Date Type Department Care Team (Late st Contact Info) Description 10/10/2025 12:45 PM OIL TRANSPORT DRIVER Office Visit [facility] [place] [address] Bing Alvares MD [address] [place] [address] documented as of this encounter Visit Diagnoses Not on filedocumented in this encounter Additional Health Concerns Assessment Noted Time PHQ-9 Depression Total Score: 0 12/12/19 22 4:08 PM OIL TRANSPORT DRIVER documented as of this encounter Care Teams Loss Prevention Detective Relationship Specialty Start Date End Date Lynette Ponce MD [address] [place] [address] PCP - General INTERNAL MEDICINE 03/08/24 03/16/24 Lynette Ponce MD [address] [place] [address] PCP - General 03/29/24 Ivette Clark NP [place] [employer] Associate NURSE PRACTITIONER 02/09/19 03/25/24 Scott Guerrero MD Consulting Physician GASTROENTEROLOGY 03/04/19 Nerissa Hill MD [place] [employer] Associate CARDIOVASCULAR DISEASE 03/17/19 03/25/24 Bing Alvares MD [address] [place] [address] Consulting Physician CARDIOVASCULAR DISEASE 03/22/24 documented as of this encounter
--- OUTSIDE RECORDS SUMMARY | 2025-07-25 11:29 | XMS_ITS | Encounter Summary ---
Author Organization [facility] Address [address] [place] [address] Care Team Providers Care Induction Heating Equipment Setter Name Role Phone Ivette Clark NP Unavailable [phone] Fabian Palacios MD Unavailable Unavailable Scott Guerrero MD Unavailable Nerissa Hill MD Unavailable [phone] Carline Plummer [facility] Unavailable [phone] Lynette Ponce MD Primary Care Provider [phone] Bing Alvares MD Unavailable Lynette Ponce MD Primary Care Provider [phone] Encounter Details Date Type Department Care Team ([facility] st Contact Info) Description 10/21/2018 MyChart Message Enc [facility] Medical Group MultiSpecialty Care [facility] [address] [place] [address] Melissa Watson, OLERICULTURIST [address] [address] Other Social History Tobacco Use [...] 10/22/2018 8:04 AM CST Please advise. Thanks. REPAIRER PULLMAN documented in this encounter Plan of Treatment Upcoming Encounters Date Type Department Care Team (Late st Contact Info) Description 10/10/2025 12:45 PM CAR REPAIRER PULLMAN Office Visit [facility] [address] [place] [address] Bing Alvares MD [address] [place] [address] documented as of this encounter Visit Diagnoses Not on filedocumented in this encounter Additional Health Concerns Infection Onset Date Last Indicated Resolved Time COVID-19 Rule Out 03/06/2020 03/03/2020 03/06/2020 9:26 AM CDT documented as of this encounter Care Teams Induction Heating Equipment Setter Relationship Specialty Start Date End Date Lynette Ponce MD [address] [place] [address] PCP - General INTERNAL MEDICINE 03/08/24 03/16/24 Lynette Ponce MD [address] [place] [address] PCP - General 03/29/24 Ivette Clark NP [place] [employer] Logistics Analyst NURSE PRACTITIONER 02/09/19 03/25/24 Fabian Palacios MD [place] [employer] Logistics Analyst INTERVENTIONAL CARDIOLOGY 02/09/19 03/16/19 Scott Guerrero MD Consulting Physician GASTROENTEROLOGY 03/04/19 Nerissa Hill MD [place] [employer] Logistics Analyst CARDIOVASCULAR DISEASE 03/17/19 03/25/24 Carline Plummer FNP- NURSE PRACTITIONER 12/22/20 02/28/22 Bing Alvares MD [address] [place] [address] Consulting Physician CARDIOVASCULAR DISEASE 03/22/24 documented as of this encounter
--- OUTSIDE RECORDS SUMMARY | 2025-07-25 11:29 | XMS_ITS | Encounter Summary ---
Author Organization [facility] Address [address] [place] [address] Care Team Providers Care Access Liaison Name Role Phone Ivette Clark NP Unavailable [phone] Fabian Palacios MD Unavailable Unavailable Scott Guerrero MD Unavailable Nerissa Hill MD Unavailable [phone] Carline Plummer [facility] Unavailable [phone] Lynette Ponce MD Primary Care Provider Bing Alvares MD Unavailable Lynette Ponce MD Primary Care Provider [phone] Encounter Details Date Type Department Care Team ([facility] st Contact Info) Description 01/29/2019 MyChart Message Enc [facility] Medical Group MultiSpecialty Care [facility] [address] [place] [address] Melissa Watson, PERSONAL CLOTHING LAUNDRY AIDE [address] [address] Other Social History Tobacco Use [...] st Contact Info) Description 10/10/2025 12:45 PM EXPERIMENTAL MECHANIC OUTBOARD MOTORS Office Visit [facility] [place] [address] Bing Alvares MD [address] [place] [address] documented as of this encounter Visit Diagnoses Not on filedocumented in this encounter Additional Health Concerns Infection Onset Date Last Indicated Resolved Time COVID-19 Rule Out 03/06/2020 03/03/2020 03/06/2020 9:26 AM CDT documented as of this encounter Care Teams Access Liaison Relationship Specialty Start Date End Date Lynette Ponce MD [address] [place] [address] PCP - General INTERNAL MEDICINE 03/08/24 03/16/24 Lynette Ponce MD [address] [place] [address] PCP - General 03/29/24 Ivette Clark NP [place] [employer] Servicer NURSE PRACTITIONER 02/09/19 03/25/24 Fabian Palacios MD [place] [employer] Servicer INTERVENTIONAL CARDIOLOGY 02/09/19 03/16/19 Scott Guerrero MD Consulting Physician GASTROENTEROLOGY 03/04/19 Nerissa Hill MD [place] [employer] Servicer CARDIOVASCULAR DISEASE 03/17/19 03/25/24 [facility]line [facility] NURSE [facility]ACT[facility] 12/22/20 02/28/22 Bing Alvares MD [address] [place] [address] Consulting Physician CARDIOVASCULAR DISEASE 03/22/24 documented as of this encounter
--- OUTSIDE RECORDS SUMMARY | 2025-07-25 11:29 | XMS_ITS | Clinical Summary ---
Author Organization [facility] Address [address] [place] [address] Care Team Providers Care Fund Manager Name Role Phone Unavailable Primary Care Provider Unavailabl e Source Comments [facility],non-owned Affiliates and Associated Physician Practices is amultiple site organization consisting of ambulatory clinics and hospital sitesin [place], [place], [place] and [place]. This disclosure is being madepursuant to the Care Everywhere program and may not contain all information available regarding this patient. Last updated 18.[facility] Social History Tobacco Use Types Packs/Day Years [...] 2016 ZOSTER VACCINE (1 of 2) 2016 DEPRESSION SCREENING 10/20/2024 COVID-19 VACCINE ( - 2023-2 5 season) 2025 INFLUENZA VACCINE (#1) 2025 HIB VACCINE Aged Out No longer [...] ID:Not on file (Home) Address: [address] [place] [address] Payer ID:Not on file Group ID:Not on file Type:Self Pay Address: [place], [place]
--- OUTSIDE RECORDS SUMMARY | 2025-07-25 11:29 | XMS_ITS | Encounter Summary ---
Author Organization [facility] Address [address] [place] [address] Care Team Providers Care City Bus Driver Name Role Phone Ivette Clark NP Unavailable [phone] Fabian Palacios MD Unavailable Unavailable Scott Guerrero MD Unavailable Nerissa Hill MD Unavailable [phone] Carline Plummer [facility] Unavailable [phone] Lynette Ponce MD Primary Care Provider [phone] Bing Alvares MD Unavailable Lynette Ponce MD Primary Care Provider [phone] Encounter Details Date Type Department Care Team ([facility] st Contact Info) Description 09/25/2018 MyChart Message Enc [facility] Medical Group MultiSpecialty Care [facility] [address] [place] [address] Melissa Watson, YARN WEIGHER [address] [address] RE: Other Social History Tobacco [...] CST Medication is updated in patient's chart. LSTERY DEPARTMENT SUPERVISOR * Faith Chandler RN - 09/26/2018 8:27 AM CST Does this need any more follow up? Please advise LSTERY DEPARTMENT SUPERVISOR documented in this encounter Plan of Treatment Upcoming Encounters Date Type Department Care Team (Late st Contact Info) Description 10/10/2025 12:45 PM UPHOLSTERY DEPARTMENT SUPERVISOR Office Visit [facility] [place] [address] Bing Alvares MD [address] [place] [address] documented as of this encounter Visit Diagnoses Not on filedocumented in this encounter Additional Health Concerns Infection Onset Date Last Indicated Resolved Time COVID-19 Rule Out 03/06/2020 03/03/2020 03/06/2020 9:26 AM CDT documented as of this encounter Care Teams City Bus Driver Relationship Specialty Start Date End Date Lynette Ponce MD [address] [place] [address] PCP - General INTERNAL MEDICINE 03/08/24 03/16/24 Lynette Ponce MD [address] [place] [address] PCP - General 03/29/24 Ivette Clark YARN WEIGHER [employer] [employer] Traffic Superintendent NURSE PRACTITIONER 02/09/19 03/25/24 Fabian Palacios MD [employer] [employer] Traffic Superintendent INTERVENTIONAL CARDIOLOGY 02/09/19 03/16/19 Scott Guerrero MD Consulting Physician GASTROENTEROLOGY 03/04/19 Nerissa Hill MD [place] [employer] Traffic Superintendent CARDIOVASCULAR DISEASE 03/17/19 03/25/24 Carline Plummer FNP-BC NURSE PRACTITIONER 12/22/20 02/28/22 Bing Alvares MD [address] [place] [address] Consulting Physician CARDIOVASCULAR DISEASE 03/22/24 documented as of this encounter
--- OUTSIDE RECORDS SUMMARY | 2025-07-25 11:29 | XMS_ITS | Encounter Summary ---
Author Organization [facility] Address [address] [place] [address] Care Team Providers Care Electronic Imaging System Operator Name Role Phone Ivette Clark NP Unavailable [phone] Scott Guerrero MD Unavailable Nerissa Hill MD Unavailable [phone] Carline Plummer [facility] Unavailable [phone] Lynette Ponce MD Primary Care Provider [phone] Bing Alvares MD Unavailable Lynette Ponce MD Primary Care Provider [phone] Encounter Details Date Type Department Care Team (Late st Contact Info) Description 06/24/2020 Prolifiq Software Message Enc [facility] Medical Group MultiSpecialty Care [facility] [address] [place] [id number] Teri Mojica, [facility] [address] [place] [address] Test Results Social History Tobacco Use Types [...] st Contact Info) Description 10/10/2025 12:45 PM ASSESSMENT RN Office Visit [facility] [place] [address] Bing Alvares MD [address] [place] [address] documented as of this encounter Visit Diagnoses Not on filedocumented in this encounter Additional Health Concerns Assessment Noted Time PHQ-9 Depression Total Score: 19 019 4:41 PM CDT documented as of this encounter Care Teams Electronic Imaging System Operator Relationship Specialty Start Date End Date Lynette Ponce MD [address] [place] [address] PCP - General INTERNAL MEDICINE 03/08/24 03/16/24 Lynette Ponce MD [address] [place] [address] PCP - General 03/29/24 Ivette Clark NP [employer] Covers Trimmer NURSE PRACTITIONER 02/09/19 03/25/24 Scott Guerrero MD Consulting Physician GASTROENTEROLOGY 03/04/19 Nerissa Hill MD [employer] Co[employer] Trimmer CARDIOVASCULAR DISEASE 03/17/19 03/25/24 [facility] NURSE PRACTITIONER 12/22/20 02/28/22 Bing Alvares MD [address] [place] [address] Consulting Physician CARDIOVASCULAR DISEASE 03/22/24 documented as of this encounter
--- OUTSIDE RECORDS SUMMARY | 2025-07-25 11:30 | XMS_ITS | Encounter Summary ---
Author Organization [facility] Address [address] [place] [address] Care Team Providers Care Sketch Maker Name Role Phone Ivette Clark NP Unavailable [phone] Scott Guerrero MD Unavailable Nerissa Hill MD Unavailable [phone] Carline Plummer [facility] Unavailable [phone] Lynette Ponce MD Primary Care Provider [phone] Bing Alvares MD Unavailable Lynette Ponce MD Primary Care Provider [phone] Encounter Details Date Type Department Care Team (Latest Contact Info) Description 04/27/2019 Azuro Message Enc [facility] Medical Group MultiSpecialty [facility] [address] [place] [address] Melissa Watson, DESK CLERK [address] [address] RE: Medication Questions Social History [...] st Contact Info) Description 10/10/2025 12:45 PM DIRECTOR OF MUSIC Office Visit [facility] [place] [address] Bing Alvares MD [address] [place] [address] documented as of this encounter Visit Diagnoses Not on filedocumented in this encounter Additional Health Concerns Infection Onset Date Last Indicated Resolved Time COVID-19 Rule Out 03/06/2020 03/03/2020 03/06/2020 9:26 AM CDT documented as of this encounter Care Teams Sketch Maker Relationship Specialty Start Date End Date Lynette Ponce MD [address] [place] [address] PCP - General INTERNAL MEDICINE 03/08/24 03/16/24 Lynette Ponce MD [address] [place] [address] PCP - General 03/29/24 Ivette Clark NP [employer] Marker NURSE PRACTITIONER 02/09/19 03/25/24 Scott Guerrero MD Consulting Physician GASTROENTEROLOGY 03/04/19 Nerissa Hill MD [employer] Marker CARDIOVASCULAR DISEASE 03/17/19 03/25/24 Carline Plummer FNP-BC NURSE PRACTITIONER 12/22/20 02/28/22 Bing Alvares MD [address] [place] [address] Consulting Physician CARDIOVASCULAR DISEASE 03/22/24 documented as of this encounter
--- OUTSIDE RECORDS SUMMARY | 2025-07-25 11:30 | XMS_ITS | Encounter Summary ---
Author Organization [facility] Address [address] [place] [address] Care Team Providers Care Die Finisher Name Role Phone Ivette Clark NP Unavailable [phone] Scott Guerrero MD Unavailable Nerissa Hill MD Unavailable [phone] Carline Plummer [facility] Unavailable [phone] Lynette Ponce MD Primary Care Provider [phone] Bing Alvares MD Unavailable Lynette Ponce MD Primary Care Provider [phone] Reason for Visit * Reason Onset Date Comments Prior Authorization 08/17/2019 Encounter Details Date Type Department Care Team (Latest Contact Info) Description 08/17/2019 Blekko Message On license of [facility] Medical Group MultiSpecialty Care [address] [address] Teri Mojica, [facility] [address] [place] [address] Medication Questions Social History Tobacco [...] [employer]. 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 Pharmacy faxed request last Friday08/18/19 CONDITIONING INSTALLER SUPERVISOR documented in this encounter Plan of Treatment Upcoming Encounters Date Type Department Care Team (Late st Contact Info) Description 10/10/2025 12:45 PM AIR CONDITIONING INSTALLER SUPERVISOR Office Visit [facility] [address] [place] [address] Bing Alvares MD [address] [place] [address] documented as of this encounter Visit Diagnoses Not on filedocumented in this encounter Additional Health Concerns Infection Onset Date Last Indicated Resolved Time COVID-19 Rule Out 03/06/2020 03/03/2020 03/06/2020 9:26 AM CDT Assessment Noted Time PHQ-9 Depression Total Score: 19 019 4:41 PM CDT documented as of this encounter Care Teams Die Finisher Relationship Specialty Start Date End Date Lynette Ponce MD [address] [place] [address] PCP - General INTERNAL MEDICINE 03/08/24 03/16/24 Lynette Ponce MD [address] [place] [address] PCP - General 03/29/24 Ivette Clark NP [place] Refinish Technician NURSE PRACTITIONER 02/09/19 03/25/24 Scott Guerrero MD Consulting Physician GASTROENTEROLOGY 03/04/19 Nerissa Hill MD [place] Refinish Technician CARDIOVASCULAR DISEASE 03/17/19 03/25/24 Carline Plummer FNP-BC NURSE PRACTITIONER 12/22/20 02/28/22 Bing Alvares MD [address] [place] [address] Consulting Physician CARDIOVASCULAR DISEASE 03/22/24 documented as of this encounter
--- OUTSIDE RECORDS SUMMARY | 2025-07-25 11:30 | XMS_ITS | Clinical Summary ---
Author Organization [facility] Address [facility] [place] [address] Care Team Providers Care Stove Bottom Worker Name Role Phone Scott Guerrero MD Unavailable Bing lAvares MD Unavailable Lynette Ponce MD Primary Care Provider [phone] Allergies Active Allergy Reactions Criticality Noted Date [...] 03/01/2015 Fibromyalgia 06/25/2012 08/13/2021 ADHD 06/24/2012 12/25/2021 Encounters Date Type Department Care Team Description 07/18/2025 Telephone [facility] [address] [place] [address] Bing Alvares MD Called To Cancel Office Appt. 07/05/2025 Telephone [facility] [address] [place] [address] Bing Alvares MD Appointment Request 06/08/2025 Telephone [facility] [address] [place] [address] Bing Alvares MD Reschedule 06/01/2025 Orders Only [facility] [address] [place] [address] Bing Alvares MD from Last 3 Months Immunizations Immunization Administration Dates Next Due Dtap (Generic) 11/17/2019 Fluzone 6 Months+ Quad (0.5 mL Prefilled Syringe) 07/12/2021 Hepatitis A (Generic) 05/21/2009,12/12/2006,11/2005 Hepatitis B 04/18/2021 Hepatitis B (Generic: Adult) 04/26/2014,03/11/20 06 Influenza 3 yrs + with Prese rvative (Fluzone) 07/27/2020 Influenza Adult (Generic) 08/17/2023,07/26/2022, 07/20/2019 MMR 02/23/2009 MODERNA COVID-19 (DONOR RECRUITMENT MANAGER DENNIS JOAQUINA), MRNA, LNP-S, PF, 50 MCG/ [...] 36.6 C (97.9 F) 10/07/2023 8:34 AM DIRECTOR [employer] Respiratory Rate 05/31/2024 2:35 PM CDT Oxygen Saturation 100% 05/31/2024 2:35 PM CDT Inhaled Oxygen Concentration - - Weight 76.2 kg (168 lb) 05/31/2024 2:35 PM CDT Height 170.2 cm (5' 7) 05/31/2024 2:35 PM CDT Body Mass Index 26.31 05/31/2024 2:35 PM CDT Plan of Treatment Upcoming Encounters Date Type Department Care Team (Late st Contact Info) Description 10/10/2025 12:45 PM DIRECTOR [employer] Office Visit [facility] [place] [address] Bing Alvares MD [address] [place] [address] Health Maintenance Due Date Last Done Comments Colorectal Cancer Screening Colonoscopy (10 Years) 1966 Mammogram Screening 2006 Pneumococcal Vaccine: 50+ Years (1 of 1 - PCV) 2016 Zoster Vaccines (1 of 2) 08/07/2021 Annual Physical 03/02/2022 03/02/2021 PHQ-2 (Physician [place]) 10/20/2024 10/07/2023 COVID-19 Vaccine (4 - season) 2025 07/26/2022, 05/09/2022, 03/23/2021 Influenza Adult (#1) 2025 08/17/2023, 07/26/2022, 07/12/2021, Additional history exists DTaP, Tdap and Td Vaccines (4 - [...] this topic Medical Devices Implanted Type Area Air Conditioning Coil Assembler Device Identifier Shelf Expiration Date Model / Serial / Lot Wire Abhilash Magic Pins Orthofix 1.2 X 7mm - [id number] Implanted:Qty: 1 on 09/23/2018 by Tressa Traylor DPM at [facility] [place] Left: Foot ORTHOFIX [id number] / / N/A Description:Verified by MD Screw Acutrak 2 Mini 20.0mm - [id number] Implanted:Qty: 1 on 09/23/2018 by Tressa Traylor DPM at [facility] Left: Foot [facility]ED [facility] 05/20/2025 AT2-[id number] / / [id number] Description:Verified by Wire Abhilash Magic Pins Orthofix 1.6 X 17 - [id number] Implanted:Qty: 1 on 09/23/2018 by Tressa Traylor DPM at [facility] Left: Foot ORTHOFIX [id number] / / N/A Description:Verified by Wire Abhilash Magic Pins Orthofix 1.6 X 11 - [id number] Implanted:Qty: 1 on 01/20/2019 by Tressa Traylor DPM at [facility] Right: Foot ORTHOFIX [id number] / / N/A Description:Verified by Screw Matthewutrak 2 Mini 18.0mm - [id number] Implanted:Qty: 1 on 01/20/2019 by Tressa Traylor DPM at [facility] Right: Foot [facility]UMED [facility] 08/03/2025 AT2-M18 / / [id number] Description:Verified by Wire Abhilash Magic Pins Orthofix 1.6 X 17 - [id number] Implanted:Qty: 1 on 01/20/2019 by Tressa Traylor DPM at [facility] Right: Foot ORTHOFIX [id number] / / N/A Description:Verified by Explanted Type Area Air Conditioning Coil Assembler Device Identifier Shelf Expiration Date Model / Serial / Lot .045mm Mini Guidewire Explanted:Qty: 2 on 09/23/2018 by Tressa Traylor DPM at [facility] Left: Foot [id number] / / N/A Description:Used not implant ed Sm Cannulated Drill Tip Explanted:Qty: 1 on 09/23/2018 by Tressa Traylor DPM at [facility] Left: Foot [id number] / / N/A Description:Used not implant ed K Wire Lionel 6 In X .045 In - [id number] Explanted:Qty: 1 on 01/20/2019 by Tressa Traylor DPM at [facility] Right: Foot [employer] 05/19/2028 [id number] / / [id number] Description:Used not implant ed .045 Mini Guidewire Explanted:Qty: 1 on 01/20/2019 by Tressa Traylor DPM at [facility] Right: Foot [id number] / / N/A Description:Used not implant [id number] Mini Drill Tip Explanted:Qty: 1 on 01/20/2019 by Tressa Traylor DPM at [facility] Right: Foot [id number] / / N/A Description:Used not implant ed Insurance Advance Directives Documents on File Type Date Recorded 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 Advance Directives and Living Will 04/04/2015 12:00 AM ADVANCED DIRECTIVES Advance Directives and Living Will 02/09/2015 12:00 AM ADVANCED DIRECTIVES Advance Directives and Living Will 03/08/2013 12:00 AM ADVANCED DIRECTIVES Advance Directives and Living Will 06/30/2012 12:00 AM ADVANCED DIRECTIVES Care Teams Stove Bottom Worker Relationship Specialty Start Date End Date Lynette Ponce MD [address] [place] [phone] PCP - General 03/29/24 Scott Guerrero MD Consulting Physician GASTROENTEROLOGY 03/04/19 Bing Alvares MD [address] [place] [address] Consulting Physician CARDIOVASCULAR DISEASE 03/22/24
--- OUTSIDE RECORDS SUMMARY | 2025-07-25 11:30 | XMS_ITS | Encounter Summary ---
Author Organization [facility] Address [address] [place] [address] Care Team Providers Care Conciliator Name Role Phone Ivette Clark NP Unavailable [phone] Scott Guerrero MD Unavailable Nerissa Hill MD Unavailable [phone] Carline Plummer [facility] Unavailable [phone] Lynette Ponce MD Primary Care Provider [phone] Bing Alvares MD Unavailable Lynette Ponce MD Primary Care Provider [phone] Encounter Details Date Type Department Care Team (Late st Contact Info) Description 12/09/2019 Trutap Message Enc [facility] Medical Group MultiSpecialty Care [facility] [address] [place] [address] Teri Mojica, [facility] [address] [place] [address] Other Social History Tobacco Use Types Packs/Day [...] st Contact Info) Description 10/10/2025 12:45 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 Visit [facility] [place] [place] [address] Bing Alvares MD [address] [place] [address] documented as of this encounter Visit Diagnoses Not on filedocumented in this encounter Additional Health Concerns Infection Onset Date Last Indicated Resolved Time COVID-19 Rule Out 03/06/2020 03/03/2020 03/06/2020 9:26 AM CDT Assessment Noted Time PHQ-9 Depression Total Score: 19 019 4:41 PM CDT documented as of this encounter Care Teams Conciliator Relationship Specialty Start Date End Date Lynette Ponce MD [address] [place] [address] PCP - General INTERNAL MEDICINE 03/08/24 03/16/24 Lynette Ponce MD [address] [place] [address] PCP - General 03/29/24 Ivette Clark NP [place] Administrative Nursing Supervisor NURSE PRACTITIONER 02/09/19 03/25/24 Scott Guerrero MD Consulting Physician GASTROENTEROLOGY 03/04/19 Nerissa Hill MD [place] Administrative Nursing Supervisor CARDIOVASCULAR DISEASE 03/17/19 03/25/24 Carline Plummer FNP-BC NURSE PRACTITIONER 12/22/20 02/28/22 Bing Alvares MD [address] [place] [address] Consulting Physician CARDIOVASCULAR DISEASE 03/22/24 documented as of this encounter
== END 2025-07-25 10:15 | disposition home or self-care (01) ==
PROVIDERS: PCP Internal Medicine; Visit Provider Internal Medicine
DX: L84 Corns and callosities (principal)
CPT/HCPCS: 73630; 88305

== ENCOUNTER 2025-08-18 09:41 | Outpatient (CLI) | payer OTHER, SELFPAY ==
--- NOTE | ~2025-08-18 | XR_ITS ---
PROCEDURE(S): Bilateral foot radiographs, 3 views each INDICATION(S): Pain COMPARISON(S): None. TECHNIQUE: 6 radiographic images were submitted for interpretation. FINDINGS: Bones: There are no fractures seen. There are no destructive lesions. There are screws through the distal first metatarsal on each side. There is a linear metallic object in the distal second metatarsal on each side, postoperative in nature. Presumably, there is been bunionectomy on both sides. There is mild plantar calcaneal spurring on the left and moderate such findings on the right. Joints: There are no dislocations identified. There is no evidence of erosive arthropathy. Mild degenerative changes in the midfoot, right greater than left. IMPRESSION: No acute abnormalities are seen. Postop changes and degenerative changes. Reviewed, dictated and finalized at location A. IMPRESSION: No acute abnormalities are seen. Postop changes and degenerative ch anges.
--- OUTSIDE RECORDS SUMMARY | 2025-08-18 10:27 | XMS_ITS | Patient Health Record ---
Author Organization [facility] Address [address] [place], [place] [id number] Care Team Providers Care Feeder Catcher Tobacco Name Role Phone RICO CUNNINGHAM Unavailable [phone] Lynette Ponce Unavailable Unavailable Allergies Allergen (clinical drug ingredient) Drug/Non Drug Allergy documented on EMR Reaction Allergy Type Onset Date Status cephalexin Cephalexin Unknown Drug Allergy Activ e Methyl Protect Unknown Drug Allergy Ac tive Reason For Referral No Information Medications Medication SIG (Take, Route, Frequency, Duration) Notes Start Date End Date Status Torsemide Active clonazePAM Active [place]oringa Active [place] Active Potassium Active Prevacid Active Social History Tobacco Use: Social History Observation Description Date Details (start date - stop date) Never Smoker NA - NA Social History Tobacco Use: Social Info Question Answer Notes Tobacco Control (Standard) Tobacco use: Nonsmoker Additional Details Category Social Info Options Details Drugs/Alcohol: Do you drink alcohol? No Vital Signs Height-cm 172.72 cm 08/18/2025 Weight-kg 78.02 kg 08/18/2025 Height 68 in 08/18/2025 Weight 172 lbs 08/18/2025 BMI 26.15 kg/m2 08/18/2025 Encounters Encounter Location Date Provider Diagnosis [address] [id number] 08/18/2025 RICO CUNNINGHAM Plan Of Treatment Next Appt Details Provider Name:RICO ISRAEL, 08/25/2025 03:20:00 PM, [address] [place] [address], [phone], Medical (General) History Medical History History ICD Code acid reflux anemia Leg/Feet cramps MRSA Arthritis Back Trouble Diabetic heart/disease/failure Surgical History Surgery Date(Month/Year) bunionectomy hammer toe
--- OUTSIDE RECORDS SUMMARY | 2025-08-18 10:27 | XMS_ITS | Clinical Summary ---
Author Organization [facility] [employer] Address [address] [place] [address] Care Team Providers Care Supervisor Roller Shop Name Role Phone Unavailable Primary Care Provider Unavailabl e Source Comments [facility] [employer],non-owned Affiliates and Associated Physician Practices is amultiple site organization consisting of ambulatory clinics and hospital sitesin [place], [place], [place] and [place]. This disclosure is being madepursuant to the Care Everywhere program and may not contain all information available regarding this patient. Last updated 18.[facility] Social History Tobacco Use Types Packs/Day Years [...] Subscriber ID:Not on file (Home) Address: [address] [place] [address] Payer ID:Not on file Group ID:Not on file Type:Self Pay Address: [place], [place]
--- OUTSIDE RECORDS SUMMARY | 2025-08-18 10:27 | XMS_ITS | Data Portability ---
Author Organization [facility] Address [address] [place] [address] Care Team Providers Care Financial Systems Administrator Name Role Phone ROBIN GONZALEZSIMON Primary Care Provider Assessment No assessment recorded. Plan of Treatment Reminders Order Date Submit Date Provider Last Modified By Organization Details Last Modified Time Details Appointments MED CHECK 2024 04:30P Huber CALLEJAS MD Not available Not available Not available Lab None recorded. Referral None recorded. Procedures None recorded. Surgeries None recorded. Imaging None recorded. Medication Orders Vivelle-D ot 0.1 mg/24 hr transderm al patch 2024 025 [facility] [address] [place], [address], 06/24/2025 15:12:16 Patient TargetsNo targets recorded. Patient InstructionsNo instructions recorded. Reason for Referral None Reported. Results Created Date Observation Date Name Description Value Unit Range Abnormal Flag Note LastModifiedBy Organization Detail LastModifiedTime 06/24/20 25 06/24/2025 IMAGE GUIDE D PAP AND HPV REGAR DLESS image guided Pap, HPV regardless of Pap result SEE RESULT S BELOW CASE REPOR T: Cytol ogy Gynec ologi galina Repor t Case: [id number] Autho hitesh billingsley Provi rasheeda: Evangelist Callejas MD Colle cted: 06/24 1525 Order ing Locat ion: [place] Patho logy Recei jose: 06/25 0055 First Scree n: Sherhuber an, Celia Speci men: Scree steffanie Pap - Image d, Cervi x STATE MENT OF ADEQU ACY: Satis facto ry for evalu ation Trans forma tion zone compo neyanet heathe nt ----- ----- ----- ----- ----- ----- ----- ----- ----- ----- ----- ----- ----- ----- ----- ----- ----- ---- FINAL DIAGN OSIS: Negat saumya for Intra epith elial Lesbrittanie n or Kiara franco (NIL) . Atrop hy prese nt Elect tata grace by Celia Hardy on 025 at 1727 CDT ----- ----- ----- ----- ----- ----- ----- ----- ----- ----- ----- ----- ----- ----- ----- ----- ----- ---- HPV RESUL TS: HPV mRNA E6/E7 : No HPV mRNA Detec jacobo NOTE: This high risk HPV mRNA assay detec ts fourt een high- risk HPV types (16, 18, 31, 33, 35, 39, 45, 51, 52, 56, 58, 59, 66, 68) witho ut diffe renti ation . COMME NT: This speci men was revie wed by a Cytot echno logis t and/o r Patho logis t (as indic ated in this repor t) after evalu ation using the Thinp rep Imagi ng Syste m. CLINI GALINA INFOR MATIO N: Menst rual Statu s: LMP (if appli cable ): Clini galina Histo ry/Pr eviou s Pap: Type of Neopl neda (if appli cable ): Signi sung t Clini galina Findi ngs: Other Histo ry: Hormo molly (if appli cable ): PAP EDUCA RODRIGO L NOTE: The Pap Test is a scree steffanie test with an inher ent false negat saumya rate. Liqui d-bas ed sampl ing may decre ase, but will not elimi blair, false negat saumya resul ts. A negat saumya resul t does not precl ude the prese nce and/o r devel opmen t of disea se, since the prese nce of abnor mal cells in the sampl e depen ds on the locat ion of the lesio n and sampl ing techn ique. Mauricio nued regul ar scree steffanie is the best metho d of cance r preve ntion . If repor jacobo cytol ogic findi ng do not corre late with physi galina and/o r histo rical findi ngs, furth er inves tigat ion is recom joel d, as clini gordon montemayor nted. Not Available [facility] (Lab) [address], [place], [address], 06/27/2025 18:30:30 Result Notes None recorded. Procedures Surgical History Date Name Laterality Status Provider Name and Address Organization Details Recorded Time 10/20/19 15 Flaquita-en-Y anastomosis of extrahepatic biliary ducts and gastrointestinal tract completed [facility] 06/24/2025 14:40:36 10/20/19 15 hysterectomy completed [facility] 06/24/2025 14:41:45 10/20/19 15 repair of rectocele completed [facility] 06/24/2025 14:42:04 10/20/19 15 repair of stress incontinence by suprapubic sling completed [facility] 06/24/2025 14:42:20 10/20/19 05 Cholecystectomy completed [facility] 06/24/2025 14:41:08 excision of bunion completed [facility] 06/24/2025 14:42:37 decompression of median nerve completed [facility] 06/24/2025 14:42:56 Imaging Results None recorded. Procedure Notes None recorded. Medical Equipment None Reported. Allergies Allergen ID Allergen Name Allergen Category Reaction Reaction Severity Criticality Documentation Date Start Date Code Code System Note Provider Name and Address Organization Details Recorded Time fexofenad ine medicatio n Not available Not available Not available 06/24/2025 12632 RxNorm Dannielle Rasmussen null, [facility] 14:27:00 02315 methotrex ate medicatio n Not available Not available Not available 06/24/2025 6851 RxNorm Dannielle Rasmussen null, [facility] 14:27:15 61726 Keflex medicatio n Not available Not available Not available 06/24/202577370 7 RxNorm Dannielle Rasmussen null, [facility] 14:27:27 11329 Tylenol-C odeine medicatio n Not available Not available Not available 06/24/2025 Dannielle varner, [facility] 14:27:55 Medications Name Sig Start Date Stop Date Status Note LastModified by Organization Details LastModified Time hydrocodone 5 mg-acetamino phen 325 mg tablet TAKE 1/2 TO 1 (ONE-HALF TO ONE) TABLET BY MOUTH ONCE DAILY AT NIGHT NEEDED active Not Available Not Available No t Available clonazepam 1 mg tablet TAKE 1 TABLET BY MOUTH AT BEDTIME active Not Available Not Available No t Available potassium chloride ER 10 mEq tablet,exten ded release TAKE 1 TABLET BY MOUTH ONCE DAILY WITH FOOD ON DAYS YOU TAKE DEMADEX active Not Available Not Available No t Available torsemide 5 mg tablet Take 2 tablets every day by oral route. active Not Available Not Available No t Available lisinopril 10 mg tablet TAKE 1 TABLET BY MOUTH ONCE DAILY active Not Available Not Available No t Available omeprazole 20 mg capsule,jessi yed release Take 1 capsule every day by oral route. active Not Available Not Available No t Available mupirocin 2 % topical ointment APPLY A SMALL AMOUNT TO THE AFFECTED AREA TOPICALLY TWO TIMES PER DAY active Not Available Not Available No t Available cefuroxime axetil 500 mg tablet TAKE 1 TABLET BY MOUTH EVERY 12 HOURS active Not Available Not Available No t Available estradiol 0.01% (0.1 mg/gram) vaginal cream INSERT 1 GRAM VAGINALLY ONCE A WEEK active Not Available Not Available Not Available doxycycline hyclate 100 mg tablet TAKE 1 TABLET BY MOUTH TWICE DAILY active Not Available Not Available No t Available amoxicillin 875 mg-potassium clavulanate 125 mg tablet TAKE 1 TABLET BY MOUTH EVERY 12 HOURS active Not Available Not Available No t Available neomycin-akila ymyxin-hydro marvin 3.5 mg-10,000 unit/mL-1 % ear drops,susp INSTILL 4 DROPS INTO AFFECTED EAR(S) THREE TIMES DAILY active Not Available Not Available No t Available Mason 325 mg-5 mg tablet Take 1 tablet every 6 hours by oral route. active Not Available Not Available Not Available clonazepam 1 mg disintegrati ng tablet Place 1 tablet twice a day by translingua l route. active Not Available Not Available No t Available bupropion HCl XL 300 mg 24 hr tablet, extended release TAKE 1 TABLET BY MOUTH ONCE DAILY active Not Available Not Available No t Available Linzess 145 mcg capsule TAKE 1 CAPSULE BY MOUTH ONCE DAILY ON AN EMPTY STOMACH AT LEAST 30 MINUTES BEFORE 1ST MEAL OF THE DAY active Not Available Not Available No t Available Amaya 0.1 mg/24 hr transdermal patch APPLY 1 PATCH TOPICALLY TWICE A WEEK active Not Available Not Available No t Available Vitals Date Recorded Body height Body mass index (BMI) Body weight Systolic And Diastolic Provider Name and Address Organization Details Last Updated DateTime 06/24/2025 173.99 cm 26.1 kg/m2 74089.07 g 149/86 mm[Hg] Dannielle Rasmussen [facility] 06/24/2025 14:26:43 Social History Question Answer Notes LastModified by Organizat ion Details LastModified Time Tobacco Smoking Status Former Smoker Dannielle Rasmussen [facility], [facility] 06/24/2025 14:37:27 In The 14 Days Before Symptom Onset, Have You Had Close Contact With A Laboratory-confirm ed COVID-19 While That Case Was Ill? No Information n ot available 06/24/2025 In The 14 Days Before Symptom Onset, Have You Had Close Contact With A Person Who Is Under Investigation For COVID-19 While That Person Was Ill? No Information not available 06/24/2025 Have You Been To An Area Known To Be High Risk For COVID-19? No Information not available 06/24/2025 Sex: Unknown Functional Status Question Answer Note LastModified by Organizat ion Details LastModified Time Do you use any illicit or recreational drugs? No Information not available 06/24/2025 What is your level of alcohol consumption? None Information not available 06/24/2025 Mental Status None recorded. Family History Nothing Reported. Medical History Condition Response Allergies (Food, seasonal, environmental ) N Other N Blood Transfusion N Drug/Latex Allergies/Reactions N Breast Cancer N Dermatologic Disorders N Lung Disease N Defects or Inherited Disease N Breast Problem N Gestational Diabetes N Hematologic disorders N Anesthesia Complications N History of STI N Deep Vein Thrombosis N Polycystic ovary syndrome N Anxiety Disorder Y Autoimmune disease N Arthritis N Infertility N Polyps N Acid Reflux (GERD) N History of abnormal pap N Cancer N Stroke N Varicosities N Neurologic/Epilepsy N Endometriosis N High Cholesterol N Headaches N Fibromyalgia N Kidney Disease N Heart Problems N Kidney or Bladder Problems N Thyroid Problems N GI Problems N Eating Disorder N Anemia N Art (IVF or FET) N Psychiatric Illness N Ovarian Cancer N Diabetes N Pulmonary (TB, Asthma) N Hepatitis/Liver Disease N No Past Medical History N Eczema N Urinary Tract Infection N Abuse/Domestic Violence N Asthma N Trauma/Violence N Depression/ depression Y Heart Disease N Pre-Eclampsia N Hypertension Y Osteoporosis N Thrombophilias N Gynecological History Statement/Question Response Are cycles usually normal Y Date of Last Mammogram Date of LMP 10/20/2014 Sexually Active? Y Menses Monthly N STIs/STDs N Was last menstrual period normal Y Age of first menstrual cycle 12 HPV Vaccine N Sexual Problems? N Current Control Method Hysterectom y LMP Unknown Obstetrics History GPAL:G 3 P 3 0 0 3 Type Value Full Term 3 Living 3 Total 3 Past Encounters Encounter ID Performer Location Encounter Start Date Encounter Closed Date Diagnosis/Indication Diagnosis SNOMED-CT Code Diagnosis ICD10 Code Diagnosis IMO Codes Diagnosis Note [id number] Eber Callejas MD [place] [address] [address] 06/24/2025 13:55:37 06/24/2025 15:26:42 Menopause present [id number] Z78.0 81393 This patient is a 59-year-ol d female who presents for vaginal foreign body. Patient reports feeling exposed mesh used to repair a rectocele. She can palpate a sharp Papito within the vagina. Examinatio n did not reveal any exposed mesh that could be visually appreciate d. It could not be palpated it as well. There was good vaginal support. Pap smear was performed also. We discussed treatment options. Patient was instructed to use vaginal estrogen Throughout her life. We agreed to prescribe vaginal estrogen and estradiol patch. Patient has some systemic symptoms of estrogen deficiency . Patient has no endometriu m. I spent over 30 minutes on her care in total. Prescribed to medication s. She is given instructio ns and precaution s. We talked about risks, benefits, and alternativ es. I banded significan tly on the risks of hormone replacemen t therapy. Disorder a ssociated with urogenital device [id number] T83.721A [id number] Health Concerns Section Related Observation LastModified by Organization Detai ls LastModified Time None Recorded Concern Status LastModified by Organization Details LastModified Time None Recorded Advance Directives Directive None Recorded Payers Insurance Date Sequence Insurance Name Policy Number Policy Walker Covered Member ID Walker Member ID Guarantor Name 06/21/2025 1 [facility] [id number] Irene Quique [id number] Irene Lei Notes Date Note Type Note Provider Name and Address Organization Details Recorded Time 06/24/2025 text/html This patient is a 59-year-old female who presents for vaginal foreign body. Patient reports feeling exposed mesh used to repair a rectocele. She can palpate a sharp Papito within the vagina. Examination did not reveal any exposed mesh that could be visually appreciated. It could not be palpated it as well. There was good vaginal support. Pap smear was performed also. We discussed treatment options. Patient was instructed to use vaginal estrogen Throughout her life. We agreed to prescribe vaginal estrogen and estradiol patch. Patient has some systemic symptoms of estrogen deficiency. Patient has no endometrium. I spent over 30 minutes on her care in total. Prescribed to medications. She is given instructions and precautions. We talked about risks, benefits, and alternatives. I banded significantly on the risks of hormone replacement therapy. Eber Callejas MD [address], [place], [address], [facility] 06/24/2025 15:21:43 OBGyn Episode Ob Episode Information Episode Created Date Number of Fetuses Patient Bloodtype Patient rh Status Prepregnancy Weight lbs Domestic Partner Domestic Partner Phone Father Name Diesel Truck Driver Status 06/24/20 25 1 CLOSED Fetus Data First Name Last Name Admitted to NICU Weight (g) Sex Living Outcome Pediatric Complications Fetus ID Race Codes Race Delivery Type F Full Term [id number] Vaginal Delivery Ramirez Calculation Initial Ramirez Date Initial Exam Date Initial Exam Provider Initial Ultrasound Date Last Menstrual Period Date Ultra Sound Weeks Gestation 0 Eighteen To Twenty Week Ramirez Update Ultra Sound Date Fundal Height At Umbil Quickening Date Ultra Sound Latest Weeks Gestation Final Ramirez Confirmed By Final Ramirez Confirmed Date Final Ramirez Date Ultra Sound Latest Days Gestation 0 0 Menstrual History Last Menstrual Date Menses Monthly On Bcp Conception Prior Menses Frequency Hcg Plus Date Menarche Onset Age Delivery Information Delivery Date Delivery Type Labor Anesthesia Weeks Gestation Incision Type Labor Labor Length Hrs Delivered By Post Complications Tubal Sterilization Discharge Date Comments 1 Discharge Information Feeding Method Contraceptive Method Maternal HG B and HCT Levels Ob Episode Information Episode Created Date Number of Fetuses Patient Bloodtype Patient rh Status Prepregnancy Weight lbs Domestic Partner Domestic Partner Phone Father Name Diesel Truck Driver Status 06/24/20 25 1 CLOSED Fetus Data First Name Last Name Admitted to NICU Weight (g) Sex Living Outcome Pediatric Complications Fetus ID Race Codes Race Delivery Type Full Term [id number] Vaginal Delivery Ramirez Calculation Initial Ramirez Date Initial Exam Date Initial Exam Provider Initial Ultrasound Date Last Menstrual Period Date Ultra Sound Weeks Gestation 0 Eighteen To Twenty Week Ramirez Update Ultra Sound Date Fundal Height At Umbil Quickening Date Ultra Sound Latest Weeks Gestation Final Ramirez Confirmed By Final Ramirez Confirmed Date Final Ramirez Date Ultra Sound Latest Days Gestation 0 0 Menstrual History Last Menstrual Date Menses Monthly On Bcp Conception Prior Menses Frequency Hcg Plus Date Menarche Onset Age Delivery Information Delivery Date Delivery Type Labor Anesthesia Weeks Gestation Incision Type Labor Labor Length Hrs Delivered By Post Complications Tubal Sterilization Discharge Date Comments 6 Discharge Information Feeding Method Contraceptive Method Maternal HG B and HCT Levels Ob Episode Information Episode Created Date Number of Fetuses Patient Bloodtype Patient rh Status Prepregnancy Weight lbs Domestic Partner Domestic Partner Phone Father Name Diesel Truck Driver Status 06/24/20 25 1 CLOSED Fetus Data First Name Last Name Admitted to NICU Weight (g) Sex Living Outcome Pediatric Complications Fetus ID Race Codes Race Delivery Type Full Term [id number] Vaginal Delivery Ramirez Calculation Initial Ramirez Date Initial Exam Date Initial Exam Provider Initial Ultrasound Date Last Menstrual Period Date Ultra Sound Weeks Gestation 0 Eighteen To Twenty Week Ramirez Update Ultra Sound Date Fundal Height At Umbil Quickening Date Ultra Sound Latest Weeks Gestation Final Ramirez Confirmed By Final Ramirez Confirmed Date Final Ramirez Date Ultra Sound Latest Days Gestation 0 0 Menstrual History Last Menstrual Date Menses Monthly On Bcp Conception Prior Menses Frequency Hcg Plus Date Menarche Onset Age Delivery Information Delivery Date Delivery Type Labor Anesthesia Weeks Gestation Incision Type Labor Labor Length Hrs Delivered By Post Complications Tubal Sterilization Discharge Date Comments 6 Discharge Information Feeding Method Contraceptive Method Maternal HG B and HCT Levels
== END 2025-08-18 09:42 | disposition home or self-care (01) ==
PROVIDERS: PCP Internal Medicine; Visit Provider Podiatrist
DX: M20.41 Other hammer toe(s) (acquired), right foot (principal); M79.671 Pain in right foot; M77.41 Metatarsalgia, right foot; Z98.890 Other specified postprocedural states
CPT/HCPCS: 73630

== ENCOUNTER 2025-09-01 07:06 | Outpatient (CLI) | payer OTHER, SELFPAY ==
[2025-09-01 07:18] LABS: Hematocrit 41.7 % (35.0-49.0); Hemoglobin 13.3 g/dL (12.0-15.0); Mean Corpuscular HGB Conc 31.9 g/dL (32-36); Mean Corpuscular Hemoglobin 29.5 pg (27.0-31.0); Mean Corpuscular Volume 92.5 fL (78.0-102.0); Platelet Count Result 207 K/mm3 (150-420); Red Blood Count 4.51 M/mm3 (4.20-5.40); White Blood Count 6.0 K/mm3 (4.8-10.8)
[2025-09-01 07:19] LABS: Add Urine Microscopic? NO; Appearance Urine Clear (Clear); Glucose Urine UA Negative (Negative); Leukocyte Esterase Ur Negative LEU/UL (Negative); Nitrate Urine Negative (Negative); Specific Grav Ur <= 1.005 (1.010-1.020)
[2025-09-01 07:38] LABS: Hemoglobin A1C 5.4 % (<5.7)
[2025-09-01 07:57] LABS: Alanine Aminotransferase 28 U/L (6-35); Albumin Level 4.3 g/dL (3.5-5.1); Alkaline Phosphatase 77 U/L (38-126); Anion Gap 7 mmol/L (4-12); Aspartate Amino Transferase 31 U/L (14-36); Blood Urea Nitrogen 13 mg/dL (7-17); Calcium 9.0 mg/dL (8.4-10.2); Carbon Dioxide 29 mmol/L (22-30); Chloride 101 mmol/L (98-107); Cholesterol 195 mg/dL (0-200); Estimated Glomerular Filt Rate > 60; Glucose 90 mg/dL (65-110); Iron 113 ug/dL (37-170); Osmolality Calculated 284 mOsm/kg (285-295); Potassium 4.1 mmol/L (3.4-5.0); Sodium 137 mmol/L (137-145); Total Protein 6.3 g/dL (6.3-8.2); Triglycerides 44 mg/dL (<150)
[2025-09-01 07:59] LABS: HDL Direct > 110 mg/dL
[2025-09-01 08:31] LABS: Ferritin 11.60 ng/mL (11.1-264)
[2025-09-06 13:37] LABS: Bilirubin,Total 0.5 mg/dL (0.2-1.3)
== END 2025-09-01 07:07 | disposition home or self-care (01) ==
PROVIDERS: PCP Internal Medicine; Visit Provider Internal Medicine
DX: E78.2 Mixed hyperlipidemia (principal); R73.01 Impaired fasting glucose; N39.0 Urinary tract infection, site not specified; D50.9 Iron deficiency anemia, unspecified
CPT/HCPCS: 36415; 80053; 80061; 81003; 82728; 83036; 83540; 85027

== ENCOUNTER 2025-09-13 12:51 | Outpatient (CLI) | payer OTHER, SELFPAY ==
--- OUTSIDE RECORDS SUMMARY | 2025-08-18 03:00 | XMS_ITS ---
Author Organization [facility] Address [address] [place], [place] [id number] Care Team Providers Care Furnace Helper Name Role Phone OCTAVIO RICO Unavailable [phone] Lynette Ponce Unavailable Unavailable Allergies Allergen (clinical drug ingredient) Drug/Non Drug Allergy documented on EMR Reaction Allergy Type Onset Date Status cephalexin Cephalexin Unknown Drug Allergy Activ e Methyl Protect Unknown Drug Allergy Ac tive REASON FOR VISIT Left foot 3rd toe pain, old surgery (over 5 years ago) 2nd hammer toe and 1st bunion surgery was performed, right lateral foot post foreign body removal still painful Medications Medication SIG (Take, Route, Frequency, Duration) Notes Start Date End Date Status Torsemide Active clonazePAM Active [place] Active Potassium Active Prevacid Active Leslie Active Social History Tobacco Use: Social History Observation Description Date Details (start date - stop date) Never Smoker NA - NA Social History Tobacco Use: Social Info Question Answer Notes Tobacco Control (Standard) Tobacco use: Nonsmoker Additional Details Category Social Info Options Details Drugs/Alcohol: Do you drink alcohol? No Vital Signs Height 68 in 08/18/2025 Weight 172 lbs 08/18/2025 BMI 26.15 kg/m2 08/18/2025 Height-cm 172.72 cm 08/18/2025 Weight-kg 78.02 kg 08/18/2025 Encounters Encounter Location Date Provider Diagnosis [address] [id number] 08/18/2025 RICO CUNNINGHAM Metatarsalgia, left foot M77.42 ; Pain in right foot M79.671 and Pain in left foot M79.672 Assessments Encounter Date Diagnosis (ICD Code) Assessment Notes Treatment Notes Treatment Clinical Notes Section Notes 08/18/2025 Metatarsalgia, left foot (ICD-10 - M77.42) PowerStep Inserts: The patient was dispensed and fitted with over the counter arch supports. The patient was educated on their use and effect. All questions were answered. Metatarsalgia: I discussed anti-inflammatory treatment options and various means of immobilization with the patient. I educated the patient on icing and stretching, supportive shoegear, and the use of orthotic devices and bracing. Metatarsal Pad given to patient to off-load area with offloading of left styloid. use galindo shoes 08/18/2025 Pain in right foot (ICD-10 - M79.671) 08/18/2025 Pain in left foot (ICD-10 - M79.672) Plan Of Treatment Treatment Notes Assessment Notes Metatarsalgia, left foot PowerStep Inserts: The patient was dispensed and fitted with over the counter arch supports. The patient was educated on their use and effect. All questions were answered. Metatarsalgia: I discussed anti-inflammatory treatment options and various means of immobilization with the patient. I educated the patient on icing and stretching, supportive shoegear, and the use of orthotic devices and bracing. Metatarsal Pad given to patient to off-load area with offloading of left styloid. use galindo shoes Next Appt Details Follow Up: 1 Week,keyshawn santana, Reason: Provider Name:RICO ISRAEL, 10/07/2025 10:50:00 AM, [address], [facility] [address], [place], [phone], History and Physical Notes * Examination Category Sub-Category Detail Notes Category Not es Constitutional Constitutional The patient is a wake, alert, well developed, well groomed and well nourished. Dermatologic Skin findings: bilateral, Skin is warm, dry, supple with no breaks in the skin. Hyperkeratotic Skin Lesion There is evid ence of hyperkeratotic skin lesions present on the, bilateral, distal aspect of the 3rd digit with pain and callus left styloid area with pain on palpation to all Musculoskeletal Pain on palpation There is pain on palpation of, base of the left 5th metatarsal There is pain on palpation of, 3rd digit tuft left and right Hammertoes Flexion contracture of the following digits:, 3rd, Bilateral Neurologic Mulders sign: bilateral, negative Gross sensation Gross sensation is i ntact to light touch. X-Ray Left Foot 3 views (AP, Med ial Oblique, and lateral view) weightbearing of the left foot getting them at [facility] Right Foot 3 views (AP, Medial Oblique, and lateral view) weightbearing of the right foot Vascular Dorsalis pedis pulse: bilateral, 2/4 Posterior tibial pulse: bilaterally, 2/4 Edema: left lateral , foot, non-pitting edema Progress Notes * Irene LEI ADOB: [birth year] (59 yo F)Acc No.[id number]:08/18/2025 Progress Notes Patient: Irene Baer Provider: Tri CUNNINGHAM :1965 A ge:59 Y S ex:Female Date:08/18/2025 Address:[address] [place], [place] [id number] Subjective: * Chief Complaints: * L eft foot 3rd toe pain, old surgery (over 5 years ago) 2nd hammer toe and 1st bunion surgery was performedRight lateral foot post foreign body removal still painful * ROS: G eneral / Constitutional: Patient denies c hills, fatigue, fever. P atient complains of p ain. M usculoskeletal: Patient complains of j oint stiffness, hammertoes. ? P eripheral Vascular: Patient complains of p ainful extremities. S kin: Patient complains of d ry skin, discoloration, lumps, calluses and corns. N eurologic: Patient denies p aralysis. * Medical History: Acid reflux Anemia Leg/Feet cramps MRSA Arthritis Back Trouble Diabetic Heart/disease/failure Medical History Verified * Surgical History: bunionectomy hammer toe Surgical History verified. * Hospitalization/Major Diagno stic Procedure: Denies Past Hospitalization. Hospitalization Verified. * Family History: F ather: . M other: alive, Acid Reflux, arthritis, heart disease, Diabetic. F amily History Verified.. * Social History: T obacco Use: T obacco Control (Standard) T obacco use: N onsmoker. D rugs/Alcohol: D o you drink alcohol?: No. Social History Verified. * Medications: T akingNorco Potassium Prevacid clonazePAM Moringa Torsemide Medication List reviewed and reconciled with the patientTaking Leslie Taking Potassium Taking Prevacid Taking clonazePAM Taking Moringa Taking Torsemide Medication List reviewed and reconciled with the patient * Allergies: M ethyl ProtectCephalexinyesAllergies Verified. Objective: * Vitals: S hoe Size: 9, Wt:172lbs, Wt-k.02 kg, Ht: 68 in, Ht-cm: 172.72 cm, BMI:26.15Index, Body Surface Area: 1.93. * Examination: C onstitutional: Constitutional T he patient is awake, alert, well developed, well groomed and well nourished.. D ermatologic: Skin findings: b ilateral, Skin is warm, dry, supple with no breaks in the skin.. Hyperkeratotic Skin Lesion T here is evidence of hyperkeratotic skin lesions present on the, bilateral, distal aspect of the 3rd digit with pain and callus left styloid area with pain on palpation to all. M usculoskeletal: Pain on palpation T here is pain on palpation of, base of the left 5th metatarsal There is pain on palpation of, 3rd digit tuft left and right. Hammertoes F lexion contracture of the following digits:, 3rd, Bilateral. N eurologic: Mulders sign: b ilateral, negative. Gross sensation G ross sensation is intact to light touch..? V ascular: Dorsalis pedis pulse: b ilateral, 2/4. Posterior tibial pulse: b ilaterally, 2/4. Edema: l eft lateral , foot, non-pitting edema. ? X -Ray: Left Foot 3 views (AP, Medial Oblique, and lateral view) weightbearing of the left foot getting them at [facility]. Right Foot 3 views (AP, Medial Oblique, and lateral view) weightbearing of the right foot. Assessment: * Assessment: 1. M etatarsalgia, left foot - M77.42 (Primary) 2 . P ain in right foot - M79.671 3 . P ain in left foot - M79.672 Plan: * Treatment: * Follow Up: 1 Week,xray review * Electronic signature of RADHA CUNNINGHAM DPM on 09/13/2025 at 02:23 PM ROUGH ROUNDER Sign off status: Pending * Provider: Tri CUNNINGHAM Date: Generated for Doreen Matthew/Yue on: 1 11/13/2024 02:23 PM ROUGH ROUNDER
--- OUTSIDE RECORDS SUMMARY | 2025-08-25 09:20 | XMS_ITS ---
Author Organization [facility] Address [address] [place], [place] [id number] Care Team Providers Care Radio Electrician Name Role Phone RICO CUNNINGHAM Unavailable [phone] Lynette Ponce Unavailable Unavailable Allergies Allergen (clinical drug ingredient) Drug/Non Drug Allergy documented on EMR Reaction Allergy Type Onset Date Status cephalexin Cephalexin Unknown Drug Allergy Activ e Methyl Protect Unknown Drug Allergy Ac tive REASON FOR VISIT *Powerstep follow-up/xray review Medications Medication SIG (Take, Route, Frequency, Duration) Notes Start Date End Date Status Potassium Active Prevacid Active Torsemide Active clonazePAM Active [place] Active [employer] Active Vital Signs Height 68 in 08/25/2025 Weight 172 lbs 08/25/2025 BMI 26.15 kg/m2 08/25/2025 Height-cm 172.72 cm 08/25/2025 Weight-kg 78.02 kg 08/25/2025 Encounters Encounter Location Date Provider Diagnosis [address] [id number] 08/25/2025 RICO CUNNINGHAM Plan Of Treatment Next Appt Details Provider Name:RICO ISRAEL, 10/07/2025 10:50:00 AM, [address], [place], [place], [id number], History and Physical Notes * HPI (History of Present Illness) Category Sub-Category Detail Notes Category Not es HPI Follow Up Visit Patient presents for follow up visit for right foot pain., Patient states their problem is, improving., MA: nd Progress Notes * Irene LEI ADOB: [birth year] (59 yo F)Acc No.[id number]:08/25/2025 Patient: Irene Baer Provider: Tri CUNNINGHAM :1965 A ge:59 Y S ex:Female Date:08/25/2025 Address:[address], [id number] Subjective: * Chief Complaints: * * Powerstep follow-up/xray review * HPI: H PI: Follow Up Visit P atient presents for follow up visit for right foot pain., Patient states their problem is, improving., MA: nd. * Medical History: Acid reflux Anemia Leg/Feet cramps MRSA Arthritis Back Trouble Diabetic Heart/disease/failure Medical History Verified * Surgical History: bunionectomy hammer toe Surgical History verified. * Hospitalization/Major Diagno stic Procedure: Denies Past Hospitalization. Hospitalization Verified. * Family History: F ather: . M other: alive, Acid Reflux, arthritis, heart disease, Diabetic. F amily History Verified.. * Social History: Social History Verified. No Social History documented. * Medications: T akingNorco Potassium Prevacid clonazePAM [place] Torsemide Medication List reviewed and reconciled with the patientTaking [employer] Taking Potassium Taking Prevacid Taking clonazePAM Taking [place] Taking Torsemide Medication List reviewed and reconciled with the patient * Allergies: M ethyl ProtectCephalexinyesAllergies Verified. Objective: * Vitals: S hoe Size: 9, Wt:172lbs, Wt-k.02 kg, Ht: 68 in, Ht-cm: 172.72 cm, BMI:26.15Index, Body Surface Area: 1.93. * Electronic signature of RADHA CUNNINGHAM DPM on 09/13/2025 at 02:23 PM CONSTRUCTION TECHNOLOGY INSTRUCTOR Sign off status: Pending * Provider: Tri CUNNINGHAM Date: 10/25/2024 Generated for Doreen hammond/Stephany/Elizabethitting on: 11/13/2024 02:23 PM CONSTRUCTION TECHNOLOGY INSTRUCTOR
[2025-09-13 13:38] LABS: Iron 41 ug/dL (37-170); Magnesium 2.0 mg/dL (1.6-2.3)
[2025-09-13 14:13] LABS: Ferritin 18.30 ng/mL (11.1-264)
--- OUTSIDE RECORDS SUMMARY | 2025-09-13 14:23 | XMS_ITS | Encounter Summary ---
Author Organization [facility] Address [address] [place] [address] Care Team Providers Care Clinic Specialist Name Role Phone Ivette Clark NP Unavailable [phone] Scott Guerrero MD Unavailable Nerissa Hill MD Unavailable [phone] Lynette Ponce MD Primary Care Provider [phone] Bing Alvares MD Unavailable Lynette Ponce MD Primary Care Provider [phone] Encounter Details Date Type Department Care Team (Latest Contact Info) Description 12/13/2022 MedaNext Message Enc [facility] MultiSpecialty Care [facility] [address] [place] [id number] [facility] Provider provider's result note [...] Coronavirus/COVID-19? No / Unsure 12/12/2022 9:13 AM FOOD SERVICE HOTEL RUNNER documented as of this encounter Plan of Treatment Upcoming Encounters Date Type Department Care Team (Late st Contact Info) Description 10/10/2025 12:45 PM FOOD SERVICE HOTEL RUNNER Office Visit [facility] [place] [address] Bing Alvares MD [address] [place] [address] documented as of this encounter Visit Diagnoses Not on filedocumented in this encounter Additional Health Concerns Assessment Noted Time PHQ-9 Depression Total Score: 0 12/12/19 4:08 PM FOOD SERVICE HOTEL RUNNER documented as of this encounter Care Teams Clinic Specialist Relationship Specialty Start Date End Date Lynette Ponce MD [address] [place] [address] PCP - General INTERNAL MEDICINE 03/08/24 03/16/24 Lynette Ponce MD [address] [place] [address] PCP - General 03/29/24 Ivette Clark NP [place] Fingerprint Technician NURSE PRACTITIONER 02/09/19 03/25/24 Scott Guerrero MD Consulting Physician GASTROENTEROLOGY 03/04/19 Nerissa Hill MD [place] Fingerprint Technician CARDIOVASCULAR DISEASE 03/17/19 03/25/24 Bing Alvares MD [address] [place] [address] Consulting Physician CARDIOVASCULAR DISEASE 03/22/24 documented as of this encounter
--- OUTSIDE RECORDS SUMMARY | 2025-09-13 14:23 | XMS_ITS | Encounter Summary ---
Author Organization [facility] Address [address] [place] [address] Care Team Providers Care Manager Restaurant Name Role Phone Ivette Clark NP Unavailable [phone] Scott Guerrero MD Unavailable Nerissa Hill MD Unavailable [phone] Lynette Ponce MD Primary Care Provider [phone] Bing Alvares MD Unavailable Lynette Ponce MD Primary Care Provider [phone] Encounter Details Date Type Department Care Team (Latest Contact Info) Description 05/07/2023 mySugr Message Enc [facility] Medical Group MultiSpecialty Care [facility] [address] [place] [phone] [place], [facility] Provider provider's response Social History Tobacco Use [...] days 05/09/2023 1:53 PM CDT Dannielle Haynes, GREY GOODS MARKER Active Feeling down, depressed, or hopeless More than half the days 05/09/2023 1:53 PM CDT Dannielle Haynes, GREY GOODS MARKER Active Patient Health Questionnaire-2 Score 4 05/09/2023 1:53 PM CDT Dannielle Haynes, GREY GOODS MARKER Active * Question Answer Date of Assessment Author Status Trouble falling or staying asleep, or sleeping too much Nearly every day 05/09/2023 1:53 PM CDT Dannielle Haynes, GREY GOODS MARKER Active Feeling tired or having little energy Nearly every day 05/09/2023 1:53 PM CDT Dannielle Haynes, GREY GOODS MARKER Active Poor appetite or overeating Nearly every day 05/09/2023 1:53 PM CDT Dannielle Haynes, GREY GOODS MARKER Active Feeling bad about yourself - or that you are a failure or have let yourself or your family down More than half the days 05/09/2023 1:53 PM CDT Dannielle Haynes, GREY GOODS MARKER Active Trouble concentrating on things, such as reading the newspaper or watching television More than half the days 05/09/2023 1:53 PM CDT Dannielle Haynes, GREY GOODS MARKER Active Moving or speaking so slowly that other people could have noticed? Or the opposite - being so fidgety or restless that you have been moving around a lot more than usual. Not at all 05/09/2023 1:53 PM CDT Dannielle Haynes, GREY GOODS MARKER Active Thoughts that you would be better off or hurting yourself in some way Not at all 05/09/2023 1:53 PM CDT Dannielle Haynes, GREY GOODS MARKER Active Patient Health Questionnaire-9 Score 17 05/09/2023 1:53 PM CDT Dannielle Haynes, GREY GOODS MARKER Active * If you checked off any problems on this questionnaire so far, Question Answer Date of Assessment Author Status How difficult have these problems made it for you to do your work, take care of things at home, or get along with other people? Somewhat difficult 05/09/2023 1:53 PM CDT Dannielle Haynes, GREY GOODS MARKER Active * Over the last 2 weeks, how often have you been bothered by any of the following problems? Question Answer Date of Assessment Author Status Feeling nervous, anxious, or on edge 2 05/09/2023 1:58 PM CDT Dannielle Haynes, GREY GOODS MARKER A ctive Not being able to stop or control worrying 2 05/09/2023 1:58 PM CDT Dannielle Haynes, GREY GOODS MARKER Active Worrying too much about different things 2 05/09/2023 1:58 PM CDT Dannielle Haynes, GREY GOODS MARKER Active Trouble relaxing 2 05/09/2023 1:58 PM CDT Dannielle Haynes, GREY GOODS MARKER Active Being so restless that it is hard to sit still 2 05/09/2023 1:58 PM CDT Dannielle Haynes, GREY GOODS MARKER Active Becoming easily annoyed or irritable 2 05/09/2023 1:58 PM CDT Dannielle Haynes E, GREY GOODS MARKER A ctive Feeling afraid as if something awful might happen 1 05/09/2023 1:58 PM CDT Dannielle Haynes, GREY GOODS MARKER A ctive CHANDAN-7 Total Score 13 05/09/2023 1:58 PM CDT Dannielle Hays E, GREY GOODS MARKER Active documented as of this encounter Plan of Treatment Upcoming Encounters Date Type Department Care Team (Late st Contact Info) Description 10/10/2025 12:45 PM PULP GRINDER AND BLENDER Office Visit [facility] [place] [address] Bing Alvares MD [address] [place] [address] documented as of this encounter Visit Diagnoses Not on filedocumented in this encounter Additional Health Concerns Assessment Noted Time PHQ-9 Depression Total Score: 0 12/12/19 22 4:08 PM PULP GRINDER AND BLENDER documented as of this encounter Care Teams Manager Restaurant Relationship Specialty Start Date End Date Lynette Ponce MD [address] [place] [address] PCP - General INTERNAL MEDICINE 03/08/24 03/16/24 Lynette Ponce MD [address] [place] [address] PCP - General 03/29/24 Ivette Clark NP [place] Digital Strategy Director NURSE PRACTITIONER 02/09/19 03/25/24 Scott Guerrero MD Consulting Physician GASTROENTEROLOGY 03/04/19 Nerissa Hill MD [place] Digital Strategy Director CARDIOVASCULAR DISEASE 03/17/19 03/25/24 Bing Alvares MD [address] [place] [address] Consulting Physician CARDIOVASCULAR DISEASE 03/22/24 documented as of this encounter
--- OUTSIDE RECORDS SUMMARY | 2025-09-13 14:23 | XMS_ITS | Encounter Summary ---
Author Organization [facility] Address [address] [place] [address] Care Team Providers Care Associate Software Engineer Name Role Phone Ivette Clark NP Unavailable [phone] Scott Guerrero MD Unavailable eNrissa Hill MD Unavailable [phone] Carline Plummer [facility] Unavailable [phone] Lynette Ponce MD Primary Care Provider [phone] Bing Alvares MD Unavailable Lynette Ponce MD Primary Care Provider [phone] Encounter Details Date Type Department Care Team (Late st Contact Info) Description 01/09/2021 MyChart Message Enc [facility] Medical Group MultiSpecialty Care [facility] [address] [place] [address] Teri Mojica, [facility] [address] [place] [address] Test Results Social History Tobacco Use Types [...] st Contact Info) Description 10/10/2025 12:45 PM COMMUNICATION TECHNICIAN Office Visit [facility] [place] [address] Bing Alvares MD [address] [place] [address] documented as of this encounter Visit Diagnoses Not on filedocumented in this encounter Additional Health Concerns Assessment Noted Time PHQ-9 Depression Total Score: 13 021 11:47 AM COMMUNICATION TECHNICIAN documented as of this encounter Care Teams Associate Software Engineer Relationship Specialty Start Date End Date Lynette Ponce MD [address] [place] [address] PCP - General INTERNAL MEDICINE 03/08/24 03/16/24 Lynette Ponce MD [address] [place] [address] PCP - General 03/29/24 Ivette Clark NP [place] Tugger Operator NURSE PRACTITIONER 02/09/19 03/25/24 Scott Guerrero MD Consulting Physician GASTROENTEROLOGY 03/04/19 Nerissa Hill MD [place] Tugger Operator CARDIOVASCULAR DISEASE 03/17/19 03/25/24 [facility] NURSE PRACT[facility] 12/22/20 02/28/22 Bing Alvares MD [address] [place] [address] Consulting Physician CARDIOVASCULAR DISEASE 03/22/24 documented as of this encounter
--- OUTSIDE RECORDS SUMMARY | 2025-09-13 14:23 | XMS_ITS | Patient Health Record ---
Author Organization [facility] Address [address] [place], [place] [address] Care Team Providers Care Sql Architect Name Role Phone RICO CUNNINGHAM Unavailable [phone] Lynette Ponce Unavailable Unavailable Allergies Allergen (clinical drug ingredient) Drug/Non Drug Allergy documented on EMR Reaction Allergy Type Onset Date Status cephalexin Cephalexin Unknown Drug Allergy Activ e Methyl Protect Unknown Drug Allergy Ac tive Reason For Referral No Information Medications Medication SIG (Take, Route, Frequency, Duration) Notes Start Date End Date Status Potassium Active Prevacid Active [place] Active Torsemide Active clonazePAM Active [place] Active Social History Tobacco Use: Social History Observation Description Date Details (start date - stop date) Never Smoker NA - NA Social History Tobacco Use: Social Info Question Answer Notes Tobacco Control (Standard) Tobacco use: Nonsmoker Additional Details Category Social Info Options Details Drugs/Alcohol: Do you drink alcohol? No Vital Signs Height-cm 172.72 cm 08/25/2025 Weight-kg 78.02 kg 08/25/2025 Height 68 in 08/25/2025 Weight 172 lbs 08/25/2025 BMI 26.15 kg/m2 08/25/2025 Encounters Encounter Location Date Provider Diagnosis [address] [id number] 08/18/2025 RICO CUNNINGHAM Metatarsalgia, left foot M77.42 ; Pain in right foot M79.671 and Pain in left foot M79.[address] [id number] 08/25/2025 RICO CUNNINGHAM Assessments Encounter Date Diagnosis (ICD Code) Assessment [...] foot (ICD-10 - M79.672) Plan Of Treatment Next Appt Details Provider Name:RICO ISRAEL, 10/07/2025 10:50:00 AM, [address], [place], [place], [id number], Insurance Providers Payer Name Payer Address Payer Phone Subscriber Number Group Number Insured Name Patient Relationship to Insured Coverage Start Date Coverage End Date [employer] [address] [address] [place], [place] [id number] Irene Lei Self - patient is the insured Medical (General) History Medical History History ICD Code acid reflux anemia Leg/Feet cramps MRSA Arthritis Back Trouble Diabetic heart/disease/failure Surgical History Surgery Date(Month/Year) bunionectomy hammer toe
--- OUTSIDE RECORDS SUMMARY | 2025-09-13 14:23 | XMS_ITS | Encounter Summary ---
Author Organization [facility] Address [address] [place] [address] Care Team Providers Care Lease Administration Analyst Name Role Phone Ivette Clark NP Unavailable [phone] Fabian Palacios MD Unavailable Unavailable Scott uGerrero MD Unavailable Nerissa Hill MD Unavailable [phone] Carline Plummer [facility] Unavailable [phone] Lynette Ponce MD Primary Care Provider [phone] Bing Alvares MD Unavailable Lynette Ponce MD Primary Care Provider [phone] Encounter Details Date Type Department Care Team ([facility] st Contact Info) Description 09/25/2018 MyChart Message Enc [facility] Medical Group MultiSpecialty Care [facility] [address] [place] [address] Melissa Watson, TEST CLERK [address] [address] RE: Other Social History [...] CST Medication is updated in patient's chart. RVISOR HEAT TREATING * Faith Chandler RN - 09/26/2018 8:27 AM CST Does this need any more follow up? Please advise RVISOR HEAT TREATING documented in this encounter Plan of Treatment Upcoming Encounters Date Type Department Care Team (Late st Contact Info) Description 10/10/2025 12:45 PM SUPERVISOR HEAT TREATING Office Visit [facility] [place] [address] Bing Alvares MD [address] [place] [address] documented as of this encounter Visit Diagnoses Not on filedocumented in this encounter Additional Health Concerns Infection Onset Date Last Indicated Resolved Time COVID-19 Rule Out 03/06/2020 03/03/2020 03/06/2020 9:26 AM CDT documented as of this encounter Care Teams Lease Administration Analyst Relationship Specialty Start Date End Date Lynette Ponce MD [address] [place] [address] PCP - General INTERNAL MEDICINE 03/08/24 03/16/24 Lynette Ponce MD [address] [place] [address] PCP - General 03/29/24 Ivette Clark TEST CLERK [place] [employer] NURSE PRACTITIONER 02/09/19 03/25/24 Fabian Palacios MD [place] [employer]ather INTERVENTIONAL CARDIOLOGY 02/09/19 03/16/19 Scott Guerrero MD Consulting Physician GASTROENTEROLOGY 03/04/19 Nerissa Hill MD [place] Metal Lather CARDIOVASCULAR DISEASE 03/17/19 03/25/24 Carline Plummer FNP-BC NURSE PRACTITIONER 12/22/20 02/28/22 Bing Alvares MD [address] [place] [address] Consulting Physician CARDIOVASCULAR DISEASE 03/22/24 documented as of this encounter
--- OUTSIDE RECORDS SUMMARY | 2025-09-13 14:23 | XMS_ITS | Encounter Summary ---
Author Organization [facility] Address [facility] [place] [address] Care Team Providers Care Car Sales Associate Name Role Phone Ivette Clark NP Unavailable [phone] Fabian Palacios MD Unavailable Unavailable Scott Guerrero MD Unavailable Nerissa Hill MD Unavailable [phone] Carline Plummer [facility] Unavailable [phone] Lynette Ponce MD Primary Care Provider [phone] Bing Alvares MD Unavailable Lynette Ponce MD Primary Care Provider [phone] Encounter Details Date Type Department Care Team (Latest Contact Info) Description 07/13/2018 Abstract [facility] Medical Group Sri Russ MD Social [...] st Contact Info) Description 10/10/2025 12:45 PM MANPOWER DEVELOPMENT MANAGER Office Visit [facility] [place] [address] Bing Alvares MD [address] [place] [address] documented as of this encounter Visit Diagnoses Not on filedocumented in this encounter Additional Health Concerns Infection Onset Date Last Indicated Resolved Time COVID-19 Rule Out 03/06/2020 03/03/2020 03/06/2020 9:26 AM CDT documented as of this encounter Care Teams Car Sales Associate Relationship Specialty Start Date End Date Lynette Ponce MD [address] [place] [address] PCP - General INTERNAL MEDICINE 03/08/24 03/16/24 Lynette Ponce MD [address] [place] [address] PCP - General 03/29/24 Ivette Clark NP [place] Learning Services Coordinator NURSE PRACTITIONER 02/09/19 03/25/24 Fabian Palacios MD [place] Learning Services Coordinator INTERVENTIONAL CARDIOLOGY 02/09/19 03/16/19 Scott Guerrero MD Consulting Physician GASTROENTEROLOGY 03/04/19 Nerissa Hill MD [place] Learning Services Coordinator CARDIOVASCULAR DISEASE 03/17/19 03/25/24 Carline Plummer FNP-BC NURSE PRACTITIONER 12/22/20 02/28/22 Bing Alvares MD [address] [place] [address] Consulting Physician CARDIOVASCULAR DISEASE 03/22/24 documented as of this encounter
--- OUTSIDE RECORDS SUMMARY | 2025-09-13 14:23 | XMS_ITS | Encounter Summary ---
Author Organization [facility] Address [address] [place] [address] Care Team Providers Care College Scouting Coordinator Name Role Phone Ivette Clark NP Unavailable [phone] Fabian Palacios MD Unavailable Unavailable Scott Guerrero MD Unavailable Nerissa Hill MD Unavailable [phone] Carline Plummer [facility] Unavailable [phone] Lynette Ponce MD Primary Care Provider [phone] Bing Alvares MD Unavailable Lynette Ponce MD Primary Care Provider [phone] Encounter Details Date Type Department Care Team ([facility] st Contact Info) Description 01/29/2019 MyChart Message Enc [facility] Medical Group MultiSpecialty Care [facility] [address] [place] [address] Melissa Watson, SUPERVISOR PRODUCT INSPECTION [address] [address] Other Social History Tobacco Use [...] st Contact Info) Description 10/10/2025 12:45 PM WATER AEROBICS INSTRUCTOR Office Visit [facility] [place] [address] Bing Alvares MD [address] [place] [address] documented as of this encounter Visit Diagnoses Not on filedocumented in this encounter Additional Health Concerns Infection Onset Date Last Indicated Resolved Time COVID-19 Rule Out 03/06/2020 03/03/2020 03/06/2020 9:26 AM CDT documented as of this encounter Care Teams College Scouting Coordinator Relationship Specialty Start Date End Date Lynette Ponce MD [address] [place] [address] PCP - General INTERNAL MEDICINE 03/08/24 03/16/24 Lynette Ponce MD [address] [place] [address] PCP - General 03/29/24 Ivette Clark NP [place] Arts Administrator NURSE PRACTITIONER 02/09/19 03/25/24 Fabian Palacios MD [place] Arts Administrator INTERVENTIONAL CARDIOLOGY 02/09/19 03/16/19 Scott Guerrero MD Consulting Physician GASTROENTEROLOGY 03/04/19 Nerissa Hill MD [place] Arts Administrator CARDIOVASCULAR DISEASE 03/17/19 03/25/24 Carline Plummer [facility] NURSE PRACTITIONER 12/22/20 02/28/22 Bing Alvares MD [address] [place] [address] Consulting Physician CARDIOVASCULAR DISEASE 03/22/24 documented as of this encounter
--- OUTSIDE RECORDS SUMMARY | 2025-09-13 14:23 | XMS_ITS | Encounter Summary ---
Author Organization [facility] Address [address] [place] [address] Care Team Providers Care Feather Duster Winder Name Role Phone Ivette Clark NP Unavailable [phone] Fabian Palacios MD Unavailable Unavailable Scott Guerrero MD Unavailable Nerissa Hill MD Unavailable [phone] Carline Plummer [facility] Unavailable [phone] Lynette Ponce MD Primary Care Provider [phone] Bing Alvares MD Unavailable Lynette Ponce MD Primary Care Provider [phone] Encounter Details Date Type Department Care Team (Latest Contact Info) Description 11/15/2018 MyChart Message Enc [facility] Medical Group MultiSpecialty [facility] [address] [place] [address] Melissa Watson, MANAGER GRANT [address] [address] Medication Questions Social History Tobacco [...] st Contact Info) Description 10/10/2025 12:45 PM CORRECTIONS COUNSELOR Office Visit [facility] [address] [place] [address] Bing Alvares MD [address] [place] [address] documented as of this encounter Visit Diagnoses Not on filedocumented in this encounter Additional Health Concerns Infection Onset Date Last Indicated Resolved Time COVID-19 Rule Out 03/06/2020 03/03/2020 03/06/2020 9:26 AM CDT documented as of this encounter Care Teams Feather Duster Winder Relationship Specialty Start Date End Date Lynette Ponce MD [address] [place] [address] PCP - General INTERNAL MEDICINE 03/08/24 03/16/24 Lynette Ponce MD [address] [place] [address] PCP - General 03/29/24 Ivette Clark NP [place] Portable Track Crew Chief NURSE PRACTITIONER 02/09/19 03/25/24 Fabian Palacios MD [place] Portable Track Crew Chief INTERVENTIONAL CARDIOLOGY 02/09/19 03/16/19 Scott Guerrero MD Consulting Physician GASTROENTEROLOGY 03/04/19 Nerissa Hill MD [place] Portable Track Crew Chief CARDIOVASCULAR DISEASE 03/17/19 03/25/24 Carline Plummer FNP-BC NURSE PRACTITIONER 12/22/20 02/28/22 Bing Alvares MD [address] [place] [address] Consulting Physician CARDIOVASCULAR DISEASE 03/22/24 documented as of this encounter
--- OUTSIDE RECORDS SUMMARY | 2025-09-13 14:23 | XMS_ITS | Encounter Summary ---
Author Organization [facility] Address [address] [place] [address] Care Team Providers Care Radio Intelligence Operator Name Role Phone Ivette Clark NP Unavailable [phone] Scott Guerrero MD Unavailable Nerissa Hill MD Unavailable [phone] Carline Plummer [facility] Unavailable [phone] Lynette Ponce MD Primary Care Provider Bing Alvares MD Unavailable Lynette Ponce MD Primary Care Provider [phone] Encounter Details Date Type Department Care Team (Late st Contact Info) Description 06/24/2020 Lelong Message Enc [facility] Medical Group MultiSpecialty Care [facility] [address] [place] [address] Teri Mojica, [facility] [address] [place] [address] Test Results Social History Tobacco Use Types [...] st Contact Info) Description 10/10/2025 12:45 PM ASSISTANT INVENTORY MANAGER Office Visit [facility] [place] [address] Bing Alvares MD [address] [place] [address] documented as of this encounter Visit Diagnoses Not on filedocumented in this encounter Additional Health Concerns Assessment Noted Time PHQ-9 Depression Total Score: 19 019 4:41 PM CDT documented as of this encounter Care Teams Radio Intelligence Operator Relationship Specialty Start Date End Date Lynette Ponce MD [address] [place] [address] PCP - General INTERNAL MEDICINE 03/08/24 03/16/24 Lynette Ponce MD [address] [place] [address] PCP - General 03/29/24 Ivette Clark NP [place] Director Case Management NURSE PRACTITIONER 02/09/19 03/25/24 Scott Guerrero MD Consulting Physician GASTROENTEROLOGY 03/04/19 Nerissa Hill MD [place] Director Case Management CARDIOVASCULAR DISEASE 03/17/19 03/25/24 [facility]line [facility] NURSE PRACTITIONER 12/22/20 02/28/22 Bing Alvares MD [address] [place] [address] Consulting Physician CARDIOVASCULAR DISEASE 03/22/24 documented as of this encounter
--- OUTSIDE RECORDS SUMMARY | 2025-09-13 14:23 | XMS_ITS | Encounter Summary ---
Author Organization [facility] Address [address] [place] [address] Care Team Providers Care Tape Cutting Machine Operator Name Role Phone Ivette Clark NP Unavailable [phone] Scott Guerrero MD Unavailable Nerissa Hill MD Unavailable [phone] Carline Plummer [facility] Unavailable [phone] Lynette Ponce MD Primary Care Provider [phone] Bing Alvares MD Unavailable Lynette Ponce MD Primary Care Provider [phone] Encounter Details Date Type Department Care Team (Late st Contact Info) Description 12/09/2019 FreeWavz Message Enc [facility] Medical Group MultiSpecialty Care [facility] [address] [place] [address] Teri Mojica, [facility] [address] [place] [address] Other Social History Tobacco Use Types Packs/Day [...] st Contact Info) Description 10/10/2025 12:45 PM CENSUS ENUMERATOR Office Visit [facility] [place] [address] Bing Alvares MD [address] [place] [address] documented as of this encounter Visit Diagnoses Not on filedocumented in this encounter Additional Health Concerns Infection Onset Date Last Indicated Resolved Time COVID-19 Rule Out 03/06/2020 03/03/2020 03/06/2020 9:26 AM CDT Assessment Noted Time PHQ-9 Depression Total Score: 19 019 4:41 PM CDT documented as of this encounter Care Teams Tape Cutting Machine Operator Relationship Specialty Start Date End Date Lynette Ponce MD [address] [place] [address] PCP - General INTERNAL MEDICINE 03/08/24 03/16/24 Lynette Ponce MD [address] [place] [address] PCP - General 03/29/24 Ivette Clark NP [place] NURSE PRACTITIONER 02/09/19 03/25/24 Scott Guerrero MD Consulting Physician GASTROENTEROLOGY 03/04/19 Nerissa Hill MD [place] CARDIOVASCULAR DISEASE 03/17/19 03/25/24 Carline Plummer FNP-BC NURSE PRACTITIONER 12/22/20 02/28/22 Bing Alvares MD [address] [place] [address] Consulting Physician CARDIOVASCULAR DISEASE 03/22/24 documented as of this encounter
--- OUTSIDE RECORDS SUMMARY | 2025-09-13 14:23 | XMS_ITS | Clinical Summary ---
Author Organization [facility] Address [address] [place] [address] Care Team Providers Care Lawnmower Mechanic Name Role Phone Unavailable Primary Care Provider Unavailabl e Source Comments [facility],non-owned Affiliates and Associated Physician Practices is amultiple site organization consisting of ambulatory clinics and hospital sitesin [place], [place], [place] and [place]. This disclosure is being madepursuant to the Care Everywhere program and may not contain all information available regarding this patient. Last updated 18.[facility] Social History Tobacco Use Types Packs/Day Years [...] of 3 - 19+ 3-dose series) 1985 Cervical Cancer Screening 1987 PAP SMEAR 1987 PAP with HPV 1996 PNEUMOCOCCAL VACCINE 50+ (1 of 1 - PCV) 2016 ZOSTER VACCINE (1 of 2) 2016 DEPRESSION SCREENING 10/20/2024 COVID-19 VACCINE ( - 2024-2 6 season) 2025 INFLUENZA VACCINE (#1) 2025 HIB [...] Subscriber ID:Not on file (Home) Address: [address] [place] [address] Payer ID:Not on file Group ID:Not on file Type:Self Pay Address: [place], [place]
--- OUTSIDE RECORDS SUMMARY | 2025-09-13 14:23 | XMS_ITS | Encounter Summary ---
Author Organization [facility] Address [address] [place] [address] Care Team Providers Care Felting Machine Operator Name Role Phone Ivette Clark NP Unavailable [phone] Fabian Palacios MD Unavailable Unavailable Scott Guerrero MD Unavailable Nerissa Hill MD Unavailable [phone] Carline Plummer [facility] Unavailable [phone] Lynette Ponce MD Primary Care Provider [phone] Bing Alvares MD Unavailable Lynette Ponce MD Primary Care Provider [phone] Encounter Details Date Type Department Care Team (Latest Contact Info) Description 09/14/2018 [employer] Message Enc [facility] MultiSpecialty [facility] [address] [place] [address] Melissa Watson, RN FORENSIC [address] [address] Follow Up/Update Social History Tobacco [...] st Contact Info) Description 10/10/2025 12:45 PM 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 AND STEEL WORK SUPERVISOR Office Visit [facility] [address] [place] [address] Bing Alvares MD [address] [place] [address] documented as of this encounter Visit Diagnoses Not on filedocumented in this encounter Additional Health Concerns Infection Onset Date Last Indicated Resolved Time COVID-19 Rule Out 03/06/2020 03/03/2020 03/06/2020 9:26 AM CDT documented as of this encounter Care Teams Felting Machine Operator Relationship Specialty Start Date End Date Lynette Ponce MD [address] [place] [address] PCP - General INTERNAL MEDICINE 03/08/24 03/16/24 Lynette Ponce MD [address] [place] [address] PCP - General 03/29/24 Ivette Clark NP [place] [facility] Nurse Practitioner NURSE PRACTITIONER 02/09/19 03/25/24 Fabian Palacios MD [place] Nurse Practitioner INTERVENTIONAL CARDIOLOGY 02/09/19 03/16/19 Scott Guerrero MD Consulting Physician GASTROENTEROLOGY 03/04/19 Nerissa Hill MD [place] Nurse Practitioner CARDIOVASCULAR DISEASE 03/17/19 03/25/24 Carline Plummer FNP-BC NURSE PRACTITIONER 12/22/20 02/28/22 Bing Alvares MD [address] [place] [address] Consulting Physician CARDIOVASCULAR DISEASE 03/22/24 documented as of this encounter
--- OUTSIDE RECORDS SUMMARY | 2025-09-13 14:23 | XMS_ITS | Encounter Summary ---
Author Organization [facility] Address [address] [place] [address] Care Team Providers Care Cpc Name Role Phone Ivette Clark NP Unavailable [phone] Fabian Palacios MD Unavailable Unavailable Scott Guerrero MD Unavailable Nerissa Hill MD Unavailable [phone] Carline Plummer [facility] Unavailable [phone] Lynette Ponce MD Primary Care Provider [phone] Bing Alvares MD Unavailable Lynette Ponce MD Primary Care Provider Encounter Details Date Type Department Care Team ([facility] st Contact Info) Description 10/21/2018 MyChart Message Enc [facility] Medical Group MultiSpecialty Care [facility] [address] [place] [address] Melissa Watson, FLOOR COVERINGS SALESPERSON [address] [address] Other Social History Tobacco [...] 10/22/2018 8:04 AM CST Please advise. Thanks. OLEUM PLANT OPERATOR documented in this encounter Plan of Treatment Upcoming Encounters Date Type Department Care Team (Late st Contact Info) Description 10/10/2025 12:45 PM PETROLEUM PLANT OPERATOR Office Visit [facility] [address] [place] [address] Bing Alvares MD [address] [place] [address] documented as of this encounter Visit Diagnoses Not on filedocumented in this encounter Additional Health Concerns Infection Onset Date Last Indicated Resolved Time COVID-19 Rule Out 03/06/2020 03/03/2020 03/06/2020 9:26 AM CDT documented as of this encounter Care Teams Cpc Relationship Specialty Start Date End Date Lynette Ponce MD [address] [place] [address] PCP - General INTERNAL MEDICINE 03/08/24 03/16/24 Lynette Ponce MD [address] [place] [address] PCP - General 03/29/24 Ivette Clark NP [place] [facility] NURSE PRACTITIONER 02/09/19 03/25/24 Fabian Palacios MD [place] [facility] INTERVENTIONAL CARDIOLOGY 02/09/19 03/16/19 Scott Guerrero MD Consulting Physician GASTROENTEROLOGY 03/04/19 Nerissa Hill MD [place] [employer] [employer] CARDIOVASCULAR DISEASE 03/17/19 03/25/24 Carline Plummer FNP- NURSE PRACTITIONER 12/22/20 02/28/22 Bing Alvares MD [address] [place] [address] Consulting Physician CARDIOVASCULAR DISEASE 03/22/24 documented as of this encounter
--- OUTSIDE RECORDS SUMMARY | 2025-09-13 14:24 | XMS_ITS | Clinical Summary ---
Author Organization [facility] Address [facility] [place] [address] Care Team Providers Care Phlebotomist Supervisor/Instructor Name Role Phone Scott Guerrero MD Unavailable Bing Alvares MD Unavailable Lynette Ponce MD Primary Care Provider [phone] Allergies Active Allergy Reactions Criticality Noted Date [...] Type Department Care Team Description 07/18/2025 [facility] [address] [place] [address] Bing Alvares MD Called To Cancel Office Appt. 07/05/2025 Telephone [facility] [address] [place] [address] Bing Alvares MD Appointment Request from Last 3 Months Immunizations Immunization Administration Dates Next Due Dtap (Generic) 11/17/2019 Fluzone 6 Months+ Quad (0.5 mL Prefilled Syringe) 07/12/2021 Hepatitis A (Generic) 05/21/2009,12/12/2006,08/0 11/2005 Hepatitis B 04/18/2021 Hepatitis B (Generic: Adult) 04/26/2014,03/11/20 06 Influenza 3 yrs + with Prese rvative (Fluzone) 07/27/2020 Influenza Adult (Generic) 08/17/2023,07/26/2022, 07/20/2019 MMR 02/23/2009 MODERNA COVID-19 (SENIOR SYSTEMS ANALYST DENNIS JOAQUINA), MRNA, LNP-S, PF, 50 MCG/ [...] 36.6 C (97.9 F) 10/07/2023 8:34 AM RENTAL MANAGEMENT TRAINEE Respiratory Rate 12 05/31/2024 2:35 PM CDT Oxygen Saturation 100% 05/31/2024 2:35 PM CDT Inhaled Oxygen Concentration - - Weight 76.2 kg (168 lb) 05/31/2024 2:35 PM CDT Height 170.2 cm (5' 7) 05/31/2024 2:35 PM CDT Body Mass Index 26.31 05/31/2024 2:35 PM CDT Plan of Treatment Upcoming Encounters Date Type Department Care Team (Late st Contact Info) Description 10/10/2025 12:45 PM RENTAL MANAGEMENT TRAINEE Office Visit [facility] [place] [address] Bing Alvares MD [address] [place] [address] Health Maintenance Due Date Last Done Comments Colorectal Cancer Screening Colonoscopy (10 Years) 1966 Mammogram Screening 2006 Pneumococcal Vaccine: 50+ Years (1 of 1 - PCV) 2016 Zoster Vaccines (1 of 2) 08/07/2021 Annual Physical 03/02/2022 03/02/2021 PHQ-2 (Physician [place]) 10/20/2024 10/07/2023 COVID-19 Vaccine (4 - season) 2025 07/26/2022, 05/09/2022, 03/23/2021 Influenza Adult (#1) 2025 08/17/2023, 07/26/2022, 07/12/2021, Additional history exists DTaP, Tdap and Td Vaccines (4 - Td or Tdap) 11/17/2029 11/17/2019, 11/17/2019, 04/26/2014 Hepatitis C 05/13/2053 Postponed from 1984 (Patient Refused) Hepatitis A Vaccines Completed 05/21/2009, 12/12/2006, 05/21/2006 Hepatitis B Vaccines Completed 04/18/2021, 04/26/2014, 03/11/2006 Meningococcal B Vaccine Aged Out No l onger eligible based on patient's age to complete this topic Meningococcal Vaccine Aged Out No leon terrie eligible based on patient's age to complete this topic RSV Immunizations Under 20 Months Aged Out No longer eligible based on patient's age to complete this topic Medical Devices Implanted Type Area Black Top Machine Operator Device Identifier Shelf Expiration Date Model / Serial / Lot Wire Abhilash Magic Pins Orthofix 1.2 X 7mm - [id number] Implanted:Qty: 1 on 09/23/2018 by Tressa Traylor DPM at [facility] Wire Left: Foot ORTHOFIX [id number] / / N/A Description:Verified by MD Concetta Castroutrak 2 Mini 20.0mm - [id number] Implanted:Qty: 1 on 09/23/2018 by Tressa Traylor DPM at [facility] Left: Foot [employer] 05/20/2025 AT2-[id number] / / [id number] Description:Verified by Wire Abhilash Magic Pins Orthofix 1.6 X 17 - [id number] Implanted:Qty: 1 on 09/23/2018 by Tressa Traylor DPM at [facility] Left: Foot ORTHOFIX [id number] / / N/A Description:Verified by Wire Abhilash Magic Pins Orthofix 1.6 X 11 - [id number] Implanted:Qty: 1 on 01/20/2019 by Tressa Traylor DPM at [facility] Right: Foot ORTHOFIX [id number] / / N/A Description:Verified by Screw Acutrak 2 Mini 18.0mm - [id number] Implanted:Qty: 1 on 01/20/2019 by Tressa Traylor DPM at [facility] Right: Foot [employer] 08/03/2025 AT2-[id number] / / [id number] Description:Verified by Wire Abhilash Magic Pins Orthofix 1.6 X 17 - [id number] Implanted:Qty: 1 on 01/20/2019 by Tressa Trayolr DPM at [facility] Right: Foot ORTHOFIX [id number] / / N/A Description:Verified by Explanted Type Area Black Top Machine Operator Device Identifier Shelf Expiration Date Model / Serial / Lot .045mm Mini Guidewire Explanted:Qty: 2 on 09/23/2018 by Tressa Traylor DPM at [facility] Left: Foot [id number] / / N/A Description:Used not implant ed Sm Cannulated Drill Tip Explanted:Qty: 1 on 09/23/2018 by Tressa Traylor DPM at [facility] Left: Foot [id number] / / N/A Description:Used not implant ed K Wire Lionel 6 In X .045 In - [id number] Explanted:Qty: 1 on 01/20/2019 by Tressa Traylor DPM at [facility] Right: Foot [employer] 05/19/2028 [id number] / / [id number] Description:Used not implant ed .045 Mini Guidewire Explanted:Qty: 1 on 01/20/2019 by Tressa Traylor DPM at [facility] Right: Foot [id number] / / N/A Description:Used not implant [id number] Mini Drill Tip Explanted:Qty: 1 on 01/20/2019 by Tressa Traylor DPM at [facility] Right: Foot [id number] / / N/A Description:Used not implant ed Insurance UMR Advance Directives Documents on File Type Date Recorded Patient Inspector Fuel Hose Expl anation Advance Directives and Living Will 04/04/2015 12:00 AM ADVANCED DIRECTIVES Advance Directives and Living Will 02/09/2015 12:00 AM ADVANCED DIRECTIVES Advance Directives and Living Will 03/08/2013 12:00 AM ADVANCED DIRECTIVES Advance Directives and Living Will 06/30/2012 12:00 AM ADVANCED DIRECTIVES Care Teams Phlebotomist Supervisor/Instructor Relationship Specialty Start Date End Date Lynette Ponce MD [address] [place] [address] PCP - General 03/29/24 Scott Guerrero MD Consulting Physician GASTROENTEROLOGY 03/04/19 Bing lAvares MD [address] [place] [address] Consulting Physician CARDIOVASCULAR DISEASE 03/22/24
--- OUTSIDE RECORDS SUMMARY | 2025-09-13 14:24 | XMS_ITS | Encounter Summary ---
Author Organization [facility] Address [address] [place] [address] Care Team Providers Care Yarn Wrapper Name Role Phone Ivette Clark NP Unavailable [phone] Scott Guerrero MD Unavailable Nerissa Hill MD Unavailable [phone] Carline Plummer [facility] Unavailable [phone] Lynette Ponce MD Primary Care Provider [phone] Bing Alvares MD Unavailable Lynette Ponce MD Primary Care Provider [phone] Encounter Details Date Type Department Care Team (Latest Contact Info) Description 04/27/2019 [employer] Message Enc [facility] Medical Group MultiSpecialty [facility] [address] [place] [address] Melissa Watson, PARTY PLAN SALES HOST/HOSTESS [address] [address] RE: Medication Questions Social History [...] st Contact Info) Description 10/10/2025 12:45 PM STRAWBERRY GROWER Office Visit [facility] [place] [address] Bing Alvares MD [address] [place] [address] documented as of this encounter Visit Diagnoses Not on filedocumented in this encounter Additional Health Concerns Infection Onset Date Last Indicated Resolved Time COVID-19 Rule Out 03/06/2020 03/03/2020 03/06/2020 9:26 AM CDT documented as of this encounter Care Teams Yarn Wrapper Relationship Specialty Start Date End Date Lynette Ponce MD [address] [place] [address] PCP - General INTERNAL MEDICINE 03/08/24 03/16/24 Lynette Ponce MD [address] [place] [address] PCP - General 03/29/24 Ivette Clark NP [facility] [place] [facility] NURSE PRACTITIONER 02/09/19 03/25/24 Scott Guerrero MD Consulting Physician GASTROENTEROLOGY 03/04/19 Nerissa Hill MD [place] [facility] CARDIOVASCULAR DISEASE 03/17/19 03/25/24 Carline Plummer FNP-BC NURSE PRACTITIONER 12/22/20 02/28/22 Bing Alvares MD [address] [place] [address] Consulting Physician CARDIOVASCULAR DISEASE 03/22/24 documented as of this encounter
--- OUTSIDE RECORDS SUMMARY | 2025-09-13 14:24 | XMS_ITS | Encounter Summary ---
Author Organization [facility] Address [address] [place] [address] Care Team Providers Care Pillowcase Sewer Name Role Phone Ivette Clark NP Unavailable [phone] Scott Guerrero MD Unavailable Nerissa Hill MD Unavailable Carline Plummer [facility] Unavailable [phone] Lynette Ponce MD Primary Care Provider [phone] Bing Alvares MD Unavailable Lynette Ponce MD Primary Care Provider [phone] Reason for Visit * Reason Onset Date Comments Prior Authorization 08/17/2019 Encounter Details Date Type Department Care Team (Latest Contact Info) Description 08/17/2019 [employer] Message [facility] Medical Group MultiSpecialty Care [address] [address] Teri Mojica, [facility] [address] [place] [address] Medication Questions Social History Tobacco [...] [employer]. 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 Pharmacy faxed request last Friday08/18/19 ET SWEEPER documented in this encounter Plan of Treatment Upcoming Encounters Date Type Department Care Team (Late st Contact Info) Description 10/10/2025 12:[address]EEPER Office Visit [facility] [address] [place] [address] Bing Alvares MD [address] [place] [address] documented as of this encounter Visit Diagnoses Not on filedocumented in this encounter Additional Health Concerns Infection Onset Date Last Indicated Resolved Time COVID-19 Rule Out 03/06/2020 03/03/2020 03/06/2020 9:26 AM CDT Assessment Noted Time PHQ-9 Depression Total Score: 19 019 4:41 PM CDT documented as of this encounter Care Teams Pillowcase Sewer Relationship Specialty Start Date End Date Lynette Ponce MD [address] [place] [address] PCP - General INTERNAL MEDICINE 03/08/24 03/16/24 Lynette Ponce MD [address] [place] [address] PCP - General 03/29/24 Ivette Clark NP [place] [employer] Board[facility] NURSE PRACTITIONER 02/09/19 03/25/24 Scott Guerrero MD Consulting Physician GASTROENTEROLOGY 03/04/19 Nerissa Hill MD [employer] Boarder CARDIOVASCULAR DISEASE 03/17/19 03/25/24 Carline Plummer FNP-BC NURSE PRACTITIONER 12/22/20 02/28/22 Bing Alvares MD [address] [place] [address] Consulting Physician CARDIOVASCULAR DISEASE 03/22/24 documented as of this encounter
== END 2025-09-13 12:52 | disposition home or self-care (01) ==
PROVIDERS: PCP Internal Medicine; Visit Provider Internal Medicine
DX: Z98.84 Bariatric surgery status (principal)
CPT/HCPCS: 36415; 82306; 82728; 83540; 83735; 84590; 84630